=== PATIENT | female | born 1930 | race Caucasian/White ===

== ENCOUNTER 2017-03-20 11:33 | Emergency (ER) | payer MEDICARE ==
--- NOTE | 2017-03-20 13:19 | RAD ---
THORACIC SPINE THREE VIEW: HISTORY: Injury. Back pain after a fall. COMPARISON: None. FINDINGS: There is mild mid thoracic likely chronic height loss, at T7, T8, and T9. No acute fracture is appre ciated. No listhesis. IMPRESSION: Chronic changes. No acute fracture is appreciated. POS: OFF
--- NOTE | 2017-03-20 13:20 | RAD ---
PA CHEST WITH 3 VIEWS LEFT SIDE RIBS: Date: 03/20/17 HISTORY: Back pain post fall. Injury. COMPARISON: Chest x-ray on 05/21/13. FINDINGS: Cardiac silhouette and pulmonary vasculature are within normal limits. There are scattered increased interstitial densities within the lungs bilaterally, greater at the left lung base, which were also p resent on the prior study and may be related to chronic interstitial fibrotic lung changes. Cardiac s ilhouette and pulmonary vasculature are within normal limits for vascular calcification seen in the t horacic aorta. There is no pneumothorax or pleural effusion identified. No left-sided rib fracture is identified. There is osteopenia. Vascular calcifications are seen in the thoracic aorta. IMPRESSION: 1. Scattered mild interstitial densities in the lungs bilaterally, much greater at the lateral left lung base, and also present on the prior exam. Findings may be related to chronic interstitial fibrot ic lung changes and/or areas of scarring. 2. No left-sided rib fracture is visualized. 3. Prominence of the right paramediastinal soft tissues at the medial aspect right lung apex. Star islas, this is a stable finding dating back to 2009 and may be related to vascular structures. POS: [facility]
--- NOTE | 2017-03-20 13:30 | CT ---
CT OF THE BRAIN WITHOUT CONTRAST: Date: 03/20/17 COMPARISON: None. HISTORY: Back pain after accidental fall 2 days ago. TECHNIQUE: Multiple contiguous axial images were obtained in a CT of the brain without contrast. FINDINGS: There are a few scattered hypodensities in the subcortical and periventricular white matter, likely s econdary to small vessel ischemic disease. No large confluent infarction is seen. There is no evidenc e of hydrocephalus, intracranial hemorrhage, or extra-axial fluid collection. The calvarium and overlying soft tissues are unremarkable. Fluid is seen in the right mastoid air mark ls. IMPRESSION: No evidence of acute intracranial abnormality. POS: [facility]
== END 2017-03-20 13:58 | disposition home or self-care (01) ==
LOC: ERS 11:33
DX: S20.212A Contusion of left front wall of thorax, initial encounter (principal); S00.31XA Abrasion of nose, initial encounter; I25.10 Atherosclerotic heart disease of native coronary artery without angina pectoris; E11.9 Type 2 diabetes mellitus without complications; I10 Essential (primary) hypertension; F41.9 Anxiety disorder, unspecified; F32.9 Major depressive disorder, single episode, unspecified; W19.XXXA Unspecified fall, initial encounter
CPT/HCPCS: 70450; 72072

== ENCOUNTER 2017-03-22 10:30 | Inpatient (IN) | payer MEDICARE ==
[2017-03-22 11:44] LABS: #Eosinphils 0.1 thou/uL (0.0-0.7); #Monocytes 1.8 thou/uL (0.11-0.59); #Neutrophils 16.7 thou/uL (1.40-6.50); %Basophils 0.1 % (0.0-1.0); %Eosinophils 0.3 % (0.0-10.0); %Lymphocytes 5.2 % (21.0-51.0); %Monocytes 9.1 % (0.0-10.0); %Neutrophils 85.3 % (42.0-75.0); Hemoglobin 14.7 g/dL (12.0-16.0); Mean Corpuscular HGB CONC 31.5 g/dL (32.0-36.0); Mean Corpuscular Hemoglobin 29.6 pg (27.0-31.0); Mean Corpuscular Volume 93.9 fl (81.0-99.0); Mean Platelet Volume 7.6 fL (7.4-10.4); Platelet Count 227 thou/uL (130-400); Red Blood Cell (RBC) Count 4.96 mill/uL (4.20-5.40); White Blood Cell (WBC) Count 19.5 thou/uL (4.8-10.8)
[2017-03-22 11:50] LABS: ALT (SGPT) 10 U/L (8-55); AST (SGOT) 10 U/L (5-34); Albumin 3.6 g/dL (3.4-4.8); Alkaline Phosphatase 93 U/L (40-150); Anion Gap 20 mmol/L (10-20); BUN (Urea Nitrogen) 23 mg/dL (9.8-20.1); Bilirubin, Total 0.8 mg/dL (0.2-1.2); CK (CPK) 23 U/L (29-168); Calc. Creatinine Clearance 0 mL/min (70-130); Calcium 10.6 mg/dL (7.8-10.44); Carbon Dioxide 23 mmol/L (23-31); Chloride 97 mmol/L (98-107); Estimated GFR-MDRD 46; Globulin 4.7 g/dL (2.4-3.5); Glucose 383 mg/dL (83-110); Potassium 4.8 mmol/L (3.5-5.1); Protein, Total 8.3 g/dL (6.0-8.3); Sodium 135 mmol/L (136-145)
[2017-03-22 11:54] LABS: CKMB 1.5 ng/mL (0-6.6); Troponin I 0.031 ng/mL (< 0.028)
--- NOTE | 2017-03-22 12:08 | RAD ---
SINGLE VIEW OF THE CHEST: COMPARISON: 04/23/13 and 03/20/17. HISTORY: Fall on . The patient had a 2nd fall on Thursday causing her to hit her hit her back. Chest p ain and contusions. FINDINGS: A single view of the chest shows a normal-size cardiomediastinal silhouette with atherosclerotic calc ifications in the aorta. Increased interstitial lung markings are present. There may be a small rig ht pleural effusion. No pneumothorax is seen. There is no evidence of consolidation or mass. IMPRESSION: Possible small right pleural effusion. POS: [facility]
[2017-03-22 12:43] LABS: Magnesium 1.9 mg/dL (1.6-2.6)
[2017-03-22] MEDS ORDERED: Insulin Regular 300 UNITS/3 ML VIAL ONE (12:55)
[2017-03-22 14:53] LABS: Troponin I 0.031 ng/mL (< 0.028)
[2017-03-22 15:01] LABS: Bilirubin Small (Negative); Blood, Urine Negative (Negative); Clarity CLEAR (Clear); Glucose, Urine (Dipstick) >=1000 mg/dL (Negative); Leukocyte Negative (Negative); Nitrite Negative (Negative); Protein, Urine (Dipstick) 30 mg/dL (Neg-Trace); Specific Gravity, Urine 1.038 (1.002-1.036); pH, Urine 5.5 (5.0-9.0)
[2017-03-22 15:03] LABS: Bacteria/HPF 1+ HPF (None Seen); Hyaline Casts/LPF 0-3 HYALINE CAST LPF (0-3 Hyaline); RBC/HPF 0-3 HPF (0-3); Squamous Epithelial 0-3 HPF (0-3)
[2017-03-22] MEDS ORDERED: Lorazepam 2 MG/ML VIAL ONE ×2 (15:24→17:34)
[2017-03-22] MEDS ORDERED: Milk Of Magnesia 30 ML UDCUP PO PRN (16:03)
[2017-03-22] MEDS ORDERED: Nitroglycerin 0.4 MG TAB (25 Tab Bottle) SL PRN (16:03)
[2017-03-22] MEDS ORDERED: Acetaminophen 325 MG TAB PO PRN (16:03)
[2017-03-22] MEDS ORDERED: Mag-Al 1200 mg/1200 mg/30 ML UDCUP PO PRN (16:03)
[2017-03-22] MEDS ORDERED: Bisacodyl 5 MG TAB PO PRN (16:03)
[2017-03-22] MEDS ORDERED: diphenhydrAMINE 25 MG CAP PO PRN (16:03)
--- NOTE | 2017-03-22 17:01 | HP ---
DATE OF ADMISSION: 03/22/2017 PRIMARY CARE PHYSICIAN: Nathanael Simpson M.D. REASON FOR ADMISSION: Altered mental status, pneumonia, and dehydration. HISTORY OF PRESENT ILLNESS: Ms. Raquel Wright is an 86-year-old female with past medical history of hy pertension, hyperlipidemia, diabetes mellitus type 2 and coronary artery disease who presents to the emergency room complaining of mild shortness of breath as well as altered mental status that began ap proximately 2 days ago and has persisted. According to the family members who are at bedside, the cassie camargo was evaluated in the emergency room after having a fall. At that time, x-rays of the ribs reve aled no left-sided rib fractures. A CT scan at that time revealed evidence of acute intracranial abn ormality. She was then sent home with, according to the family, tramadol and Tylenol 3. She has taken 2 doses of the tramadol and according to the family member, she has not responded well. She began having sharon lucinations and altered mental status. There are no headaches or fevers reported. No cough or sick contacts and reported no chest pain. She returned back to the emergency room complaining of altered mental status. Initial evaluation here including chest x-ray revealed a small right pleural effusion with a white blood cell count of 19,000. She clinically appears to be dehydrated. The family state s that she has not had adequate oral intake with either solids or liquids. She is now being admitted to the telemetry floor for further evaluation. Currently, she is resting comfortably; however at ti mes she has begun agitated. PAST MEDICAL HISTORY: 1. Hypertension. 2. Hyperlipidemia. 3. Diabetes mellitus type 2. 4. Coronary artery disease. PAST SURGICAL HISTORY: 1. Appendectomy. 2. Cholecystectomy. 3. Hysterectomy as well as multiple exploratory laparotomies. CODE STATUS: She is FULL CODE. SOCIAL HISTORY: The patient denies any alcohol, tobacco or drug use. MEDICATIONS: 1. Janumet 1 tab p.o. daily. 2. Sertraline 25 mg p.o. at bedtime. 3. Pravastatin 80 mg p.o. daily. 4. Lisinopril 2.5 mg a day. 5. Carvedilol 12.5 mg p.o. b.i.d. 6. Aspirin 81 mg a day. 7. Protonix 40 mg daily. 8. Tramadol p.r.n. ALLERGIES: CODEINE, AZITHROMYCIN and SULFA. FAMILY HISTORY: Reviewed and noncontributory. REVIEW OF SYSTEMS: Much is obtained from the family members; however, from the patient himself is un able to obtain secondary to altered mental status. PHYSICAL EXAMINATION: CONSTITUTIONAL/VITAL SIGNS: Most recent blood pressure is 137/80, pulse is 98, respirations are 18, O2 saturation 92% on room air, temperature is 98.0. GENERAL: She is in no acute distress, nontoxic appearing. EYES: Show pupils are round and reactive to light and accommodation. No pale conjunctivae. ENT/MOUTH: Dry oral mucosa. No oral lesions. RESPIRATORY: Equal chest wall expansion. Does have decreased breath sounds on the right hemithorax with some mild rhonchi. No accessory muscle use. CARDIOVASCULAR: S1, S2 present. No murmurs, gallops or rubs. GASTROINTESTINAL: Soft, nontender, nondistended. Bowel sounds are present in all 4 quadrants. MUSCULOSKELETAL: Good range of motion in all 4 extremities. No clubbing, no cyanosis. LYMPHATIC: No swollen painful cervical or axillary nodes. NEUROLOGIC: No ptosis, no facial sensation or jaw protrusion. No muscle weakness noted. No focal d eficits. PSYCHIATRIC: She is awake and alert, however, unable to assess orientation secondary to her mentatio n. SKIN: Poor skin turgor. LABORATORY AND X-RAY FINDINGS: Taken in emergency room and reviewed by me showed WBC of 19.5, hemogl obin 14.7, hematocrit 46.6, platelet count 227,000. Chemistry shows sodium of 135, potassium 4.8, ch loride 97, carbon dioxide 23, anion gap 20, BUN 23, creatinine 1.12, calcium is 10.6, phosphorus 2.0, magnesium 1.9. CK is 23, troponin 0.031 and second 0.031 and lipase is 5. TSH 1.0586. Urine shows glucosuria. Tox screen shows beta hydroxybutyrate 0.75. Chest x-ray done in the emergency room and reviewed by me reveals small right pleural effusion. Ther e is no pneumothorax. EKG done in the emergency room reviewed by me shows normal sinus rhythm, no acute ST segment abnormal ities. ASSESSMENT AND PLAN: Mrs. Raquel Wright is an 86-year-old female with past medical history of hyperten sangita, hyperlipidemia, and diabetes mellitus type 2 who presents to the emergency room complaining of altered mental status. 1. Altered mental status. At this time, the patient will be admitted to telemetry floor. Her alter ed mental status is most likely a combination of her dehydration, coupled with her underlying infecti ous process. We will check a repeat CT scan of the brain to ensure no acute cerebrovascular accident . We will start patient on Levaquin therapy as well as IV hydration. We will try to minimize any se dating or antipsychotic agents. 2. Elevated troponins, most likely secondary to demand ischemia. We will check an echocardiogram an d treated medically at this time. Further treatment would be dependent on echocardiogram results. 3. Hypercalcemia secondary to dehydration. We will start IV fluids and monitor. 4. Hypophosphatemia. We will replete. 5. Resume selected home medications. 6. P.r.n. order set. 7. Deep venous thrombosis prophylaxis. 8. Cardiac diet. 9. FULL CODE. 10. I have explained all this to the patient at bedside as well as the family members at bedside. Maxi hatch are agreeable to the plan of treatment. All questions have been answered. The patient's further hospital course will be dictated by her clinical course while here.
--- NOTE | 2017-03-22 17:05 | CT ---
CT HEAD WITHOUT CONTRAST: Technique: Multiple axial tomograms were obtained through the head without IV enhancement. History: Altered mental status. FINDINGS: Mild cortical atrophy. No evidence of focal hemorrhage. No infarct or mass. There is opacification of the right mastoid air cells. Mucosal edema is seen in the right sphenoid air cell. IMPRESSION: 1. No acute intracranial abnormality identified. 2. Mucosal edema in the right mastoid and right sphenoid air cells. POS: [facility]
[2017-03-22 18:42] LABS: Troponin I 0.033 ng/mL (< 0.028)
[2017-03-22] MEDS: Carvedilol 25 MG TAB PO SCH (20:16)
[2017-03-22] MEDS: Pravastatin Sodium 40 MG TAB PO SCH (20:16)
[2017-03-22] MEDS: Sodium Chloride 0.9% 1,000 ML IV SCH (20:17)
[2017-03-23] MEDS: Sodium Chloride 0.9% 1,000 ML IV SCH ×2 (05:34→12:34)
[2017-03-23 05:40] LABS: Anion Gap 16 mmol/L (10-20); BUN (Urea Nitrogen) 16 mg/dL (9.8-20.1); Calc. Creatinine Clearance 50 mL/min (70-130); Carbon Dioxide 18 mmol/L (23-31); Chloride 104 mmol/L (98-107); Estimated GFR-MDRD 73; Glucose 212 mg/dL (83-110); Potassium 3.9 mmol/L (3.5-5.1); Sodium 134 mmol/L (136-145)
[2017-03-23 06:13] LABS: Band 15 % (5-11); Hemoglobin 11.6 g/dL (12.0-16.0); Lymphocytes 6 % (21-51); MDiff Complete? YES; Mean Corpuscular HGB CONC 33.4 g/dL (32.0-36.0); Mean Corpuscular Hemoglobin 31.2 pg (27.0-31.0); Mean Corpuscular Volume 93.6 fl (81.0-99.0); Mean Platelet Volume 7.3 fL (7.4-10.4); Monocytes 7 % (0-10); Neutrophil 72 % (42-75); Platelet Count 251 thou/uL (130-400); RBC Distribution Width 11.8 % (11.5-14.5); Red Blood Cell (RBC) Count 3.71 mill/uL (4.20-5.40); White Blood Cell (WBC) Count 18.9 thou/uL (4.8-10.8)
[2017-03-23] MEDS ORDERED: Dextrose 5% in Water 1,000 ML IV PRN (07:00)
[2017-03-23] MEDS ORDERED: Dextrose 50% Abboject 50 ML SYRINGE SLOW IVP PRN (07:00)
[2017-03-23] MEDS ORDERED: HumaLOG 300 UNITS/3 ML VIAL SC PRN (07:00)
[2017-03-23] MEDS ORDERED: Artificial Tears 18 DROP/0.9 ML EA EYE PRN (07:01)
[2017-03-23] MEDS ORDERED: Diabetic Tussin 200 MG/10 ML UDCUP PO PRN (07:01)
[2017-03-23] MEDS ORDERED: Loratadine 10 MG TAB PO PRN (07:01)
[2017-03-23] MEDS ORDERED: Sodium Chloride 0.65% Nasal 44 ML BOT EA NARE PRN (07:01)
[2017-03-23] MEDS ORDERED: Ondansetron ODT 4 MG TAB PO PRN (07:01)
[2017-03-23] MEDS ORDERED: Eucerin (Mineral Oil/Petrolatum,White) 30 gm Jar TOP PRN (07:01)
[2017-03-23] MEDS ORDERED: Benzonatate 100 MG CAP PO PRN (07:01)
[2017-03-23] MEDS ORDERED: Chloraseptic Spray 180 ml Bottle PO PRN (07:01)
[2017-03-23] MEDS ORDERED: Zolpidem Tartrate 5 MG TAB PO PRN (07:01)
[2017-03-23] MEDS: Alogliptin 25 MG TAB PO SCH (08:34)
[2017-03-23] MEDS: Carvedilol 25 MG TAB PO SCH ×2 (08:34→21:07)
[2017-03-23] MEDS: Escitalopram Oxalate 10 mg Tablet PO SCH (08:35)
[2017-03-23] MEDS: Lisinopril 2.5 MG TAB PO SCH (08:35)
[2017-03-23] MEDS: metFORMIN 500 MG TAB PO SCH (08:35)
[2017-03-23] MEDS ORDERED: Famotidine 20 MG TAB PO SCH (09:00)
[2017-03-23] MEDS ORDERED: Non-Formulary Item 1 EACH (Sitagliptin Phos/Metformin Hcl [Janumet] 1 TABLET) PO SCH (09:00)
[2017-03-23] MEDS ORDERED: Aspirin 81 mg Enteric Coated Tablet PO SCH (09:00)
--- NOTE | 2017-03-23 12:07 | PDOC.PN ---
- Subjective Encounter Start Date: 03/23/17 Encounter Start Time: 07:50 -: old records requested/rev pt is still confused, weak, she is NPO, bedside - Objective Resuscitation Status: Resuscitation Status FULL:Full Resuscitation MAR Reviewed: Yes Vital Signs & Weight: Vital Signs (12 hours) Temp Pulse Resp BP Pulse Ox 03/23/17 10:50 98.6 F 73 21 H 178/72 H 100 03/23/17 08:35 80 03/23/17 08:30 99.1 F 80 16 175/74 H 97 03/23/17 03:12 98.8 F 80 20 149/67 H 97 Weight Admit Weight 127 lb 11.2 oz Weight 127 lb 11.2 oz I&O: 03/22/17 03/23/17 03/24/17 06:59 06:59 06:59 Intake Total 1350 Balance 1350 Result Diagrams: 03/23/17 04:27 03/23/17 04:27 Additional Labs: Accuchecks 03/23/17 03/22/17 06:39 20:40 POC Glucose 188 H 121 H Radiology Reviewed by me: Yes EKG Reviewed by me: Yes (nsr) Phys Exam - Physical Examination Constitutional: NAD HEENT: PERRLA, moist MMs, sclera anicteric Neck: no JVD, supple Respiratory: no wheezing, no rales, no rhonchi Cardiovascular: RRR, no significant murmur, no rub Gastrointestinal: soft, non-tender, no distention, positive bowel sounds Musculoskeletal: no edema, pulses present Neurological: moves all 4 limbs Lymphatic: no nodes Psychiatric: normal affect Skin: no rash, normal turgor Dx/Plan (1) Acute kidney injury Code(s): N17.9 - ACUTE KIDNEY FAILURE, UNSPECIFIED Status: Acute (2) Altered mental status Code(s): R41.82 - ALTERED MENTAL STATUS, UNSPECIFIED Status: Acute (3) Dehydration Code(s): E86.0 - DEHYDRATION Status: Acute (4) Elevated troponin Code(s): R74.8 - ABNORMAL LEVELS OF OTHER SERUM ENZYMES Status: Acute (5) Hypophosphatemia Code(s): E83.39 - OTHER DISORDERS OF PHOSPHORUS METABOLISM Status: Acute (6) Anxiety and depression Code(s): F41.8 - OTHER SPECIFIED ANXIETY DISORDERS Status: Chronic (7) Diabetes type 2, controlled Code(s): E11.9 - TYPE 2 DIABETES MELLITUS WITHOUT COMPLICATIONS Status: Chronic (8) Dyslipidemia Code(s): E78.5 - HYPERLIPIDEMIA, UNSPECIFIED Status: Chronic (9) Pneumonia Code(s): J18.9 - PNEUMONIA, UNSPECIFIED ORGANISM Status: Suspected - Plan cont current plan of care, plan discussed w/ family, continue antibiotics, PT/OT * continue IVF * continue levaquin . * Echo pending * medication reviewed as below * symptomatic treatment * discussed with * selected home meds * follow culture * check c-diff * check viral panel Review of Systems - Review of Systems Other: not reliable due to her cognitive status - Medications/Allergies Allergies/Adverse Reactions: Allergies Allergy/AdvReac Type Severity Reaction Status Date / Time azithromycin Allergy Verified 03/22/17 22:09 codeine Allergy Verified 03/22/17 22:09 Sulfa (Sulfonamide Allergy Verified 03/22/17 22:09 Antibiotics) tramadol Allergy Verified 03/22/17 22:09 Medications: Current Medications Acetaminophen (Tylenol) 650 mg PO Q4H PRN PRN Reason: Headache/Fever or Mild Pain Al Hydroxide/Mg Hydroxide (Maalox) 30 ml PO Q6H PRN PRN Reason: Heartburn or Indigestion Alogliptin Benzoate (Alogliptin) 12.5 mg PO DAILY [facility] Last Admin: 03/23/17 08:34 Dose: 12.5 mg Amitriptyline HCl (Elavil) 25 mg PO HS [facility] Artificial Tears (Tears Naturale) 0 drop EA EYE PRN PRN PRN Reason: Dry Eyes Aspirin (Aspirin Chewable) 81 mg PO DAILY [facility] Last Admin: 03/23/17 08:35 Dose: 81 mg Benzonatate (Tessalon) 100 mg PO Q4H PRN PRN Reason: Cough Bisacodyl (Dulcolax) 10 mg PO DAILYPRN PRN PRN Reason: Constipation Carvedilol (Coreg) 12.5 mg PO BID [facility] Last Admin: 03/23/17 08:34 Dose: 12.5 mg Dextrose/Water (Dextrose 50%) 25 gm SLOW IVP PRN PRN PRN Reason: Hypoglycemia Diphenhydramine HCl (Benadryl) 25 mg PO Q4H PRN PRN Reason: Itching Escitalopram Oxalate (Lexapro) 10 mg PO DAILY [facility] Last Admin: 03/23/17 08:35 Dose: 10 mg Famotidine (Pepcid) 20 mg PO BID [facility] Last Admin: 03/23/17 08:35 Dose: 20 mg Glucagon (Glucagon) 1 mg IM PRN PRN PRN Reason: Hypoglycemia Guaifenesin (Robitussin Sf) 200 mg PO Q4H PRN PRN Reason: Cough Hydralazine HCl (Apresoline) 10 mg SLOW IVP Q4H PRN PRN Reason: Systolic BP > 180 Levofloxacin 750 mg/ Device 150 mls @ 100 mls/hr IVPB 1300 EHSAN Sodium Chloride (Normal Saline 0.9%) 1,000 mls @ 100 mls/hr IV .Q10H [facility] Last Admin: 03/23/17 05:34 Dose: 1,000 mls Dextrose/Water (D5w) 1,000 mls @ 0 mls/hr IV .Q0M PRN; As Directed PRN Reason: Hypoglycemia Insulin Human Lispro (Humalog) 0 units SC .MODERATE SLIDING SC PRN PRN Reason: Moderate Correctional Scale Insulin Human Lispro (Humalog) 0 units SC .BEDTIME SLIDING SC PRN PRN Reason: Bedtime Correctional Scale Lisinopril (Zestril) 2.5 mg PO DAILY [facility] Last Admin: 03/23/17 08:35 Dose: 2.5 mg Loratadine (Claritin) 10 mg PO DAILYPRN PRN PRN Reason: Sinus Symptoms Magnesium Hydroxide (Milk Of Magnesium) 30 ml PO DAILYPRN PRN PRN Reason: Constipation Metformin HCl (Glucophage) 500 mg PO QAM [facility] Last Admin: 03/23/17 08:35 Dose: 500 mg Mineral Oil/White Petrolatum (Eucerin Cream) 0 gm TOP BIDPRN PRN PRN Reason: Dry Skin Nitroglycerin (Nitrostat) 0.4 mg SL Q5MIN PRN PRN Reason: Chest Pain Ondansetron HCl (Zofran) 4 mg IVP Q6H PRN PRN Reason: Nausea/Vomiting Ondansetron HCl (Zofran Odt) 4 mg PO Q6H PRN PRN Reason: Nausea/Vomiting Phenol (Chloraseptic [place] 180 Ml Bot) 0 ml PO PRN PRN PRN Reason: Sore Throat Pravastatin Sodium (Pravachol) 80 mg PO HS [facility] Last Admin: 03/22/17 20:16 Dose: 80 mg Sertraline HCl (Zoloft) 25 mg PO [facility] Last Admin: 03/22/17 20:17 Dose: 25 mg Sodium Chloride ([place] Nasal [place] 0.65%) 0 ml EA NARE QIDPRN PRN PRN Reason: Nasal Congestion Zolpidem Tartrate (Ambien) 5 mg PO HSPRN PRN PRN Reason: Insomnia
[2017-03-23] MEDS ORDERED: Bisacodyl 10 MG SUPP PR PRN (12:28)
[2017-03-23] MEDS ORDERED: Labetalol HCl 100 MG/20 ML VIAL SLOW IVP PRN (12:28)
[2017-03-23] MEDS ORDERED: Acetaminophen 650 MG Suppository PR PRN (12:28)
[2017-03-23] MEDS ORDERED: Fleet Enema 133 ML BOT PR PRN (12:28)
[2017-03-23] MEDS: Dextrose 5 %-0.45 % NaCl 1,000 ML IV SCH ×2 (13:42→21:14)
--- NOTE | 2017-03-23 13:52 | PQF ---
LIZBETH ANGULO SALIM NOORJIBHAI MD [id number] [id number] CLINICAL DOCUMENTATION IMPROVEMENT CLARIFICATION FORM: ICD-10 Updated PLEASE DO AN ADDENDUM TO THE PROGRESS NOTE WITH ANY DOCUMENTATION UPDATES OR ADDITIONS AND CARRY THROUGH TO DC SUMMARY. THANK YOU. DATE: 03-23-17 ATTN: DR. ARELLANO Please exercise your independent, professional judgment in responding to the clarification form. Clinical indicators are provided on the bottom of this form for your review Please check appropriate box(s): [x ] Encephalopathy: Type: [ x ] Acute [ ] Subacute [ ] Chronic Etiology: [ ] Metabolic [ ] Hypoxic [ ] Septic [ x ] Unspecified [ ] in the setting of underlying dementia [ ] Other (please specify) [ ] Transient Alteration of Awareness [ ] Other diagnosis [ ] Unable to determine For continuity of documentation, please document condition throughout progress notes and discharge summary. Thank You. CLINICAL INDICATORS - SIGNS / SYMPTOMS / LABS H&P: AMS - MOST LIKELY A COMBINATION OF DEHYDRATION, COUPLED W/ HER UNDERLYING INFECTIOUS PROCESS 03-23 PN : STILL CONFUSED/ WEAK ER: PULSE 93 - 100 RESP 16 - 03-22 TEMP 99.5 / PULSE 104 / RESP 03-22 WBC 19.5 03-22 CXR: POSSIBLE SMALL RIGHT PLEURAL EFFUSION RISK FACTORS ER: PNA H&P: PNA / DEHYDRATION / DEMAND ISCHEMIA 03-23 PN : SUSPECTED PNA / GLORIA / AMS / DEHYDRATION TREATMENTS: H&P: MINIMIZE SEDATING OR ANTIPSYCHOTIC AGENTS CT TO INSURE NO ACUTE CVA - NEGATIVE CPOE: 03-22 BLOOD CULTURES URINE CULTURE MAR: LEVAQUIN 03-22 / 03-23 IVF THANK YOU, VIOLET (This form is maintained as a part of the permanent medical record) 2014 [employer]. All Rights Reserved Violet Guevara RN, BS [email or web address]
[2017-03-23] MEDS: Pravastatin Sodium 40 MG TAB PO SCH (21:07)
[2017-03-23] MEDS: Amitriptyline HCl 25 MG TAB PO SCH (21:07)
[2017-03-24 05:28] LABS: ALT (SGPT) 10 U/L (8-55); AST (SGOT) 19 U/L (5-34); Albumin 2.8 g/dL (3.4-4.8); Alkaline Phosphatase 81 U/L (40-150); Anion Gap 14 mmol/L (10-20); BUN (Urea Nitrogen) 11 mg/dL (9.8-20.1); Bilirubin, Total 0.8 mg/dL (0.2-1.2); Calc. Creatinine Clearance 54 mL/min (70-130); Calcium 8.4 mg/dL (7.8-10.44); Carbon Dioxide 19 mmol/L (23-31); Chloride 100 mmol/L (98-107); Estimated GFR-MDRD 78; Globulin 3.4 g/dL (2.4-3.5); Glucose 226 mg/dL (83-110); Potassium 3.3 mmol/L (3.5-5.1); Protein, Total 6.2 g/dL (6.0-8.3); Sodium 130 mmol/L (136-145)
[2017-03-24 05:33] LABS: Band 14 % (5-11); Eosinophils 1 % (0-10); Hemoglobin 11.7 g/dL (12.0-16.0); Lymphocytes 1 % (21-51); MDiff Complete? YES; Mean Corpuscular HGB CONC 32.2 g/dL (32.0-36.0); Mean Corpuscular Hemoglobin 29.8 pg (27.0-31.0); Mean Corpuscular Volume 92.5 fl (81.0-99.0); Mean Platelet Volume 7.4 fL (7.4-10.4); Monocytes 7 % (0-10); Neutrophil 77 % (42-75); Platelet Count 265 thou/uL (130-400); RBC Distribution Width 11.6 % (11.5-14.5); Red Blood Cell (RBC) Count 3.94 mill/uL (4.20-5.40); White Blood Cell (WBC) Count 19.9 thou/uL (4.8-10.8)
[2017-03-24] MEDS: Dextrose 5 %-0.45 % NaCl 1,000 ML IV SCH ×3 (08:42→21:08)
[2017-03-24] MEDS: Alogliptin 25 MG TAB PO SCH (08:45)
[2017-03-24] MEDS: Carvedilol 25 MG TAB PO SCH ×2 (08:45→21:07)
[2017-03-24] MEDS: Pantoprazole 40 MG VIAL IVP SCH (08:46)
[2017-03-24] MEDS: Escitalopram Oxalate 10 mg Tablet PO SCH (08:46)
[2017-03-24] MEDS: Lisinopril 2.5 MG TAB PO SCH (08:46)
[2017-03-24] MEDS: metFORMIN 500 MG TAB PO SCH (08:46)
--- NOTE | 2017-03-24 11:35 | PDOC.PN ---
- Subjective Encounter Start Date: 03/24/17 Encounter Start Time: 11:30 Subjective: f/u for AMS and suspected UTI with Enterococcus on Levaquin. Still -: lethargic and confused per family. - Objective Resuscitation Status: Resuscitation Status FULL:Full Resuscitation MAR Reviewed: Yes Vital Signs & Weight: Vital Signs (12 hours) Temp Pulse Resp BP BP Pulse Ox 03/24/17 08:40 97.1 F L 75 24 H 175/75 H 97 03/24/17 04:00 98.2 F 77 20 163/67 H 100 Weight Admit Weight 127 lb 11.2 oz Weight 127 lb 11.2 oz I&O: 03/23/17 03/24/17 03/25/17 06:59 06:59 06:59 Intake Total 1350 3521 Balance 1350 3521 Result Diagrams: 03/24/17 04:14 03/24/17 04:14 Additional Labs: Accuchecks 03/24/17 03/23/17 03/23/17 06:35 20:23 16:30 POC Glucose 213 H 155 H 185 H 03/23/17 11:33 POC Glucose 220 H Microbiology 03/23/17 14:00 Nasopharyngeal swab Respiratory Panel (PCR) - Final 03/23/17 12:00 Stool C. difficile GDH Antigen & Toxins - Final 03/22/17 14:40 Urine Straight Catheter Urine Culture - Preliminary Enterococcus species 03/22/17 13:03 Venous blood - Right Hand Blood Culture - Preliminary Specimen has been received and culture in progress. No Growth to date. 03/22/17 13:03 Venous blood - Right Hand Blood Culture - Preliminary Specimen has been received and culture in progress. No Growth to date. Laboratory Tests 03/22/17 03/22/17 03/23/17 11:17 11:25 04:27 WBC 19.5 H Neutrophils % 85.3 H Neutrophils % (Manual) Band Neuts % (Manual) Sodium 135 L 134 L Potassium 4.8 3.9 03/23/17 03/24/17 04:27 04:14 WBC 18.9 H Neutrophils % Neutrophils % (Manual) 72 77 H Band Neuts % (Manual) 15 H 14 H Sodium Potassium Radiology Reviewed by me: Yes (2D Echo - EF 60%, mild TR/AR) EKG Reviewed by me: Yes (Tele - SR ) Phys Exam - Physical Examination answers questions briefly, opens eyes and tracks to name/voice white plaques on tongue HEENT: PERRLA Neck: no JVD, supple Respiratory: no wheezing, clear to auscultation bilateral Cardiovascular: RRR Gastrointestinal: soft, non-tender, no distention, positive bowel sounds Musculoskeletal: no edema, pulses present Neurological: normal sensation, moves all 4 limbs A x O x 1 Skin: normal turgor, cap refill <2 seconds Dx/Plan (1) Encephalopathy acute Code(s): G93.40 - ENCEPHALOPATHY, UNSPECIFIED Status: Acute Comment: Suspect due #2, continue tx as outlined in #2, supportive mgmt (2) UTI (urinary tract infection) due to Enterococcus Code(s): N39.0 - URINARY TRACT INFECTION, SITE NOT SPECIFIED; B95.2 - ENTEROCOCCUS THE CAUSE OF DISEASES CLASSIFIED ELSEWHERE Status: Acute Comment: continue Levaquin and add Zosyn 3.375gm IV q6h until final Ucx sensitivities available (3) Dehydration Code(s): E86.0 - DEHYDRATION Status: Acute Comment: Resolved (4) Elevated troponin Code(s): R74.8 - ABNORMAL LEVELS OF OTHER SERUM ENZYMES Status: Acute (5) Diabetes type 2, controlled Code(s): E11.9 - TYPE 2 DIABETES MELLITUS WITHOUT COMPLICATIONS Status: Chronic (6) Neutrophilic leukocytosis Code(s): D72.9 - DISORDER OF WHITE BLOOD CELLS, UNSPECIFIED Status: Acute (7) Oral thrush Code(s): B37.0 - CANDIDAL STOMATITIS Status: Acute Comment: Nystatin SSW QID prn - Plan plan discussed w/ family, continue antibiotics, out of bed/ambulate, DVT proph w /SCDs Stable currently -: Add Zosyn 3.375gm IV q6h -: Await final Ucx sensitivities -: Continue IVF's, increase 125ml/h -: Start Nystatin SSW QID prn * AM lab: BMP, CBC
[2017-03-24] MEDS: Piperacillin/Tazobactam 3.375 GM in Sodium Chloride 0.9% 100 ML IVPB SCH ×2 (13:02→17:59)
[2017-03-24] MEDS: Nystatin 500,000 UNITS/5 ML UDCUP SSW SCH ×3 (13:02→21:07)
[2017-03-24] MEDS: Acetaminophen 325 MG TAB PO PRN (17:59)
[2017-03-24] MEDS: Pravastatin Sodium 40 MG TAB PO SCH (21:07)
[2017-03-24] MEDS: Amitriptyline HCl 25 MG TAB PO SCH (21:07)
[2017-03-25] MEDS: Piperacillin/Tazobactam 3.375 GM in Sodium Chloride 0.9% 100 ML IVPB SCH ×5 (00:06→23:06)
[2017-03-25 05:31] LABS: Anion Gap 8 mmol/L (10-20); BUN (Urea Nitrogen) 8 mg/dL (9.8-20.1); Calc. Creatinine Clearance 53 mL/min (70-130); Calcium 8.1 mg/dL (7.8-10.44); Carbon Dioxide 25 mmol/L (23-31); Chloride 99 mmol/L (98-107); Estimated GFR-MDRD 77; Glucose 294 mg/dL (83-110); Potassium 3.1 mmol/L (3.5-5.1); Sodium 129 mmol/L (136-145)
[2017-03-25] MEDS: Dextrose 5 %-0.45 % NaCl 1,000 ML IV SCH ×4 (06:27→23:06)
[2017-03-25 06:30] LABS: Band 14 % (5-11); Eosinophils 3 % (0-10); Hemoglobin 11.1 g/dL (12.0-16.0); Lymphocytes 7 % (21-51); MDiff Complete? YES; Mean Corpuscular HGB CONC 32.4 g/dL (32.0-36.0); Mean Corpuscular Hemoglobin 29.7 pg (27.0-31.0); Mean Corpuscular Volume 91.7 fl (81.0-99.0); Mean Platelet Volume 6.9 fL (7.4-10.4); Monocytes 4 % (0-10); Neutrophil 72 % (42-75); Platelet Count 296 thou/uL (130-400); RBC Distribution Width 11.6 % (11.5-14.5); Red Blood Cell (RBC) Count 3.74 mill/uL (4.20-5.40); White Blood Cell (WBC) Count 14.6 thou/uL (4.8-10.8)
[2017-03-25] MEDS: Alogliptin 25 MG TAB PO SCH (09:21)
[2017-03-25] MEDS: Lisinopril 2.5 MG TAB PO SCH (09:21)
[2017-03-25] MEDS: Pantoprazole 40 MG VIAL IVP SCH (09:22)
[2017-03-25] MEDS: Nystatin 500,000 UNITS/5 ML UDCUP SSW SCH ×4 (09:22→22:54)
[2017-03-25] MEDS: Escitalopram Oxalate 10 mg Tablet PO SCH (09:22)
[2017-03-25] MEDS: Carvedilol 25 MG TAB PO SCH ×2 (09:22→22:54)
[2017-03-25] MEDS: metFORMIN 500 MG TAB PO SCH (09:22)
--- NOTE | 2017-03-25 13:04 | PDOC.PN ---
- Subjective Encounter Start Date: 03/25/17 Encounter Start Time: 13:00 Subjective: f/u for AMS due to UTI with enterococcus spp. Currently on Zosyn and mental -: status improving. Appetite lagging but no emesis. Voiding appropriately but -: requires 1-2 person assist. - Objective Resuscitation Status: Resuscitation Status FULL:Full Resuscitation MAR Reviewed: Yes Vital Signs & Weight: Vital Signs (12 hours) Temp Pulse Resp BP Pulse Ox 03/25/17 09:15 98.7 F 69 18 166/82 H 95 03/25/17 04:00 97.1 F L 75 20 164/69 H 93 L Weight Admit Weight 127 lb 11.2 oz Weight 131 lb 11.2 oz I&O: 03/24/17 03/25/17 03/26/17 06:59 06:59 06:59 Intake Total 3521 1682 1635 Balance 3521 1682 1635 Result Diagrams: 03/25/17 04:42 03/25/17 04:42 Additional Labs: Accuchecks 03/25/17 03/25/17 03/24/17 11:48 05:55 20:45 POC Glucose 277 H 292 H 248 H 03/24/17 16:17 POC Glucose 234 H Microbiology 03/23/17 14:00 Nasopharyngeal swab Respiratory Panel (PCR) - Final 03/23/17 12:00 Stool C. difficile GDH Antigen & Toxins - Final 03/22/17 14:40 Urine Straight Catheter Urine Culture - Final Enterococcus species 03/22/17 14:40 Urine Straight Catheter Urine Culture - Preliminary Enterococcus species 03/22/17 13:03 Venous blood - Right Hand Blood Culture - Preliminary Specimen has been received and culture in progress. No Growth to date. 03/22/17 13:03 Venous blood - Right Hand Blood Culture - Preliminary Specimen has been received and culture in progress. No Growth to date. Laboratory Tests 03/22/17 03/22/17 03/23/17 11:17 11:25 04:27 WBC 19.5 H Neutrophils % 85.3 H Neutrophils % (Manual) Band Neuts % (Manual) Sodium 135 L 134 L Potassium 4.8 3.9 03/23/17 03/24/17 03/24/17 04:27 04:14 04:14 WBC 18.9 H Neutrophils % Neutrophils % (Manual) 72 77 H Band Neuts % (Manual) 15 H 14 H Sodium 130 L Potassium 3.3 L EKG Reviewed by me: Yes (Tele -SR in 60's) Phys Exam - Physical Examination Constitutional: NAD alert,smiling, responsive HEENT: PERRLA, oral pharynx no lesions Neck: no nodes, no JVD, supple Respiratory: no wheezing, clear to auscultation bilateral Cardiovascular: RRR Gastrointestinal: soft, non-tender, no distention, positive bowel sounds Musculoskeletal: no edema, pulses present Neurological: normal sensation, moves all 4 limbs A x O x 2 Skin: normal turgor, cap refill <2 seconds Dx/Plan (1) Encephalopathy acute Code(s): G93.40 - ENCEPHALOPATHY, UNSPECIFIED Status: Acute Comment: Suspect due #2, continue tx as outlined in #2, supportive mgmt, slow improvement (2) UTI (urinary tract infection) due to Enterococcus Code(s): N39.0 - URINARY TRACT INFECTION, SITE NOT SPECIFIED; B95.2 - ENTEROCOCCUS THE CAUSE OF DISEASES CLASSIFIED ELSEWHERE Status: Acute Comment: continue Levaquin and add Zosyn 3.375gm IV q6h until final Ucx sensitivities available, continue double-coverage another 24h then de-escalate therapy to single agent (3) Dehydration Code(s): E86.0 - DEHYDRATION Status: Acute Comment: Resolved, decrease IVF 75ml/h (4) Elevated troponin Code(s): R74.8 - ABNORMAL LEVELS OF OTHER SERUM ENZYMES Status: Acute Comment: Demand ischemia (5) Diabetes type 2, controlled Code(s): E11.9 - TYPE 2 DIABETES MELLITUS WITHOUT COMPLICATIONS Status: Chronic (6) Neutrophilic leukocytosis Code(s): D72.9 - DISORDER OF WHITE BLOOD CELLS, UNSPECIFIED Status: Acute Comment: Improved, continue current tx, CBC in am (7) Oral thrush Code(s): B37.0 - CANDIDAL STOMATITIS Status: Acute Comment: Nystatin SSW QID prn - Plan plan discussed w/ family, continue antibiotics, PT/OT, hospice social worker, speech therapy Stable overall -: Continue Zosyn and Levaquin another 24h then de-escalate -: Continue Nystatin SSW -: Add KCL 40meq BID -: AM lab: BMP, CBC * Add Glucerna BID
[2017-03-25] MEDS ORDERED: Potassium Chloride 20 MEQ TAB PO SCH ×2 (13:15→14:00)
[2017-03-25] MEDS: Potassium Chloride 20 MEQ TAB PO SCH (17:52)
[2017-03-25] MEDS: Amitriptyline HCl 25 MG TAB PO SCH (22:54)
[2017-03-25] MEDS: Pravastatin Sodium 40 MG TAB PO SCH (22:54)
[2017-03-26] MEDS: diphenhydrAMINE 50 MG/ML VIAL IVP PRN (02:08)
[2017-03-26 05:32] LABS: Anion Gap 10 mmol/L (10-20); BUN (Urea Nitrogen) 7 mg/dL (9.8-20.1); Calc. Creatinine Clearance 49 mL/min (70-130); Calcium 8.5 mg/dL (7.8-10.44); Carbon Dioxide 24 mmol/L (23-31); Chloride 105 mmol/L (98-107); Estimated GFR-MDRD 67; Glucose 209 mg/dL (83-110); Sodium 135 mmol/L (136-145)
[2017-03-26 05:40] LABS: Band 3 % (5-11); Eosinophils 2 % (0-10); Hemoglobin 11.1 g/dL (12.0-16.0); Lymphocytes 18 % (21-51); MDiff Complete? YES; Mean Corpuscular HGB CONC 33.4 g/dL (32.0-36.0); Mean Corpuscular Hemoglobin 30.8 pg (27.0-31.0); Mean Corpuscular Volume 92.2 fl (81.0-99.0); Mean Platelet Volume 6.5 fL (7.4-10.4); Monocytes 5 % (0-10); Neutrophil 70 % (42-75); PLT Morphology Comment Appears Adequate; Platelet Count 331 thou/uL (130-400); RBC Distribution Width 11.8 % (11.5-14.5); RBC Morphology Normal; Reactive Lymphocytes 2 % (0-10); White Blood Cell (WBC) Count 13.6 thou/uL (4.8-10.8)
[2017-03-26] MEDS: Piperacillin/Tazobactam 3.375 GM in Sodium Chloride 0.9% 100 ML IVPB SCH ×3 (06:01→17:28)
[2017-03-26] MEDS: Pantoprazole 40 MG VIAL IVP SCH (11:16)
[2017-03-26] MEDS: Alogliptin 25 MG TAB PO SCH (11:17)
[2017-03-26] MEDS: Lisinopril 2.5 MG TAB PO SCH (11:17)
[2017-03-26] MEDS: Nystatin 500,000 UNITS/5 ML UDCUP SSW SCH ×4 (11:17→21:42)
[2017-03-26] MEDS: Potassium Chloride 20 MEQ TAB PO SCH ×2 (11:22→17:29)
[2017-03-26] MEDS: Carvedilol 25 MG TAB PO SCH ×2 (11:22→21:41)
[2017-03-26] MEDS: Escitalopram Oxalate 10 mg Tablet PO SCH (11:23)
[2017-03-26] MEDS: metFORMIN 500 MG TAB PO SCH (11:23)
--- NOTE | 2017-03-26 12:46 | PDOC.PN ---
- Subjective Encounter Start Date: 03/26/17 Encounter Start Time: 12:35 Subjective: f/u for encephalopathy due to UTI with Enterococcus. Receiving -: Levaquin and Zosyn but confusion still present. Feels weak. - Objective Resuscitation Status: Resuscitation Status FULL:Full Resuscitation MAR Reviewed: Yes Vital Signs & Weight: Vital Signs (12 hours) Temp Pulse Resp BP BP Pulse Ox 03/26/17 11:17 68 182/72 H 03/26/17 08:00 98.0 F 68 18 182/72 H 93 L 03/26/17 04:00 98.4 F 68 18 136/84 98 Weight Admit Weight 127 lb 11.2 oz Weight 132 lb 4.8 oz I&O: 03/25/17 03/26/17 03/27/17 06:59 06:59 06:59 Intake Total 1682 1635 Balance 1682 1635 Result Diagrams: 03/26/17 04:49 03/26/17 04:49 Additional Labs: Accuchecks 03/26/17 03/26/17 03/25/17 11:18 05:31 20:31 POC Glucose 210 H 230 H 159 H 03/25/17 17:09 POC Glucose 145 H EKG Reviewed by me: Yes (Tele - SR in 70's) Phys Exam - Physical Examination Constitutional: NAD alert, responds to questions HEENT: PERRLA, oral pharynx no lesions Neck: no JVD, supple Respiratory: no wheezing, clear to auscultation bilateral Cardiovascular: RRR Gastrointestinal: soft, non-tender, no distention, positive bowel sounds Musculoskeletal: no edema, pulses present Neurological: normal sensation, moves all 4 limbs A x O x 1 Skin: normal turgor, cap refill <2 seconds Dx/Plan (1) Encephalopathy acute Code(s): G93.40 - ENCEPHALOPATHY, UNSPECIFIED Status: Acute Comment: Suspect due #2, continue tx as outlined in #2, supportive mgmt, slow clinical progress (2) UTI (urinary tract infection) due to Enterococcus Code(s): N39.0 - URINARY TRACT INFECTION, SITE NOT SPECIFIED; B95.2 - ENTEROCOCCUS THE CAUSE OF DISEASES CLASSIFIED ELSEWHERE Status: Acute Comment: continue Levaquin and add Zosyn 3.375gm IV q6h until final Ucx sensitivities available, continue double-coverage another 24h then de-escalate therapy to single agent (3) Dehydration Code(s): E86.0 - DEHYDRATION Status: Acute Comment: Resolved, decrease IVF 75ml/h (4) Elevated troponin Code(s): R74.8 - ABNORMAL LEVELS OF OTHER SERUM ENZYMES Status: Acute Comment: Demand ischemia (5) Diabetes type 2, controlled Code(s): E11.9 - TYPE 2 DIABETES MELLITUS WITHOUT COMPLICATIONS Status: Chronic (6) Neutrophilic leukocytosis Code(s): D72.9 - DISORDER OF WHITE BLOOD CELLS, UNSPECIFIED Status: Acute Comment: Improved, continue current tx, CBC in am (7) Oral thrush Code(s): B37.0 - CANDIDAL STOMATITIS Status: Acute Comment: Nystatin SSW QID prn - Plan plan discussed w/ family, continue antibiotics, PT/OT, social scientist, out of bed/ambulate, DVT proph w/SCDs Continue supportive mgmt -: Continue Zosyn and Levaquin another 24h -: Continue IVF's until taking consistent po -: OOB/ambulate with PT -: CM for SNF/rehab options * AM lab: CBC * Transfer to medical floor
[2017-03-26] MEDS: Dextrose 5 %-0.45 % NaCl 1,000 ML IV SCH (17:28)
[2017-03-26] MEDS: Pravastatin Sodium 40 MG TAB PO SCH (21:41)
[2017-03-26] MEDS: Amitriptyline HCl 25 MG TAB PO SCH (21:42)
[2017-03-27] MEDS: Piperacillin/Tazobactam 3.375 GM in Sodium Chloride 0.9% 100 ML IVPB SCH ×3 (00:49→16:02)
[2017-03-27 05:20] LABS: Band 4 % (5-11); Eosinophils 7 % (0-10); Lymphocytes 14 % (21-51); MDiff Complete? YES; Mean Corpuscular HGB CONC 33.3 g/dL (32.0-36.0); Mean Corpuscular Hemoglobin 30.7 pg (27.0-31.0); Mean Corpuscular Volume 92.2 fl (81.0-99.0); Mean Platelet Volume 6.3 fL (7.4-10.4); Metamyelocyte 1 % (0-0); Monocytes 6 % (0-10); Neutrophil 68 % (42-75); PLT Morphology Comment Appears Adequate; Platelet Count 377 thou/uL (130-400); RBC Distribution Width 11.9 % (11.5-14.5); Red Blood Cell (RBC) Count 3.91 mill/uL (4.20-5.40); White Blood Cell (WBC) Count 13.7 thou/uL (4.8-10.8)
[2017-03-27] MEDS: Dextrose 5 %-0.45 % NaCl 1,000 ML IV SCH ×2 (06:29→17:52)
[2017-03-27] MEDS: Potassium Chloride 20 MEQ TAB PO SCH ×2 (08:35→17:50)
[2017-03-27] MEDS: Carvedilol 25 MG TAB PO SCH ×2 (08:36→20:58)
[2017-03-27] MEDS: Alogliptin 25 MG TAB PO SCH (08:36)
[2017-03-27] MEDS: Escitalopram Oxalate 10 mg Tablet PO SCH (08:36)
[2017-03-27] MEDS: Lisinopril 2.5 MG TAB PO SCH (08:36)
[2017-03-27] MEDS: Nystatin 500,000 UNITS/5 ML UDCUP SSW SCH ×4 (08:37→20:59)
[2017-03-27] MEDS: metFORMIN 500 MG TAB PO SCH (08:37)
[2017-03-27] MEDS: Pantoprazole 40 MG VIAL IVP SCH (08:37)
[2017-03-27] MEDS: HumaLOG 300 UNITS/3 ML VIAL SC PRN (13:20)
[2017-03-27] MEDS ORDERED: Piperacillin/Tazobactam 3.375 GM in Sodium Chloride 0.9% 100 ML IVPB SCH (16:00)
--- NOTE | 2017-03-27 16:52 | PDOC.PN ---
- Subjective Encounter Start Date: 03/27/17 Encounter Start Time: 16:45 Subjective: f/u for acute encephalopathy likely due to UTI with Entercoccus. -: Remains confused and anxious/tearful per nursing. - Objective Resuscitation Status: Resuscitation Status FULL:Full Resuscitation MAR Reviewed: Yes Vital Signs & Weight: Vital Signs (12 hours) Temp Pulse Resp BP Pulse Ox 03/27/17 12:00 98.3 F 115 H 156/66 H 03/27/17 10:20 98.3 F 115 H 18 90 L 03/27/17 10:15 98.2 F 99 20 137/66 90 L 03/27/17 08:35 97.8 F 73 18 93 L 03/27/17 08:33 97.8 F 73 18 178/84 H 94 L Weight Admit Weight 127 lb 11.2 oz Weight 127 lb I&O: 03/26/17 03/27/17 03/28/17 06:59 06:59 06:59 Intake Total 1635 1333 Output Total 1 Balance 1635 1332 Result Diagrams: 03/27/17 04:45 03/26/17 04:49 Additional Labs: Accuchecks 03/27/17 03/27/17 03/26/17 11:48 06:35 19:55 POC Glucose 193 H 207 H 156 H 03/26/17 17:23 POC Glucose 166 H Phys Exam - Physical Examination Constitutional: NAD alert, responds to questions HEENT: PERRLA, oral pharynx no lesions Neck: no JVD, supple Respiratory: no wheezing, clear to auscultation bilateral Cardiovascular: RRR Gastrointestinal: soft, non-tender, no distention, positive bowel sounds Musculoskeletal: no edema, pulses present Neurological: normal sensation, moves all 4 limbs A x O x 1 Skin: normal turgor, cap refill <2 seconds Dx/Plan (1) Encephalopathy acute Code(s): G93.40 - ENCEPHALOPATHY, UNSPECIFIED Status: Acute Comment: Suspect due #2, continue tx as outlined in #2, supportive mgmt, slow clinical progress (2) UTI (urinary tract infection) due to Enterococcus Code(s): N39.0 - URINARY TRACT INFECTION, SITE NOT SPECIFIED; B95.2 - ENTEROCOCCUS THE CAUSE OF DISEASES CLASSIFIED ELSEWHERE Status: Acute Comment: continue Levaquin and d/c Zosyn (3) Dehydration Code(s): E86.0 - DEHYDRATION Status: Acute Comment: Resolved, decrease IVF 75ml/h (4) Elevated troponin Code(s): R74.8 - ABNORMAL LEVELS OF OTHER SERUM ENZYMES Status: Acute Comment: Demand ischemia (5) Diabetes type 2, controlled Code(s): E11.9 - TYPE 2 DIABETES MELLITUS WITHOUT COMPLICATIONS Status: Chronic (6) Neutrophilic leukocytosis Code(s): D72.9 - DISORDER OF WHITE BLOOD CELLS, UNSPECIFIED Status: Acute Comment: Improved, continue current tx, CBC in am (7) Oral thrush Code(s): B37.0 - CANDIDAL STOMATITIS Status: Acute Comment: Nystatin SSW QID prn - Plan continue antibiotics, PT/OT, home health care social worker, out of bed/ambulate, DVT proph w/ SCDs Continue supportive mgmt -: D/C Zosyn -: Change Levaquin 750mg po daily -: PT for ambulation -: CM for SNF options * AM lab: CBC
[2017-03-27] MEDS: Amitriptyline HCl 25 MG TAB PO SCH (20:57)
[2017-03-27] MEDS: Pravastatin Sodium 40 MG TAB PO SCH (21:00)
[2017-03-28] MEDS: hydrALAZINE 20 MG/ML VIAL SLOW IVP PRN ×2 (03:43→07:18)
[2017-03-28 05:40] LABS: Band 8 % (5-11); Eosinophils 1 % (0-10); Hemoglobin 12.1 g/dL (12.0-16.0); Lymphocytes 10 % (21-51); MDiff Complete? YES; Mean Corpuscular HGB CONC 33.5 g/dL (32.0-36.0); Mean Corpuscular Hemoglobin 30.7 pg (27.0-31.0); Mean Corpuscular Volume 91.7 fl (81.0-99.0); Mean Platelet Volume 6.4 fL (7.4-10.4); Monocytes 6 % (0-10); Neutrophil 75 % (42-75); PLT Morphology Comment Appears Adequate; Platelet Count 354 thou/uL (130-400); RBC Distribution Width 11.9 % (11.5-14.5); RBC Morphology Normal; Red Blood Cell (RBC) Count 3.94 mill/uL (4.20-5.40); White Blood Cell (WBC) Count 14.4 thou/uL (4.8-10.8)
[2017-03-28] MEDS: HumaLOG 300 UNITS/3 ML VIAL SC PRN (07:20)
[2017-03-28] MEDS: Dextrose 5 %-0.45 % NaCl 1,000 ML IV SCH ×2 (07:20→07:22)
[2017-03-28] MEDS: Lisinopril 2.5 MG TAB PO SCH (08:22)
[2017-03-28] MEDS: Alogliptin 25 MG TAB PO SCH (08:22)
[2017-03-28] MEDS: metFORMIN 500 MG TAB PO SCH ×2 (08:23→17:51)
[2017-03-28] MEDS: Nystatin 500,000 UNITS/5 ML UDCUP SSW SCH ×4 (08:23→20:11)
[2017-03-28] MEDS: Carvedilol 25 MG TAB PO SCH ×2 (08:24→20:14)
[2017-03-28] MEDS: Potassium Chloride 20 MEQ TAB PO SCH (08:24)
[2017-03-28] MEDS: Escitalopram Oxalate 10 mg Tablet PO SCH (08:25)
--- NOTE | 2017-03-28 15:30 | PDOC.PN ---
- Subjective Encounter Start Date: 03/28/17 Encounter Start Time: 15:25 Subjective: f/u for AMS and UTI with enterococcus. Still confused but answered a few -: questions correctly per family report. Poor po intake per family. - Objective Resuscitation Status: Resuscitation Status FULL:Full Resuscitation MAR Reviewed: Yes Vital Signs & Weight: Vital Signs (12 hours) Temp Pulse Resp BP BP BP Pulse Ox 03/28/17 12:00 98.5 F 70 18 153/71 H 95 03/28/17 08:22 79 151/63 H 03/28/17 08:00 99.1 F 79 16 97 03/28/17 07:18 74 187/71 H 03/28/17 07:00 99.1 F 74 16 187/71 H 97 03/28/17 04:00 98.5 F 102 H 18 187/87 H 188/73 H 97 03/28/17 03:43 78 192/84 H 03/28/17 03:30 78 192/84 H Weight Admit Weight 127 lb 11.2 oz Weight 134 lb 6.4 oz I&O: 03/27/17 03/28/17 03/29/17 06:59 06:59 06:59 Intake Total 1333 2400 Output Total 1 Balance 1332 2400 Result Diagrams: 03/28/17 03:43 03/26/17 04:49 Additional Labs: Accuchecks 03/28/17 03/28/17 03/27/17 11:42 05:00 18:54 POC Glucose 199 H 197 H 127 H 03/27/17 17:23 POC Glucose 120 H Phys Exam - Physical Examination Constitutional: NAD sleepy HEENT: PERRLA, oral pharynx no lesions Neck: no JVD, supple Respiratory: no wheezing, clear to auscultation bilateral Cardiovascular: RRR Gastrointestinal: soft, non-tender, no distention, positive bowel sounds Musculoskeletal: no edema, pulses present Neurological: normal sensation, moves all 4 limbs A x O x 2 Skin: normal turgor, cap refill <2 seconds Dx/Plan (1) Encephalopathy acute Code(s): G93.40 - ENCEPHALOPATHY, UNSPECIFIED Status: Acute Comment: Suspect due #2, continue tx as outlined in #2, supportive mgmt, slow clinical progress (2) UTI (urinary tract infection) due to Enterococcus Code(s): N39.0 - URINARY TRACT INFECTION, SITE NOT SPECIFIED; B95.2 - ENTEROCOCCUS THE CAUSE OF DISEASES CLASSIFIED ELSEWHERE Status: Acute Comment: continue Levaquin and d/c Zosyn (3) Dehydration Code(s): E86.0 - DEHYDRATION Status: Acute Comment: Resolved, saline lock IVF (4) Elevated troponin Code(s): R74.8 - ABNORMAL LEVELS OF OTHER SERUM ENZYMES Status: Acute Comment: Demand ischemia (5) Diabetes type 2, controlled Code(s): E11.9 - TYPE 2 DIABETES MELLITUS WITHOUT COMPLICATIONS Status: Chronic (6) Neutrophilic leukocytosis Code(s): D72.9 - DISORDER OF WHITE BLOOD CELLS, UNSPECIFIED Status: Acute Comment: Improved, continue current tx, CBC in am (7) Oral thrush Code(s): B37.0 - CANDIDAL STOMATITIS Status: Acute Comment: Nystatin SSW QID prn - Plan plan discussed w/ family, continue antibiotics, PT/OT, social studies teacher, out of bed/ambulate, DVT proph w/SCDs Stable overall -: Continue supportive mgmt -: Saline lock IVF's -: OOB/ambulate with PT -: Restart Metformin 500mg BID * D/C KCL * Trial TF with Glucerna 1.2 at 10ml/h, Dietitian consult * AM lab: BMP, CBC * CM for SNF options
--- NOTE | 2017-03-28 17:13 | RAD ---
ONE VIEW CHEST: 03/28/17 HISTORY: Dobhoff feeding tube placement. COMPARISON: None. FINDINGS: The majority of the chest is excluded from this exam. This study is essentially a one view abdomen. One view abdomen demonstrates a Dobhoff feeding tube in the distal esophagus. Repositioning and advan cement is recommended. Nonspecific bowel gas pattern. No evidence of distention or dilatation. No pne umoperitoneum on the supine projection. IMPRESSION: Dobhoff feeding tube in the distal esophagus. Repositioning and advancement is recommended. POS: ADRY
--- NOTE | 2017-03-28 18:41 | EKG ---
Test Reason : Blood Pressure : / mmHG Vent. Rate : 095 BPM Atrial Rate : 095 BPM P-R Int : 150 ms QRS Dur : 080 ms QT Int : 344 ms P-R-T Axes : 057 036 038 degrees QTc Int : 432 ms Normal sinus rhythm Normal ECG Confirmed by ARELIS DAS MD ([id number]), editor news RAFY SAHA ([id number]) on 03/28/2017 6:40:31 PM Referred By: Confirmed By:ARELIS DAS MD
[2017-03-28] MEDS: Ondansetron HCl/PF 4 MG/2 ML Vial IVP PRN (19:37)
[2017-03-28] MEDS: Pravastatin Sodium 40 MG TAB PO SCH (20:13)
[2017-03-28] MEDS: Amitriptyline HCl 25 MG TAB PO SCH (20:15)
[2017-03-29 04:26] LABS: Band 9 % (5-11); Lymphocytes 9 % (21-51); MDiff Complete? YES; Mean Corpuscular HGB CONC 34.3 g/dL (32.0-36.0); Mean Corpuscular Hemoglobin 31.6 pg (27.0-31.0); Mean Corpuscular Volume 92.2 fl (81.0-99.0); Metamyelocyte 3 % (0-0); Monocytes 1 % (0-10); Neutrophil 78 % (42-75); PLT Morphology Comment Appears Adequate; Platelet Count 353 thou/uL (130-400); RBC Distribution Width 12.1 % (11.5-14.5); Red Blood Cell (RBC) Count 3.78 mill/uL (4.20-5.40); White Blood Cell (WBC) Count 16.8 thou/uL (4.8-10.8)
[2017-03-29 04:31] LABS: ALT (SGPT) 10 U/L (8-55); AST (SGOT) 18 U/L (5-34); Albumin 2.7 g/dL (3.4-4.8); Alkaline Phosphatase 57 U/L (40-150); Anion Gap 11 mmol/L (10-20); BUN (Urea Nitrogen) 7 mg/dL (9.8-20.1); Bilirubin, Total 0.5 mg/dL (0.2-1.2); Calc. Creatinine Clearance 52 mL/min (70-130); Calcium 8.4 mg/dL (7.8-10.44); Carbon Dioxide 24 mmol/L (23-31); Chloride 97 mmol/L (98-107); Estimated GFR-MDRD 71; Globulin 3.3 g/dL (2.4-3.5); Glucose 168 mg/dL (83-110); Magnesium 1.3 mg/dL (1.6-2.6); Phosphorus 3.6 mg/dL (2.3-4.7); Potassium 4.4 mmol/L (3.5-5.1); Sodium 128 mmol/L (136-145)
[2017-03-29] MEDS: Carvedilol 25 MG TAB PO SCH ×2 (09:43→20:49)
[2017-03-29] MEDS: Alogliptin 25 MG TAB PO SCH (09:44)
[2017-03-29] MEDS: Lisinopril 2.5 MG TAB PO SCH (09:45)
[2017-03-29] MEDS: Nystatin 500,000 UNITS/5 ML UDCUP SSW SCH ×4 (09:46→20:49)
[2017-03-29] MEDS: Escitalopram Oxalate 10 mg Tablet PO SCH (09:46)
[2017-03-29] MEDS: metFORMIN 500 MG TAB PO SCH ×2 (09:46→18:24)
--- NOTE | 2017-03-29 12:34 | PDOC.PN ---
- Subjective Encounter Start Date: 03/29/17 Encounter Start Time: 12:25 Subjective: f/u for AMS, UTI and poor po intake. Dobhoff placed 03/28 and pt pulled -: it out overnight. Ate breakfast this am without difficulty. More awake -: per daughter. - Objective Resuscitation Status: Resuscitation Status FULL:Full Resuscitation MAR Reviewed: Yes Vital Signs & Weight: Vital Signs (12 hours) Temp Pulse Resp BP BP Pulse Ox 03/29/17 11:44 64 16 121/54 L 03/29/17 09:45 72 159/70 H 03/29/17 08:00 98.6 F 72 16 94 L 03/29/17 07:14 98.6 F 72 16 159/70 H 94 L 03/29/17 04:39 97.9 F 64 18 162/73 H 95 Weight Admit Weight 127 lb 11.2 oz Weight 134 lb 6.4 oz I&O: 03/28/17 03/29/17 03/30/17 06:59 06:59 06:59 Intake Total 2400 1030 Balance 2400 1030 Result Diagrams: 03/29/17 03:54 03/29/17 03:54 Additional Labs: Accuchecks 03/29/17 03/29/17 03/28/17 11:40 04:44 20:30 POC Glucose 107 147 H 139 H 03/28/17 16:36 POC Glucose 157 H Phys Exam - Physical Examination Constitutional: NAD alert, smiles, responds to questions HEENT: PERRLA, oral pharynx no lesions Neck: no JVD, supple Respiratory: no wheezing, clear to auscultation bilateral Cardiovascular: RRR Gastrointestinal: soft, non-tender, no distention, positive bowel sounds Musculoskeletal: no edema, pulses present Neurological: normal sensation, moves all 4 limbs A x O x 2 Skin: normal turgor, cap refill <2 seconds Dx/Plan (1) Encephalopathy acute Code(s): G93.40 - ENCEPHALOPATHY, UNSPECIFIED Status: Acute Comment: Suspect due #2, continue tx as outlined in #2, supportive mgmt, slow clinical progress (2) UTI (urinary tract infection) due to Enterococcus Code(s): N39.0 - URINARY TRACT INFECTION, SITE NOT SPECIFIED; B95.2 - ENTEROCOCCUS THE CAUSE OF DISEASES CLASSIFIED ELSEWHERE Status: Acute Comment: continue Levaquin and d/c Zosyn (3) Dehydration Code(s): E86.0 - DEHYDRATION Status: Acute Comment: Resolved, saline lock IVF (4) Elevated troponin Code(s): R74.8 - ABNORMAL LEVELS OF OTHER SERUM ENZYMES Status: Acute Comment: Demand ischemia (5) Diabetes type 2, controlled Code(s): E11.9 - TYPE 2 DIABETES MELLITUS WITHOUT COMPLICATIONS Status: Chronic Comment: ISS, Metformin 500mg BID (6) Neutrophilic leukocytosis Code(s): D72.9 - DISORDER OF WHITE BLOOD CELLS, UNSPECIFIED Status: Acute Comment: Improved, continue current tx, CBC in am (7) Oral thrush Code(s): B37.0 - CANDIDAL STOMATITIS Status: Acute Comment: Nystatin SSW QID prn - Plan plan discussed w/ family, continue antibiotics, PT/OT, social research assistant, out of bed/ambulate, DVT proph w/SCDs Stable overall -: Continue Levaquin 750mg daily -: OOB/ambulate with PT -: Resume ADA diet -: Hold Dobhoff FT * SNF options * AM lab: CBC
[2017-03-29] MEDS: Amitriptyline HCl 25 MG TAB PO SCH (20:49)
[2017-03-29] MEDS: Pravastatin Sodium 40 MG TAB PO SCH (20:49)
[2017-03-30 05:53] LABS: Band 12 % (5-11); Eosinophils 1 % (0-10); Hemoglobin 11.5 g/dL (12.0-16.0); Lymphocytes 11 % (21-51); MDiff Complete? YES; Mean Corpuscular HGB CONC 33.6 g/dL (32.0-36.0); Mean Corpuscular Hemoglobin 30.7 pg (27.0-31.0); Mean Corpuscular Volume 91.4 fl (81.0-99.0); Mean Platelet Volume 6.2 fL (7.4-10.4); Metamyelocyte 1 % (0-0); Monocytes 4 % (0-10); Neutrophil 71 % (42-75); PLT Morphology Comment Appears Adequate; Platelet Count 352 thou/uL (130-400); RBC Distribution Width 11.9 % (11.5-14.5); Red Blood Cell (RBC) Count 3.76 mill/uL (4.20-5.40)
[2017-03-30] MEDS: Alogliptin 25 MG TAB PO SCH (07:36)
[2017-03-30] MEDS: Escitalopram Oxalate 10 mg Tablet PO SCH (07:36)
[2017-03-30] MEDS: Lisinopril 2.5 MG TAB PO SCH (07:36)
[2017-03-30] MEDS: Carvedilol 25 MG TAB PO SCH ×2 (07:37→20:40)
[2017-03-30] MEDS: metFORMIN 500 MG TAB PO SCH ×2 (07:37→16:39)
[2017-03-30] MEDS: Nystatin 500,000 UNITS/5 ML UDCUP SSW SCH ×4 (07:37→20:41)
[2017-03-30 09:02] VITALS: BMI 23.8
[2017-03-30] MEDS: Ondansetron HCl/PF 4 MG/2 ML Vial IVP PRN (11:05)
[2017-03-30] MEDS: Pravastatin Sodium 40 MG TAB PO SCH (20:40)
[2017-03-30] MEDS: Amitriptyline HCl 25 MG TAB PO SCH (20:40)
--- NOTE | 2017-03-30 22:15 | PDOC.PN ---
- Subjective Encounter Start Date: 03/30/17 Encounter Start Time: 20:35 Subjective: f/u for AMS with UTI and enterococcus. Overall mentally improved with -: some residual confusion. Appetite improved. Mobility still limited. - Objective Resuscitation Status: Resuscitation Status FULL:Full Resuscitation MAR Reviewed: Yes Vital Signs & Weight: Vital Signs (12 hours) Temp Pulse Resp BP Pulse Ox 03/30/17 20:00 98.3 F 69 16 138/66 92 L 03/30/17 15:54 97.6 F 74 16 133/63 93 L 03/30/17 10:54 98.6 F 71 16 178/75 H 91 L Weight Admit Weight 127 lb 11.2 oz Weight 134 lb 6.4 oz I&O: 03/29/17 03/30/17 03/31/17 06:59 06:59 06:59 Intake Total 1030 540 720 Balance 1030 540 720 Result Diagrams: 03/30/17 04:12 03/29/17 03:54 Additional Labs: Accuchecks 03/30/17 03/30/17 03/30/17 19:41 15:45 10:39 POC Glucose 100 109 105 03/30/17 05:05 POC Glucose 137 H Microbiology 03/23/17 14:00 Nasopharyngeal swab Respiratory Panel (PCR) - Final 03/23/17 12:00 Stool C. difficile GDH Antigen & Toxins - Final 03/22/17 14:40 Urine Straight Catheter Urine Culture - Final Enterococcus species 03/22/17 14:40 Urine Straight Catheter Urine Culture - Preliminary Enterococcus species 03/22/17 13:03 Venous blood - Right Hand Blood Culture - Preliminary Specimen has been received and culture in progress. No Growth to date. 03/22/17 13:03 Venous blood - Right Hand Blood Culture - Preliminary Specimen has been received and culture in progress. No Growth to date. Laboratory Tests 03/22/17 03/22/17 03/23/17 11:17 11:25 04:27 WBC 19.5 H Neutrophils % 85.3 H Neutrophils % (Manual) Band Neuts % (Manual) Sodium 135 L 134 L Potassium 4.8 3.9 03/23/17 03/24/17 03/24/17 04:27 04:14 04:14 WBC 18.9 H Neutrophils % Neutrophils % (Manual) 72 77 H Band Neuts % (Manual) 15 H 14 H Sodium 130 L Potassium 3.3 L 03/29/17 03/30/17 03:54 04:12 WBC 16.8 H Neutrophils % Neutrophils % (Manual) 78 H 71 Band Neuts % (Manual) Sodium Potassium Phys Exam - Physical Examination Constitutional: NAD alert, responds to questions HEENT: PERRLA, sclera anicteric Neck: no JVD, supple Respiratory: no wheezing, clear to auscultation bilateral Cardiovascular: RRR Gastrointestinal: soft, non-tender, no distention, positive bowel sounds Musculoskeletal: no edema, pulses present Neurological: normal sensation, moves all 4 limbs A x O x 2 Skin: normal turgor, cap refill <2 seconds Dx/Plan (1) Encephalopathy acute Code(s): G93.40 - ENCEPHALOPATHY, UNSPECIFIED Status: Acute Comment: Suspect due #2, continue tx as outlined in #2, supportive mgmt, slow clinical progress but overall improved (2) UTI (urinary tract infection) due to Enterococcus Code(s): N39.0 - URINARY TRACT INFECTION, SITE NOT SPECIFIED; B95.2 - ENTEROCOCCUS THE CAUSE OF DISEASES CLASSIFIED ELSEWHERE Status: Acute Comment: continue Levaquin 750mg po daily (3) Dehydration Code(s): E86.0 - DEHYDRATION Status: Acute Comment: Resolved, saline lock IVF (4) Elevated troponin Code(s): R74.8 - ABNORMAL LEVELS OF OTHER SERUM ENZYMES Status: Acute Comment: Demand ischemia (5) Diabetes type 2, controlled Code(s): E11.9 - TYPE 2 DIABETES MELLITUS WITHOUT COMPLICATIONS Status: Chronic Comment: ISS, Metformin 500mg BID (6) Neutrophilic leukocytosis Code(s): D72.9 - DISORDER OF WHITE BLOOD CELLS, UNSPECIFIED Status: Acute Comment: Improved, continue current tx, CBC in am (7) Oral thrush Code(s): B37.0 - CANDIDAL STOMATITIS Status: Acute Comment: Nystatin SSW QID prn - Plan plan discussed w/ family, continue antibiotics, PT/OT, social director, out of bed/ambulate, DVT proph w/SCDs stable overall -: Slow clinical progress and mental status lagging -: Needs max assist with mobility -: CM for SNF options -: Likely d/c Levaquin in 24h * .
[2017-03-31] MEDS: Acetaminophen 325 MG TAB PO PRN (00:01)
[2017-03-31] MEDS: Alogliptin 25 MG TAB PO SCH (09:30)
[2017-03-31] MEDS: Lisinopril 2.5 MG TAB PO SCH (09:31)
[2017-03-31] MEDS: metFORMIN 500 MG TAB PO SCH ×2 (09:31→16:45)
[2017-03-31] MEDS: Carvedilol 25 MG TAB PO SCH ×2 (09:32→20:48)
[2017-03-31] MEDS: Escitalopram Oxalate 10 mg Tablet PO SCH (09:32)
[2017-03-31] MEDS: Nystatin 500,000 UNITS/5 ML UDCUP SSW SCH ×4 (09:33→20:49)
[2017-03-31 11:34] LABS: #Basophils 0.1 thou/uL (0.0-0.2); #Eosinphils 0.1 thou/uL (0.0-0.7); #Lymphocytes 1.4 thou/uL (1.20-3.40); #Monocytes 1.1 thou/uL (0.11-0.59); #Neutrophils 8.8 thou/uL (1.40-6.50); %Basophils 0.4 % (0.0-1.0); %Eosinophils 1.3 % (0.0-10.0); %Monocytes 9.6 % (0.0-10.0); %Neutrophils 76.8 % (42.0-75.0); Hemoglobin 12.6 g/dL (12.0-16.0); Mean Corpuscular HGB CONC 32.3 g/dL (32.0-36.0); Mean Corpuscular Hemoglobin 29.5 pg (27.0-31.0); Mean Corpuscular Volume 91.6 fl (81.0-99.0); Mean Platelet Volume 5.9 fL (7.4-10.4); Platelet Count 406 thou/uL (130-400); RBC Distribution Width 12.1 % (11.5-14.5); Red Blood Cell (RBC) Count 4.25 mill/uL (4.20-5.40); White Blood Cell (WBC) Count 11.4 thou/uL (4.8-10.8)
--- NOTE | 2017-03-31 11:42 | PDOC.PN ---
- Subjective Encounter Start Date: 03/31/17 Encounter Start Time: 10:30 Patient seen and examined. Confused. No focal deficits. No overnight events - Objective Resuscitation Status: Resuscitation Status FULL:Full Resuscitation MAR Reviewed: Yes Vital Signs & Weight: Vital Signs (12 hours) Temp Pulse Resp BP Pulse Ox 03/31/17 08:00 98.3 F 70 16 154/63 H 94 L Weight Admit Weight 127 lb 11.2 oz Weight 134 lb 6.4 oz I&O: 03/30/17 03/31/17 04/01/17 06:59 06:59 06:59 Intake Total 540 840 Balance 540 840 Result Diagrams: 03/31/17 11:18 03/31/17 11:18 Additional Labs: Accuchecks 03/31/17 03/30/17 03/30/17 06:17 19:41 15:45 POC Glucose 114 H 100 109 Phys Exam - Physical Examination Constitutional: NAD (Confused) Respiratory: no wheezing, no rhonchi Cardiovascular: RRR, no rub Gastrointestinal: soft, non-tender, positive bowel sounds Musculoskeletal: no edema Neurological: moves all 4 limbs Dx/Plan - Plan DVT proph w/SCDs IMPRESSION: 1. Toxic Metabolic Encephalopathy - multifactorial - persistent 2. Enterococcus UTI 3. DM2 - on sliding scale 4. Dehydration 5. Elevated troponins due to demand ischemia/HTN/HLD/CAD/CKD 2/Hypophosphatemia/ Hyponatremia PLAN: * Change Levaquin to 500 mg daily * Check labs including Vit B12 and Cortisol today * Add Lovenox for DVT prophylaxis * Cont current meds as below * SNF eval * LP by radiology * Consult ID Review of Systems - Review of Systems Respiratory: negative: Cough, Dry, Shortness of Breath, Hemoptysis, SOB with Excertion, Pleuritic Pain, Sputum, Wheezing Cardiovascular: negative: chest pain, palpitations, orthopnea, paroxysmal nocturnal dyspnea, edema, light headedness - Medications/Allergies Allergies/Adverse Reactions: Allergies Allergy/AdvReac Type Severity Reaction Status Date / Time azithromycin Allergy Verified 03/22/17 22:09 codeine Allergy Verified 03/22/17 22:09 Sulfa (Sulfonamide Allergy Verified 03/22/17 22:09 Antibiotics) tramadol Allergy Verified 03/22/17 22:09 Medications: Current Medications Acetaminophen (Tylenol) 650 mg PO Q4H PRN PRN Reason: Headache/Fever or Mild Pain Last Admin: 03/31/17 00:01 Dose: 650 mg Acetaminophen (Tylenol) 650 mg IN Q4H PRN PRN Reason: Headache/Fever or Mild Pain Al Hydroxide/Mg Hydroxide (Maalox) 30 ml PO Q6H PRN PRN Reason: Heartburn or Indigestion Alogliptin Benzoate (Alogliptin) 12.5 mg PO DAILY [facility] Last Admin: 03/31/17 09:30 Dose: 12.5 mg Amitriptyline HCl (Elavil) 25 mg PO HS [facility] Last Admin: 03/30/17 20:40 Dose: 25 mg Artificial Tears (Tears Naturale) 0 drop EA EYE PRN PRN PRN Reason: Dry Eyes Aspirin (Aspirin Chewable) 81 mg PO DAILY [facility] Last Admin: 03/31/17 09:31 Dose: 81 mg Benzonatate (Tessalon) 100 mg PO Q4H PRN PRN Reason: Cough Bisacodyl (Dulcolax) 10 mg PO DAILYPRN PRN PRN Reason: Constipation Bisacodyl (Dulcolax) 10 mg IN DAILYPRN PRN PRN Reason: Constipation Carvedilol (Coreg) 12.5 mg PO BID [facility] Last Admin: 03/31/17 09:32 Dose: 12.5 mg Dextrose/Water (Dextrose 50%) 25 gm SLOW IVP PRN PRN PRN Reason: Hypoglycemia Diphenhydramine HCl (Benadryl) 25 mg PO Q4H PRN PRN Reason: Itching Diphenhydramine HCl (Benadryl) 25 mg IVP Q4H PRN PRN Reason: Itching Last Admin: 03/26/17 02:08 Dose: 25 mg Escitalopram Oxalate (Lexapro) 10 mg PO DAILY [facility] Last Admin: 03/31/17 09:32 Dose: 10 mg Glucagon (Glucagon) 1 mg IM PRN PRN PRN Reason: Hypoglycemia Guaifenesin (Robitussin Sf) 200 mg PO Q4H PRN PRN Reason: Cough Hydralazine HCl (Apresoline) 10 mg SLOW IVP Q4H PRN PRN Reason: Systolic BP > 180 Last Admin: 03/28/17 07:18 Dose: 10 mg Dextrose/Water (D5w) 1,000 mls @ 0 mls/hr IV .Q0M PRN; As Directed PRN Reason: Hypoglycemia Insulin Human Lispro (Humalog) 0 units SC .MODERATE SLIDING SC PRN PRN Reason: Moderate Correctional Scale Last Admin: 03/28/17 07:20 Dose: 2 unit Insulin Human Lispro (Humalog) 0 units SC .BEDTIME SLIDING SC PRN PRN Reason: Bedtime Correctional Scale Levofloxacin (Levaquin) 500 mg PO 0600 [facility] Lisinopril (Zestril) 2.5 mg PO DAILY [facility] Last Admin: 03/31/17 09:31 Dose: 2.5 mg Loratadine (Claritin) 10 mg PO DAILYPRN PRN PRN Reason: Sinus Symptoms Magnesium Hydroxide (Milk Of Magnesium) 30 ml PO DAILYPRN PRN PRN Reason: Constipation Metformin HCl (Glucophage) 500 mg PO BID-[facility] Last Admin: 03/31/17 09:31 Dose: 500 mg Mineral Oil/White Petrolatum (Eucerin Cream) 0 gm TOP BIDPRN PRN PRN Reason: Dry Skin Nitroglycerin (Nitrostat) 0.4 mg SL Q5MIN PRN PRN Reason: Chest Pain Nystatin (Mycostatin) 500,000 units SSW QID [facility] Last Admin: 03/31/17 09:33 Dose: 500,000 units Ondansetron HCl (Zofran) 4 mg IVP Q6H PRN PRN Reason: Nausea/Vomiting Last Admin: 03/30/17 11:05 Dose: 4 mg Ondansetron HCl (Zofran Odt) 4 mg PO Q6H PRN PRN Reason: Nausea/Vomiting Pantoprazole Sodium (Protonix) 40 mg PO DAILY [facility] Last Admin: 03/31/17 09:33 Dose: Not Given Phenol (Chloraseptic [place] 180 Ml Bot) 0 ml PO PRN PRN PRN Reason: Sore Throat Pravastatin Sodium (Pravachol) [address] [facility] Last Admin: 03/30/17 20:40 Dose: 80 mg Sertraline HCl (Zoloft) [address] [facility] Last Admin: 03/30/17 20:40 Dose: 25 mg Sodium Chloride ([place] Nasal [place] 0.65%) 0 ml EA NARE QIDPRN PRN PRN Reason: Nasal Congestion
[2017-03-31 11:54] LABS: ALT (SGPT) 13 U/L (8-55); AST (SGOT) 20 U/L (5-34); Alkaline Phosphatase 59 U/L (40-150); Anion Gap 11 mmol/L (10-20); BUN (Urea Nitrogen) 12 mg/dL (9.8-20.1); Bilirubin, Total 0.6 mg/dL (0.2-1.2); Calc. Creatinine Clearance 50 mL/min (70-130); Calcium 8.6 mg/dL (7.8-10.44); Carbon Dioxide 26 mmol/L (23-31); Chloride 95 mmol/L (98-107); Estimated GFR-MDRD 68; Globulin 3.5 g/dL (2.4-3.5); Glucose 101 mg/dL (83-110); Magnesium 1.5 mg/dL (1.6-2.6); Phosphorus 2.9 mg/dL (2.3-4.7); Potassium 4.1 mmol/L (3.5-5.1); Protein, Total 6.5 g/dL (6.0-8.3); Sodium 128 mmol/L (136-145)
[2017-03-31 12:26] LABS: Folate (Folic Acid) 12.2 ng/mL (7.0-31.4)
[2017-03-31] MEDS ORDERED: Magnesium 2 GM/NS 0.9% 100 ML 2 GM in Premix Bag 1 BAG IVPB SCH (12:30)
[2017-03-31] MEDS ORDERED: Magnesium 2 GM/NS 0.9% 100 ML 2 GM in Sodium Chloride 0.9% 100 ML IVPB SCH (12:45)
[2017-03-31 15:20] LABS: Color Of CSF Supernatant COLORLESS (Colorless); Tube # 1; Unspun CSF Color COLORLESS (Colorless)
[2017-03-31 15:23] LABS: CSF Source CSF; Clarity Clear (Clear); RBC Count - Manual 15 /cumm (None Seen); Tube # 4; WBC/NonHematics Count - Manual 1 /cumm (0-5)
[2017-03-31 15:55] LABS: CSF, Glucose 56 mg/dl (40-70); CSF, Protein 39 mg/dL (15-40)
--- NOTE | 2017-03-31 16:51 | RAD ---
FLUOROSCOPIC LUMBAR PUNCTURE: 03/31/17 CLINICAL HISTORY: 86-year-old female with altered mental status. RADIATION EXPOSURE DATA: 0.3 minutes intermittent fluoroscopy. 20 uGy*m2. PROCEDURE: Informed consent was obtained from the patient's daughter. Patient was escorted to the procedural leonardo te and placed in a supine position for vendor analyst imaging. Patient was then turned prone and the low back was prepped and draped in the standard sterile fashion. Topical anesthesia was achieved with buffere d 1% lidocaine. The patient's thecal sac was uneventfully accessed via a right interlaminar approach at the L4-5 level. Clear colored CSF was present at the needle hub and subsequently 9 mL of CSF was a cquired into four separate sealed sterile containers and sent to the laboratory for further analysis. Needle was removed. Patient tolerated the procedure well without evidence of complication. Images we re stored for documentation. Patient was transferred back to the hospital floor in stable condition. IMPRESSION: Technically successful fluoroscopic guided lumbar puncture yielding clear colored CSF as above. Labor atory results are pending. POS: [facility]
--- NOTE | 2017-03-31 20:25 | CON ---
DATE OF CONSULTATION: 03/31/2017 REASON FOR CONSULTATION: Altered mental status. HISTORY OF PRESENT ILLNESS: An 86-year-old with history of hypertension, type 2 diabetes and coronary artery disease who according to the daughter, has bilateral 1 week history of some cognitive dysfunction, mostly memory lapses, but otherwise fairly independent, still driving and doing things on her own and able to do all the activities of daily living independently up until 1-2 days before admission when she developed fairly rapid onset of confusional state. This persisted and then she fell and was brought to the emergency room. She was seen there and x-rays were taken. No fractures were identified. CT of head showed no intracranial abnormality. The patient was discharged on tramadol and Tylenol #3. She started having hallucinations and was brought back and this time admitted. Initial findings, chest x-ray with a small right- sided pleural effusion. White cell count was elevated at 19,000 with a left shift. She appeared volume depleted. PERTINENT FINDINGS ON PHYSICAL EXAMINATION: VITAL SIGNS: Initial vital signs, blood pressure 137/80, pulse 98, respirations 18, O2 sat 92% room air, temperature 98. SKIN: She does not appear in distress. LUNGS: With decreased breath sounds on the right hemithorax, a few rhonchi. HEART: Normal. ABDOMEN: Normal. NEUROLOGIC: She did not appear to have any focal deficits in the neuro examination. LABORATORY DATA: Sodium 135, potassium 4.8, carbon dioxide 23, creatinine 1.12 , calcium 10.6, phosphorus 2.0. Troponin 0.031. TSH 1.05. Initial impression was a change in mental status with elevated troponins, hypercalcemia. Thus far, the blood cultures have been negative. One urine sample submitted showed Enterococcus species greater than 100,000 CFUs per mL, respiratory virus panel, PCR with no pathogens detected. She had a Clostridium difficile antigen and toxin done next day, which was negative. She was given levofloxacin and there has been some decrease in white cell count down to 11.4. Currently, Ms. Wright is awake. She is confused. She did not know where she was, could not recognize her daughter and did not remember her name either, did not know the date, was able to follow some commands. She denies any headaches, no back pain, no cough, no respiratory symptoms. Otherwise no chest pain, no abdominal pain. She has normal voiding activity. No diarrhea. Patient received [place] feedings for a while, but that has been discontinued now. According to the daughter after feedings were started via [place], she improved the next day. PAST MEDICAL HISTORY: Type 2 diabetes, hypertension, coronary artery disease, hyperlipidemia. PAST SURGICAL HISTORY: Appendectomy, cholecystectomy, hysterectomy. SOCIAL HISTORY: Never a smoker. No alcoholic beverage use. MEDICATIONS AT HOME: Janumet, Zoloft, pravastatin, lisinopril, Coreg, aspirin, Protonix, tramadol, and in the hospital now she is receiving Tylenol, Maalox, alogliptin, Elavil, aspirin, Tessalon, Dulcolax, Coreg, Lexapro, Levaquin, Zestril, Claritin, Glucophage, Protonix. PHYSICAL EXAMINATION: VITAL SIGNS: Temperature max 99.1, currently 98.2, blood pressure 140/67, pulse is 74, respirations 16-20, O2 sat is up to 94%. SKIN: With no skin lesions. She has a peripheral IV access, but no Costello catheter. The patient has no lymphadenopathy. HEENT: Ocular movements are conjugate. Oral cavity moist, quite a few teeth in place with some gum disease. NECK: Supple, no jugular venous distention or carotid bruits. LUNGS: With symmetric air entry, no crackles or wheezing. HEART: S1, S2, regular rate. No S3, S4. ABDOMEN: Soft, distended. No ascites. No bladder distention, no tenderness. EXTREMITIES: No joint inflammatory activity. Pulses are 1+ in dorsalis pedis. Plantar responses were flexor. No clonus. She seems to be able to move all extremities equally. NEUROLOGIC: She is awake and oriented times self only, could not recognize her daughter, did not remember daughter's name, did not know where she was. LABORATORY DATA: White cell count down to 11.4, hemoglobin 12.6, MCV normal, platelets 406,000, 76% neutrophils. Sodium 128, creatinine 0.8. Vitamin B12 of 496. Folate 12.2. TSH was 1.05. Cortisol 16. Urinalysis with 4-6 WBCs. Patient had a CSF evaluation done, the CSF WBC count 1, glucose 56 and total protein 39. ASSESSMENT AND PLAN: 1. Type 2 diabetes. 2. Hypertension. 3. Coronary artery disease. 4. Fairly acute onset of deterioration in mental status with confusional state and inability to recognize family members, which persisted to this date. The cerebrospinal fluid appears to be fairly unremarkable. DISCUSSION: Differential diagnosis includes acute cerebrovascular accident versus toxic metabolic encephalopathy versus exacerbation of underlying dementia versus micronutrient deficiency for example, thiamine deficiency. [employer] inflammatory process appears to be less likely, particularly acute or chronic meningitis. Again, inflammatory process and [employer] appears to be much less likely including the possibility of chronic or acute meningitis. I do not believe that the urinary tract findings have any relationship to the patient's change in mental status. MTDD
[2017-03-31] MEDS: Pravastatin Sodium 40 MG TAB PO SCH (20:48)
[2017-03-31] MEDS: Amitriptyline HCl 25 MG TAB PO SCH (20:49)
[2017-03-31] MEDS ORDERED: Enoxaparin Sodium 30 MG/0.3 ML SYRINGE SC SCH (21:00)
[2017-04-01] MEDS: diphenhydrAMINE 50 MG/ML VIAL IVP PRN (01:56)
[2017-04-01 05:03] LABS: #Eosinphils 0.3 thou/uL (0.0-0.7); #Lymphocytes 1.7 thou/uL (1.20-3.40); #Monocytes 1.3 thou/uL (0.11-0.59); #Neutrophils 10.1 thou/uL (1.40-6.50); %Basophils 0.1 % (0.0-1.0); %Eosinophils 2.3 % (0.0-10.0); %Lymphocytes 12.6 % (21.0-51.0); %Monocytes 9.5 % (0.0-10.0); %Neutrophils 75.5 % (42.0-75.0); Hemoglobin 12.3 g/dL (12.0-16.0); Mean Corpuscular HGB CONC 33.5 g/dL (32.0-36.0); Mean Corpuscular Hemoglobin 30.8 pg (27.0-31.0); Mean Corpuscular Volume 91.8 fl (81.0-99.0); Mean Platelet Volume 6.9 fL (7.4-10.4); Platelet Count 344 thou/uL (130-400); Red Blood Cell (RBC) Count 4.01 mill/uL (4.20-5.40); White Blood Cell (WBC) Count 13.4 thou/uL (4.8-10.8)
[2017-04-01 05:17] LABS: Anion Gap 11 mmol/L (10-20); BUN (Urea Nitrogen) 15 mg/dL (9.8-20.1); Calc. Creatinine Clearance 54 mL/min (70-130); Calcium 8.3 mg/dL (7.8-10.44); Carbon Dioxide 25 mmol/L (23-31); Chloride 96 mmol/L (98-107); Estimated GFR-MDRD 74; Glucose 93 mg/dL (83-110); Magnesium 2.1 mg/dL (1.6-2.6); Sodium 128 mmol/L (136-145)
--- NOTE | 2017-04-01 11:45 | MRI ---
BRAIN MRI WITH AND WITHOUT CONTRAST: DATE: 04/01/17. HISTORY: Altered mental status, elevated whit blood cell count, assess for infection. TECHNIQUE: Multiplanar, multisequence MR imaging of the brain is provided with and without contrast. FINDINGS: The diffusion weighted imaging demonstrates no evidence for acute infarction. Axial gradient echo imaging demonstrates no evidence for intracranial hemorrhage. There is mild mucosal thickening involving the ethmoid air cells bilaterally. There is a mastoid eff usion on the right. There are a few opacified mastoid air cells on the left as well. Arterial flow voids at axial level of skull base appear grossly unremarkable on the T2 weighted imagi ng. Contrast imaging demonstrates no abnormal enhancement within the brain parenchyma. There is scattered increased T2 and FLAIR signal within the periventricular, deep, and subcortical wh ite matter, as well as within the belly of the sandra, evidence of small-vessel disease. Regional bone marrow signal intensity appears within normal limits. IMPRESSION: 1. No evidence for intracranial hemorrhage or acute infarction. 2. Nonspecific opacification of mastoid air cells on the right. Nidus in the proper clinical settin g cannot be excluded. 3. Small-vessel disease. POS: [facility]
[2017-04-01] MEDS: Carvedilol 25 MG TAB PO SCH ×2 (11:54→22:32)
[2017-04-01] MEDS: Lisinopril 2.5 MG TAB PO SCH (11:54)
[2017-04-01] MEDS ORDERED: ISOVUE-370 76%-LOCM 1 ML ONE (12:47)
[2017-04-01] MEDS: metFORMIN 500 MG TAB PO SCH ×2 (14:29→19:19)
[2017-04-01] MEDS: Alogliptin 25 MG TAB PO SCH (14:29)
[2017-04-01] MEDS: Nystatin 500,000 UNITS/5 ML UDCUP SSW SCH ×4 (14:30→22:37)
[2017-04-01] MEDS: Escitalopram Oxalate 10 mg Tablet PO SCH (14:41)
--- NOTE | 2017-04-01 15:57 | PDOC.PN ---
- Subjective Encounter Start Date: 04/01/17 Encounter Start Time: 15:30 Patient seen and examined. Mentation improving. No overnight events - Objective Resuscitation Status: Resuscitation Status FULL:Full Resuscitation MAR Reviewed: Yes Vital Signs & Weight: Vital Signs (12 hours) Temp Pulse Pulse Resp BP BP BP 04/01/17 13:16 04/01/17 11:54 73 168/67 H 04/01/17 08:57 93 158/87 H 04/01/17 08:00 97.8 F 65 16 04/01/17 07:08 97.8 F 65 16 146/90 H Pulse Ox Pulse Ox Pulse Ox 04/01/17 13:16 94 L 97 04/01/17 11:54 04/01/17 08:57 04/01/17 08:00 95 04/01/17 07:08 95 Weight Admit Weight 127 lb 11.2 oz Weight 134 lb 6.4 oz I&O: 03/31/17 04/01/17 04/02/17 06:59 06:59 06:59 Intake Total 840 900 100 Balance 840 900 100 Result Diagrams: 04/01/17 03:50 04/01/17 03:50 Additional Labs: Accuchecks 04/01/17 04/01/17 03/31/17 11:50 04:19 20:28 POC Glucose 96 93 101 03/31/17 16:31 POC Glucose 81 Radiology Reviewed by me: No (MRI - No CVA) Phys Exam - Physical Examination Constitutional: NAD (Somnolent - Arousable) Respiratory: no wheezing, no rhonchi Cardiovascular: RRR, no rub Gastrointestinal: soft, non-tender, positive bowel sounds Musculoskeletal: no edema Neurological: moves all 4 limbs Dx/Plan - Plan DVT proph w/SCDs IMPRESSION: 1. Toxic Metabolic Encephalopathy - multifactorial - improving 2. Enterococcus UTI - on Levaquin 3. DM2 - on sliding scale 4. Dehydration 5. Elevated troponins due to demand ischemia/HTN/HLD/CAD/CKD 2/Hypophosphatemia/ Hyponatremia PLAN: * Cont Levaquin 500 mg daily * Start Lovenox for DVT prophylaxis in AM * Await Neuro input * MRI reviewed * CSF neg * Vit B12, folic acid, TSH and Cortisol normal * Cont current meds as below * SNF eval * ID input appreciated * Cont to monitor Review of Systems - Review of Systems Respiratory: negative: Cough, Dry, Shortness of Breath, Hemoptysis, SOB with Excertion, Pleuritic Pain, Sputum, Wheezing Cardiovascular: negative: chest pain, palpitations, orthopnea, paroxysmal nocturnal dyspnea, edema, light headedness Gastrointestinal: Diarrhea. negative: Nausea, Vomiting, Abdominal Pain, Constipation, Melena, Hematochezia, Other - Medications/Allergies Allergies/Adverse Reactions: Allergies Allergy/AdvReac Type Severity Reaction Status Date / Time azithromycin Allergy Verified 03/22/17 22:09 codeine Allergy Verified 03/22/17 22:09 Sulfa (Sulfonamide Allergy Verified 03/22/17 22:09 Antibiotics) tramadol Allergy Verified 03/22/17 22:09 Medications: Current Medications Acetaminophen (Tylenol) 650 mg PO Q4H PRN PRN Reason: Headache/Fever or Mild Pain Last Admin: 03/31/17 00:01 Dose: 650 mg Acetaminophen (Tylenol) 650 mg ME Q4H PRN PRN Reason: Headache/Fever or Mild Pain Al Hydroxide/Mg Hydroxide (Maalox) 30 ml PO Q6H PRN PRN Reason: Heartburn or Indigestion Alogliptin Benzoate (Alogliptin) 12.5 mg PO DAILY [facility] Last Admin: 04/01/17 14:29 Dose: Not Given Amitriptyline HCl (Elavil) 25 mg PO HS [facility] Last Admin: 03/31/17 20:49 Dose: 25 mg Artificial Tears (Tears Naturale) 0 drop EA EYE PRN PRN PRN Reason: Dry Eyes Aspirin (Aspirin Chewable) 81 mg PO DAILY [facility] Last Admin: 04/01/17 14:41 Dose: 81 mg Benzonatate (Tessalon) 100 mg PO Q4H PRN PRN Reason: Cough Bisacodyl (Dulcolax) 10 mg PO DAILYPRN PRN PRN Reason: Constipation Bisacodyl (Dulcolax) 10 mg ME DAILYPRN PRN PRN Reason: Constipation Carvedilol (Coreg) 12.5 mg PO BID [facility] Last Admin: 04/01/17 11:54 Dose: 12.5 mg Dextrose/Water (Dextrose 50%) 25 gm SLOW IVP PRN PRN PRN Reason: Hypoglycemia Diphenhydramine HCl (Benadryl) 25 mg PO Q4H PRN PRN Reason: Itching Diphenhydramine HCl (Benadryl) 25 mg IVP Q4H PRN PRN Reason: Itching Last Admin: 04/01/17 01:56 Dose: 25 mg Escitalopram Oxalate (Lexapro) 10 mg PO DAILY [facility] Last Admin: 04/01/17 14:41 Dose: 10 mg Glucagon (Glucagon) 1 mg IM PRN PRN PRN Reason: Hypoglycemia Guaifenesin (Robitussin Sf) 200 mg PO Q4H PRN PRN Reason: Cough Hydralazine HCl (Apresoline) 10 mg SLOW IVP Q4H PRN PRN Reason: Systolic BP > 180 Last Admin: 03/28/17 07:18 Dose: 10 mg Dextrose/Water (D5w) 1,000 mls @ 0 mls/hr IV .Q0M PRN; As Directed PRN Reason: Hypoglycemia Insulin Human Lispro (Humalog) 0 units SC .MODERATE SLIDING SC PRN PRN Reason: Moderate Correctional Scale Last Admin: 03/28/17 07:20 Dose: 2 unit Insulin Human Lispro (Humalog) 0 units SC .BEDTIME SLIDING SC PRN PRN Reason: Bedtime Correctional Scale Levofloxacin (Levaquin) 500 mg PO 0600 [facility] Last Admin: 04/01/17 06:03 Dose: 500 mg Lisinopril (Zestril) 2.5 mg PO DAILY [facility] Last Admin: 04/01/17 11:54 Dose: 2.5 mg Loratadine (Claritin) 10 mg PO DAILYPRN PRN PRN Reason: Sinus Symptoms Magnesium Hydroxide (Milk Of Magnesium) 30 ml PO DAILYPRN PRN PRN Reason: Constipation Metformin HCl (Glucophage) 500 mg PO BID-[facility] Last Admin: 04/01/17 14:29 Dose: Not Given Mineral Oil/White Petrolatum (Eucerin Cream) 0 gm TOP BIDPRN PRN PRN Reason: Dry Skin Nitroglycerin (Nitrostat) 0.4 mg SL Q5MIN PRN PRN Reason: Chest Pain Nystatin (Mycostatin) 500,000 units SSW QID [facility] Last Admin: 04/01/17 14:41 Dose: 500,000 units Ondansetron HCl (Zofran) 4 mg IVP Q6H PRN PRN Reason: Nausea/Vomiting Last Admin: 03/30/17 11:05 Dose: 4 mg Ondansetron HCl (Zofran Odt) 4 mg PO Q6H PRN PRN Reason: Nausea/Vomiting Pantoprazole Sodium (Protonix) 40 mg PO DAILY [facility] Last Admin: 04/01/17 14:40 Dose: 40 mg Phenol (Chloraseptic [place] 180 Ml Bot) 0 ml PO PRN PRN PRN Reason: Sore Throat Pravastatin Sodium (Pravachol) 80 mg PO HS [facility] Last Admin: 03/31/17 20:48 Dose: 80 mg Saccharomyces Boulardii (Florastor) 250 mg PO HS [facility] Sertraline HCl (Zoloft) 25 mg PO HS [facility] Last Admin: 03/31/17 20:48 Dose: 25 mg Sodium Chloride ([place] Nasal [place] 0.65%) 0 ml EA NARE QIDPRN PRN PRN Reason: Nasal Congestion Sodium Chloride (Flush - Normal Saline) 10 ml IVF Q12HR [facility] Sodium Chloride (Flush - Normal Saline) 10 ml IVF PRN PRN PRN Reason: Saline Flush
--- NOTE | 2017-04-01 18:43 | PRG ---
DATE OF SERVICE: 04/01/2017 SUBJECTIVE: Awake, but apparently had been sleeping on and off through the afternoon, not eating muc h and tells me that she does not have an appetite that she does not eat much usually. Denies headach es, no respiratory symptoms, no abdominal pain, no diarrhea. OBJECTIVE: VITAL SIGNS: Temperature max 98.3-98.6, blood pressure 140/90, pulse 73, O2 sats 94% on 2 liters. GENERAL: Does not appear in distress, establishes eye contact. HEENT: Oral cavity moist, ocular movements are conjugate. LUNGS: With symmetric air entry. S1, S2, regular rate. ABDOMEN: Soft and not distended or tender. LABORATORY DATA: The latest white cell count 13.4, hemoglobin 12, platelets 344, 75% neutrophils. C hemistry was not remarkable except for sodium 128. Last liver profile was not remarkable. Albumin 3 .0 recently. The CSF was normal and MRI showed microvascular disease, otherwise normal. Microbiolog y is not remarkable except for urine culture with Enterococcus species. Urinalysis had only 4-6 wbc' s. She had an abdomen and pelvis CT from 04/2013 with a high grade distal small-bowel obstruction, p ossibly secondary to adhesions. ASSESSMENT AND DISCUSSION: Type 2 diabetes, hypertension, coronary artery disease and confusional st ate neutrophilia. The CSF and MRI did not reveal any significant abnormalities. Cofactor tests are pending, but we will check her abdomen and pelvis CT again to follow up at 2013 study. She continues to not eat and wonders if she has something not yet identified in the abdominal area of an inflammat ory nature.
[2017-04-01] MEDS: Amitriptyline HCl 25 MG TAB PO SCH (22:32)
--- NOTE | 2017-04-01 22:32 | CT ---
CT OF ABDOMEN AND PELVIS PERFORMED WITH CONTRAST ENHANCEMENT: 04/01/17 HISTORY: Abdominal pain, leukocytosis, history of small bowel obstruction. COMPARISON: A 04/23/13 examination. Small bilateral pleural effusions, left larger than right are noted. Atelectatic changes of the right base and atelectasis or infiltrate within the left base. There is emphysematous type lung changes wi th honeycombing. A large hiatal is noted. The liver, spleen and pancreas regions appear unremarkable. The gallbladder has seen removed. Right and left adrenal and right and left kidneys are normal in size. There is no significant periaor tic or mesenteric adenopathy. The appendix is normal in size and more retrocecal in location. CT OF PELVIS PERFORMED WITH CONTRAST ENHANCEMENT: A moderate amount of stool is seen in the rectosigmoid region. Sigmoid diverticulosis is present. No inflammatory process, adenopathy or mass. Arthritic changes of the spine and hips are present. IMPRESSION: 1. Bilateral pleural effusions, left larger than right with bibasilar lung changes most likely a telectasis, although slightly more confluent in the left base. 2. Large hiatal hernia. 3. No acute abnormalities of the abdomen or pelvis. 4. Sigmoid diverticulosis. POS: [facility]
[2017-04-01] MEDS: Pravastatin Sodium 40 MG TAB PO SCH (22:33)
[2017-04-01] MEDS: Saccharomyces boulardii 250 MG CAP PO SCH (22:34)
--- NOTE | 2017-04-02 01:02 | CON ---
DATE OF CONSULTATION: 04/01/2017 REFERRING PHYSICIAN: Dr. Paco Fuentes. REASON FOR CONSULTATION: Altered mental status. HISTORY OF PRESENT ILLNESS: Ms. Wright is a pleasant 86-year-old female who has been consult ed for evaluation of altered mental status. History is obtained from who was present at [facility]. Her son reports that 2 days prior to being admitted to the hospital, she had fell and hurt her left side of her back. She had presented to the emergency room at that time. CT scan of the head wa s done, which showed no acute intracranial abnormality. She was discharged home on tramadol and Tyle nol. He reports that after she started taking tramadol, she became very confused and disoriented. S he was having difficulty with recognizing family members. She was becoming very agitated and confuse d, which prompted them to bring her to the [facility]. She was admitted for further t reatment as she was found to have a urinary tract infection and pneumonia. He reports that she does have history of memory difficulty over the past one year that has slowly gotten worse. He notes that at times, she is having difficulty with recognizing family members' name. She is also having diffic ulty with remembering conversations appointment dates and times. She also tends to misplace things. She tends to go to the kitchen and cannot remember what she went to get for. She has difficulty wit h following conversations; however, this change that brought her into the hospital was very acute and worse than what she had in the past, which prompted them to bring her to the [facility]. Since being admitted to the hospital, he feels that her mentation is slowly improving. She is s till pretty lethargic and tired and sleeps throughout the day; however, she is able to recognize fami ly members and able to converse at times. PAST MEDICAL HISTORY: Significant for hypertension, hyperlipidemia, type 2 diabetes and coronary art nataly disease. PAST SURGICAL HISTORY: Appendectomy, cholecystectomy, hysterectomy, and multiple exploratory laparot omies. SOCIAL HISTORY: She does not smoke cigarettes or drink alcohol or use illicit drugs. She is and lives with her . FAMILY HISTORY: Noncontributory. CURRENT MEDICATIONS: Please review MAR. ALLERGIES: CODEINE, AZITHROMYCIN, and SULFA DRUGS. REVIEW OF SYSTEMS: As mentioned in the HPI, otherwise negative. PHYSICAL EXAMINATION: VITAL SIGNS: Blood pressure of 146/90, pulse of 65, temperature of 97.8, respirations of 16, O2 sats of 95% on room air. GENERAL: Well-developed, well-nourished female in no apparent distress. RESPIRATORY: Clear to auscultation bilaterally. CARDIOVASCULAR: Regular rate and rhythm. NEUROLOGIC: Mental status: Patient is lethargic appearing. She is able to open her eyes and able t o answer questions as well as follow simple commands. She is able to state her first in last name. She is able to state current year; however, for months, she stated it was June. She is able to state her 's name. She is able to follow some simple commands. Speech and language: Fluent speech . Cranial nerves: Pupils are 3 mm and reactive. Visual lentz are intact. External muscles are in tact. No nystagmus is noted. Face is symmetric. Tongue and uvula are midline. Motor exam showed n ormal tone and bulk with 5/5 strength in both upper and lower extremities. Sensory: Sensation is in tact and symmetric. Deep tendon reflexes 2+ reflexes in both upper and lower extremities. Babinski plantar response is flexion bilaterally. Coordination intact to vupsve-bhev-vwlgsl and finger tappin g bilaterally. LABORATORY DATA: Reviewed, which included CBC, BMP, magnesium and CSF studies which is significant f or WBC of 13.4, sodium 128, otherwise unremarkable. IMAGING STUDIES: MRI brain without contrast was reviewed, which showed no acute intracranial abnorma lity. IMPRESSION: 1. Altered mental status, likely toxic metabolic encephalopathy. 2. Urinary tract infection. 3. Hyponatremia. Ms. Wright is a pleasant 86-year-old female who presented with changes in mentation over the past few days after having a recent fall. She is found to have urinary tract infection as well as pn eumonia. She is also noted to have hyponatremia. I have reviewed her MRI brain, which showed no acu te intracranial abnormality. Her confusion is likely toxic metabolic encephalopathy. She may also h ave underlying dementia. did mention that her memory has been getting worse over the past 1 year. At this time, I would recommend continuing current medical management. No further neurologica l workup needed from my standpoint. Thank you for consultation.
[2017-04-02 04:31] LABS: #Eosinphils 0.2 thou/uL (0.0-0.7); #Lymphocytes 1.9 thou/uL (1.20-3.40); #Monocytes 1.3 thou/uL (0.11-0.59); #Neutrophils 11.9 thou/uL (1.40-6.50); %Eosinophils 1.1 % (0.0-10.0); %Lymphocytes 12.3 % (21.0-51.0); %Monocytes 8.7 % (0.0-10.0); %Neutrophils 77.7 % (42.0-75.0); Hemoglobin 12.4 g/dL (12.0-16.0); Mean Corpuscular HGB CONC 33.9 g/dL (32.0-36.0); Mean Corpuscular Hemoglobin 31.2 pg (27.0-31.0); Mean Corpuscular Volume 92.2 fl (81.0-99.0); Mean Platelet Volume 6.3 fL (7.4-10.4); Platelet Count 405 thou/uL (130-400); RBC Distribution Width 12.1 % (11.5-14.5); Red Blood Cell (RBC) Count 3.98 mill/uL (4.20-5.40); White Blood Cell (WBC) Count 15.3 thou/uL (4.8-10.8)
[2017-04-02 04:38] LABS: Albumin 3.1 g/dL (3.4-4.8); Anion Gap 12 mmol/L (10-20); BUN (Urea Nitrogen) 13 mg/dL (9.8-20.1); BUN/Creatinine Ratio 17.33; Calc. Creatinine Clearance 54 mL/min (70-130); Calcium 8.8 mg/dL (7.8-10.44); Carbon Dioxide 27 mmol/L (23-31); Chloride 93 mmol/L (98-107); Estimated GFR-MDRD 74; Glucose 107 mg/dL (83-110); Phosphorus 3.1 mg/dL (2.3-4.7); Potassium 4.2 mmol/L (3.5-5.1); Sodium 128 mmol/L (136-145)
[2017-04-02] MEDS: metFORMIN 500 MG TAB PO SCH ×2 (08:17→17:51)
[2017-04-02] MEDS: Alogliptin 25 MG TAB PO SCH (08:19)
[2017-04-02] MEDS: Lisinopril 2.5 MG TAB PO SCH (08:34)
[2017-04-02] MEDS: Carvedilol 25 MG TAB PO SCH ×2 (08:35→21:01)
[2017-04-02] MEDS: Escitalopram Oxalate 10 mg Tablet PO SCH (08:36)
[2017-04-02] MEDS: Enoxaparin Sodium 30 MG/0.3 ML SYRINGE SC SCH (08:36)
[2017-04-02] MEDS: Nystatin 500,000 UNITS/5 ML UDCUP SSW SCH ×4 (08:37→21:04)
[2017-04-02] MEDS ORDERED: diphenhydrAMINE 12.5 MG/5 ML UDCUP PO PRN (13:45)
[2017-04-02] MEDS: Pravastatin Sodium 40 MG TAB PO SCH (21:01)
[2017-04-02] MEDS: Amitriptyline HCl 25 MG TAB PO SCH (21:02)
[2017-04-02] MEDS: Saccharomyces boulardii 250 MG CAP PO SCH (21:03)
--- NOTE | 2017-04-02 22:04 | PDOC.PN ---
- Subjective Encounter Start Date: 04/02/17 Encounter Start Time: 12:30 Patient seen and examined. Somnolent. No overnight events - Objective Resuscitation Status: Resuscitation Status FULL:Full Resuscitation MAR Reviewed: Yes Vital Signs & Weight: Vital Signs (12 hours) Temp Pulse Resp BP BP Pulse Ox Pulse Ox 04/02/17 20:00 98.3 F 68 16 123/66 93 L 04/02/17 19:59 98.3 F 68 18 93 L 04/02/17 13:05 97.8 F 69 16 138/70 95 04/02/17 10:44 125/66 96 Pulse Ox 04/02/17 20:00 04/02/17 19:59 04/02/17 13:05 04/02/17 10:44 95 Weight Admit Weight 127 lb 11.2 oz Weight 134 lb 6.4 oz I&O: 04/01/17 04/02/17 04/03/17 06:59 06:59 06:59 Intake Total 900 460 300 Balance 900 460 300 Result Diagrams: 04/03/17 03:36 04/03/17 03:36 Additional Labs: Accuchecks 04/02/17 04/02/17 04/02/17 21:00 17:06 11:52 POC Glucose 95 97 99 04/02/17 04:09 POC Glucose 109 Radiology Reviewed by me: Yes (CT abd - negative) Phys Exam - Physical Examination Constitutional: NAD Respiratory: no wheezing, no rhonchi Cardiovascular: RRR, no rub Gastrointestinal: soft, non-tender, positive bowel sounds Musculoskeletal: no edema Dx/Plan - Plan plan discussed w/ family, continue antibiotics, PT/OT, DVT proph w/lovenox, DVT proph w/SCDs IMPRESSION: 1. Toxic Metabolic Encephalopathy - multifactorial - improving 2. Enterococcus UTI - on Levaquin 3. DM2 - on sliding scale 4. Dehydration 5. Elevated troponins due to demand ischemia/HTN/HLD/CAD/CKD 2/Hypophosphatemia/ Hyponatremia PLAN: * MRI brain negative/ CT abd negative/CSF - negative * NEuro/ID input appreciated * Mentation slowly improving * DC in AM to Rehab vs SNF if stable * Hold Metformin due to IV contrast * Cont current meds as below * Cont to monitor Review of Systems - Review of Systems Respiratory: negative: Cough, Dry, Shortness of Breath, Hemoptysis, SOB with Excertion, Pleuritic Pain, Sputum, Wheezing Cardiovascular: negative: chest pain, palpitations, orthopnea, paroxysmal nocturnal dyspnea, edema, light headedness - Medications/Allergies Allergies/Adverse Reactions: Allergies Allergy/AdvReac Type Severity Reaction Status Date / Time azithromycin Allergy Verified 03/22/17 22:09 codeine Allergy Verified 03/22/17 22:09 Sulfa (Sulfonamide Allergy Verified 03/22/17 22:09 Antibiotics) tramadol Allergy Verified 03/22/17 22:09 Medications: Current Medications Acetaminophen (Tylenol) 650 mg PO Q4H PRN PRN Reason: Headache/Fever or Mild Pain Last Admin: 03/31/17 00:01 Dose: 650 mg Acetaminophen (Tylenol) 650 mg CA Q4H PRN PRN Reason: Headache/Fever or Mild Pain Al Hydroxide/Mg Hydroxide (Maalox) 30 ml PO Q6H PRN PRN Reason: Heartburn or Indigestion Alogliptin Benzoate (Alogliptin) 12.5 mg PO DAILY [facility] Last Admin: 04/02/17 08:19 Dose: Not Given Amitriptyline HCl (Elavil) 25 mg PO HS [facility] Last Admin: 04/02/17 21:02 Dose: 25 mg Artificial Tears (Tears Naturale) 0 drop EA EYE PRN PRN PRN Reason: Dry Eyes Aspirin (Aspirin Chewable) 81 mg PO DAILY [facility] Last Admin: 04/02/17 08:34 Dose: 81 mg Benzonatate (Tessalon) 100 mg PO Q4H PRN PRN Reason: Cough Bisacodyl (Dulcolax) 10 mg PO DAILYPRN PRN PRN Reason: Constipation Bisacodyl (Dulcolax) 10 mg CA DAILYPRN PRN PRN Reason: Constipation Carvedilol (Coreg) 12.5 mg PO BID [facility] Last Admin: 04/02/17 21:01 Dose: 12.5 mg Dextrose/Water (Dextrose 50%) 25 gm SLOW IVP PRN PRN PRN Reason: Hypoglycemia Diphenhydramine HCl (Benadryl) 12.5 mg PO HS PRN PRN Reason: Insomnia Enoxaparin Sodium (Lovenox) 30 mg SC 0900 [facility] Last Admin: 04/02/17 08:36 Dose: 30 mg Escitalopram Oxalate (Lexapro) 10 mg PO DAILY [facility] Last Admin: 04/02/17 08:36 Dose: 10 mg Glucagon (Glucagon) 1 mg IM PRN PRN PRN Reason: Hypoglycemia Guaifenesin (Robitussin Sf) 200 mg PO Q4H PRN PRN Reason: Cough Hydralazine HCl (Apresoline) 10 mg SLOW IVP Q4H PRN PRN Reason: Systolic BP > 180 Last Admin: 03/28/17 07:18 Dose: 10 mg Dextrose/Water (D5w) 1,000 mls @ 0 mls/hr IV .Q0M PRN; As Directed PRN Reason: Hypoglycemia Insulin Human Lispro (Humalog) 0 units SC .MODERATE SLIDING SC PRN PRN Reason: Moderate Correctional Scale Last Admin: 03/28/17 07:20 Dose: 2 unit Insulin Human Lispro (Humalog) 0 units SC .BEDTIME SLIDING SC PRN PRN Reason: Bedtime Correctional Scale Levofloxacin (Levaquin) 500 mg PO 0600 [facility] Last Admin: 04/02/17 06:15 Dose: 500 mg Lisinopril (Zestril) 2.5 mg PO DAILY [facility] Last Admin: 04/02/17 08:34 Dose: 2.5 mg Loratadine (Claritin) 10 mg PO DAILYPRN PRN PRN Reason: Sinus Symptoms Magnesium Hydroxide (Milk Of Magnesium) 30 ml PO DAILYPRN PRN PRN Reason: Constipation Mineral Oil/White Petrolatum (Eucerin Cream) 0 gm TOP BIDPRN PRN PRN Reason: Dry Skin Nitroglycerin (Nitrostat) 0.4 mg SL Q5MIN PRN PRN Reason: Chest Pain Nystatin (Mycostatin) 500,000 units SSW QID [facility] Last Admin: 04/02/17 21:04 Dose: 500,000 units Ondansetron HCl (Zofran) 4 mg IVP Q6H PRN PRN Reason: Nausea/Vomiting Last Admin: 03/30/17 11:05 Dose: 4 mg Ondansetron HCl (Zofran Odt) 4 mg PO Q6H PRN PRN Reason: Nausea/Vomiting Pantoprazole Sodium (Protonix) 40 mg PO DAILY [facility] Last Admin: 04/02/17 08:43 Dose: 40 mg Phenol (Chloraseptic [place] 180 Ml Bot) 0 ml PO PRN PRN PRN Reason: Sore Throat Pravastatin Sodium (Pravachol) 80 mg PO [facility] Last Admin: 04/02/17 21:01 Dose: 80 mg Saccharomyces Boulardii (Florastor) 250 mg PO [facility] Last Admin: 04/02/17 21:03 Dose: 250 mg Sertraline HCl (Zoloft) 25 mg PO [facility] Last Admin: 04/02/17 21:01 Dose: 25 mg Sodium Chloride ([place] Nasal [place] 0.65%) 0 ml EA NARE QIDPRN PRN PRN Reason: Nasal Congestion Sodium Chloride (Flush - Normal Saline) 10 ml IVF Q12HR [facility] Last Admin: 04/02/17 21:06 Dose: 10 ml Sodium Chloride (Flush - Normal Saline) 10 ml IVF PRN PRN PRN Reason: Saline Flush
[2017-04-03 04:18] LABS: #Eosinphils 0.2 thou/uL (0.0-0.7); #Lymphocytes 1.6 thou/uL (1.20-3.40); #Monocytes 1.2 thou/uL (0.11-0.59); #Neutrophils 10.3 thou/uL (1.40-6.50); %Basophils 0.2 % (0.0-1.0); %Eosinophils 1.8 % (0.0-10.0); %Monocytes 9.2 % (0.0-10.0); %Neutrophils 76.9 % (42.0-75.0); Hemoglobin 12.5 g/dL (12.0-16.0); Mean Corpuscular HGB CONC 32.6 g/dL (32.0-36.0); Mean Corpuscular Hemoglobin 30.2 pg (27.0-31.0); Mean Corpuscular Volume 92.9 fl (81.0-99.0); Mean Platelet Volume 6.2 fL (7.4-10.4); Platelet Count 404 thou/uL (130-400); RBC Distribution Width 12.1 % (11.5-14.5); Red Blood Cell (RBC) Count 4.15 mill/uL (4.20-5.40); White Blood Cell (WBC) Count 13.4 thou/uL (4.8-10.8)
[2017-04-03 04:37] LABS: Anion Gap 11 mmol/L (10-20); BUN (Urea Nitrogen) 14 mg/dL (9.8-20.1); Calc. Creatinine Clearance 54 mL/min (70-130); Calcium 8.5 mg/dL (7.8-10.44); Carbon Dioxide 28 mmol/L (23-31); Chloride 92 mmol/L (98-107); Estimated GFR-MDRD 75; Glucose 116 mg/dL (83-110); Potassium 4.2 mmol/L (3.5-5.1); Sodium 127 mmol/L (136-145)
[2017-04-03] MEDS: Alogliptin 25 MG TAB PO SCH (09:35)
[2017-04-03] MEDS: Lisinopril 2.5 MG TAB PO SCH (09:36)
[2017-04-03] MEDS: Enoxaparin Sodium 30 MG/0.3 ML SYRINGE SC SCH (09:36)
[2017-04-03] MEDS: Escitalopram Oxalate 10 mg Tablet PO SCH (09:37)
[2017-04-03] MEDS: Carvedilol 25 MG TAB PO SCH ×2 (09:37→19:48)
[2017-04-03] MEDS: Nystatin 500,000 UNITS/5 ML UDCUP SSW SCH ×4 (09:38→19:49)
--- NOTE | 2017-04-03 10:43 | PQF ---
LIZBETH ANGULO MALIK MD [id number] CLINICAL DOCUMENTATION IMPROVEMENT CLARIFICATION FORM: ICD-10 Updated PLEASE DO AN ADDENDUM TO THE PROGRESS NOTE WITH ANY DOCUMENTATION UPDATES OR ADDITIONS AND CARRY THROUGH TO DC SUMMARY. THANK YOU. DATE: 04-03-17 ATTN: DR. PEREIRA Please exercise your independent, professional judgment in responding to the clarification form. Clinical indicators are provided on the bottom of this form for your review Please check appropriate box(s) to clarify if the following diagnosis has been ruled in our ruled out: PNEUMONIA [ ] Ruled in diagnosis [ ] Continue to treat [ ] Resolved [ x ] Ruled out diagnosis [ ] Cannot rule out diagnosis [ ] Other diagnosis [ ] Unable to determine In addition, please specify: Present on Admission (POA): [ ] Yes [ ] No [ ] Unable to determine For continuity of documentation, please document condition throughout progress notes and discharge summary. Thank You. CLINICAL INDICATORS - SIGNS / SYMPTOMS / LABS ER DX: PNA ER: PULSE 93 - 100 RESP 03-22 TEMP 99.5 / PULSE 104 / RESP 03-22 WBC 19.5 03-22 CXR: POSSIBLE SMALL RIGHT PLEURAL EFFUSION H&P: AMS - MOST LIKELY A COMBINATION OF DEHYDRATION, COUPLED W/ HER UNDERLYING INFECTIOUS PROCESS 03-23 PN : SUSPECTED PNEUMONIA RISK FACTORS H&P: PREVIOUS ER VISIT S/P FALL W/ SOB AND AMS BACK TO ER W/ AMS TREATMENTS MAR - IVF 03-23 TO 03-27 LEVAQUIN IV 03-22 TO 03-27 ZOSYN IV 03-24 TO 03-27 LEVAQUIN PO 04-01 TO 2- THANK YOU, VIOLET (This form is maintained as a part of the permanent medical record) 2015 [employer]. All Rights Reserved Violet Guevara RN, BS [email or web address] [facility]
[2017-04-03] MEDS: Saccharomyces boulardii 250 MG CAP PO SCH (19:48)
[2017-04-03] MEDS: Pravastatin Sodium 40 MG TAB PO SCH (19:48)
[2017-04-03] MEDS: Amitriptyline HCl 25 MG TAB PO SCH (19:49)
[2017-04-03 20:40] VITALS: BP 124/65; TEMP 98.7
--- NOTE | 2017-04-04 11:05 | DIS ---
DATE OF DISCHARGE: 04/03/2017 DISCHARGE DISPOSITION: Inpatient rehab. The patient was seen and examined on the day of discharge. ALLERGIES: Patient is allergic to AZITHROMYCIN, CODEINE, SULFA, TRAMADOL. DISCHARGE MEDICATIONS: Tylenol as needed, aspirin 81 mg daily, carvedilol 12.5 mg b.i.d., escitalopr am 10 mg daily, Levaquin 500 mg daily to be discontinued after 3 days, lisinopril 2.5 mg daily, metfo rmin 500 mg b.i.d., Protonix 40 mg daily, pravastatin 40 mg at bedtime, Florastor 250 mg at bedtime. DIAGNOSTIC TESTS: Urine culture showed Enterococcus sensitive to Levaquin. Blood cultures negative. Respiratory viral panel negative. CSF cultures negative. INPATIENT CONSULTANTS: Infectious Disease, Dr. Parra. DIAGNOSTIC TESTS: Echocardiogram showed left ventricular ejection fraction 60%-65%. MRI of the brai n was negative for acute CVA. Vitamin B12, folic acid, cortisol, and TSH were normal. BRIEF HOSPITAL COURSE: Patient is an 86-year-old female with hypertension; hyperlipidemia; diabetes mellitus, type 2; coronary artery disease; who presented to the hospital with altered mentation. Ple ase refer to the history and physical dated 03/22/2017 for further details. The patient was admitted to the hospital with a diagnosis of toxic metabolic encephalopathy, probably secondary to urinary tract infection. She was found to have elevated troponins in the indeterminate range. An echocardiogram was done as discussed above. She was placed on IV fluids. Due to recurre nt encephalopathy, she required Dobbhoff tube feeding that was later discontinued. Her mentation has gradually improved. A lumbar puncture was also performed that was essentially negative. She was al so evaluated by Infectious Disease, Dr. Parra, as well as Neurology, Dr. Parry. No other etiology was found. Her cause for encephalopathy appears to be Enterococcus urinary tract infection. She will c ontinue Levaquin for another 3 days and then it will be discontinued. She will be discharged to [facility]. FINAL DIAGNOSES: 1. Toxic metabolic encephalopathy secondary to Enterococcus urinary tract infection. 2. Elevated troponins, probably secondary to demand ischemia. 3. Dehydration. 4. Hypophosphatemia, corrected. 5. Hypertension. 6. Diabetes mellitus, type 2. 7. Coronary artery disease. 8. Chronic kidney disease, stage 2. 9. Hyponatremia. 10. Physical deconditioning. 11. Mild protein-calorie malnutrition in the diagnosis. Total time coordinating the discharge of this patient was 37 minutes.
== END 2017-04-03 21:00 | DRG 689 ==
LOC: ERS 10:30 → ERHOLD 14:08 → 2NO 17:59 → T4-A 03-27 09:41
PROVIDERS: ADMIT Hospitalist; ATTEND Hospitalist
PROC: 009U3ZX Drainage of Spinal Canal, Percutaneous Approach, Diagnostic (ICD-10-PCS; principal; 2017-03-22)
DX: N39.0 Urinary tract infection, site not specified (principal); G92 Toxic encephalopathy; E11.22 Type 2 diabetes mellitus with diabetic chronic kidney disease; B37.0 Candidal stomatitis; E83.39 Other disorders of phosphorus metabolism; E44.1 Mild protein-calorie malnutrition; I24.8 Other forms of acute ischemic heart disease; E87.1 Hypo-osmolality and hyponatremia; E83.52 Hypercalcemia; E86.0 Dehydration; E78.5 Hyperlipidemia, unspecified; I25.10 Atherosclerotic heart disease of native coronary artery without angina pectoris; I12.9 Hypertensive chronic kidney disease with stage 1 through stage 4 chronic kidney disease, or unspecified chronic kidney disease; N18.2 Chronic kidney disease, stage 2 (mild); B95.2 Enterococcus as the cause of diseases classified elsewhere; Z88.1 Allergy status to other antibiotic agents; Z88.5 Allergy status to narcotic agent; Z88.2 Allergy status to sulfonamides; Z79.82 Long term (current) use of aspirin; Z79.84 Long term (current) use of oral hypoglycemic drugs; Z79.899 Other long term (current) drug therapy
CPT/HCPCS: 36415; 36416; 51701; 62270; 70450; 70553; 71045; 72072; 74177; 80048; 80053; 80069; 81003; 81015; 82010; 82533; 82550; 82553; 82607; 82746; 82945; 83690; 83735; 84100; 84157; 84425; 84443; 84484; 85007; 85025; 85027; 87040; 87070; 87077; 87086; 87186; 87205; 87324; 87449; 87633; 87798; 89051; 93005; 93306; 94760; 96361; 96365; 96375; 96376; A4216; A4353; C9113; G8978-GP-CM; G8979-GP-CJ; G8987-GO-CM; G8988-GO-CK; G8996-GN-CJ; G8996-GN-CM; G8997-GN-CI; G8997-GN-CJ; J0360; J1200; J1650; J1815; J1956; J2060; J2405; J2543; J3475; J7050

== ENCOUNTER → 2017-04-06 | Day surgery (SDC) | payer MEDICARE ==
[~2017-04-06] MED LIST: Heparin 1,000 UNITS/ML VIAL ONE
--- NOTE | 2017-04-06 17:28 | SPC ---
PICC PLACEMENT ULTRASOUND GUIDED VENOUS ACCESS: (Peripherally Inserted Central Catheter) HISTORY: 86-year-old female with urinary tract infection and possible septicemia, requiring long-term IV antib iotics. TECHNIQUE: Catheter caliber: 5 Sami Catheter trim length: 42 cm Catheter lumen number: Double Catheter tip location: Superior vena cava/right atrial junction Vein accessed: Left basilic Signed, informed consent was obtained. A tourniquet was applied at the proximal aspect of the arm. The arm was prepared and draped in the usual sterile fashion. A 25 gauge needle was used to apply bu ffered lidocaine superficially. The vein was punctured with a 21 gauge micropuncture needle under ul trasound guidance. A 0.018 inch guide wire was advanced through the micropuncture needle and into th e vein. Under fluoroscopic guidance, the guide wire was advanced to the right atrium. The PICC (per ipherally inserted central catheter) was flushed and trimmed to the appropriate length. The skin pun cture hole was widened with a blade. The micropuncture needle was exchanged over the guide wire for a 5 Sami peel-away dilator sheath. The dilator was exchanged over the guide wire for the PICC, whi ch was then further advanced under fluoroscopy. The sheath and guide wire were removed. The PICC wa s flushed again and secured in place at the arm. The patient tolerated the procedure well. There wa s no complication. IMPRESSION: Successful placement of PICC (peripherally inserted central catheter) isaiah POS: [facility]
== END ==
LOC: SPEC 14:02
PROVIDERS: ATTEND Family Medicine
PROC: 02HV33Z Insertion of Infusion Device into Superior Vena Cava, Percutaneous Approach (ICD-10-PCS; principal; 2017-04-06)
DX: N39.0 Urinary tract infection, site not specified (principal); I10 Essential (primary) hypertension; E78.5 Hyperlipidemia, unspecified; E11.9 Type 2 diabetes mellitus without complications; I25.10 Atherosclerotic heart disease of native coronary artery without angina pectoris; Z88.2 Allergy status to sulfonamides; Z88.1 Allergy status to other antibiotic agents; Z88.5 Allergy status to narcotic agent; Z88.8 Allergy status to other drugs, medicaments and biological substances; Z79.82 Long term (current) use of aspirin; Z79.899 Other long term (current) drug therapy; Z90.710 Acquired absence of both cervix and uterus; Z90.49 Acquired absence of other specified parts of digestive tract
CPT/HCPCS: 36569; C1751; J1644

== ENCOUNTER 2017-06-23 07:09 | Inpatient (IN) | payer MEDICARE ==
[2017-06-23] MEDS ORDERED: Ondansetron ODT 4 MG TAB ONE (07:23)
[2017-06-23 08:00] LABS: Bilirubin Negative (Negative); Blood, Urine Negative (Negative); Glucose, Urine (Dipstick) 100 mg/dL (Negative); Leukocyte Negative (Negative); Nitrite Negative (Negative); Protein, Urine (Dipstick) Negative (Neg-Trace); Specific Gravity, Urine 1.025 (1.005-1.030); Urobilinogen 0.2 mg/dL (0.2-1.0)
[2017-06-23 08:05] LABS: Clarity Clear (Clear)
[2017-06-23 08:10] LABS: ALT (SGPT) 9 U/L (8-55); AST (SGOT) 19 U/L (5-34); Albumin 3.9 g/dL (3.4-4.8); Alkaline Phosphatase 67 U/L (40-150); Anion Gap 15 mmol/L (10-20); BUN (Urea Nitrogen) 14 mg/dL (9.8-20.1); Bilirubin, Total 0.7 mg/dL (0.2-1.2); CK (CPK) 29 U/L (29-168); Calc. Creatinine Clearance 0 mL/min (70-130); Carbon Dioxide 19 mmol/L (23-31); Chloride 106 mmol/L (98-107); Estimated GFR-MDRD 57; Globulin 4.2 g/dL (2.4-3.5); Glucose 272 mg/dL (83-110); Lipase 60 U/L (8-78); Potassium 4.6 mmol/L (3.5-5.1); Protein, Total 8.1 g/dL (6.0-8.3); Sodium 135 mmol/L (136-145)
[2017-06-23 08:13] LABS: CKMB 1.2 ng/mL (0-6.6)
[2017-06-23 08:25] LABS: Troponin I Less than 0.010 ng/mL (< 0.028)
[2017-06-23] MEDS ORDERED: metroNIDAZOLE 500 MG/100 ML BAG ONE (09:53)
[2017-06-23 10:19] LABS: Hemoglobin 14.6 g/dL (12.0-16.0); Mean Corpuscular HGB CONC 31.8 g/dL (32.0-36.0); Mean Corpuscular Hemoglobin 30.4 pg (27.0-31.0); Mean Corpuscular Volume 95.4 fl (81.0-99.0); Mean Platelet Volume 9.7 fL (7.4-10.4); RBC Distribution Width 12.8 % (11.5-14.5); Red Blood Cell (RBC) Count 4.82 mill/uL (4.20-5.40); White Blood Cell (WBC) Count 18.7 thou/uL (4.8-10.8)
--- NOTE | 2017-06-23 10:22 | RAD ---
CHEST ONE VIEW: History: 87-year-old female with abdominal pain, nausea, unable to walk. Persistent patchy bilateral lower lob e parenchymal changes are noted. Atherosclerosis of the aorta. No significant cardiomegaly. IMPRESSION: Stable to slightly improving right basilar parenchymal changes when compared to prior exam. Continued short term follow up. Probable small hiatal hernia. Continued short term follow up suggested. POS: [facility]
[2017-06-23 10:41] LABS: Band 25 % (5-11); Eosinophils 1 % (0-10); Lymphocytes 8 % (21-51); MDiff Complete? YES; Monocytes 1 % (0-10); Neutrophil 65 % (42-75); PLT Morphology Comment Appears Decreased; RBC Morphology Normal
[2017-06-23 10:50] LABS: Troponin I 0.203 ng/mL (< 0.028)
[2017-06-23] MEDS ORDERED: Ondansetron PF 4 MG/2 ML Vial IVP PRN ×2 (11:08→12:24)
[2017-06-23] MEDS ORDERED: Ondansetron ODT 4 MG TAB PO PRN ×2 (11:08→12:24)
[2017-06-23] MEDS ORDERED: Acetaminophen 325 MG TAB PO PRN (11:09)
--- NOTE | 2017-06-23 11:18 | HP ---
PRIMARY CARE PHYSICIAN: Dr. Nathanael Simpson. REASON FOR ADMISSION: Hypertensive urgency, lactic acidosis and gastroenteritis. HISTORY OF PRESENT ILLNESS: An 87-year-old female who has history of hypertension, diabetes type 2 w ho lives at home. She was brought to emergency room by paramedics. Patient was having nausea, vomit ing, diarrhea since last night. The patient was also having diffuse, crampy abdominal pain. The pat ient was very weak. She went to bathroom and she was not able to get out by herself and she was very weak. Her was also not able to help her out and that is why they called paramedics. Parame dics noted her having nausea, vomiting, and diarrhea, and she was hypertensive with blood pressure 22 0/90. She was experiencing generalized weakness. She did not have any chest pain, palpitation. She denies any shortness of breath, orthopnea, PND or leg swelling. She denies any hematochezia, melena , hematemesis. She denies any fever or chills. She denies any urinary tract infection symptoms. Th e patient is a poor historian, but her is present who provided some history. The patient nor oksana ambulates with a walker. She denies any headaches. She denies any focal motor or sensory symp toms. She denies any chest pain, palpitation. She denies any flu-like illness. REVIEW OF SYSTEMS: The following complete review of systems was negative, unless otherwise mentioned in the HPI or below: Constitutional: Weight loss or gain, ability to conduct usual activities. Sk in: Rash, itching. Eyes: Double vision, pain. ENT/Mouth: Nose bleeding, neck stiffness, pain, te nderness. Cardiovascular: Palpitations, dyspnea on exertion, orthopnea. Respiratory: Shortness of breath, wheezing, cough, hemoptysis, fever, or night sweats. Gastrointestinal: Poor appetite, abdo sandra pain, heartburn, nausea, vomiting, constipation, or diarrhea. Genitourinary: Urgency, frequen cy, dysuria, nocturia. Musculoskeletal: Pain, swelling. Neurologic/Psychiatric: Anxiety, depressi on. Allergy/Immunologic: Skin rash, bleeding tendency. Please see my HPI for pertinent positives a nd negatives. All other review of systems reviewed and negative except as mentioned in the HPI. Ple ase see my HPI for pertinent positive and negative. All other review of systems reviewed and negativ e except as mentioned in the HPI. ALLERGIES: The patient is allergic to AZITHROMYCIN, CODEINE, TRAMADOL, and SULFA DRUGS. CURRENT HOME MEDICATIONS: Coreg 6.25 mg p.o. daily, pravastatin 40 mg p.o. daily, metformin 500 mg p .o. daily, amitriptyline 50 mg p.o. daily, Celexa 10 mg p.o. daily. PAST MEDICAL HISTORY: Coronary artery disease, diabetes type 2, hypertension, dyslipidemia. PAST SURGICAL HISTORY: Appendicectomy, cholecystectomy, hysterectomy, multiple laparotomy, lumbar pu ncture. PAST PSYCHIATRIC HISTORY: Anxiety and depression. SOCIAL HISTORY: Patient lives at home with her . No history of tobacco, alcohol or illicit d rug abuse. FAMILY HISTORY: No strong family history of premature coronary artery disease, stroke or cancer. EMERGENCY ROOM COURSE: The patient has received IV fluid and Zofran. PHYSICAL EXAMINATION: VITAL SIGNS: On arrival, blood pressure 184/85, pulse 65, respiratory rate 20, temperature 97.6, sat uration 95% on room air, weight 54.4 kilograms. GENERAL: The patient is currently weak, elderly female, hypertensive. HEENT: Head is normocephalic, atraumatic. Eyes: Pupils round, reactive to light. Extraocular musc les are intact. Somewhat dry appearing mucous membrane, no oral lesion, no pharyngeal erythema, no e xudate. NECK: Supple, no JVD, no thyromegaly, no carotid bruit, no jugular venous distention. LUNGS: Clear to auscultation without any rhonchi or rales. CARDIAC: S1, S2 regular. No significant murmur, no gallop, no rub. ABDOMEN: Soft. Patient does not have any peritoneal sign, no guarding, no rigidity, no rebound, no organomegaly, no mass, no suprapubic tenderness. BACK: Unremarkable, no CVA tenderness. EXTREMITIES: Upper extremity, passive movement of all joints is normal. Lower extremity, no edema. Good peripheral pulsation. SKIN: No skin rash. HEMATOLOGICAL: No lymphadenopathy. PSYCHIATRIC: Normal affect. NEUROLOGIC: The patient is alert, oriented x3. Cranial nerves II-XII intact. Motor 5/5 in all set of 4 limbs. Sensation intact. Reflexes symmetrical. No cerebellar sign. Plantar bilateral flexor. SIGNIFICANT LABS: Chest x-ray based on my review, no acute cardiopulmonary process. CBC ordered and pending. Lactic acid 4.1. CK 29, CK-MB 1.2, troponin I less than 0.010. BMP: Sodium 135, potassi um 4.26, chloride 106, carbon dioxide 19, anion gap 15, BUN 14, creatinine 0.93, glucose 272, calcium 10.0. LFT: AST 19, ALT 9, alkaline phosphatase 67, albumin 3.9, lipase 60. Urinalysis normal. Ke tones positive. ASSESSMENT AND PLAN: 1. Nausea, vomiting, diarrhea, likely gastroenteritis, presumed infection. We will send stool for i nfection workup and rule out infectious etiology. Empirically, we will start Levaquin and Flagyl. W e will also check stool for C. diff. We will also prescribe probiotic, Florastor 250 mg p.o. daily a nd we will treat her symptomatically with Zofran and Pepcid. 2. Lactic acidosis likely related with mild dehydration/metformin-induced lactic acidosis. We will repeat lactic acid tomorrow. The patient will be given gentle IV fluid. We will also check serum ke tones. 3. Hypertensive urgency, likely related with her acute stress response from abdominal pain. We will monitor patient's blood pressure while in hospital, we will continue her home medication including C oreg 12.5 mg p.o. twice daily, lisinopril 2.5 mg p.o. daily and we will also use hydralazine and labe talol p.r.n. basis. 4. Diabetes type 2. We will continue metformin 500 mg p.o. b.i.d., insulin as per sliding scale per protocol. Diabetic diet will be given. 5. Dyslipidemia. We will continue pravastatin 40 mg p.o. at bedtime. 6. Anxiety and depression. We will continue Lexapro 10 mg p.o. daily. 7. Deep venous thrombosis prophylaxis. Sequential compression device boots. 8. Gastrointestinal prophylaxis, Protonix 40 mg p.o. daily. CODE STATUS: The patient is FULL CODE. Patient's is surrogate decision maker. Disposition plan based on clinical course. We are expecting patient's stay in hospital [address] an of care discussed with the patient and patient's at bedside.
[2017-06-23 11:49] LABS: Lactic Acid 2.5 mmol/L (0.5-2.2)
[2017-06-23] MEDS ORDERED: Dextrose 5% in Water 1,000 ML IV PRN (12:24)
[2017-06-23] MEDS ORDERED: Eucerin (Mineral Oil/Petrolatum,White) 30 gm Jar TOP PRN (12:24)
[2017-06-23] MEDS ORDERED: Milk Of Magnesia 30 ML UDCUP PO PRN (12:24)
[2017-06-23] MEDS ORDERED: Sodium Chloride 0.65% Nasal 44 ML BOT EA NARE PRN (12:24)
[2017-06-23] MEDS ORDERED: hydrALAZINE 20 MG/ML VIAL SLOW IVP PRN (12:24)
[2017-06-23] MEDS ORDERED: Loratadine 10 MG TAB PO PRN (12:24)
[2017-06-23] MEDS ORDERED: HumaLOG 300 UNITS/3 ML VIAL SC PRN ×2 (12:24)
[2017-06-23] MEDS ORDERED: Diabetic Tussin 200 MG/10 ML UDCUP PO PRN (12:24)
[2017-06-23] MEDS ORDERED: Chloraseptic Spray 180 ml Bottle PO PRN (12:24)
[2017-06-23] MEDS ORDERED: Mag-Al 1200 mg/1200 mg/30 ML UDCUP PO PRN (12:24)
[2017-06-23] MEDS ORDERED: Loperamide HCl 2 MG CAP PO PRN (12:24)
[2017-06-23] MEDS ORDERED: Zolpidem Tartrate 5 MG TAB PO PRN (12:24)
[2017-06-23] MEDS ORDERED: Labetalol HCl 100 MG/20 ML VIAL SLOW IVP PRN (12:24)
[2017-06-23] MEDS ORDERED: Artificial Tears 18 DROP/0.9 ML EA EYE PRN (12:24)
[2017-06-23] MEDS ORDERED: Senokot 8.6 MG TAB PO PRN (12:24)
[2017-06-23] MEDS ORDERED: Dextrose 50% Abboject 50 ML SYRINGE SLOW IVP PRN (12:24)
[2017-06-23] MEDS: Sodium Chloride 0.9% 1,000 ML IV SCH (13:52)
[2017-06-23] MEDS: metroNIDAZOLE 500 MG in Premix Bag 1 BAG IVPB SCH ×2 (14:02→21:16)
[2017-06-23] MEDS: metFORMIN 500 MG TAB PO SCH (16:00)
[2017-06-23] MEDS: Carvedilol 6.25 MG TAB PO SCH (16:00)
[2017-06-23 17:37] LABS: Troponin I 0.708 ng/mL (< 0.028)
[2017-06-23 17:57] LABS: Fibrinogen 301 mg/dL (253-463); INR-International Normal Ratio 1.3; Prothrombin Time 15.9 SEC (12.0-14.7)
[2017-06-23 17:58] LABS: D-Dimer Test 2.75 *mcg/mL (0.27-0.43); PTT 34.5 SEC (22.9-36.1)
[2017-06-23 18:19] LABS: FSP-Qualitative ABNORMAL (Normal); FSP-Semiquantitative >=5 & <20 mcg/mL (Less than 5)
[2017-06-23 18:42] LABS: Platelet Count 281 thou/uL (130-400)
[2017-06-23 18:46] LABS: Platelet Count 199 thou/uL (130-400)
[2017-06-23] MEDS: Atorvastatin Calcium 10 MG TAB PO SCH (20:04)
[2017-06-23] MEDS: diphenhydrAMINE 25 MG CAP PO PRN (20:04)
[2017-06-23] MEDS: Famotidine 40 MG/4 ML VIAL SLOW IVP SCH (20:29)
--- NOTE | 2017-06-23 20:59 | CON ---
DATE OF CONSULT: HISTORY OF PRESENT ILLNESS: This patient is a pleasant 87-year-old woman who presents for evaluation of dyspnea and weakness. The patient has a previous history of coronary artery disease. In 2009, she underwent a cardiac catheterization and found to have a mild decreased left ventricular function with an ejection fraction 40-45%. The LAD had a 20% stenosis. The first diagonal branch had a 70% stenosis.The left circumflex artery and right coronary artery free of significant disease. The patient has been on medical therapy. She has been doing well until she presented with no diarrhea, weakness, and was admitted for further evaluation. The patient denied having any chest discomfort. She denies having any PND or dyspnea. PAST MEDICAL HISTORY: 1. Coronary artery disease. 2. Diabetes mellitus. 3. Hypertension. PAST SURGICAL HISTORY: Appendectomy, cholecystectomy, hysterectomy, laparotomy. MEDICATIONS ON ADMISSION: Coreg 6.25 b.i.d., metformin 500 daily, amitriptyline 50 daily, Celexa 10 daily , pravastatin 20 daily. ALLERGIES: AZITHROMYCIN, CODEINE, TRAMADOL, SULFA DRUGS. SOCIAL HISTORY: She is a nonsmoker. She lives with her and a disabled grandchild. FAMILY HISTORY: There is a positive family history of coronary artery disease. REVIEW OF SYSTEMS: Ten point system noticeable for weakness. The patient denies being nauseated. PHYSICAL EXAMINATION: GENERAL: This is an elderly woman in no acute distress. VITAL SIGNS: Blood pressure 121/52. NECK: No jugular venous distention. LUNGS: Clear to auscultation. HEART: Regular rate and rhythm, normal S1, S2 with a II/ systolic murmur. ABDOMEN: Nondistended. EXTREMITIES: No edema. SKIN: Warm and dry. NEUROLOGIC: Nonfocal. VASCULAR: Radial pulses 2+. LABORATORY DATA: Sodium 135, potassium 4.6, chloride 106, bicarbonate 19, BUN 14, creatinine 0.93 , glucose 272. Troponin 0.68. White blood cell count 18.7, hemoglobin 14.6, hematocrit 45.9, platelets were 38. Her EKG revealed normal sinus rhythm, normal ECG. IMPRESSION: 1. Sepsis/gastroenteritis. 2. Elevated troponin level. 3. History of coronary artery disease. 4. Hypertension. 5. Diabetes. 6. Depression. 7. Thrombocytopenia. This patient presents with sepsis and gastroenteritis. The patient's troponin level is mildly elevated, probably from demand ischemia. The patient has marked thrombocytopenia. We will discontinue her anti-platelet medication. This does not appear to be an coronary syndrome since the patient is asymptomatic with no EKG changes. We will follow this patient with you through her hospitalization. TORO
[2017-06-23] MEDS ORDERED: Famotidine/PF 20 mg/2ml Vial SLOW IVP SCH (21:00)
[2017-06-23] MEDS ORDERED: Famotidine 40 MG/4 ML VIAL SLOW IVP SCH (21:00)
[2017-06-23] MEDS ORDERED: Pravastatin Sodium 40 MG TAB PO SCH (21:00)
[2017-06-24] MEDS: Acetaminophen 325 MG TAB PO PRN ×4 (01:33→21:43)
[2017-06-24] MEDS: diphenhydrAMINE 25 MG CAP PO PRN ×2 (01:57→21:42)
[2017-06-24] MEDS: Sodium Chloride 0.9% 1,000 ML IV SCH ×2 (04:04→05:31)
[2017-06-24] MEDS: metroNIDAZOLE 500 MG in Premix Bag 1 BAG IVPB SCH ×3 (05:29→21:06)
[2017-06-24 06:09] LABS: Lactic Acid 0.8 mmol/L (0.5-2.2)
[2017-06-24 06:12] LABS: Anion Gap 11 mmol/L (10-20); BUN (Urea Nitrogen) 11 mg/dL (9.8-20.1); Calc. Creatinine Clearance 49 mL/min (70-130); Calcium 8.9 mg/dL (7.8-10.44); Carbon Dioxide 22 mmol/L (23-31); Chloride 110 mmol/L (98-107); Estimated GFR-MDRD 75; Glucose 98 mg/dL (83-110); Potassium 3.6 mmol/L (3.5-5.1); Sodium 139 mmol/L (136-145)
[2017-06-24 06:19] LABS: #Eosinphils 0.1 thou/uL (0.0-0.7); #Lymphocytes 2.6 thou/uL (1.20-3.40); %Basophils 0.1 % (0.0-1.0); %Eosinophils 0.7 % (0.0-10.0); %Lymphocytes 22.2 % (21.0-51.0); %Monocytes 8.6 % (0.0-10.0); %Neutrophils 68.5 % (42.0-75.0); Hemoglobin 10.9 g/dL (12.0-16.0); Mean Corpuscular Hemoglobin 30.9 pg (27.0-31.0); Mean Corpuscular Volume 93.6 fl (81.0-99.0); Mean Platelet Volume 8.1 fL (7.4-10.4); Platelet Count 138 thou/uL (130-400); RBC Distribution Width 12.6 % (11.5-14.5); Red Blood Cell (RBC) Count 3.53 mill/uL (4.20-5.40); White Blood Cell (WBC) Count 11.6 thou/uL (4.8-10.8)
[2017-06-24] MEDS: metFORMIN 500 MG TAB PO SCH ×2 (08:51→17:30)
[2017-06-24] MEDS: Lisinopril 2.5 MG TAB PO SCH ×2 (08:52→08:55)
[2017-06-24] MEDS: Carvedilol 6.25 MG TAB PO SCH ×2 (08:52→17:30)
[2017-06-24] MEDS: Escitalopram Oxalate 10 mg Tablet PO SCH (08:52)
[2017-06-24] MEDS: Saccharomyces boulardii 250 MG CAP PO SCH (08:52)
[2017-06-24 09:31] VITALS: BMI 21.6
--- NOTE | 2017-06-24 10:24 | PDOC.PN ---
- Subjective Encounter Start Date: 06/24/17 Encounter Start Time: 07:50 -: old records requested/rev pt has no diarrhoea, no abdominal pain, no fever, feels better bedside - Objective Resuscitation Status: Resuscitation Status FULL:Full Resuscitation MAR Reviewed: Yes Vital Signs & Weight: Vital Signs (12 hours) Temp Pulse Resp BP Pulse Ox 06/24/17 07:40 97.7 F 70 17 145/61 H 95 06/24/17 05:42 96 06/24/17 04:00 98.6 F 71 18 143/63 H 96 Weight Admit Weight 122 lb 6 oz Weight 122 lb I&O: 06/23/17 06/24/17 06/25/17 06:59 06:59 06:59 Intake Total 1437 Balance 1437 Result Diagrams: 06/24/17 05:08 06/24/17 05:08 Additional Labs: Accuchecks 06/24/17 06/23/17 05:59 20:39 POC Glucose 94 122 H EKG Reviewed by me: Yes Phys Exam - Physical Examination Constitutional: NAD HEENT: PERRLA, moist MMs, sclera anicteric Neck: no JVD, supple Respiratory: no wheezing, no rales, no rhonchi Cardiovascular: RRR, no significant murmur, no rub Gastrointestinal: soft, non-tender, no distention, positive bowel sounds Musculoskeletal: no edema, pulses present Neurological: non-focal, normal sensation Psychiatric: normal affect, A&O x 3 Skin: no rash, normal turgor Dx/Plan (1) Demand ischemia Code(s): I24.8 - OTHER FORMS OF ACUTE ISCHEMIC HEART DISEASE Status: Acute (2) Gastroenteritis Code(s): K52.9 - NONINFECTIVE GASTROENTERITIS AND COLITIS, UNSPECIFIED Status : Acute (3) Hypertensive urgency Code(s): I16.0 - HYPERTENSIVE URGENCY Status: Acute Comment: controlled (4) Lactic acidosis Code(s): E87.2 - ACIDOSIS Status: Resolved (5) Leucocytosis Code(s): D72.829 - ELEVATED WHITE BLOOD CELL COUNT, UNSPECIFIED Status: Acute (6) Anemia, normocytic normochromic Code(s): D64.9 - ANEMIA, UNSPECIFIED Status: Chronic (7) Anxiety and depression Code(s): F41.8 - OTHER SPECIFIED ANXIETY DISORDERS Status: Chronic (8) Diabetes type 2, controlled Code(s): E11.9 - TYPE 2 DIABETES MELLITUS WITHOUT COMPLICATIONS Status: Chronic Comment: ISS, Metformin 500mg BID (9) Dyslipidemia Code(s): E78.5 - HYPERLIPIDEMIA, UNSPECIFIED Status: Chronic (10) Thrombocytopenia Code(s): D69.6 - THROMBOCYTOPENIA, UNSPECIFIED Status: Ruled-out - Plan cont current plan of care, plan discussed w/ family, continue antibiotics, PT/OT * as per cardiology demand ischemia * pt is improving clinically * continue levaquin and flagyl * discussed with * start PT * expecting discharge tomorrow * medication reviewed as below * symptomatic treatment. * DC IVF * echo today * stool work up pending Review of Systems - Review of Systems Constitutional: weakness. negative: fever, chills, sweats, malaise, other Eyes: negative: Pain, Vision Change, Conjunctivae Inflammation, Eyelid Inflammation, Redness, Other ENT: negative: Ear Pain, Ear Discharge, Nose Pain, Nose Discharge, Nose Congestion, Mouth Pain, Mouth Swelling, Throat Pain, Throat Swelling, Other Respiratory: negative: Cough, Dry, Shortness of Breath, Hemoptysis, SOB with Excertion, Pleuritic Pain, Sputum, Wheezing Cardiovascular: negative: chest pain, palpitations, orthopnea, paroxysmal nocturnal dyspnea, edema, light headedness, other Gastrointestinal: negative: Nausea, Vomiting, Abdominal Pain, Diarrhea, Constipation, Melena, Hematochezia, Other Genitourinary: negative: Dysuria, Frequency, Incontinence, Hematuria, Retention , Other Musculoskeletal: negative: Neck Pain, Shoulder Pain, Arm Pain, Back Pain, Hand Pain, Leg Pain, Foot Pain, Other Skin: negative: Rash, Lesions, Jacob, Bruising, Other - Medications/Allergies Allergies/Adverse Reactions: Allergies Allergy/AdvReac Type Severity Reaction Status Date / Time azithromycin Allergy Verified 03/22/17 22:09 codeine Allergy Verified 03/22/17 22:09 Sulfa (Sulfonamide Allergy Verified 03/22/17 22:09 Antibiotics) tramadol Allergy Verified 03/22/17 22:09 Medications: Current Medications Acetaminophen (Tylenol) 650 mg PO Q4H PRN PRN Reason: Headache/Fever or Pain Last Admin: 06/24/17 10:00 Dose: 650 mg Al Hydroxide/Mg Hydroxide (Maalox) 30 ml PO Q6H PRN PRN Reason: Heartburn or Indigestion Artificial Tears (Tears Naturale) 0 drop EA EYE PRN PRN PRN Reason: Dry Eyes Atorvastatin Calcium (Lipitor) 10 mg PO HS [facility] Last Admin: 06/23/17 20:04 Dose: 10 mg Carvedilol (Coreg) 12.5 mg PO BID-[facility] Last Admin: 06/24/17 08:52 Dose: 12.5 mg Dextrose/Water (Dextrose 50%) 25 gm SLOW IVP PRN PRN PRN Reason: Hypoglycemia Diphenhydramine HCl (Benadryl) 25 mg PO Q6H PRN PRN Reason: Itching & Insomnia Last Admin: 06/24/17 01:57 Dose: 25 mg Escitalopram Oxalate (Lexapro) 10 mg PO DAILY [facility] Last Admin: 06/24/17 08:52 Dose: 10 mg Famotidine (Pepcid) 20 mg SLOW IVP 2100 [facility] Last Admin: 06/23/17 20:29 Dose: 20 mg Glucagon (Glucagon) 1 mg IM PRN PRN PRN Reason: Hypoglycemia Guaifenesin (Robitussin Sf) 200 mg PO Q4H PRN PRN Reason: Cough Hydralazine HCl (Apresoline) 10 mg SLOW IVP Q4H PRN PRN Reason: Systolic BP > 180 Dextrose/Water (D5w) 1,000 mls @ 0 mls/hr IV .Q0M PRN; As Directed PRN Reason: Hypoglycemia Levofloxacin 500 mg/ Device 100 mls @ 100 mls/hr IVPB Q24HR [facility] Last Admin: 06/23/17 14:02 Dose: 100 mls Metronidazole 500 mg/ Device 100 mls @ 100 mls/hr IVPB Q8HR [facility] Last Admin: 06/24/17 05:29 Dose: 100 mls Sodium Chloride (Normal Saline 0.9%) 1,000 mls @ 70 mls/hr IV .[id number] [facility] Last Admin: 06/24/17 05:31 Dose: 1,000 mls Insulin Human Lispro (Humalog) 0 units SC .MODERATE SLIDING SC PRN PRN Reason: Moderate Correctional Scale Insulin Human Lispro (Humalog) 0 units SC .BEDTIME SLIDING SC PRN PRN Reason: Bedtime Correctional Scale Labetalol HCl (Normodyne) 20 mg SLOW IVP Q4H PRN PRN Reason: Systolic BP > 180 Lisinopril (Zestril) 2.5 mg PO DAILY [facility] Last Admin: 06/24/17 08:55 Dose: Not Given Loperamide HCl (Imodium) 2 mg PO PRN PRN PRN Reason: Diarrhea/Loose Stools Loratadine (Claritin) 10 mg PO DAILYPRN PRN PRN Reason: Sinus Symptoms Magnesium Hydroxide (Milk Of Magnesium) 30 ml PO DAILYPRN PRN PRN Reason: Constipation Metformin HCl (Glucophage) 500 mg PO BID-[facility] Last Admin: 06/24/17 08:51 Dose: 500 mg Mineral Oil/White Petrolatum (Eucerin Cream) 0 gm TOP BIDPRN PRN PRN Reason: Dry Skin Ondansetron HCl (Zofran Odt) 4 mg PO Q6H PRN PRN Reason: Nausea/Vomiting Ondansetron HCl (Zofran) 4 mg IVP Q6H PRN PRN Reason: Nausea/Vomiting Phenol (Chloraseptic [place] 180 Ml Bot) 0 ml PO PRN PRN PRN Reason: Sore Throat Saccharomyces Boulardii (Florastor) 250 mg PO DAILY [facility] Last Admin: 06/24/17 08:52 Dose: 250 mg Senna (Senokot) 2 tab PO HSPRN PRN PRN Reason: Constipation Sodium Chloride (Flush - Normal Saline) 10 ml IVF Q12HR [facility] Last Admin: 06/24/17 08:53 Dose: Not Given Sodium Chloride (Flush - Normal Saline) 10 ml IVF PRN PRN PRN Reason: Saline Flush Sodium Chloride ([place] Nasal [place] 0.65%) 0 ml EA NARE QIDPRN PRN PRN Reason: Nasal Congestion Zolpidem Tartrate (Ambien) 5 mg PO HSPRN PRN PRN Reason: Insomnia
[2017-06-24] MEDS: Atorvastatin Calcium 10 MG TAB PO SCH (21:06)
[2017-06-24] MEDS: Famotidine 40 MG/4 ML VIAL SLOW IVP SCH (21:06)
[2017-06-25] MEDS: metroNIDAZOLE 500 MG in Premix Bag 1 BAG IVPB SCH ×3 (05:45→21:15)
[2017-06-25] MEDS: Acetaminophen 325 MG TAB PO PRN ×2 (05:52→21:25)
[2017-06-25] MEDS: metFORMIN 500 MG TAB PO SCH (08:20)
[2017-06-25] MEDS: Carvedilol 6.25 MG TAB PO SCH ×2 (08:20→17:19)
[2017-06-25] MEDS: Saccharomyces boulardii 250 MG CAP PO SCH (08:29)
[2017-06-25] MEDS: Escitalopram Oxalate 10 mg Tablet PO SCH (08:29)
[2017-06-25] MEDS: Lisinopril 2.5 MG TAB PO SCH (08:30)
[2017-06-25] MEDS: glipiZIDE 5 MG TAB PO SCH ×2 (09:42→21:15)
[2017-06-25] MEDS: Amlodipine 5 MG TAB PO SCH (09:44)
--- NOTE | 2017-06-25 11:49 | PQF ---
CLINICAL DOCUMENTATION IMPROVEMENT CLARIFICATION FORM: ICD-10 Updated PLEASE DO AN ADDENDUM TO THE PROGRESS NOTE WITH ANY DOCUMENTATION UPDATES OR ADDITIONS AND CARRY THROUGH TO DC SUMMARY. THANK YOU. DATE: 06/25/17 ATTN: Dr. Capone Please exercise your independent, professional judgment in responding to the clarification form. Clinical indicators are provided on the bottom of this form for your review Please check appropriate box(s): Conflicting documentation was noted in the Medical Record, please clarify if patient is being treated/monitored for: [ ] Noninfective gastroenteritis and colitis, unspecified. (PN 06/24) [ X] Pt presents with sepsis and gastroenteritis. (Cardiology Consult 06/23) [ ] Other diagnosis [ ] Unable to determine In addition, please specify: Present on Admission (POA): [ x ] Yes [ ] No [ ] Unable to determine For continuity of documentation, please document condition throughout progress notes and discharge summary. Thank You. CLINICAL INDICATORS - SIGNS / SYMPTOMS/ LABS H&P: LACTIC ACID 4.1 NAUSEA, VOMITING , DIARRHEA LIKELY GASTROENTERITIS, PRESUMED INFECTION. LACTIC ACIDOSIS LIKELY R/T MILD DEHYDRATION/ METFORMIN-INDUCED LACTIC ACIDOSIS CARDIOLOGY CONSULT: WHITE BLOOD CELL COUNT 18.7 PT PRESENTS WITH SEPSIS & GASTROENTERITIS. PN 06/24: NONINFECTIVE GASTROENTERITIS AND COLITIS, UNSPECIFIED. LACTIC ACIDOSIS. RESOLVED LEUCOCYTOSIS. ACUTE RISKS: H&P: CAD, DM 2, HTN ASSESSMENT: NAUSEA, VOMITING, DIARRHEA, LIKELY GASTROENTERITIS, PRESUMED INFECTION. TREATMENT: PN 06/24: CONTINUE LEVAQUIN & FLAGYL STOOL WORK UP PENDING. Thank you, Charline (This form is maintained as a part of the permanent medical record) 2014 [employer] All Rights Reserved Charline Santos RN, BSN [email or web address] Office: [phone] [facility]
--- NOTE | 2017-06-25 13:39 | PDOC.PN ---
- Subjective Encounter Start Date: 06/25/17 Encounter Start Time: 13:37 Subjective: still feels very weak and tired. -: no BM since admission.poor appetite - Objective Resuscitation Status: Resuscitation Status FULL:Full Resuscitation MAR Reviewed: Yes Vital Signs & Weight: Vital Signs (12 hours) Temp Pulse Pulse Pulse Resp BP BP 06/25/17 11:34 97.7 F 67 17 06/25/17 09:48 60 65 187/79 H 152/69 H 06/25/17 08:30 70 06/25/17 08:14 97.7 F 70 17 06/25/17 04:00 98.4 F 70 20 BP BP Pulse Ox Pulse Ox Pulse Ox 06/25/17 11:34 152/69 H 92 L 06/25/17 09:48 93 L 90 L 06/25/17 08:30 06/25/17 08:14 167/77 H 92 L 06/25/17 04:00 162/74 H 93 L Weight Admit Weight 122 lb 6 oz Weight 119 lb 11.2 oz I&O: 06/24/17 06/25/17 06/26/17 06:59 06:59 06:59 Intake Total 1437 790 Output Total 550 Balance 1437 240 Result Diagrams: 06/24/17 05:08 06/24/17 05:08 Additional Labs: Accuchecks 06/25/17 06/25/17 06/24/17 11:18 06:05 20:48 POC Glucose 154 H 114 H 114 H 06/24/17 06/24/17 16:09 11:20 POC Glucose 113 H 111 H Microbiology 06/23/17 09:50 Venous blood - Left Hand Blood Culture - Preliminary Specimen has been received and culture in progress. No Growth to date. 06/23/17 09:50 Venous blood - Left Hand Blood Culture - Preliminary NO GROWTH AT 48 HOURS 06/23/17 09:47 Venous blood - Right Arm Blood Culture - Preliminary Specimen has been received and culture in progress. No Growth to date. 06/23/17 09:47 Venous blood - Right Arm Blood Culture - Preliminary NO GROWTH AT 48 HOURS Phys Exam - Physical Examination Constitutional: NAD HEENT: PERRLA, moist MMs, sclera anicteric, oral pharynx no lesions Neck: no JVD Respiratory: no wheezing, no rales, no rhonchi, clear to auscultation bilateral Cardiovascular: RRR, no significant murmur Gastrointestinal: soft, non-tender, no distention, positive bowel sounds Musculoskeletal: no edema, pulses present Neurological: non-focal, normal sensation, moves all 4 limbs Psychiatric: normal affect, A&O x 3 Skin: no rash Dx/Plan (1) Gastroenteritis Code(s): K52.9 - NONINFECTIVE GASTROENTERITIS AND COLITIS, UNSPECIFIED Status : Acute Comment: likley infectious (2) Demand ischemia Code(s): I24.8 - OTHER FORMS OF ACUTE ISCHEMIC HEART DISEASE Status: Acute (3) Hypertensive urgency Code(s): I16.0 - HYPERTENSIVE URGENCY Status: Resolved Comment: controlled (4) Anemia, normocytic normochromic Code(s): D64.9 - ANEMIA, UNSPECIFIED Status: Chronic (5) Anxiety and depression Code(s): F41.8 - OTHER SPECIFIED ANXIETY DISORDERS Status: Chronic (6) Diabetes type 2, controlled Code(s): E11.9 - TYPE 2 DIABETES MELLITUS WITHOUT COMPLICATIONS Status: Chronic Comment: ISS, Metformin 500mg BID (7) Dyslipidemia Code(s): E78.5 - HYPERLIPIDEMIA, UNSPECIFIED Status: Chronic - Plan continue antibiotics, PT/OT, respiratory therapy, incentive spirometry, out of bed/ambulate, DVT proph w/SCDs cont empiric ABx. add laxatives to prevent ileus.stool studies pending -: encourage PO intake . -: not ready for DC today though Hemodynamically stable -: Ok to transfer to [facility] plans for DC tomorrow. -: am labs.home meds as below * .stop lisinopril as pt takes amlodipine at home ,which will be restarted. * Dc metformin and restart Glipizide per home dose * all Cx negative. * leucocytosis improved.monitor Review of Systems - Review of Systems Constitutional: weakness, malaise. negative: fever, chills, sweats, other Eyes: negative: Pain, Vision Change, Conjunctivae Inflammation, Eyelid Inflammation, Redness, Other ENT: negative: Ear Pain, Ear Discharge, Nose Pain, Nose Discharge, Nose Congestion, Mouth Pain, Mouth Swelling, Throat Pain, Throat Swelling, Other Respiratory: negative: Cough, Dry, Shortness of Breath, Hemoptysis, SOB with Excertion, Pleuritic Pain, Sputum, Wheezing Cardiovascular: negative: chest pain, palpitations, orthopnea, paroxysmal nocturnal dyspnea, edema, light headedness, other Gastrointestinal: Nausea Genitourinary: negative: Dysuria, Frequency, Incontinence, Hematuria, Retention , Other Musculoskeletal: negative: Neck Pain, Shoulder Pain, Arm Pain, Back Pain, Hand Pain, Leg Pain, Foot Pain, Other Skin: negative: Rash, Lesions, Jacob, Bruising, Other Neurological: negative: Weakness, Numbness, Incoordination, Change in Speech, Confusion, Seizures, Other - Medications/Allergies Allergies/Adverse Reactions: Allergies Allergy/AdvReac Type Severity Reaction Status Date / Time azithromycin Allergy Verified 03/22/17 22:09 codeine Allergy Verified 03/22/17 22:09 Sulfa (Sulfonamide Allergy Verified 03/22/17 22:09 Antibiotics) tramadol Allergy Verified 03/22/17 22:09 Medications: Current Medications Acetaminophen (Tylenol) 650 mg PO Q4H PRN PRN Reason: Headache/Fever or Pain Last Admin: 06/25/17 05:52 Dose: 650 mg Al Hydroxide/Mg Hydroxide (Maalox) 30 ml PO Q6H PRN PRN Reason: Heartburn or Indigestion Amlodipine Besylate (Norvasc) 5 mg PO DAILY [facility] Last Admin: 06/25/17 09:44 Dose: 5 mg Artificial Tears (Tears Naturale) 0 drop EA EYE PRN PRN PRN Reason: Dry Eyes Atorvastatin Calcium (Lipitor) 10 mg PO [facility] Last Admin: 06/24/17 21:06 Dose: 10 mg Carvedilol (Coreg) 12.5 mg PO BID-[facility] Last Admin: 06/25/17 08:20 Dose: 12.5 mg Dextrose/Water (Dextrose 50%) 25 gm SLOW IVP PRN PRN PRN Reason: Hypoglycemia Diphenhydramine HCl (Benadryl) 25 mg PO Q6H PRN PRN Reason: Itching & Insomnia Last Admin: 06/24/17 21:42 Dose: 25 mg Escitalopram Oxalate (Lexapro) 10 mg PO DAILY [facility] Last Admin: 06/25/17 08:29 Dose: 10 mg Famotidine (Pepcid) 20 mg SLOW IVP 2100 [facility] Last Admin: 06/24/17 21:06 Dose: 20 mg Glipizide (Glucotrol) 5 mg PO BID [facility] Last Admin: 06/25/17 09:42 Dose: Not Given Glucagon (Glucagon) 1 mg IM PRN PRN PRN Reason: Hypoglycemia Guaifenesin (Robitussin Sf) 200 mg PO Q4H PRN PRN Reason: Cough Hydralazine HCl (Apresoline) 10 mg SLOW IVP Q4H PRN PRN Reason: Systolic BP > 180 Dextrose/Water (D5w) 1,000 mls @ 0 mls/hr IV .Q0M PRN; As Directed PRN Reason: Hypoglycemia Levofloxacin 500 mg/ Device 100 mls @ 100 mls/hr IVPB Q24HR [facility] Last Admin: 06/25/17 12:00 Dose: 100 mls Metronidazole 500 mg/ Device 100 mls @ 100 mls/hr IVPB Q8HR [facility] Last Admin: 06/25/17 05:45 Dose: 100 mls Insulin Human Lispro (Humalog) 0 units SC .MODERATE SLIDING SC PRN PRN Reason: Moderate Correctional Scale Insulin Human Lispro (Humalog) 0 units SC .BEDTIME SLIDING SC PRN PRN Reason: Bedtime Correctional Scale Labetalol HCl (Normodyne) 20 mg SLOW IVP Q4H PRN PRN Reason: Systolic BP > 180 Loperamide HCl (Imodium) 2 mg PO PRN PRN PRN Reason: Diarrhea/Loose Stools Loratadine (Claritin) 10 mg PO DAILYPRN PRN PRN Reason: Sinus Symptoms Magnesium Hydroxide (Milk Of Magnesium) 30 ml PO DAILYPRN PRN PRN Reason: Constipation Mineral Oil/White Petrolatum (Eucerin Cream) 0 gm TOP BIDPRN PRN PRN Reason: Dry Skin Ondansetron HCl (Zofran Odt) 4 mg PO Q6H PRN PRN Reason: Nausea/Vomiting Last Admin: 06/24/17 11:26 Dose: 4 mg Ondansetron HCl (Zofran) 4 mg IVP Q6H PRN PRN Reason: Nausea/Vomiting Phenol (Chloraseptic [place] 180 Ml Bot) 0 ml PO PRN PRN PRN Reason: Sore Throat Saccharomyces Boulardii (Florastor) 250 mg PO DAILY [facility] Last Admin: 06/25/17 08:29 Dose: 250 mg Senna (Senokot) 2 tab PO HSPRN PRN PRN Reason: Constipation Sodium Chloride (Flush - Normal Saline) 10 ml IVF Q12HR [facility] Last Admin: 06/25/17 08:29 Dose: 10 ml Sodium Chloride (Flush - Normal Saline) 10 ml IVF PRN PRN PRN Reason: Saline Flush Sodium Chloride ([place] Nasal [place] 0.65%) 0 ml EA NARE QIDPRN PRN PRN Reason: Nasal Congestion Zolpidem Tartrate (Ambien) 5 mg PO HSPRN PRN PRN Reason: Insomnia
[2017-06-25] MEDS: Atorvastatin Calcium 10 MG TAB PO SCH (21:15)
[2017-06-25] MEDS: Famotidine 40 MG/4 ML VIAL SLOW IVP SCH (21:16)
[2017-06-26 05:10] LABS: #Eosinphils 0.1 thou/uL (0.0-0.7); #Lymphocytes 1.7 thou/uL (1.20-3.40); #Neutrophils 8.5 thou/uL (1.40-6.50); %Basophils 0.1 % (0.0-1.0); %Monocytes 8.8 % (0.0-10.0); %Neutrophils 75.1 % (42.0-75.0); Hemoglobin 12.1 g/dL (12.0-16.0); Mean Corpuscular HGB CONC 33.6 g/dL (32.0-36.0); Mean Corpuscular Hemoglobin 31.2 pg (27.0-31.0); Mean Corpuscular Volume 92.8 fl (81.0-99.0); Mean Platelet Volume 7.1 fL (7.4-10.4); Platelet Count 204 thou/uL (130-400); RBC Distribution Width 12.5 % (11.5-14.5); Red Blood Cell (RBC) Count 3.89 mill/uL (4.20-5.40); White Blood Cell (WBC) Count 11.4 thou/uL (4.8-10.8)
[2017-06-26 05:36] LABS: Anion Gap 13 mmol/L (10-20); BUN (Urea Nitrogen) 9 mg/dL (9.8-20.1); Calc. Creatinine Clearance 54 mL/min (70-130); Carbon Dioxide 22 mmol/L (23-31); Chloride 105 mmol/L (98-107); Estimated GFR-MDRD 87; Potassium 3.5 mmol/L (3.5-5.1); Sodium 136 mmol/L (136-145)
[2017-06-26 05:37] LABS: Glucose 50 mg/dL (83-110)
[2017-06-26] MEDS: metroNIDAZOLE 500 MG in Premix Bag 1 BAG IVPB SCH (06:04)
[2017-06-26] MEDS: Carvedilol 6.25 MG TAB PO SCH (08:13)
[2017-06-26] MEDS: Amlodipine 5 MG TAB PO SCH (08:14)
[2017-06-26] MEDS: Escitalopram Oxalate 10 mg Tablet PO SCH (08:14)
[2017-06-26] MEDS: Saccharomyces boulardii 250 MG CAP PO SCH (08:14)
[2017-06-26] MEDS: glipiZIDE 5 MG TAB PO SCH (11:30)
--- NOTE | 2017-06-26 14:02 | DIS ---
DATE OF ADMISSION: 06/23/2017 DATE OF DISCHARGE: 06/25/2017 PRIMARY CARE PHYSICIAN: Dr. Nathanael Simpson. DISCHARGE DISPOSITION: Home with [facility]. DISCHARGE DIAGNOSES: 1. Gastroenteritis, bacterial versus viral, cannot be confirmed. 2. Dehydration secondary to #1. 3. Demand ischemia secondary to #2. 4. Hypertensive urgency, controlled and resolved. 5. Normocytic normochromic anemia. 6. History of anxiety and depression. 7. Diabetes mellitus type 2. 8. Dyslipidemia. DISCHARGE MEDICATIONS: New medications, metronidazole 500 mg p.o. q.8 hours for 5 days, levofloxacin 500 mg p.o. daily for 5 days, Florastor 250 mg daily for 14 days. Resume home medications as follow s, amlodipine 5 mg daily, carvedilol 12.5 mg p.o. b.i.d. and glipizide 5 mg p.o. b.i.d. CONSULTATIONS: Cardiology, Dr. Thrasher in the hospital. PROCEDURES IN THE HOSPITAL: Include transthoracic echocardiogram, which shows mild diastolic dysfunc tion with EF of 50% to 55%. HISTORY OF PRESENT ILLNESS: Ms. Wright is a pleasant 87-year-old female with past medical history of d iabetes, hypertension, coronary artery disease, and dyslipidemia who presented to the emergency room with complaints of nausea, vomiting, diarrhea, crampy abdominal pain and generalized weakness. Upon presentation, she was hypertensive with a blood pressure of 220/90. In the emergency room, she under went general evaluation showing lactic acidosis at 4.1 and troponin less than 0.010, but she had evid ence of acidosis as well on the serum chemistries with bicarbonate of 19. Her urinalysis showed keto jam, otherwise unremarkable. She was admitted with a presumptive diagnosis of dehydration from gastr oenteritis. She was started on empiric antibiotics and stool studies were ordered. Please see admis sangita history and physical for further details. HOSPITAL COURSE: The patient had slow improvement in her symptoms with IV fluids and IV antibiotics. Unfortunately, she did not have any stools while in the hospital, so stool sample could not be obta ined. It was difficult to ascertain whether this was bacterial versus viral gastroenteritis. Marifer e of this reason, she will be discharged home on oral antibiotic. She was continued on IV fluids and her acidosis improved. She was found to have elevated cardiac enzymes, which trended upwards and went as high as 0.708. Car diology was consulted and an echo was done. Dr. Thrasher saw the patient and it was his opinion that this is most likely a demand ischemia from sepsis. She was not given any anticoagulation for this. She was briefly started on aspirin, but it was later discontinued at the time of discharge. It does not show that she takes aspirin at home. On the day of discharge, she is feeling very well. She has chosen a home health to go home, which june s been arranged for her. Discharge plan was discussed with the patient and her who verbalize d understanding. She is feeling very good and is in good spirits this morning and eager to go home. She was seen and examined prior to discharge. PHYSICAL EXAMINATION: VITAL SIGNS: Temperature 98.3, pulse of 64, respirations 16, saturating 94% on room air, blood press ure 148/73. GENERAL: No acute distress, awake, alert, oriented x3. CHEST: Clear to auscultation without any wheezing, rales or rhonchi. Rate and rhythm is regular wit hout any murmur, rubs or gallops. ABDOMEN: Soft, nontender, nondistended, positive bowel sounds. LABORATORY DATA: Blood culture remained negative x2 at 48 hours. Final results pending. At this time, she is discharged back under care of her primary care physician with the [facility]. Total time spent in the discharge 32 minutes.
[2017-06-26] MEDS: Acetaminophen 325 MG TAB PO PRN (14:31)
[2017-06-26 14:49] VITALS: BP 157/81; TEMP 98.4
== END 2017-06-26 14:46 | disposition home health service (06) | DRG 872 ==
LOC: ERS 07:09 → 2NO 09:35 → T4-B 06-25 13:23
PROVIDERS: ADMIT Internal Medicine; ATTEND Internal Medicine
DX: A41.9 Sepsis, unspecified organism (principal); E87.2 Acidosis; I24.8 Other forms of acute ischemic heart disease; D69.6 Thrombocytopenia, unspecified; E86.0 Dehydration; A04.9 Bacterial intestinal infection, unspecified; A08.4 Viral intestinal infection, unspecified; D64.9 Anemia, unspecified; E11.9 Type 2 diabetes mellitus without complications; I16.0 Hypertensive urgency; I25.10 Atherosclerotic heart disease of native coronary artery without angina pectoris; I10 Essential (primary) hypertension; E78.5 Hyperlipidemia, unspecified; F41.9 Anxiety disorder, unspecified; F32.9 Major depressive disorder, single episode, unspecified; Z88.1 Allergy status to other antibiotic agents; Z88.5 Allergy status to narcotic agent; Z88.2 Allergy status to sulfonamides; Z79.84 Long term (current) use of oral hypoglycemic drugs; Z79.899 Other long term (current) drug therapy
CPT/HCPCS: 36415; 36416; 51701; 71045; 80048; 80053; 81003; 82010; 82550; 82553; 83605; 83690; 84484; 85025; 85049; 85300; 85362; 85379; 85384; 85610; 85730; 87040; 93005; 93306; 94760; 96361; 96365; A4353; G8978-GP-CK; G8979-GP-CI; G8987-GO-CK; G8988-GO-CI; J1956; J2405; Q0162

== ENCOUNTER 2017-06-29 02:58 | Emergency (ER) | payer MEDICARE ==
[2017-06-29 04:00] LABS: #Eosinphils 0.2 thou/uL (0.0-0.7); #Lymphocytes 1.8 thou/uL (1.20-3.40); #Monocytes 1.3 thou/uL (0.11-0.59); #Neutrophils 9.6 thou/uL (1.40-6.50); %Basophils 0.1 % (0.0-1.0); %Eosinophils 1.3 % (0.0-10.0); %Lymphocytes 14.3 % (21.0-51.0); %Monocytes 10.1 % (0.0-10.0); %Neutrophils 74.2 % (42.0-75.0); Hemoglobin 13.5 g/dL (12.0-16.0); Mean Corpuscular HGB CONC 33.5 g/dL (32.0-36.0); Mean Corpuscular Volume 92.7 fl (81.0-99.0); Mean Platelet Volume 6.6 fL (7.4-10.4); Platelet Count 271 thou/uL (130-400); RBC Distribution Width 12.7 % (11.5-14.5); Red Blood Cell (RBC) Count 4.34 mill/uL (4.20-5.40); White Blood Cell (WBC) Count 12.9 thou/uL (4.8-10.8)
[2017-06-29 04:44] LABS: ALT (SGPT) 7 U/L (8-55); AST (SGOT) 13 U/L (5-34); Albumin 3.5 g/dL (3.4-4.8); Alkaline Phosphatase 50 U/L (40-150); Anion Gap 13 mmol/L (10-20); BUN (Urea Nitrogen) 20 mg/dL (9.8-20.1); Bilirubin, Total 0.5 mg/dL (0.2-1.2); Calc. Creatinine Clearance 0 mL/min (70-130); Calcium 9.4 mg/dL (7.8-10.44); Carbon Dioxide 27 mmol/L (23-31); Chloride 100 mmol/L (98-107); Estimated GFR-MDRD 67; Globulin 3.8 g/dL (2.4-3.5); Glucose 109 mg/dL (83-110); Potassium 3.2 mmol/L (3.5-5.1); Protein, Total 7.3 g/dL (6.0-8.3); Sodium 137 mmol/L (136-145)
[2017-06-29] MEDS ORDERED: hydrALAZINE 20 MG/ML VIAL ONE (04:48)
[2017-06-29 04:54] LABS: Bilirubin Negative (Negative); Blood, Urine Negative (Negative); Clarity CLEAR (Clear); Glucose, Urine (Dipstick) Negative (Negative); Leukocyte Small (Negative); Nitrite Positive (Negative); Protein, Urine (Dipstick) Negative (Neg-Trace); Specific Gravity, Urine 1.019 (1.002-1.036); Urobilinogen 0.2 mg/dL (0.2-1.0)
[2017-06-29 04:56] LABS: Bacteria/HPF 1+ HPF (None Seen); Hyaline Casts/LPF 0-3 HYALINE CAST LPF (0-3 Hyaline); Pathc Cast-AUWi Flag 0.58 (0-2.49); RBC/HPF 0-3 HPF (0-3); Squamous Epithelial 0-3 HPF (0-3); WBC/HPF 21-50 HPF (0-3)
[2017-06-29] MEDS ORDERED: Ondansetron ODT 4 MG TAB ONE (05:36)
[2017-06-29] MEDS ORDERED: cefTRIAXone\\ROCEPHIN 2 GM VIAL ONE (05:36)
[2017-06-29] MEDS ORDERED: Acetaminophen 325 MG TAB ONE (05:36)
--- NOTE | 2017-06-29 08:13 | RAD ---
CHEST 1 VIEW: Date: 06/29/17 COMPARISON: 06/23/17. HISTORY: Emergency exam. Low back pain. FINDINGS: There is atherosclerosis of the aorta. Normal cardiac silhouette. Pulmonary vessels are normal. There are increased interstitial opacities which have progressed when compared to the prior examination meraz ggesting worsening interstitial edema/infiltrate. Small bilateral effusions. No pneumothorax or osseo us abnormalities. IMPRESSION: Worsening interstitial edema/infiltrate. POS: OFF
--- NOTE | 2017-06-29 09:29 | CT ---
PRELIMINARY REPORT/[facility]/EMERGENTY AFTER-HOURS PROCEDURE CT Abdomen and Pelvis Without Intravenous Contrast EXAM DATE/TIME: Exam ordered 06/29/2017 5:29 AM CLINICAL HISTORY: 87 years old, female; Pain; Abdominal pain; Generalized; Patient HX: Additional history obtained from ems, 87f presents with lower back pain x 24 hours. Denies injury. Denies lifting/twisting/straining. Denies abdominal pain. Reports HX of frequent utis in the past. Reports pain is similar. Denies naus ea and vomiting. TECHNIQUE: Axial computed tomography images of the abdomen and pelvis without intravenous contrast. Coronal refo rmatted images were created and reviewed. COMPARISON: No relevant prior studies available. FINDINGS: Lung bases: There is interstitial thickening and cystic change at lung bases compatible with intersti tial lung disease/emphysema. Mediastinum: A moderate hiatal hernia is present. ABDOMEN: Liver: The liver is within normal limits for this noncontrast study. Gallbladder and bile ducts: The gallbladder is normal. There is no evidence of biliary ductal dilatio n. No calcified stones. Pancreas: The pancreas appears normal. No ductal dilation. Spleen: The spleen is normal. Adrenals: The adrenal glands are normal. Kidneys and ureters: The kidneys appear normal. There is a nonobstructing LEFT renal pelvic calculus. Stomach and bowel: The stomach is normal. The duodenum is unremarkable. The colon is normal. No obstruction. No mucosal thickening. PELVIS: Appendix: A normal appendix is identified. Bladder: The bladder is normal. The bladder is normal. No stones. Reproductive: The uterus is not visualized, and may be atrophic or surgically absent. ABDOMEN and PELVIS: Intraperitoneal space: Normal. No free air. No significant fluid collection. Bones/joints: No acute fracture. No dislocation. Soft tissues: Normal. Vasculature: The vasculature demonstrates diffuse moderate atherosclerotic calcification. No abdominal aortic aneurysm. Lymph nodes: Normal. No enlarged lymph nodes. IMPRESSION: No acute abdominal pelvic pathology. Thank you for allowing us to participate in the care of your patient. Dictated and Authenticated by: Ildefonso Payton MD 06/29/2017 6:30 AM Central Time ([place] & [place]) FINAL REPORT PROCEDURE NONCONTRAST CT OF THE ABDOMEN AND PELVIS: INDICATION: An 87-year-old female with generalized abdominal pain and low back pain for 24 hours. COMPARISON: CT of the abdomen and pelvis from [facility] dated 04/01/17 and 04/23/13. FINDINGS: I disagree with the preliminary report provided. There has been interval development of a mild wedge compression fracture of T12. There has been some interval healing of rib fractures involving the right 12th, left 11th, left 10th, left 9th, and left 8th ribs. There is a tiny 1 mm nonobstructing calculus within the left mid kidney that is new from the prior ex am. No hydronephrosis is evident. There is stable moderate hiatal hernia. There are patchy interstitial and airspace opacities seen peripherally within both lungs which may re flect areas of subsegmental volume loss; however, bronchopneumonia cannot be excluded. There is para septal emphysema involving both lung bases that appear to be a similar extent from the prior exam. S mall bilateral pleural effusions have intervally cleared. A small amount of fatty infiltration near the gallbladder fossa appears similar to the most recent comparison. The extensive calcification involving the abdominopelvic vasculature is similar. There is scattered diverticula involving the colon without definite evidence of active diverticulitis. There is some fl uid density within the colon which can be seen with diarrheal states or mild colitis. No drainable f luid collection is evident. Visualized bladder, rectum, and perirectal soft tissues are unremarkable . IMPRESSION: 1. I disagree with the preliminary report provided. There is an acute-appearing T12 wedge compressi on fracture with approximately 30-40% loss of height. There is diffuse osteopenia. There has been i nterval development of healing rib fractures involving the right 12th and left 8th through 11th ribs. 2. A 1 mm nonobstructing left renal calculus. 3. Patchy peripheral interstitial and airspace opacities within both lungs may reflect subsegmental atelectasis; however, bronchopneumonia cannot be excluded. 4. Interval clearing of bilateral pleural effusions. 5. Stable moderate hiatal hernia. 6. Findings were called to Dr. Franz of the emergency room at 7:52 a.m. on 06/29/17. CODE CR POS: [facility]
--- NOTE | 2017-08-22 16:33 | EKG ---
Test Reason : FACILITATE DIAGNOSIS Blood Pressure : / mmHG Vent. Rate : 087 BPM Atrial Rate : 087 BPM P-R Int : 176 ms QRS Dur : 080 ms QT Int : 388 ms P-R-T Axes : 068 002 003 degrees QTc Int : 466 ms Normal sinus rhythm Possible Left atrial enlargement Borderline ECG Confirmed by NADIA Izquierdo, LILA ([id number]), sports editor RAFY SAHA ([id number]) on 08/22/2017 4:32:56 PM Referred By: Confirmed By:LILA ZUNIGA M.D.
== END 2017-06-29 07:04 | disposition home or self-care (01) ==
LOC: ERS 02:58
DX: N39.0 Urinary tract infection, site not specified (principal); E11.9 Type 2 diabetes mellitus without complications; F32.9 Major depressive disorder, single episode, unspecified; F41.9 Anxiety disorder, unspecified; I10 Essential (primary) hypertension; I25.10 Atherosclerotic heart disease of native coronary artery without angina pectoris; Z79.84 Long term (current) use of oral hypoglycemic drugs; Z79.899 Other long term (current) drug therapy
CPT/HCPCS: 36415; 71045; 74176; 80053; 81003; 81015; 83605; 85025; 87077; 87086; 87186; 93005; 96365; 96375; J0360; J0696; Q0162

== ENCOUNTER 2017-07-26 11:17 | Observation (INO) | payer MEDICARE ==
[2017-07-26 12:21] LABS: #Eosinphils 0.4 thou/uL (0.0-0.7); #Lymphocytes 2.5 thou/uL (1.20-3.40); #Monocytes 0.7 thou/uL (0.11-0.59); %Basophils 0.5 % (0.0-1.0); %Eosinophils 5.1 % (0.0-10.0); %Lymphocytes 28.9 % (21.0-51.0); %Monocytes 8.1 % (0.0-10.0); %Neutrophils 57.5 % (42.0-75.0); Hemoglobin 14.4 g/dL (12.0-16.0); Mean Corpuscular HGB CONC 32.8 g/dL (32.0-36.0); Mean Corpuscular Volume 94.5 fl (81.0-99.0); Mean Platelet Volume 9.1 fL (7.4-10.4); Platelet Count 169 thou/uL (130-400); RBC Distribution Width 12.6 % (11.5-14.5); Red Blood Cell (RBC) Count 4.62 mill/uL (4.20-5.40); White Blood Cell (WBC) Count 8.8 thou/uL (4.8-10.8)
[2017-07-26 12:42] LABS: CKMB 3.5 ng/mL (0-6.6); Troponin I 0.196 ng/mL (< 0.028)
[2017-07-26 12:44] LABS: ALT (SGPT) 12 U/L (8-55); AST (SGOT) 28 U/L (5-34); Albumin 3.1 g/dL (3.4-4.8); Alkaline Phosphatase 70 U/L (40-150); Anion Gap 15 mmol/L (10-20); BUN (Urea Nitrogen) 22 mg/dL (9.8-20.1); Bilirubin, Total 0.5 mg/dL (0.2-1.2); Calc. Creatinine Clearance 0 mL/min (70-130); Calcium 9.2 mg/dL (7.8-10.44); Carbon Dioxide 18 mmol/L (23-31); Chloride 107 mmol/L (98-107); Estimated GFR-MDRD 61; Globulin 4.2 g/dL (2.4-3.5); Glucose 116 mg/dL (83-110); Protein, Total 7.3 g/dL (6.0-8.3); Sodium 136 mmol/L (136-145)
--- NOTE | 2017-07-26 13:03 | RAD ---
PORTABLE UPRIGHT FRONTAL CHEST RADIOGRAPH: DATE: 07/26/17. COMPARISON: 06/29/17. HISTORY: Generalized weakness. FINDINGS: Increased linear interstitial density noted throughout both lungs with pulmonary hyperinflation, stab le. Stable atherosclerotic calcification of the aortic arch. No pneumothorax, pleural fluid, lobar consolidation, or alveolar edema. There is atherosclerotic calcification in the aortic arch. Osseou s structures are demineralized. IMPRESSION: No acute findings - stable appearance of the chest with multiple chronic findings as described above. POS: [facility]
--- NOTE | 2017-07-26 13:18 | CT ---
CT OF THE HEAD WITHOUT CONTRAST: DATE: 07/26/17. COMPARISON: None. HISTORY: Left-sided weakness of the hand. TECHNIQUE: Serial axial CT imaging is obtained at 5 mm intervals from vertex through the skull base without cont rast. FINDINGS: There is a subtle area of hypodensity involving the subcortical white matter in the posterior right f rontal lobe on image 21 which could represent age-indeterminate ischemia, possibly acute. There is n o intracranial hemorrhage, midline shift, or mass effect. The imaged paranasal sinuses/mastoid air cells demonstrate partial opacification of the right mastoid air cells. There is atherosclerotic calcification of the cavernous carotid arteries. There is no d isplaced calvarial fracture seen. IMPRESSION: 1. No intracranial hemorrhage. Subtle hypodensity in the right frontal region which could represent acute infarction in the proper clinical setting. Brain MRI advised as clinically warranted. 2. Partial opacification of right mastoid air cells. The case was discussed with Dr. Franco at approximately 12:45 p.m. 07/26/17. CODE CR POS: [facility]
[2017-07-26 13:56] LABS: Bilirubin Small (Negative); Blood, Urine Negative (Negative); Clarity CLEAR (Clear); Glucose, Urine (Dipstick) Negative (Negative); Leukocyte Negative (Negative); Nitrite Negative (Negative); Protein, Urine (Dipstick) Negative (Neg-Trace); Specific Gravity, Urine 1.028 (1.002-1.036); pH, Urine 5.5 (5.0-9.0)
[2017-07-26] MEDS ORDERED: Aspirin 325 MG TAB ONE (14:31)
--- NOTE | 2017-07-26 15:33 | HP ---
PRIMARY CARE PHYSICIAN: Dr. Nathanael Simpson. REASON FOR ADMISSION: Left upper extremity weakness. HISTORY OF PRESENT ILLNESS: An 87-year-old female who has history of hypertension, diabetes type 2, who was brought to Emergency Room by her . The patient was having left upper extremity weakne ss three days ago. Patient was not willing to come to the emergency room, but she was not able to ho ld her left upper extremity and she was not able to use left upper extremity, that is why her was concerned about and decided to bring her to the emergency room for evaluation. Currently, lucas nt does have nausea and reduced appetite. Patient did not have any fever or chills. She was feeling dizziness intermittently at home. She had couple of times fall without any significant injury at [facility]. She does not have any fever or chills. She denies any UTI symptoms. She denies any constipatio n, diarrhea, melena or hematochezia. At home, patient does not take aspirin on a regular basis becau se that makes stomach upset. Patient normally ambulates with a walker. She lives with her daughter. She denies any weakness in l eft lower extremity. She did not have any speech problem, diplopia or blurred vision. She did not h ave any difficulty swallowing. She did not have any chest pain, palpitation or shortness of breath. Today in the emergency room, patient had CT brain which showed subtle hypodensity in the right fronta l region which could represent acute infarction and that is why we are admitting this patient in hosp ital for stroke workup. Patient's and patient feels that her left upper extremity has improv ement since it started. REVIEW OF SYSTEMS: The following complete review of systems was negative, unless otherwise mentioned in the HPI or below: Constitutional: Weight loss or gain, ability to conduct usual activities. Skin: Rash, itching. Eyes: Double vision, pain. ENT/Mouth: Nose bleeding, neck stiffness, pain, tenderness. Cardiovascular: Palpitations, dyspnea on exertion, orthopnea. Respiratory: Shortness of breath, wheezing, cough, hemoptysis, fever or night sweats. Gastrointestinal: Poor appetite, abdominal pain, heartburn, nausea, vomiting, constipation, or diarr hea. Genitourinary: Urgency, frequency, dysuria, nocturia. Musculoskeletal: Pain, swelling. Neurologic/Psychiatric: Anxiety, depression. Allergy/Immunologic: Skin rash, bleeding tendency. Please see my HPI for pertinent positive and negative. All other review of systems reviewed and nega tive except as mentioned in the HPI. ALLERGIES: AZITHROMYCIN, CODEINE SULFATE, SULFA DRUGS, and TRAMADOL. CURRENT HOME MEDICATIONS: Coreg 6.25 mg daily, metformin 500 mg twice daily, Lexapro 10 mg daily, po tassium chloride 20 mEq p.o. daily, glipizide 5 mg p.o. b.i.d., pravastatin 40 mg p.o. daily. PAST MEDICAL HISTORY: Coronary artery disease, diabetes type 2, hypertension, dyslipidemia. PAST SURGICAL HISTORY: Appendicectomy, cholecystectomy, hysterectomy, multiple laparotomy, lumbar pu ncture. PAST PSYCHIATRIC HISTORY: Anxiety and depression. SOCIAL HISTORY: Patient is . Both and herself lives with her daughter. No history o f tobacco, alcohol or illicit drug abuse. She ambulates with walker. FAMILY HISTORY: No strong family history of premature coronary artery disease, stroke or cancer. EMERGENCY ROOM COURSE: Patient has received aspirin 325 mg and IV fluid. PHYSICAL EXAMINATION: VITAL SIGNS: On arrival, blood pressure 131/71, pulse 64, respiratory rate 18, temperature 97.9, sat uration 95% on room air, weight 50.8 kilograms. GENERAL: The patient is currently alert and oriented x3. HEAD: Normocephalic, atraumatic. EYES: Pupils round, reactive to light. Extraocular muscle intact. ENT: Oropharynx within normal limits. Moist mucous membranes. No oral lesion, no pharyngeal erythe ma, no exudate. NECK: Supple, no JVD, no thyromegaly, no carotid bruit. LUNGS: Clear to auscultation without any rhonchi or rales. CARDIAC: S1 and S2 appears regular. No murmur elicited, no gallop, no rub. ABDOMEN: Soft, bowel sounds present, nontender, nondistended. No organomegaly, no suprapubic tender ness. BACK: Examination unremarkable, no CVA tenderness. EXTREMITIES: Upper extremity passive movement of all joints are normal. Patient does have osteoarth ritic changes of both hands. The patient does have weakness on left upper extremity. Lower extremit y, no edema. Good peripheral pulsation. Passive movement of all joints are normal. NEUROLOGIC: The patient is alert and oriented x3. Cranial nerves II-XII intact. Motor: The patien t does have pronator drip on left upper extremity. Patient's right upper and lower extremity within normal limits. Left lower extremity within normal limits. Sensation bilaterally symmetrical. Refle xes bilaterally symmetrical. No cerebellar sign. Plantar bilateral flexor. SKIN: No skin rash. HEMATOLOGICAL SYSTEM: No lymphadenopathy. PSYCHIATRIC: Normal affect. IMAGING DATA AND SIGNIFICANT LABORATORY DATA: 1. EKG showing normal sinus rhythm, ST-T changes in inferior as well as anterior lateral leads. 2. CT brain showing subtle area of hypodensity in the right frontal lobe concerning for infarction. 3. CBC: WBC 8.8, hemoglobin 14.4, platelet 169. 4. BMP: Sodium 136, potassium 4.0, chloride 107, carbon dioxide 18, anion gap 15, BUN 22, creatinin e 0.88, glucose 116, calcium 9.2. 5. LFT: AST 28, ALT 12, alkaline phosphatase 70, albumin 3.1, CK-MB 3.5, troponin I 0.196. Urinaly sis unremarkable. ASSESSMENT AND PLAN/IMPRESSION: 1. Left upper extremity weakness. Patient does have subtle hypodensity in the right frontal lobe. 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 We will keep this patient in hospital for observation. T he patient is not a candidate for any kind of TPA intervention because symptoms started 3 days ago an d is improving. For stroke workup, we will obtain MRI brain. Patient already had recently echocardi ography about a month ago and that is why we will not perform repeatedly. Patient does have diastoli c dysfunction. On monitor, she is showing intermittent premature ventricular contractions. We will monitor on telemetry floor. We will also obtain carotid Doppler for further evaluation. Patient thao hart had lipid profile checked recently 6 months ago, but we will repeat lipid profile, homocysteine tomorrow. We will monitor neurologically. Patient will need physical therapy and occupational thera py. 2. Hypertension. We will continue patient's blood pressure medication Coreg 12.5 mg twice daily and amlodipine 5 mg p.o. daily. 3. Diabetes type 2. We will continue glipizide 5 mg p.o. b.i.d., insulin as per sliding scale rafa col. Diabetic diet will be given. 4. Dyslipidemia. We will start Lipitor 10 mg p.o. at bedtime. 5. Osteoarthritis. 6. Anxiety and depression. We will continue Lexapro 10 mg p.o. daily. 7. Deep venous thrombosis prophylaxis, Lovenox 30 mg subcutaneously daily. 8. Gastrointestinal prophylaxis, Pepcid 20 mg p.o. b.i.d. 9. Code status: The patient is FULL CODE. Patient's is surrogate decision maker. Disposition plan based on clinical course, likely within 24 hours. We will also give her enteric coa cholo aspirin because regular aspirin patient does not tolerate well with the stomach upset. Plan of c are discussed with the patient and her at bedside in the emergency room. CODE STATUS: The patient is FULL CODE. Patient's is surrogate decision maker.
[2017-07-26] MEDS ORDERED: Dextrose 5% in Water 1,000 ML IV PRN (17:43)
[2017-07-26] MEDS ORDERED: Nitroglycerin 0.4 MG TAB (25 Tab Bottle) SL PRN (17:43)
[2017-07-26] MEDS ORDERED: Loratadine 10 MG TAB PO PRN (17:43)
[2017-07-26] MEDS ORDERED: hydrALAZINE 20 MG/ML VIAL SLOW IVP PRN (17:43)
[2017-07-26] MEDS ORDERED: Ondansetron HCl/PF 4 MG/2 ML Vial IVP PRN (17:43)
[2017-07-26] MEDS ORDERED: Artificial Tear Sol 15 ML BOT EA EYE PRN (17:43)
[2017-07-26] MEDS ORDERED: Acetaminophen 325 MG TAB PO PRN (17:43)
[2017-07-26] MEDS ORDERED: Dextrose 50% Abboject 50 ML SYRINGE SLOW IVP PRN (17:43)
[2017-07-26] MEDS ORDERED: Zolpidem Tartrate 5 MG TAB PO PRN (17:43)
[2017-07-26] MEDS ORDERED: Milk Of Magnesia 30 ML UDCUP PO PRN (17:43)
[2017-07-26] MEDS ORDERED: Diabetic Tussin 200 MG/10 ML UDCUP PO PRN (17:43)
[2017-07-26] MEDS ORDERED: Eucerin (Mineral Oil/Petrolatum,White) 30 gm Jar TOP PRN (17:43)
[2017-07-26] MEDS ORDERED: Senokot 8.6 MG TAB PO PRN (17:43)
[2017-07-26] MEDS ORDERED: Ondansetron ODT 4 MG TAB PO PRN (17:43)
[2017-07-26] MEDS ORDERED: Mag-Al 1200 mg/1200 mg/30 ML UDCUP PO PRN (17:43)
[2017-07-26] MEDS ORDERED: Sodium Chloride 0.65% Nasal 44 ML BOT EA NARE PRN (17:43)
[2017-07-26] MEDS ORDERED: Chloraseptic Spray 180 ml Bottle PO PRN (17:43)
[2017-07-26] MEDS ORDERED: HumaLOG 300 UNITS/3 ML VIAL SC PRN ×2 (17:43)
[2017-07-26] MEDS ORDERED: Loperamide HCl 2 MG CAP PO PRN (17:43)
[2017-07-26 17:59] VITALS: BMI 20.3
[2017-07-26] MEDS ORDERED: Carvedilol 6.25 MG TAB PO SCH (18:00)
[2017-07-26] MEDS ORDERED: glipiZIDE 5 MG TAB PO SCH (18:00)
[2017-07-26] MEDS ORDERED: metFORMIN 500 MG TAB PO SCH (18:00)
--- NOTE | 2017-07-26 18:07 | CT ---
HEAD CT WITHOUT CONTRAST: History: Altered mental status, worsening. Comparison: 07-26-17 Technique: Noncontrast head CT is performed from skull base to skull vertex. FINDINGS: No interval parenchymal hemorrhage or extraaxial hematoma. Stable atrophy. Stable chronic small vesse l ischemic change in the white matter. Stable hypoattenuation involving the right frontal region. No midline shift. Basilar cisterns are patent. Stable calvarium. Stable opacification of the right mastoid air cells. IMPRESSION: No significant interval change. POS: [facility]
[2017-07-26 18:59] LABS: Troponin I 0.267 ng/mL (< 0.028)
[2017-07-26] MEDS ORDERED: Atorvastatin Calcium 20 MG TAB PO SCH (21:00)
[2017-07-27 06:03] LABS: Cardiac Risk 4.6 (Less than 4.5)
[2017-07-27] MEDS: glipiZIDE 5 MG TAB PO SCH ×2 (08:26→17:09)
[2017-07-27] MEDS: metFORMIN 500 MG TAB PO SCH ×2 (08:26→17:10)
[2017-07-27] MEDS: Carvedilol 6.25 MG TAB PO SCH ×2 (08:27→17:18)
[2017-07-27] MEDS ORDERED: Famotidine 20 MG TAB PO SCH (09:00)
[2017-07-27] MEDS ORDERED: Enoxaparin Sodium 30 MG/0.3 ML SYRINGE SC SCH (09:00)
[2017-07-27] MEDS ORDERED: Potassium Chloride 20 MEQ TAB PO SCH ×2 (09:00)
[2017-07-27] MEDS ORDERED: Escitalopram Oxalate 10 mg Tablet PO SCH (09:00)
[2017-07-27] MEDS ORDERED: Aspirin 325 mg Enteric Coated Tablet PO SCH (09:00)
--- NOTE | 2017-07-27 09:43 | PDOC.PN ---
- Subjective Encounter Start Date: 07/27/17 Encounter Start Time: 07:20 -: old records requested/rev Patient seen and examined for left arm weakness. No new complaints. No overnight events - Objective Resuscitation Status: Resuscitation Status FULL:Full Resuscitation MAR Reviewed: Yes Vital Signs & Weight: Vital Signs (12 hours) Temp Pulse Resp BP BP Pulse Ox 07/27/17 08:27 142/61 H 07/27/17 08:00 98.5 F 78 16 142/61 H 96 07/27/17 04:00 98.2 F 18 133/68 94 L 07/26/17 23:32 97.2 F L 72 16 112/67 96 Weight Weight 113 lb Result Diagrams: 07/26/17 12:13 07/26/17 12:13 Additional Labs: Accuchecks 07/27/17 07/26/17 05:26 21:16 POC Glucose 128 H 185 H EKG Reviewed by me: Yes (nsr) Phys Exam - Physical Examination Constitutional: NAD HEENT: PERRLA, moist MMs, sclera anicteric Neck: no JVD, supple Respiratory: no wheezing, no rales, no rhonchi Cardiovascular: RRR, no significant murmur, no rub Gastrointestinal: soft, non-tender, no distention, positive bowel sounds Musculoskeletal: no edema, pulses present Neurological: moves all 4 limbs mild pronator drip on left UE Lymphatic: no nodes Psychiatric: normal affect, A&O x 3 Skin: no rash, normal turgor Dx/Plan (1) Weakness of left upper extremity Code(s): R29.898 - OTH SYMPTOMS AND SIGNS INVOLVING THE MUSCULOSKELETAL SYSTEM Status: Acute (2) Anemia, normocytic normochromic Code(s): D64.9 - ANEMIA, UNSPECIFIED Status: Chronic (3) Anxiety and depression Code(s): F41.8 - OTHER SPECIFIED ANXIETY DISORDERS Status: Chronic (4) Diabetes type 2, controlled Code(s): E11.9 - TYPE 2 DIABETES MELLITUS WITHOUT COMPLICATIONS Status: Chronic Comment: ISS, Metformin 500mg BID (5) Dyslipidemia Code(s): E78.5 - HYPERLIPIDEMIA, UNSPECIFIED Status: Chronic (6) Elevated troponin Code(s): R74.8 - ABNORMAL LEVELS OF OTHER SERUM ENZYMES Status: Chronic (7) CAD (coronary artery disease) Code(s): I25.10 - ATHSCL HEART DISEASE OF [place] CORONARY ARTERY W/O ANG PCTRS Status: Chronic - Plan cont current plan of care, plan discussed w/ family, PT/OT * today MRI brain and carotid US * based on above result will decide about discharge * medication reviewed as below * symptomatic treatment * discussed with * pt is stable and oriented. * will need aspirin and lipitor on discharge Review of Systems - Review of Systems Eyes: negative: Pain, Vision Change, Conjunctivae Inflammation, Eyelid Inflammation, Redness, Other ENT: negative: Ear Pain, Ear Discharge, Nose Pain, Nose Discharge, Nose Congestion, Mouth Pain, Mouth Swelling, Throat Pain, Throat Swelling, Other Respiratory: negative: Cough, Dry, Shortness of Breath, Hemoptysis, SOB with Excertion, Pleuritic Pain, Sputum, Wheezing Cardiovascular: negative: chest pain, palpitations, orthopnea, paroxysmal nocturnal dyspnea, edema, light headedness, other Gastrointestinal: negative: Nausea, Vomiting, Abdominal Pain, Diarrhea, Constipation, Melena, Hematochezia, Other Genitourinary: negative: Dysuria, Frequency, Incontinence, Hematuria, Retention , Other Musculoskeletal: negative: Neck Pain, Shoulder Pain, Arm Pain, Back Pain, Hand Pain, Leg Pain, Foot Pain, Other Skin: negative: Rash, Lesions, Jacob, Bruising, Other Neurological: Weakness. negative: Numbness, Incoordination, Change in Speech, Confusion, Seizures, Other - Medications/Allergies Allergies/Adverse Reactions: Allergies Allergy/AdvReac Type Severity Reaction Status Date / Time azithromycin Allergy Verified 07/26/17 17:52 codeine Allergy Verified 07/26/17 17:52 Sulfa (Sulfonamide Allergy Verified 07/26/17 17:52 Antibiotics) tramadol Allergy Verified 07/26/17 17:52 Medications: Current Medications Acetaminophen (Tylenol) 650 mg PO Q4H PRN PRN Reason: Headache/Fever or Pain Al Hydroxide/Mg Hydroxide (Maalox) 30 ml PO Q6H PRN PRN Reason: Heartburn or Indigestion Artificial Tears (Tears Renewed 15ml Bottle) 0 drop EA EYE PRN PRN PRN Reason: Dry Eyes Aspirin (Ecotrin) 325 mg PO DAILY [facility] Last Admin: 07/27/17 08:26 Dose: 325 mg Atorvastatin Calcium (Lipitor) 20 mg PO HS [facility] Last Admin: 05/27/18 20:07 Dose: 20 mg Carvedilol (Coreg) 6.25 mg PO BID-[facility] Last Admin: 07/27/17 08:27 Dose: 6.25 mg Dextrose/Water (Dextrose 50%) 25 gm SLOW IVP PRN PRN PRN Reason: Hypoglycemia Enoxaparin Sodium (Lovenox) 30 mg SC 0900 [facility] Last Admin: 07/27/17 08:29 Dose: 30 mg Escitalopram Oxalate (Lexapro) 10 mg PO DAILY [facility] Last Admin: 07/27/17 08:26 Dose: 10 mg Famotidine (Pepcid) 20 mg PO DAILY [facility] Last Admin: 07/27/17 08:26 Dose: 20 mg Glipizide (Glucotrol) 5 mg PO BID-[facility] Last Admin: 07/27/17 08:26 Dose: 5 mg Glucagon (Glucagon) 1 mg IM PRN PRN PRN Reason: Hypoglycemia Guaifenesin (Robitussin Sf) 200 mg PO Q4H PRN PRN Reason: Cough Hydralazine HCl (Apresoline) 10 mg SLOW IVP Q4H PRN PRN Reason: Systolic BP > 180 Dextrose/Water (D5w) 1,000 mls @ 0 mls/hr IV .Q0M PRN; As Directed PRN Reason: Hypoglycemia Insulin Human Lispro (Humalog) 0 units SC .MODERATE SLIDING SC PRN PRN Reason: Moderate Correctional Scale Insulin Human Lispro (Humalog) 0 units SC .BEDTIME SLIDING SC PRN PRN Reason: Bedtime Correctional Scale Loperamide HCl (Imodium) 2 mg PO PRN PRN PRN Reason: Diarrhea/Loose Stools Loratadine (Claritin) 10 mg PO DAILYPRN PRN PRN Reason: Sinus Symptoms Magnesium Hydroxide (Milk Of Magnesium) 30 ml PO DAILYPRN PRN PRN Reason: Constipation Metformin HCl (Glucophage) 500 mg PO BID-[facility] Last Admin: 07/27/17 08:26 Dose: 500 mg Mineral Oil/White Petrolatum (Eucerin Cream) 0 gm TOP BIDPRN PRN PRN Reason: Dry Skin Nitroglycerin (Nitrostat) 0.4 mg SL Q5MIN PRN PRN Reason: Chest Pain Ondansetron HCl (Zofran Odt) 4 mg PO Q6H PRN PRN Reason: Nausea/Vomiting Ondansetron HCl (Zofran) 4 mg IVP Q6H PRN PRN Reason: Nausea/Vomiting Phenol (Chloraseptic Vale 180 Ml Bot) 0 ml PO PRN PRN PRN Reason: Sore Throat Potassium Chloride (K-Dur) 20 meq PO DAILY [facility] Last Admin: 07/27/17 08:27 Dose: 20 meq Senna (Senokot) 2 tab PO HSPRN PRN PRN Reason: Constipation Sodium Chloride (Henriette Nasal Vale 0.65%) 0 ml EA NARE QIDPRN PRN PRN Reason: Nasal Congestion Sodium Chloride (Flush - Normal Saline) 10 ml IVF Q12HR [facility] Last Admin: 07/27/17 08:29 Dose: Not Given Sodium Chloride (Flush - Normal Saline) 10 ml IVF PRN PRN PRN Reason: Saline Flush Zolpidem Tartrate (Ambien) 5 mg PO HSPRN PRN PRN Reason: Insomnia
[2017-07-27] MEDS ORDERED: ISOVUE-370 76%-LOCM 1 ML ONE (10:40)
--- NOTE | 2017-07-27 10:59 | DIS ---
PRIMARY CARE PHYSICIAN: Dr. Nathanael Simpson DATE OF ADMISSION: 07/26/2017 DATE OF DISCHARGE: 07/27/2017 DISCHARGE DISPOSITION: Home. PRIMARY DISCHARGE DIAGNOSIS: Left upper extremity weakness. (ACUTE right frontal cortex infarct) SECONDARY DISCHARGE DIAGNOSES: Elevated troponin, chronic, diabetes type 2, dyslipidemia, coronary artery disease, anxiety and depression, normocytic normochromic anemia, osteoarthritis. PRIMARY PROCEDURE/OPERATION: None. RADIOLOGICAL INVESTIGATION: CT brain in the emergency room showed a hypodensity in the right frontal lobe. Chest x-ray normal. CT brain repeat one unchanged from previous. Carotid Doppler result is pending. MRI result is pending. SIGNIFICANT LABORATORY DATA: WBC 8.8, hemoglobin 14.4, platelet 169. Sodium 136, creatinine 0.88. Troponin 0.267, albumin 3.1, LDL 81. Urinalysis normal. DISCHARGE MEDICATIONS: Ecotrin 325 mg p.o. daily, Lipitor 20 mg p.o. at bedtime , Coreg 6.25 mg p.o. b.i.d., Lexapro 10 mg p.o. daily, glipizide 5 mg p.o. b.i.d., metformin 500 mg p.o. b.i.d., potassium chloride 20 mEq p.o. daily. CONTRAINDICATIONS: None. CODE STATUS: FULL CODE. INPATIENT CONSULTANTS: None. ALLERGIES: AZITHROMYCIN, CODEINE, SULFA, TRAMADOL. DISCHARGE PLAN: Post hospital, the patient will follow up with primary care physician in 1 week. HOSPITAL COURSE: An 87-year-old female with the above-mentioned medical problem who was having weakness on the left upper extremity for the last 3 days , but patient was refusing to come to the hospital. Finally the patient's convinced her to come to emergency room, she was having mild pronator drift on the left upper extremity. Her routine blood test was unremarkable, but she had elevated troponin. It was noted that patient has high troponin during her previous admission and her troponin is mostly chronically elevated. She did not have any chest pain while in hospital. Her monitor and echocardiogram was unremarkable. The patient had a CT brain in the emergency room which showed some hypodensity in the right frontal lobe and that is why we admitted this patient in the hospital for observation. While in the emergency room, she appeared to be confused and that is why they did a repeat CT brain which was unchanged. After admission, we monitored her on telemetry floor which remained unremarkable. When I saw this patient in the morning, the patient was completely oriented well. She was having slight pronator drift on the left side, but she was able to ambulate. We did a carotid Doppler and MRI today, official report is pending by the time of dictation. If carotid Doppler and MRI is unremarkable, then we will consider discharging her home. She will continue all her previous medication. We are adding Ecotrin and Lipitor on her regimen. The patient is seen and examined at bedside today. Please see my progress note from today. Plan of care discussed with the patient's . MRI showed acute infarct in right frontal cortex, CT angio neck ordered to rule out carotid stenosis. patient and daughter wanted to go home later today if possible they do not want to go to rehab she already has home health as per daughter MTDD
--- NOTE | 2017-07-27 12:23 | ULT ---
CAROTID ULTRASOUND: HISTORY: Left arm weakness. Possible stroke. COMPARISON: 09/06/14. TECHNIQUE: Pyle scale, color flow, Doppler imaging with spectral waveform analysis is performed in the carotid v ertebral arteries. FINDINGS: RIGHT CAROTID: Atherosclerosis involving the common carotid artery, carotid bifurcation, and proximal internal carot id artery. Peak systolic velocity of the common carotid artery is 71.9 cm/s. Peak systolic velocity of the internal carotid artery is 62.7 cm/s. Systolic ICA to CCA ratio is 0.9. LEFT CAROTID: Atherosclerosis of the common carotid artery. There is significant calcified and noncalcified plaque in the left carotid bifurcation. Peak systolic velocity of the common carotid artery is 75.0 cm/s. Peak systolic velocity of the internal carotid artery is 67.9 cm/s. Systolic ICA to CCA ratio is 0. 91. Antegrade flow in both vertebral arteries. IMPRESSION: No sonographic evidence of hemodynamically significant stenosis. There is significant calcified plaq ue with shadowing in the left carotid bifurcation/proximal internal carotid artery. Nonemergent CT a ngiogram of the neck can be performed, if there is evidence of ischemia/infarction on brain MRI that is scheduled for later today. POS: [facility]
--- NOTE | 2017-07-27 12:36 | MRI ---
BRAIN MRI WITHOUT CONTRAST: HISTORY: Dizziness. Altered mental status. Transient ischemic attack. COMPARISON: None. FINDINGS: No hemorrhage on the axial gradient echo sequence. No parenchymal mass, mass effect, or midline shift. Age-appropriate atrophy. Cortical chau-white ma tter differentiation is preserved. The ventricles and sulci are patent and symmetric. T2 and FLAIR white matter hyperintensities due to chronic small-vessel ischemic changes are noted. T here is restricted diffusion involving the right frontal cortex and right centrum semiovale. Calvarium has a normal T1 marrow signal intensity. Midline brain parenchymal structures are unremark able. 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 POS: [facility]
--- NOTE | 2017-07-27 14:45 | ADD-HP ---
ADDENDUM: 1. Coronary artery disease. The patient does not have any chest pain. She has an indeterminate tro ponin, but her cardiogram is unremarkable. We will do serial cardiac enzymes x3. We will continue t he aspirin 325 mg p.o. daily along with statin therapy and Coreg 12.5 mg twice daily. Patient alnagi y had recently non-STEMI. At that time, Cardiology was evaluated during that admission. 2. Elevated troponin. We will see 3 sets of cardiac enzymes to see the trend of troponin, but the p atient will be on medical therapy.
--- NOTE | 2017-07-27 15:04 | CT ---
CT ANGIOGRAM OF THE NECK: HISTORY: Right frontal lobe infarct. COMPARISON: None. TECHNIQUE: CT angiogram of the neck is performed in the axial plane. Three-dimensional reformatted images are s ubmitted for interpretation. FINDINGS: Visualized brain parenchyma is unremarkable. Bilateral orbits are unremarkable. Adequate aeration of the paranasal sinuses and left mastoid air cells. Partial opacification of the right mastoid air cells. Symmetric attenuation of sternocleidomastoid muscles. Symmetric atrophy of the parotid gland. Subma ndibular glands are also diminutive. Thyroid gland is unremarkable. No evidence of lymphadenopathy by size criteria in the neck. There are varying degrees of central canal stenosis and foraminal narrowing on the basis of degenerat natalie change. Cervical spine vertebral body height is maintained. There is no fracture. No preverteb ral soft tissue swelling. The aerodigestive tract is patent. No obvious mucosal abnormality. CT ANGIOGRAM: The aortic arch has an overall appropriate enhancement and luminal diameter. There is a common origin of the innominate and left carotid artery. RIGHT CAROTID: The right common carotid artery, carotid bifurcation, and internal carotid artery have overall approp riate enhancement and luminal diameter. There is atherosclerotic disease with mild stenosis of the r ight carotid bifurcation and proximal right internal carotid artery. No significant stenosis based u chuck NASCET criteria. There is tortuosity of the distal right cervicovertebral artery. LEFT CAROTID: The left common carotid artery has appropriate enhancement and luminal diameter. There is calcified plaque in the distal left common carotid artery, carotid bifurcation, and proximal internal carotid a rtery. No evidence of significant stenosis based upon NASCET criteria. There is tortuosity of the d istal internal carotid artery. Both cervicovertebral arteries are patent throughout their course in the neck. The left vertebral ar liat originates from the aorta directly. Both subclavian arteries are patent. There is increased so ft tissue density in the mediastinum suggesting paratracheal, prevascular, right hilar, and subcarina l lymphadenopathy. Evaluation is incomplete. Presumed chronic changes in the lung parenchyma. IMPRESSION: 1. Atherosclerosis involving both carotid arteries. No evidence of significant stenosis based upon NASCET criteria. 2. Mediastinal lymphadenopathy, incomplete evaluation. CODE T POS: [facility]
[2017-07-27 15:34] VITALS: TEMP 98.7
[2017-07-27 17:35] VITALS: BP 142/80
== END 2017-07-27 17:28 | disposition home or self-care (01) ==
LOC: ERS 11:17 → 2SE 14:30
PROVIDERS: ADMIT Internal Medicine; ATTEND Internal Medicine
DX: R29.898 Other symptoms and signs involving the musculoskeletal system (principal); R79.89 Other specified abnormal findings of blood chemistry; E11.9 Type 2 diabetes mellitus without complications; E78.5 Hyperlipidemia, unspecified; F41.8 Other specified anxiety disorders; D64.9 Anemia, unspecified; I25.10 Atherosclerotic heart disease of native coronary artery without angina pectoris; M19.90 Unspecified osteoarthritis, unspecified site; Z88.5 Allergy status to narcotic agent; Z88.2 Allergy status to sulfonamides; Z88.1 Allergy status to other antibiotic agents; Z79.899 Other long term (current) drug therapy
CPT/HCPCS: 70450 ×2; 70498; 70551; 71045; 80053; 80061; 81003; 82553; 82962 ×2; 84484 ×2; 85025; 93005; 93880; 96360; 96372; 97116; 97139; 99291; G0378; G8978; G8979; 36415; 36416; A4216; G8996-GN-CI; G8997-GN-CI; J1650

== ENCOUNTER 2017-07-28 13:24 | Outpatient (CLI) | payer MEDICARE ==
--- NOTE | 2017-07-28 15:30 | RAD ---
TWO VIEWS LUMBAR SPINE: Date: 07-28-17 Comparison: None. Correlation made to CT abdomen and pelvis, 06-29-17. History: Back pain. Re-evaluation T12 compression fracture. FINDINGS: There is an anterior wedge compression fracture involving the T12 vertebral body with severe loss of vertebral body height anteriorly, estimated at approximately 80-85%. The degree of anterior vertebral body height loss has progressed significantly when compared to CT of abdomen and pelvis dated 8. There is extensive atherosclerotic calcification of the abdominal aorta. There is retrolisthesis a t L2-3 measuring in the 4 mm range. There is multilevel lower lumbar spine facet hypertrophy. IMPRESSION: 1. T12 anterior wedge compression fracture with severe loss of vertebral body height anteriorly, prog ressed significantly when compared to the 06-29-17 examination. POS: [facility]
--- NOTE | 2017-07-28 15:34 | RAD ---
THORACIC SPINE RADIOGRAPH 3 VIEW SERIES: Date: 07/28/17 CLINICAL HISTORY: Fracture, follow-up. FINDINGS: There is an anterior wedge compression fracture of T12 with severe height loss. Adjacent disc space h yperdensity at the T11-12 level is present. There is mild superior end plate height loss of T9, gross ly stable to prior radiograph of 03/20/17. There is prominent kyphosis centered at the T12 compressio n site. Osseous demineralization is present. IMPRESSION: 1. Severe anterior wedge compression fracture of T12. 2. Stable mild superior end plate height loss of T9. POS: [facility]
== END 2017-07-28 13:25 | disposition home or self-care (01) ==
LOC: TBSIIMAG 13:24
PROVIDERS: ATTEND Neurological Surgery
DX: S22.080A Wedge compression fracture of T11-T12 vertebra, initial encounter for closed fracture (principal)
CPT/HCPCS: 72072; 72100

== ENCOUNTER 2017-09-21 11:39 | Outpatient (CLI) | payer MEDICARE ==
--- NOTE | 2017-09-21 15:39 | MRI ---
MRI OF THE THORACIC SPINE WITHOUT CONTRAST: INDICATION: History of chronic back pain after a fall; history of T12 fracture. COMPARISON: Radiographs of the lumbar and thoracic spine dated 07/28/17. FINDINGS: There is a subacute severe wedge compression abnormality of T12 without appreciable retropulsion of b one fragments. Mild superior endplate compression abnormality of T9 is stable and chronic. No definite cord signal abnormality is grossly evident. No additional acute fracture is evident. There is mild right neural foraminal narrowing at T1-T2 due to facet hypertrophy. There is mild righ t neural foraminal narrowing at T2-3 due to facet hypertrophy. There is a small right paracentral pr otrusion at T12-L1 without appreciable central canal or neural foraminal narrowing. IMPRESSION: 1. Subacute severe wedge compression abnormality of T12 without retropulsion of bone fragments. 2. Chronic superior end plate compression abnormality of T9. 3. Multilevel spondylosis of the thoracic spine. POS: [facility]
--- NOTE | 2017-09-21 15:52 | MRI ---
MRI LUMBAR SPINE WITHOUT CONTRAST: HISTORY: Back pain. COMPARISON: Lumbar spine radiograph 07/28/17. FINDINGS: Please see the thoracic spine MRI report for findings of the thoracic spine. There is mild straightening of the lumbar spine with lack of normal lumbar lordosis. No marrow infil trative process. The aortic contour is nonaneurysmal. No hydronephrosis. Mild prominence of the common bile duct. This appears to measure up to 8 mm, although within normal limits for a patient of this age. The conus medullaris terminates near the inferior end plate of L1. Levels are as follows: L1-2: Large anterior bridging osteophyte. There is circumferential disk bulge. Mild ligamentum fla vum hypertrophy. The spinal canal still measures over a centimeter. No significant neural foraminal narrowing. L2-3: Large anterior disk-osteophyte complex circumferential disk bulge. Mild facet arthropathy. T here is moderate right and mild left side neural foraminal narrowing. The spinal canal measures appr oximately 9 mm. L3-4: Circumferential disk bulge. Moderate facet arthrosis. There is moderate left and moderate to severe right-side neural foraminal narrowing with abutment of the exiting and traversing right side nerve roots. The spinal canal is not significantly narrowed. L4-5: Circumferential disk bulge. Posterior disk-osteophyte complex and facet arthrosis cause moder ate to severe left-sided and moderate right-sided neural foraminal narrowing. Moderate ligamentum fl avum hypertrophy. The spinal canal measures approximately 7 mm. L5-S1: Mild degenerative disk space height loss. There is a left paracentral posterior disk-osteoph yte complex that extends to the subforaminal space causing moderate narrowing of the neural foramina. There is also moderate narrowing of the right neural foramina due to a small disk-osteophyte comple x as well as facet arthropathy. IMPRESSION: Advanced spondylosis as described above. Multilevel neural foraminal narrowing. POS: [facility]
== END 2017-09-21 11:40 | disposition home or self-care (01) ==
LOC: SCSMRI 11:39
PROVIDERS: ATTEND Nurse Practitioner Family
DX: S22.009A Unspecified fracture of unspecified thoracic vertebra, initial encounter for closed fracture (principal); M43.16 Spondylolisthesis, lumbar region; M47.896 Other spondylosis, lumbar region; M47.897 Other spondylosis, lumbosacral region; M99.83 Other biomechanical lesions of lumbar region; M47.894 Other spondylosis, thoracic region
CPT/HCPCS: 72146; 72148

== ENCOUNTER 2017-09-29 14:17 | Outpatient (CLI) | payer MEDICARE ==
--- NOTE | 2017-09-29 16:30 | RAD ---
FRONTAL AND LATERAL IMAGING OF THE THORACIC SPINE 09/29/17 COMPARISON: 07/28/17 HISTORY: Re-evaluate compression fracture. FINDINGS: Severe anterior wedge compression fracture again noted at the thoracolumbar junction, likely the T12 vertebral body. There is evidence of interval kyphoplasty of T12. Old anterior wedging of the T11 trinity tebral body with approximately 20% loss of vertebral body height anteriorly which may signify mild in terval anterior wedging. There is a mild superior end plate fracture involving T9, stable. No signifi cant anterolisthesis of retrolisthesis noted. There is multilevel facet hypertrophy within the cervic al spine. There is atherosclerotic calcifications of the abdominal aorta. IMPRESSION: Severe anterior wedge compression fracture at T12 status post kyphoplasty. Degree of anterior wedging is stable when compared to prior imaging. There is mild anterior wedging of T12 vertebral bodies whi ch suggests mild interval anterior wedge compression fracture. Acuity could be best assessed via MRI if clinically warranted. POS: [facility]
--- NOTE | 2017-09-29 16:34 | RAD ---
LUMBAR SPINE FIVE VIEWS: 09/29/17 HISTORY: Lumbar spondylosis. FINDINGS: Severe anterior wedge compression fracture noted at T12 status post kyphoplasty. No lumbar spine frac ture is apparent. The bones are diffusely demineralized. There is atherosclerotic calcification of th e abdominal aorta. Neutral, flexion, and extension lateral imaging demonstrates no significant anterolisthesis or retrol isthesis. At L1-2, there is disc space narrowing and anterior osteophyte formation with anterior subchondral sc lerotic change. At L2-3, there is prominent disc space narrowing and anterior osteophyte formation. There is prominen t lower lumbar spine facet hypertrophy, most severe at L5-S1. IMPRESSION: Multilevel degenerative change within the lumbar spine with no acute fracture or dislocation seen. POS: [facility]
== END 2017-09-29 14:18 | disposition home or self-care (01) ==
LOC: RAD 14:17
PROVIDERS: ATTEND Nurse Practitioner Family
DX: S22.009A Unspecified fracture of unspecified thoracic vertebra, initial encounter for closed fracture (principal); M47.896 Other spondylosis, lumbar region
CPT/HCPCS: 72072; 72110

== ENCOUNTER 2018-03-02 01:46 | Observation (INO) | payer MEDICARE ==
[2018-03-02 02:48] LABS: #Eosinphils 0.2 thou/uL (0.0-0.7); #Lymphocytes 2.6 thou/uL (1.20-3.40); #Neutrophils 6.4 thou/uL (1.40-6.50); %Basophils 0.4 % (0.0-1.0); %Lymphocytes 25.3 % (21.0-51.0); %Monocytes 9.7 % (0.0-10.0); %Neutrophils 62.5 % (42.0-75.0); Hemoglobin 12.7 g/dL (12.0-16.0); Mean Corpuscular HGB CONC 33.7 g/dL (32.0-36.0); Mean Corpuscular Hemoglobin 30.9 pg (27.0-31.0); Mean Corpuscular Volume 91.9 fL (78.0-98.0); Mean Platelet Volume 8.2 fL (7.4-10.4); Platelet Count 143 thou/uL (130-400); RBC Distribution Width 12.2 % (11.5-14.5); Red Blood Cell (RBC) Count 4.09 mill/uL (4.20-5.40); White Blood Cell (WBC) Count 10.2 thou/uL (4.8-10.8)
[2018-03-02 02:56] LABS: Bilirubin Negative (Negative); Blood, Urine Negative (Negative); Clarity CLEAR (Clear); Glucose, Urine (Dipstick) Negative (Negative); Leukocyte Trace (Negative); Nitrite Negative (Negative); Protein, Urine (Dipstick) Negative (Neg-Trace); Specific Gravity, Urine 1.023 (1.002-1.036)
[2018-03-02 02:59] LABS: Bacteria/HPF None Seen HPF (None Seen); Hyaline Casts/LPF 7-10 HYALINE CAST LPF (0-3 Hyaline); Pathc Cast-AUWi Flag 0.43 (0-2.49); RBC/HPF 0-3 HPF (0-3); Squamous Epithelial 0-3 HPF (0-3)
[2018-03-02 03:07] LABS: Renal Epithelial None Seen HPF (0-3); Transitional Epithelial NONE SEEN HPF (0-3)
[2018-03-02 03:10] LABS: ALT (SGPT) Less than 7 U/L (8-55); AST (SGOT) 20 U/L (5-34); Albumin 3.6 g/dL (3.4-4.8); Alkaline Phosphatase 61 U/L (40-150); Anion Gap 16 mmol/L (10-20); BUN (Urea Nitrogen) 16 mg/dL (9.8-20.1); Bilirubin, Total 0.6 mg/dL (0.2-1.2); CK (CPK) 48 U/L (29-168); Calc. Creatinine Clearance 0 mL/min (70-130); Calcium 9.7 mg/dL (7.8-10.44); Carbon Dioxide 22 mmol/L (23-31); Chloride 106 mmol/L (98-107); Estimated GFR-MDRD 66; Globulin 4.3 g/dL (2.4-3.5); Glucose 119 mg/dL (83-110); Potassium 4.6 mmol/L (3.5-5.1); Protein, Total 7.9 g/dL (6.0-8.3); Sodium 139 mmol/L (136-145)
[2018-03-02] MEDS ORDERED: Ondansetron PF 4 MG/2 ML Vial IVP PRN (05:09)
[2018-03-02] MEDS ORDERED: Acetaminophen 325 MG TAB PO PRN (05:09)
[2018-03-02] MEDS ORDERED: Ondansetron ODT 4 MG TAB SL PRN (05:09)
[2018-03-02] MEDS: Sodium Chloride 0.9% 1,000 ML IV SCH ×2 (05:20→11:46)
[2018-03-02 05:50] VITALS: BMI 19.6
--- NOTE | 2018-03-02 08:08 | RAD ---
PORTABLE AP CHEST XRAY: DATE: 03/02/2018. HISTORY: Altered mental status. COMPARISON: 07/26/2017. FINDINGS: Cardiac silhouette and pulmonary vasculature are within normal limits. There are bibasilar linear de nsities seen which may be related to chronic lung changes which are overall similar to the prior stud y. No new area of consolidation or pleural fluid is seen. Cardiac silhouette and pulmonary vasculat ure are within normal limits. Remote left-sided rib fracture is present. There is osteopenia. Vasc ular calcifications are seen in the thoracic aorta. IMPRESSION: 1. Stable chronic lung changes without evidence of an acute cardiopulmonary process. 2. Osteopenia. 3. Remote left-sided rib fracture. POS: [facility]
--- NOTE | 2018-03-02 08:15 | RAD ---
THREE VIEWS LEFT HAND: DATE: 03/02/2018. HISTORY: Left hand injury. FINDINGS: There is diffuse osteopenia with scattered osteoarthritis greatest involving the interphalangeal join ts. There does appear to be mild subluxation seen at the proximal interphalangeal joint of the left index finger. There is a fracture seen at the base of the middle phalanx of what is thought to be th e small finger only seen on the lateral view. No additional fracture or dislocation is seen. Promin ent osteoarthritis is seen involving the 1st carpometacarpal joint and greater multangular joint. IMPRESSION: 1. Fracture involving the base of the middle phalanx left small finger. There is associated soft ti ssue swelling. 2. Diffuse osteopenia and osteoarthritis. 3. Mild subluxation at the proximal interphalangeal joint of the left index finger which may be attr ibutable to the osteoarthritis. 4. Diffuse osteopenia. POS: [facility]
--- NOTE | 2018-03-02 09:45 | CT ---
PRELIMINARY REPORT/[facility]/EMERGENTY AFTER-HOURS PROCEDURE CT Head Without Contrast EXAM DATE/TIME: 03/02/2018 2:19 AM CLINICAL HISTORY: 87 years old, female; Signs and symptoms; Altered mental status/memory loss; Confusion or disorientat ion; Patient HX: Ams/confusion; Patient reports she is here because she is nervous. Altered all day TECHNIQUE: Axial computed tomography images of the head/brain without contrast. COMPARISON: No relevant prior studies available. FINDINGS: Brain: Volume loss and chronic small vessel ischemic change. Old lacunar infarction(s). No brain floyd a. No intracranial hemorrhage. Cerebellar atrophy. Ventricles: Normal. No ventriculomegaly. Bones/joints: See Mastoid Air Cells Finding. Sinuses: Normal as visualized. No acute sinusitis. Mastoid air cells: Opacification of the right mastoid air cells. No perceptible mastoid fracture. No osseous erosion, overlying inflammation, or subperiosteal abscess to indicate mastoiditis. Soft tissues: Normal. IMPRESSION: No acute brain findings. Thank you for allowing us to participate in the care of your patient. Dictated and Authenticated by: Sam Ayers MD 03/02/2018 2:52 AM Central Time ([place] & [place]) FINAL REPORT EMERGENT AFTER HOURS NONCONTRAST CT HEAD: DATE: 03/02/2018. History Altered mental status and confusion. COMPARISON: 07/26/2017. IMPRESSION: 1. No acute intracranial abnormality is demonstrated. 2. Chronic small-vessel ischemic changes and cerebral volume loss. Focal low-density area within t he right periventricular white matter which is an interval change from the prior study but likely att ributable to remote white matter infarction. 3. Stable opacification of right mastoid air cells. This was also noted on an MRI of the brain on . 4. Findings are in agreement with the preliminary report by [facility]. POS: [facility]
--- NOTE | 2018-03-02 10:58 | PDOC.EVN ---
Event Note - Event Note Event Note: H&P dictated #[id number]
--- NOTE | 2018-03-02 11:37 | HP ---
CHIEF COMPLAINT: Frequent falls and altered mental status. HISTORY OF PRESENT ILLNESS: This is an 87-year-old female, who was not able to provide much of her history, is very disoriented and confused, history obtained from her daughter, Ms. Haynes via phone at [phone]. Per daughter, the patient has been having progressive decline in mental function and confusion as well as depression. The patient apparently had an episode of confusion that was significantly worse than her baseline and so she brought the patient into the hospital. The patient's daughter states that her recently in September and since then the patient has been steadily declining in mental function and severely depressed. The patient knew her for 83 years since the age of 4 and him and even while discussing her condition, she kept bringing him up that he . The patient's daughter states that the patient has been on two antidepressants for a year and has had no improvement in clinical condition and the patient remains significantly depressed throughout the time period and in September onwards, she has just had an even more rapid decline and depression. REVIEW OF SYSTEMS: All systems reviewed. Pertinent positives in HPI, otherwise negative. PAST MEDICAL HISTORY: Positive for depression, diabetes mellitus, hypertension, and hyperlipidemia. ALLERGIES: TO AZITHROMYCIN, CODEINE, SULFA, AND TRAMADOL, UNCLEAR WHAT HAPPENS WHEN SHE TAKES THIS. PAST SURGICAL HISTORY: None. HOME MEDICATIONS: The patient takes; 1. Aspirin 325 daily. 2. Atorvastatin 20 mg daily. 3. Carvedilol 12.5 mg twice a day. 4. Lexapro 10 mg daily. 5. Glipizide 5 mg twice a day. 6. Metformin 500 mg twice a day. 7. Potassium tablet 20 mEq daily. FAMILY HISTORY: Unremarkable. SOCIAL HISTORY: No drinking or smoking. PHYSICAL EXAMINATION: VITAL SIGNS: Blood pressure 143/90, pulse rate of 87, respiratory rate of 18, temperature of 97.9. GENERAL: The patient appears in no acute distress, pleasant individual, confused. HEENT: Pupils equal, round, reactive to light and accommodation. Extraocular muscles intact. Oral cavity moist and pink. Mobile, nontender thyroid. NECK: Supple. RESPIRATORY: Clear to auscultation bilaterally. No respiratory distress noted. CARDIOVASCULAR: Regular rate and rhythm. S1 and S2. No murmurs, rubs, or gallops appreciated. ABDOMEN: Positive bowel sounds. Soft and nontender. EXTREMITIES: 2+ peripheral pulses. No edema noted. NEUROLOGIC: Cranial nerves 2 through 12 intact. Alert and oriented to person only. Answers some questions appropriately; however, very disoriented, follows commands. LABORATORY DATA: CBC normal. Basic metabolic panel normal. Urinalysis; trace leukocyte esterase, 49 white blood cells, however, no other abnormalities noted. Brain CT scan shows no acute intracranial findings. Chest x-ray, no abnormalities. Hand x-ray shows a fracture involving base of the middle phalanx, small little finger, diffuse osteopenia, osteoarthritis. ASSESSMENT AND PLAN: 1. Altered mental status. 2. Hypertension. 3. Diabetes. 4. Fracture of finger. 5. Depression. PLAN: At this point in time, we will keep the patient in inpatient. We will attempt to find an organic source for altered mental status. UA negative, we will check blood cultures, TSH as well as lab work in the next 24-hours. Case discussed with daughter at length. She understands that this might be a chronic decline for the patient. Wishes the patient to be a DNR and understands that her depression about may have no reversal given that her connection with her was for 83 years. At this point in time, if we were unable to find any organic source for her problems and this was all purely emotional secondary to depression, we will consult hospice care, which was ordered and okay with, otherwise we will continue to search for cause for her altered mental status. Case and plan discussed with her daughter at length, Ivy via phone at [phone]. She understands and agrees with this plan. Job ID: [id number]
[2018-03-02] MEDS: Lorazepam 2 MG/ML VIAL SLOW IVP PRN ×2 (13:20→19:46)
[2018-03-02] MEDS: Heparin 5,000 UNITS/ML VIAL SC SCH (19:44)
[2018-03-03 07:30] LABS: Anion Gap 12 mmol/L (10-20); BUN (Urea Nitrogen) 8 mg/dL (9.8-20.1); Calc. Creatinine Clearance 45 mL/min (70-130); Calcium 9.2 mg/dL (7.8-10.44); Carbon Dioxide 25 mmol/L (23-31); Chloride 102 mmol/L (98-107); Estimated GFR-MDRD 78; Glucose 120 mg/dL (83-110); Potassium 3.6 mmol/L (3.5-5.1); Sodium 135 mmol/L (136-145)
[2018-03-03] MEDS: Heparin 5,000 UNITS/ML VIAL SC SCH ×2 (08:30→20:47)
[2018-03-03 08:58] LABS: Hemoglobin 12.4 g/dL (12.0-16.0); Mean Corpuscular HGB CONC 33.9 g/dL (32.0-36.0); Mean Corpuscular Hemoglobin 30.7 pg (27.0-31.0); Mean Corpuscular Volume 90.8 fL (78.0-98.0); Red Blood Cell (RBC) Count 4.03 mill/uL (4.20-5.40); White Blood Cell (WBC) Count 9.2 thou/uL (4.8-10.8)
[2018-03-03 08:59] LABS: #Eosinphils 0.2 thou/uL (0.0-0.7); #Lymphocytes 1.8 thou/uL (1.20-3.40); #Monocytes 0.9 thou/uL (0.11-0.59); #Neutrophils 6.3 thou/uL (1.40-6.50); %Basophils 0.4 % (0.0-1.0); %Eosinophils 2.2 % (0.0-10.0); %Lymphocytes 19.2 % (21.0-51.0); %Monocytes 10.2 % (0.0-10.0)
[2018-03-03 09:19] LABS: Platelet Count 169 thou/uL (130-400)
--- NOTE | 2018-03-03 13:35 | PDOC.PN ---
- Subjective Encounter Start Date: 03/03/18 Encounter Start Time: 13:32 - Objective Resuscitation Status - Order Detail: 03/02/18 10:49 Resuscitation Status Routine Resuscitation Status: DNAR: NO Resuscitation Discussed with: Yanci Haynes Additional comments: [phone] Vital Signs & Weight: Vital Signs (12 hours) Temp Pulse Resp BP Pulse Ox 03/03/18 12:56 97.8 F 85 16 151/78 H 93 L 03/03/18 08:07 97.4 F L 91 20 153/73 H 92 L 03/03/18 04:00 98.1 F 85 16 158/89 H 92 L Weight Weight 109 lb 3.2 oz Result Diagrams: 03/03/18 06:04 03/03/18 06:04 Phys Exam - Physical Examination Constitutional: NAD HEENT: PERRLA, moist MMs, sclera anicteric Neck: no nodes, no JVD, supple Respiratory: no wheezing, no rales, no rhonchi Cardiovascular: RRR, no significant murmur, no rub Gastrointestinal: soft, non-tender, no distention, positive bowel sounds Musculoskeletal: no edema, pulses present Dx/Plan (1) Altered mental status Code(s): R41.82 - ALTERED MENTAL STATUS, UNSPECIFIED Status: Acute (2) Anxiety and depression Code(s): F41.8 - OTHER SPECIFIED ANXIETY DISORDERS Status: Chronic (3) CAD (coronary artery disease) Code(s): I25.10 - ATHSCL HEART DISEASE OF [place] CORONARY ARTERY W/O ANG PCTRS Status: Chronic (4) Diabetes type 2, controlled Code(s): E11.9 - TYPE 2 DIABETES MELLITUS WITHOUT COMPLICATIONS Status: Chronic Comment: ISS, Metformin 500mg BID (5) Dyslipidemia Code(s): E78.5 - HYPERLIPIDEMIA, UNSPECIFIED Status: Chronic - Plan * continue current plan of care * less anxious, however, remains disoriented with changes in mental status * if patient has no improvement over the next 24hours then will call daughter in AM and consider palliation options as patient does not have any organic causes for her condition, will await cultures for 24 hours more so as to have more certainty * no other changes in plan of care for now * keep in obs, as no criteria for in patient, will likely DC in AM to home or hospice depending on what daughter would like to do, she works nights and I was not able to see the patient early enough so did not call and updated kj, however, will see patient first thing in AM and call daughter to discuss technician terminal and repeater goals/plan of care.
[2018-03-04] MEDS: Heparin 5,000 UNITS/ML VIAL SC SCH ×2 (08:46→19:39)
--- NOTE | 2018-03-04 14:19 | PDOC.PN ---
- Subjective Encounter Start Date: 03/04/18 Encounter Start Time: 14:16 Patient seen and examined, no new issues or complaints, daughter and granddaughter at bedside, all questions answered. - Objective Resuscitation Status - Order Detail: 03/02/18 10:49 Resuscitation Status Routine Resuscitation Status: DNAR: NO Resuscitation Discussed with: Yanci Haynes Additional comments: [phone] Vital Signs & Weight: Vital Signs (12 hours) Temp Pulse Resp BP Pulse Ox 03/04/18 10:49 97.6 F 78 18 120/69 95 03/04/18 07:21 97.7 F 87 16 130/82 96 03/04/18 04:00 97.3 F L 88 16 116/66 95 Weight Weight 109 lb 3.2 oz I&O: 03/03/18 03/04/18 03/05/18 06:59 06:59 06:59 Intake Total 150 Balance 150 Result Diagrams: 03/03/18 06:04 03/03/18 06:04 Phys Exam - Physical Examination Constitutional: NAD HEENT: PERRLA, moist MMs, sclera anicteric Neck: no nodes, no JVD, supple Respiratory: no wheezing, no rales, no rhonchi Cardiovascular: RRR, no significant murmur Gastrointestinal: soft, non-tender, no distention Musculoskeletal: pulses present, edema present (trace) Dx/Plan (1) Altered mental status Code(s): R41.82 - ALTERED MENTAL STATUS, UNSPECIFIED Status: Acute (2) Anxiety and depression Code(s): F41.8 - OTHER SPECIFIED ANXIETY DISORDERS Status: Chronic (3) CAD (coronary artery disease) Code(s): I25.10 - ATHSCL HEART DISEASE OF [place] CORONARY ARTERY W/O ANG PCTRS Status: Chronic (4) Diabetes type 2, controlled Code(s): E11.9 - TYPE 2 DIABETES MELLITUS WITHOUT COMPLICATIONS Status: Chronic Comment: ISS, Metformin 500mg BID (5) Dyslipidemia Code(s): E78.5 - HYPERLIPIDEMIA, UNSPECIFIED Status: Chronic (6) end stage cerebrovascular disease Status: Acute - Plan * case d/w daughter and granddaughter at [facility], for now will continue current plan of care * hospice consultation to be placed for end stage cerebrovascular disease, hx of dementia worsening over 1 year and no improvement at all, steady decline worse in the past 3-4 months * labs stable for now * DC plans to home with home hospice or facility hospice if approval obtained * case and plan d/w patient's daughter and granddaughter at length, they understood and agreed with this plan.
[2018-03-05] MEDS: Heparin 5,000 UNITS/ML VIAL SC SCH (08:42)
--- NOTE | 2018-03-05 12:12 | PDOC.PN ---
- Subjective Encounter Start Date: 03/05/18 Encounter Start Time: 12:12 Patient seen and examined, no new issues or complaints, all questions answered. - Objective Resuscitation Status - Order Detail: 03/02/18 10:49 Resuscitation Status Routine Resuscitation Status: DNAR: NO Resuscitation Discussed with: Yanci Haynes Additional comments: [phone] Vital Signs & Weight: Vital Signs (12 hours) Temp Pulse Resp BP Pulse Ox 03/05/18 10:32 94 L 03/05/18 07:17 97.2 F L 73 18 111/64 94 L Weight Weight 109 lb 3.2 oz I&O: 03/04/18 03/05/18 03/06/18 06:59 06:59 06:59 Intake Total 150 Balance 150 Result Diagrams: 03/03/18 06:04 03/03/18 06:04 Phys Exam - Physical Examination Constitutional: NAD HEENT: PERRLA, moist MMs, sclera anicteric Neck: no nodes, no JVD, supple Respiratory: no wheezing, no rales, no rhonchi Cardiovascular: RRR, no significant murmur, no rub Gastrointestinal: soft, non-tender, no distention Musculoskeletal: no edema, pulses present Dx/Plan (1) Altered mental status Code(s): R41.82 - ALTERED MENTAL STATUS, UNSPECIFIED Status: Acute (2) Anxiety and depression Code(s): F41.8 - OTHER SPECIFIED ANXIETY DISORDERS Status: Chronic (3) CAD (coronary artery disease) Code(s): I25.10 - ATHSCL HEART DISEASE OF [place] CORONARY ARTERY W/O ANG PCTRS Status: Chronic (4) Diabetes type 2, controlled Code(s): E11.9 - TYPE 2 DIABETES MELLITUS WITHOUT COMPLICATIONS Status: Chronic Comment: ISS, Metformin 500mg BID (5) Dyslipidemia Code(s): E78.5 - HYPERLIPIDEMIA, UNSPECIFIED Status: Chronic (6) end stage cerebrovascular disease Status: Acute - Plan * DC to facility today if she's accepted as [facility] pending otherwise DC home * no changes in her plan of care otherwise * case and plan d/w patient's daughter at length via phone, she understood and agrees with this plan
[2018-03-05 15:17] VITALS: BP 130/76; TEMP 98.3
--- NOTE | 2018-03-06 05:16 | DIS ---
DATE OF ADMISSION: 03/02/2018 DATE OF DISCHARGE: 03/05/2018 ADMITTING DIAGNOSES: 1. Altered mental status. 2. Depression. 3. Diabetes. 4. Hyperlipidemia. DISCHARGE DIAGNOSES: 1. Altered mental status, resolved. 2. Depression, stable. 3. Hypertension and diabetes, stable. HOSPITAL COURSE: This is an 87-year-old female who was admitted to the hospital with altered mental status and severe changes in mental status. The patient was observed for 3 days. All organic causes rule out, did not have any complaints at a point in time of discharge. Urinalysis negative. Lab work normal. CT head normal. TSH normal. Case and plan discussed with the patient's daughter at length, the patient apparently has had a steady decline over the last year. The patient recently lost her 3 months ago and has been having a steady decline in mental function since then, it is more severely than her already baseline decline. The patient apparently had known for 83 years since the age of 4. The patient otherwise was doing well at point in time of discharge. The patient did not qualify for hospice, did not qualify for any facility either. The patient wants to be discharged home and to follow up with her PCP for evaluation for possible Alzheimer's. Case and plan discussed with the patient's daughter at length. DISPOSITION: Home. FOLLOWUP: Follow up with PCP in 1 week. DISCHARGE MEDICATIONS: Resume home medications. ACTIVITY: As tolerated with assistance as needed. CONDITION: Stable. PROGNOSIS: Guarded to poor. DIET: Low-fat, low-calorie, high-fiber diet. Case and plan discussed with the patient's daughter at length, she understood and agreed with this plan. Job ID: [id number]
--- NOTE | 2018-03-12 14:05 | EKG ---
Test Reason : FALL Blood Pressure : / mmHG Vent. Rate : 075 BPM Atrial Rate : 075 BPM P-R Int : 150 ms QRS Dur : 080 ms QT Int : 382 ms P-R-T Axes : 017 003 041 degrees QTc Int : 426 ms Normal sinus rhythm ST abnormality, possible digitalis effect Abnormal ECG Confirmed by ARELIS DAS MD ([id number]), online content editor RAFY SAHA ([id number]) on 03/12/2018 2:04:33 PM Referred By: Confirmed By:ARELIS DAS MD
== END 2018-03-05 14:28 | disposition home or self-care (01) ==
LOC: ERS 01:46 → T4-B 03:18
PROVIDERS: ADMIT Internal Medicine; ATTEND Internal Medicine
DX: R41.82 Altered mental status, unspecified (principal); F32.9 Major depressive disorder, single episode, unspecified; E11.9 Type 2 diabetes mellitus without complications; E78.5 Hyperlipidemia, unspecified; I10 Essential (primary) hypertension; I25.10 Atherosclerotic heart disease of native coronary artery without angina pectoris; F41.9 Anxiety disorder, unspecified; Z88.1 Allergy status to other antibiotic agents; Z88.5 Allergy status to narcotic agent; Z88.2 Allergy status to sulfonamides; Z79.82 Long term (current) use of aspirin; Z79.84 Long term (current) use of oral hypoglycemic drugs
CPT/HCPCS: 51701; 70450; 71045; 73130; 80048; 82550; 82962; 85025; 87040; 87086; 93005; 94760; 96365; 96375; 96376; 99285; G0378 ×3; 36415; 36416; 80053; 81003; 81015; 84443; A4353; B4087; J1644; J1956; J2060

== ENCOUNTER 2018-04-16 00:11 | Inpatient (IN) | payer MEDICARE ==
[2018-04-16 00:43] LABS: #Eosinphils 0.3 thou/uL (0.0-0.7); #Lymphocytes 1.8 thou/uL (1.20-3.40); #Monocytes 1.1 thou/uL (0.11-0.59); #Neutrophils 6.8 thou/uL (1.40-6.50); %Basophils 0.5 % (0.0-1.0); %Lymphocytes 18.2 % (21.0-51.0); %Monocytes 10.9 % (0.0-10.0); %Neutrophils 67.5 % (42.0-75.0); Mean Corpuscular Hemoglobin 29.9 pg (27.0-31.0); Mean Corpuscular Volume 93.3 fL (78.0-98.0); Mean Platelet Volume 7.3 fL (7.4-10.4); Platelet Count 202 thou/uL (130-400); RBC Distribution Width 12.2 % (11.5-14.5); Red Blood Cell (RBC) Count 4.01 mill/uL (4.20-5.40)
[2018-04-16 01:05] LABS: ALT (SGPT) 7 U/L (8-55); AST (SGOT) 20 U/L (5-34); Albumin 3.4 g/dL (3.4-4.8); Alkaline Phosphatase 59 U/L (40-150); Anion Gap 15 mmol/L (10-20); BUN (Urea Nitrogen) 16 mg/dL (9.8-20.1); Bilirubin, Total 0.5 mg/dL (0.2-1.2); Calc. Creatinine Clearance 0 mL/min (70-130); Calcium 9.7 mg/dL (7.8-10.44); Carbon Dioxide 27 mmol/L (23-31); Chloride 105 mmol/L (98-107); Estimated GFR-MDRD 65; Glucose 143 mg/dL (83-110); Potassium 3.8 mmol/L (3.5-5.1); Protein, Total 7.4 g/dL (6.0-8.3); Sodium 143 mmol/L (136-145)
[2018-04-16 01:34] LABS: Bilirubin Small (Negative); Blood, Urine Negative (Negative); Clarity CLEAR (Clear); Glucose, Urine (Dipstick) Negative (Negative); Leukocyte Negative (Negative); Nitrite Negative (Negative); Protein, Urine (Dipstick) Negative (Neg-Trace); Specific Gravity, Urine 1.026 (1.002-1.036)
--- NOTE | 2018-04-16 08:01 | CT ---
PRELIMINARY REPORT/[facility]/EMERGENTY AFTER-HOURS PROCEDURE CT Head Without Contrast EXAM DATE/TIME: 04/16/2018 1:03 AM CLINICAL HISTORY: 87 years old, female; Signs and symptoms; Altered mental status/memory loss; Confusion or disorientat ion; Patient HX: F87 w pmh of dementia presents to the ed for evaluation of chest pain x3 days. Famil y reports increased hallucinations x8 days. Family reports that PT. Has HX of uti's. Family denies PT. Having any fever or other associated symptoms. Family reports that PT. Has had increasingl y more falls, denies PT. Hitting head. Reported that 1 year ago, PT. Had serious uti with associated hallucinations. Family reports that PT. Is dnr TECHNIQUE: Axial computed tomography images of the head/brain without contrast. COMPARISON: CT Brain WO Con 03/02/2018 2:19 AM FINDINGS: Brain: Scattered areas of hypoattenuation, likely chronic small vessel ischemic change, demyelination , or gliosis. Old lacunar infarction within the right centrum semiovale. No mass, hemorrhage, or acut e infarction. Ventricles: Normal. Bones/joints: Normal. Sinuses: Minimal ethmoid and right sphenoid sinus disease. Mastoid air cells: Fluid within the right mastoid air cells. Soft tissues: Unremarkable. Vasculature: Atherosclerotic vascular calcifications. IMPRESSION: No acute intracranial abnormality. Thank you for allowing us to participate in the care of your patient. Dictated and Authenticated by: Anthony Cherry MD 04/16/2018 2:17 AM Central Time ([place] & [place]) FINAL REPORT EMERGENT AFTER HOURS NONCONTRAST CT HEAD: DATE: 04/16/2018. HISTORY: Altered mental status. COMPARISON: 03/02/2018. IMPRESSION: 1. No acute intracranial abnormality is demonstrated. 2. Chronic small-vessel ischemic changes and cerebral volume loss similar to the prior exam. Focal area of encephalomalacia likely related to remote infarction in the right frontal centrum semiovale. 3. Mild sinus disease involving the right sphenoid sinus. 4. Stable opacification of the right mastoid air cells. 5. Findings are in agreement with the preliminary report by [facility]. POS: [facility]
--- NOTE | 2018-04-16 08:05 | RAD ---
CHEST 1 VIEW: HISTORY: Chest pain. Followup. COMPARISON: 03/02/2018. FINDINGS: Cardiac silhouette is magnified by projection. Widespread reticular interstitial thickening is more apparent on the current study, likely related to technique. No lobar consolidation. Mediastinum is midline with aortic calcification. No evidence of pneumothorax. IMPRESSION: 1. Atherosclerosis. 2. Stable radiographic appearance of the chest. POS: [facility]
[2018-04-16] MEDS ORDERED: Famotidine 20 MG TAB ONE (10:32)
[2018-04-16] MEDS ORDERED: hydrALAZINE 20 MG/ML VIAL SLOW IVP PRN (13:16)
[2018-04-16] MEDS ORDERED: cloNIDine 0.1 MG TAB PO PRN (13:16)
[2018-04-16] MEDS ORDERED: Dextrose 5% in Water 1,000 ML IV PRN (13:16)
[2018-04-16] MEDS ORDERED: Ondansetron PF 4 MG/2 ML Vial IVP PRN (13:16)
[2018-04-16] MEDS ORDERED: HumaLOG 300 UNITS/3 ML VIAL SC PRN ×2 (13:16)
[2018-04-16] MEDS ORDERED: Dextrose 50% Abboject 50 ML SYRINGE SLOW IVP PRN (13:16)
[2018-04-16] MEDS ORDERED: Ondansetron ODT 4 MG TAB PO PRN (13:16)
--- NOTE | 2018-04-16 13:48 | HP ---
PRIMARY CARE PROVIDER: Nathanael Simpson MD. CHIEF COMPLAINT: Altered mental status. HISTORY OF PRESENT ILLNESS: This is an 87-year-old female, who presented to [facility] in conjunction with family members after the patient was noted with increasing delirium, confusion, and altered mental status over the last 8 days. 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 Daughter reports the patient with increasing confusion and multiple falls in the last 24 hours. The daughter reports increasing difficulty and inability to care for her mother due to worsening memory issues as well as needing 24 hours supervision. The daughter reports she had previously been caring for mother, but due to work constraints and worsening memory, has been unable to adequately care for mother. The patient apparently again complaining of chest pain to the daughter, described as sharp and stabbing and worse with deep inspiration. No specific recorded fevers. The patient was recently admitted and evaluated extensively at [facility] on 03/02/2018 through 03/05/2018 for altered mentation. The patient had extensive evaluation during this workup, which was essentially unremarkable. The daughter reports the patient has recently placed on Wellbutrin in addition to the Lexapro over the last week. The patient does not take any anxiolytic as this seems to exacerbate her symptoms and memory issues. No specific history of wandering out of the home or becoming lost. However, the patient has attempted this in the past. Due to increasing weakness and falls, the patient mainly sits in a chair or ambulate short distance with a rolling walker. In the emergency room, the patient underwent evaluation including CT imaging of the brain showing no acute process. Portable chest x-ray imaging was also negative. Metabolic screening was essentially unrevealing and the patient was referred to the hospital Service for evaluation. PAST MEDICAL HISTORY: 1. Dementia, progressive with recent Lewy body detection by MRI imaging. 2. History of falls. 3. Delirium. 4. Diabetes mellitus type 2, on oral hypoglycemics. 5. Depression. 6. Hypertension. 7. Hyperlipidemia. PAST SURGICAL HISTORY: 1. Status post appendectomy. 2. Status post cholecystectomy. 3. Status post hysterectomy. CURRENT MEDICATIONS: 1. Enteric-coated aspirin 325 mg p.o. daily. 2. Lipitor 20 mg p.o. daily. 3. Cranberry extract 450 mg p.o. daily. 4. Lexapro 20 mg p.o. daily. 5. Glipizide 2.5 mg p.o. b.i.d.. 6. Lipitor 20 mg p.o. at bedtime. ALLERGIES: TO AZITHROMYCIN, CODEINE, SULFA, AND TRAMADOL. FAMILY HISTORY: Positive for hypertension. SOCIAL HISTORY: The patient resides with her daughter in the [facility]. No current alcohol, tobacco, or illicit drug use. Multiple falls reported by family members. Rolling walker with ambulation short distances. REVIEW OF SYSTEMS: Unobtainable as the patient has severe dementia and confusion. PHYSICAL EXAMINATION: VITAL SIGNS: On admission, blood pressure 159/90, pulse 78, respiratory rate 18, temperature 97.6 degrees Fahrenheit, O2 saturation 98% on room air. GENERAL APPEARANCE: This is an 87-year-old female, alert, responsive, oriented to person, in no acute distress. HEENT: Pupils are equal, round, reactive to light and accommodation. Extraocular muscles are intact. No scleral icterus. No conjunctival injection. Nares patent. OP is clear. NECK: Supple. No cervical adenopathy. No thyromegaly. No carotid bruits. No JVD appreciated. Cervical spine with full active and passive range of motion. No meningeal signs noted. CHEST: Lungs are clear to auscultation bilaterally. CARDIOVASCULAR: S1 and S2 without noted murmur, rub, or gallop. Mild tenderness to palpation in the anterior chest wall along the sternal border and clavicle region. No deformity noted. ABDOMEN: Rounded, soft, nontender, and nondistended. Bowel sounds are positive in all 4 quadrants. There is no hepatosplenomegaly. No abdominal bruits. No rebound or guarding appreciated. EXTREMITIES: Warm and dry with fair turgor. No clubbing, cyanosis, or asymmetric edema appreciated. Pulses palpable distally at the dorsalis pedis, posterior tibial, and popliteal arteries bilaterally. Capillary refill less than 2 seconds. NEUROLOGIC: Alert and oriented to person only, pleasant and conversant. Cranial nerves 2 through 12 are grossly intact. No other focal or lateralizing signs appreciated. The patient not observed ambulatory during this exam. PERTINENT LABORATORY AND X-RAY FINDINGS: Basic metabolic profile within normal limits. Calcium 9.7. LFTs within normal limits. Troponin I negative x1. CBC within normal limits. Urinalysis negative. CT of the brain without contrast dated 04/16/2018 showed no acute intracranial process. Chronic ischemic white matter changes noted, similar to previous exam. Portable chest x-ray dated 04/16/2018 showed no acute cardiopulmonary process. EKG dated 04/16/2018 by my interpretation shows sinus mechanism with heart rates in the 70s. Normal R-wave progression noted in the precordial leads. Normal axis. No acute ST-T wave changes appreciated. Baseline artifact noted. ASSESSMENT AND PLAN: 1. Acute encephalopathy. Suspect multifactorial including metabolic component in conjunction with baseline dementia. We will continue general supportive management. Observe on the medical floor. 2. Delirium. Suspect component of delirium given the patient's clinical exam and history. Continue to monitor mental status. Initial metabolic workup unrevealing. 3. Dementia. Advanced. We will continue supportive management as outlined previously. The patient will benefit from ongoing supervised 24-hour care. 4. Diabetes mellitus type 2. Start insulin sliding scale for reflexive coverage. Resume glipizide 2.5 mg b.i.d. Accu-Cheks a.c. and at bedtime. 5. Chest pain, musculoskeletal in origin. Supportive management. 6. Prophylaxis. SCDs while in bed. Pepcid 20 mg p.o. b.i.d. Physical Therapy evaluation for functional assessment. Case management consult for disposition planning. 7. Code status is full. Surrogate medical decision maker is the patient's daughter, Ivy Vargas. Job ID: [id number]
[2018-04-16 14:28] VITALS: BMI 18.6
[2018-04-16] MEDS: glipiZIDE 5 MG TAB PO SCH (16:41)
[2018-04-16] MEDS: Atorvastatin Calcium 20 MG TAB PO SCH (20:20)
[2018-04-16] MEDS: Famotidine 20 MG TAB PO SCH (20:20)
[2018-04-17] MEDS: Temazepam 15 MG CAP PO PRN (00:05)
[2018-04-17 05:01] LABS: Band 2 % (5-11); Eosinophils 1 % (0-10); Hemoglobin 12.3 g/dL (12.0-16.0); Lymphocytes 21 % (21-51); MDiff Complete? YES; Mean Corpuscular HGB CONC 32.4 g/dL (32.0-36.0); Mean Corpuscular Volume 92.7 fL (78.0-98.0); Mean Platelet Volume 7.2 fL (7.4-10.4); Monocytes 11 % (0-10); Neutrophil 64 % (42-75); Platelet Count 253 thou/uL (130-400); Platelet Morphology Comment Appears Adequate; RBC Distribution Width 12.2 % (11.5-14.5); Reactive Lymphocytes 1 % (0-10); Red Blood Cell (RBC) Count 4.09 mill/uL (4.20-5.40); White Blood Cell (WBC) Count 11.5 thou/uL (4.8-10.8)
[2018-04-17 05:09] LABS: Anion Gap 12 mmol/L (10-20); BUN (Urea Nitrogen) 7 mg/dL (9.8-20.1); Calc. Creatinine Clearance 42 mL/min (70-130); Calcium 9.5 mg/dL (7.8-10.44); Carbon Dioxide 27 mmol/L (23-31); Chloride 102 mmol/L (98-107); Estimated GFR-MDRD 75; Glucose 85 mg/dL (83-110); Potassium 3.2 mmol/L (3.5-5.1); Sodium 138 mmol/L (136-145)
[2018-04-17] MEDS: glipiZIDE 5 MG TAB PO SCH ×2 (06:38→17:48)
[2018-04-17] MEDS ORDERED: CRANBERRY FRUIT 450 MG PO SCH (09:00)
[2018-04-17] MEDS: Aspirin Chewable 81 MG TAB PO SCH (10:59)
[2018-04-17] MEDS: Famotidine 20 MG TAB PO SCH ×2 (10:59→21:24)
[2018-04-17] MEDS: Escitalopram Oxalate 20 mg Tablet PO SCH (10:59)
[2018-04-17] MEDS: Atorvastatin Calcium 20 MG TAB PO SCH (21:24)
--- NOTE | 2018-04-17 23:14 | PDOC.PN ---
- Subjective Encounter Start Date: 04/17/18 Encounter Start Time: 12:05 Subjective: f/u for AMS, delirium, dementia and ?UTI with strep spp. -: States doing ok overall. Feels weak and slept majority of day. - Objective Resuscitation Status - Order Detail: 04/16/18 12:08 Resuscitation Status Routine Resuscitation Status: FULL: Full Resuscitation MAR Reviewed: Yes Vital Signs & Weight: Vital Signs (12 hours) Temp Pulse Resp BP Pulse Ox 04/17/18 20:00 98.1 F 81 20 155/70 H 93 L 04/17/18 15:40 98.5 F 77 18 116/65 92 L 04/17/18 11:33 97.4 F L 78 18 150/73 H 96 Weight Admit Weight 105 lb Weight 105 lb I&O: 04/16/18 04/17/18 04/18/18 06:59 06:59 06:59 Intake Total 100 Balance 100 Result Diagrams: 04/17/18 04:28 04/17/18 04:28 Additional Labs: Accuchecks 04/17/18 04/17/18 04/17/18 20:50 15:54 11:42 POC Glucose 121 H 104 75 04/17/18 06:39 POC Glucose 91 Microbiology 04/16/18 01:14 Urine Straight Catheter Urine Culture - Final Alpha-Hemolytic Streptococcus Laboratory Tests 04/16/18 04/16/18 00:25 00:28 WBC 10.0 Potassium 3.8 Radiology Reviewed by me: Yes (CT brain - negative for acute process) Phys Exam - Physical Examination Constitutional: NAD HEENT: PERRLA, sclera anicteric, oral pharynx no lesions Neck: no nodes, no JVD, supple, full ROM Respiratory: no wheezing, no rales, no rhonchi, clear to auscultation bilateral S1, S2 Cardiovascular: RRR, no significant murmur, no rub, gallop Gastrointestinal: soft, non-tender, no distention, positive bowel sounds Musculoskeletal: no edema, pulses present Neurological: normal sensation, moves all 4 limbs Skin: normal turgor, cap refill <2 seconds Dx/Plan (1) Acute encephalopathy Code(s): G93.40 - ENCEPHALOPATHY, UNSPECIFIED Status: Acute Comment: Multifactorial including suspected UTI, see below for mgmt (2) Delirium Code(s): R41.0 - DISORIENTATION, UNSPECIFIED Status: Acute Comment: Likely multifactorial including UTI, sleep deprivation (3) Dementia Code(s): F03.90 - UNSPECIFIED DEMENTIA WITHOUT BEHAVIORAL DISTURBANCE Status: Chronic Qualifiers: Dementia type: Lewy body dementia Comment: Supportive mgmt (4) Diabetes type 2, controlled Code(s): E11.9 - TYPE 2 DIABETES MELLITUS WITHOUT COMPLICATIONS Status: Chronic Comment: ISS, Glipizide 2.5mg BID - Plan PT/OT, high school social studies teacher, out of bed/ambulate, DVT proph w/SCDs Stable currently -: Start Rocephin 2gm IV daily -: PT for mobilization and functional assessment -: Restoril 15mg HS for insomnia -: AM lab: BMP, CBC * SNF options
[2018-04-18] MEDS: cefTRIAXone\\ROCEPHIN 2 GM in Sodium Chloride 0.9% 100 ML IVPB SCH (00:51)
[2018-04-18 04:53] LABS: Anion Gap 13 mmol/L (10-20); BUN (Urea Nitrogen) 14 mg/dL (9.8-20.1); Band 2 % (5-11); Calc. Creatinine Clearance 40 mL/min (70-130); Calcium 9.2 mg/dL (7.8-10.44); Carbon Dioxide 27 mmol/L (23-31); Chloride 102 mmol/L (98-107); Eosinophils 5 % (0-10); Estimated GFR-MDRD 70; Glucose 77 mg/dL (83-110); Hemoglobin 12.8 g/dL (12.0-16.0); Lymphocytes 19 % (21-51); MDiff Complete? YES; Mean Corpuscular HGB CONC 32.5 g/dL (32.0-36.0); Mean Corpuscular Hemoglobin 30.2 pg (27.0-31.0); Mean Corpuscular Volume 92.8 fL (78.0-98.0); Mean Platelet Volume 7.5 fL (7.4-10.4); Monocytes 12 % (0-10); Neutrophil 62 % (42-75); Platelet Count 187 thou/uL (130-400); Platelet Morphology Comment Appears Adequate; Potassium 3.6 mmol/L (3.5-5.1); RBC Distribution Width 12.2 % (11.5-14.5); Red Blood Cell (RBC) Count 4.25 mill/uL (4.20-5.40); Sodium 138 mmol/L (136-145); White Blood Cell (WBC) Count 10.5 thou/uL (4.8-10.8)
[2018-04-18] MEDS: glipiZIDE 5 MG TAB PO SCH ×2 (07:07→16:39)
[2018-04-18] MEDS: Aspirin Chewable 81 MG TAB PO SCH (07:59)
[2018-04-18] MEDS: Famotidine 20 MG TAB PO SCH ×2 (08:00→20:03)
[2018-04-18] MEDS: Escitalopram Oxalate 20 mg Tablet PO SCH (08:00)
--- NOTE | 2018-04-18 11:50 | PDOC.PN ---
- Subjective Encounter Start Date: 04/18/18 Encounter Start Time: 11:40 Subjective: f/u for UTI with strep spp and delirium, encephalopathy likely -: multifactorial. The sitter reports pt more clear this am. Eating ok. -: Sat up in bed with PT but no ambulation. - Objective Resuscitation Status - Order Detail: 04/16/18 12:08 Resuscitation Status Routine Resuscitation Status: FULL: Full Resuscitation MAR Reviewed: Yes Vital Signs & Weight: Vital Signs (12 hours) Temp Pulse Resp BP Pulse Ox 04/18/18 10:49 74 14 135/73 93 L 04/18/18 07:46 97.9 F 77 14 134/71 96 04/18/18 04:23 97.7 F 77 20 158/73 H 92 L 04/18/18 00:00 98.1 F 80 20 159/70 H 95 Weight Admit Weight 105 lb Weight 105 lb I&O: 04/17/18 04/18/18 04/19/18 06:59 06:59 06:59 Intake Total 100 320 Output Total 350 Balance 100 -30 Result Diagrams: 04/18/18 03:58 04/18/18 03:58 Additional Labs: Accuchecks 04/18/18 04/18/18 04/17/18 11:09 06:20 20:50 POC Glucose 111 H 96 121 H 04/17/18 04/17/18 15:54 11:42 POC Glucose 104 75 Microbiology 04/16/18 01:14 Urine Straight Catheter Urine Culture - Final Alpha-Hemolytic Streptococcus Laboratory Tests 04/16/18 04/16/18 04/17/18 00:25 00:28 04:28 WBC 10.0 11.5 H Potassium 3.8 Phys Exam - Physical Examination Constitutional: NAD HEENT: PERRLA, sclera anicteric, oral pharynx no lesions Neck: no nodes, no JVD, supple, full ROM Respiratory: no wheezing, no rales, no rhonchi, clear to auscultation bilateral S1, S2 Cardiovascular: RRR, no significant murmur, no rub, gallop Gastrointestinal: soft, non-tender, no distention, positive bowel sounds Musculoskeletal: no edema, pulses present Neurological: normal sensation, moves all 4 limbs A x O x 2 Skin: normal turgor, cap refill <2 seconds Dx/Plan (1) UTI (urinary tract infection) Status: Acute Comment: Streptococcus spp noted on cx, continue Rocephin pending final Ucx results, continue Cranberry extract (2) Acute encephalopathy Code(s): G93.40 - ENCEPHALOPATHY, UNSPECIFIED Status: Acute Comment: Multifactorial including suspected UTI, see below for mgmt, ? improvement, sitter 1:1 (3) Delirium Code(s): R41.0 - DISORIENTATION, UNSPECIFIED Status: Acute Comment: Likely multifactorial including UTI, sleep deprivation (4) Dementia Code(s): F03.90 - UNSPECIFIED DEMENTIA WITHOUT BEHAVIORAL DISTURBANCE Status: Chronic Qualifiers: Dementia type: Lewy body dementia Comment: Supportive mgmt (5) Diabetes type 2, controlled Code(s): E11.9 - TYPE 2 DIABETES MELLITUS WITHOUT COMPLICATIONS Status: Chronic Comment: ISS, Glipizide 2.5mg BID (6) Physical deconditioning Code(s): R53.81 - OTHER [place] Status: Chronic Comment: PT for mobilization and ambulation, fall risk mitigation, SNF options pending - Plan continue antibiotics, PT/OT, social media marketer, out of bed/ambulate, DVT proph w/ SCDs Stable currently -: Continue Rocephin 2gm IV daily -: Await final Ucx results -: OOB with PT -: SNF options pending * .
[2018-04-18] MEDS: Atorvastatin Calcium 20 MG TAB PO SCH (20:02)
[2018-04-19] MEDS: cefTRIAXone\\ROCEPHIN 2 GM in Sodium Chloride 0.9% 100 ML IVPB SCH
[2018-04-19] MEDS: glipiZIDE 5 MG TAB PO SCH ×2 (08:11→17:40)
[2018-04-19] MEDS: Aspirin Chewable 81 MG TAB PO SCH (09:17)
[2018-04-19] MEDS: Famotidine 20 MG TAB PO SCH ×2 (09:17→20:26)
[2018-04-19] MEDS: Escitalopram Oxalate 20 mg Tablet PO SCH (09:17)
--- NOTE | 2018-04-19 19:18 | PDOC.PN ---
- Subjective Encounter Start Date: 04/19/18 Encounter Start Time: 12:45 Subjective: f/u for UTI with strep spp, delirium, dementia and falls. Sleeping -: mainly per daughter. - Objective Resuscitation Status - Order Detail: 04/16/18 12:08 Resuscitation Status Routine Resuscitation Status: FULL: Full Resuscitation MAR Reviewed: Yes Vital Signs & Weight: Vital Signs (12 hours) Temp Pulse Resp BP Pulse Ox 04/19/18 15:40 98.2 F 75 16 126/80 92 L 04/19/18 11:28 97.9 F 73 16 120/69 94 L 04/19/18 07:30 97.9 F 74 14 136/74 95 Weight Admit Weight 105 lb Weight 105 lb I&O: 04/18/18 04/19/18 04/20/18 06:59 06:59 06:59 Intake Total 320 220 Output Total 350 Balance -30 220 Result Diagrams: 04/18/18 03:58 04/18/18 03:58 Additional Labs: Accuchecks 04/19/18 04/19/18 04/19/18 16:21 10:36 06:01 POC Glucose 128 H 111 H 86 04/18/18 19:59 POC Glucose 96 Microbiology 04/16/18 01:14 Urine Straight Catheter Urine Culture - Final Alpha-Hemolytic Streptococcus Laboratory Tests 04/16/18 04/16/18 04/17/18 00:25 00:28 04:28 WBC 10.0 11.5 H Potassium 3.8 Phys Exam - Physical Examination lethargic, opens eyes to name HEENT: PERRLA, sclera anicteric, oral pharynx no lesions Neck: no nodes, no JVD, supple, full ROM Respiratory: no wheezing, no rales, no rhonchi, clear to auscultation bilateral S1, S2 Cardiovascular: RRR, no significant murmur, no rub, gallop Gastrointestinal: soft, non-tender, no distention, positive bowel sounds Musculoskeletal: no edema, pulses present Neurological: normal sensation, moves all 4 limbs A x O x 1 Skin: normal turgor, cap refill <2 seconds Dx/Plan (1) UTI (urinary tract infection) Status: Acute Comment: Streptococcus spp noted on cx, continue Rocephin pending final Ucx results, continue Cranberry extract (2) Acute encephalopathy Code(s): G93.40 - ENCEPHALOPATHY, UNSPECIFIED Status: Acute Comment: Multifactorial including suspected UTI, see below for mgmt, ? improvement, sitter 1:1 (3) Delirium Code(s): R41.0 - DISORIENTATION, UNSPECIFIED Status: Acute Comment: Likely multifactorial including UTI, sleep deprivation (4) Dementia Code(s): F03.90 - UNSPECIFIED DEMENTIA WITHOUT BEHAVIORAL DISTURBANCE Status: Chronic Qualifiers: Dementia type: Lewy body dementia Comment: Supportive mgmt (5) Diabetes type 2, controlled Code(s): E11.9 - TYPE 2 DIABETES MELLITUS WITHOUT COMPLICATIONS Status: Chronic Comment: ISS, Glipizide 2.5mg BID (6) Physical deconditioning Code(s): R53.81 - OTHER MALAISE Status: Chronic Comment: PT for mobilization and ambulation, fall risk mitigation, SNF options pending - Plan plan discussed w/ family, continue antibiotics, PT/OT, social work coordinator, out of bed/ambulate, DVT proph w/SCDs Stable currently -: Continue Rocephin IV -: OOB with PT -: Resume Coreg 6.25mg BID -: SNF options pending * .
[2018-04-19] MEDS: Atorvastatin Calcium 20 MG TAB PO SCH (20:26)
[2018-04-20] MEDS: cefTRIAXone\\ROCEPHIN 2 GM in Sodium Chloride 0.9% 100 ML IVPB SCH (00:02)
[2018-04-20] MEDS: Escitalopram Oxalate 20 mg Tablet PO SCH (08:15)
[2018-04-20] MEDS: Famotidine 20 MG TAB PO SCH ×2 (08:15→20:16)
[2018-04-20] MEDS: Aspirin Chewable 81 MG TAB PO SCH (08:15)
[2018-04-20] MEDS: Carvedilol 6.25 MG TAB PO SCH (08:15)
[2018-04-20] MEDS: glipiZIDE 5 MG TAB PO SCH ×2 (08:16→17:37)
[2018-04-20] MEDS: Bupropion 150 MG XL TAB PO SCH (09:26)
--- NOTE | 2018-04-20 15:00 | PDOC.PN ---
- Subjective Encounter Start Date: 04/20/18 Encounter Start Time: 10:10 Subjective: f/u for UTI with strep spp, deliurium and dementia. Still has confusion -: but sleeping better. - Objective Resuscitation Status - Order Detail: 04/16/18 12:08 Resuscitation Status Routine Resuscitation Status: DNAR: NO Resuscitation Discussed with: discussed with daughter ANGELIA Reviewed: Yes Vital Signs & Weight: Vital Signs (12 hours) Temp Pulse Resp BP BP Pulse Ox 04/20/18 08:15 152/74 H 04/20/18 07:40 98.4 F 68 16 154/74 H 96 04/20/18 04:00 97.9 F 71 16 138/69 94 L Weight Admit Weight 105 lb Weight 105 lb I&O: 04/19/18 04/20/18 04/21/18 06:59 06:59 06:59 Intake Total 220 200 Balance 220 200 Result Diagrams: 04/18/18 03:58 04/18/18 03:58 Additional Labs: Accuchecks 04/20/18 04/19/18 04/19/18 06:22 20:38 16:21 POC Glucose 96 109 128 H Phys Exam - Physical Examination Constitutional: NAD HEENT: PERRLA, sclera anicteric, oral pharynx no lesions Neck: no nodes, no JVD, supple, full ROM Respiratory: no wheezing, no rales, no rhonchi, clear to auscultation bilateral S1, S2 Cardiovascular: RRR, no significant murmur, no rub, gallop Gastrointestinal: soft, non-tender, no distention, positive bowel sounds Musculoskeletal: no edema, pulses present Neurological: normal sensation, moves all 4 limbs A x O x 1 Skin: normal turgor, cap refill <2 seconds Dx/Plan (1) UTI (urinary tract infection) Status: Acute Comment: Streptococcus spp noted on cx, d/c Rocephin, start Levaquin 500mg po daily, continue Cranberry extract (2) Acute encephalopathy Code(s): G93.40 - ENCEPHALOPATHY, UNSPECIFIED Status: Acute Comment: Multifactorial including suspected UTI, see below for mgmt, ? improvement, sitter 1:1 (3) Delirium Code(s): R41.0 - DISORIENTATION, UNSPECIFIED Status: Acute Comment: Likely multifactorial including UTI, sleep deprivation (4) Dementia Code(s): F03.90 - UNSPECIFIED DEMENTIA WITHOUT BEHAVIORAL DISTURBANCE Status: Chronic Qualifiers: Dementia type: Lewy body dementia Comment: Supportive mgmt (5) Diabetes type 2, controlled Code(s): E11.9 - TYPE 2 DIABETES MELLITUS WITHOUT COMPLICATIONS Status: Chronic Comment: ISS, Glipizide 2.5mg BID (6) Physical deconditioning Code(s): R53.81 - OTHER MALAISE Status: Chronic Comment: PT for mobilization and ambulation, fall risk mitigation, SNF options pending - Plan plan discussed w/ family, continue antibiotics, PT/OT, director of social media marketing, out of bed/ambulate, DVT proph w/SCDs Stable overall -: Start Levaquin 500mg po daily -: D/C Rocephin -: Likely will return home with daughter due to financial constraints -: OOB/PT * Likely home in 24h
[2018-04-20] MEDS ORDERED: ALPRAZolam 0.25 MG TAB PO SCH (16:15)
[2018-04-20] MEDS: Dextrose 5 % And 0.9 % NaCl 1,000 ML IV SCH (18:25)
[2018-04-20] MEDS: Atorvastatin Calcium 20 MG TAB PO SCH (20:17)
[2018-04-20] MEDS: Temazepam 15 MG CAP PO PRN (21:45)
[2018-04-20] MEDS: Acetaminophen 500 MG TAB PO PRN (21:45)
[2018-04-21] MEDS: Bupropion 150 MG XL TAB PO SCH (08:52)
[2018-04-21] MEDS: glipiZIDE 5 MG TAB PO SCH ×2 (08:52→17:43)
[2018-04-21] MEDS: Escitalopram Oxalate 20 mg Tablet PO SCH (08:52)
[2018-04-21] MEDS: Famotidine 20 MG TAB PO SCH ×2 (08:54→20:00)
[2018-04-21] MEDS: Aspirin Chewable 81 MG TAB PO SCH (08:54)
[2018-04-21] MEDS: Carvedilol 6.25 MG TAB PO SCH (08:54)
[2018-04-21] MEDS: Dextrose 5 % And 0.9 % NaCl 1,000 ML IV SCH (08:56)
--- NOTE | 2018-04-21 12:56 | PDOC.PN ---
- Subjective Encounter Start Date: 04/21/18 Encounter Start Time: 10:15 Subjective: awake, oriented well, feels good - Objective Resuscitation Status - Order Detail: 04/16/18 12:08 Resuscitation Status Routine Resuscitation Status: DNAR: NO Resuscitation Discussed with: discussed with daughter ANGELIA Reviewed: Yes Vital Signs & Weight: Vital Signs (12 hours) Temp Pulse Resp BP BP Pulse Ox 04/21/18 10:00 95 04/21/18 08:54 145/75 H 04/21/18 07:31 97.8 F 65 16 145/75 H 95 Weight Admit Weight 105 lb Weight 105 lb I&O: 04/20/18 04/21/18 04/22/18 06:59 06:59 06:59 Intake Total 200 1375 Balance 200 1375 Result Diagrams: 04/18/18 03:58 04/18/18 03:58 Additional Labs: Accuchecks 04/21/18 04/21/18 04/20/18 11:30 04:27 19:22 POC Glucose 94 137 H 153 H 04/20/18 04/20/18 16:02 11:25 POC Glucose 81 127 H Phys Exam - Physical Examination HEENT: PERRLA, moist MMs Neck: no nodes, no JVD Respiratory: no wheezing, no rales Cardiovascular: RRR, no significant murmur Gastrointestinal: soft, non-tender, positive bowel sounds Musculoskeletal: no edema, pulses present Neurological: non-focal, moves all 4 limbs Psychiatric: normal affect, A&O x 3 Dx/Plan (1) Delirium Code(s): R41.0 - DISORIENTATION, UNSPECIFIED Status: Acute Comment: Likely multifactorial including UTI (2) UTI (urinary tract infection) Status: Acute Qualifiers: Urinary tract infection type: acute cystitis Hematuria presence: without hematuria Qualified Code(s): N30.00 - Acute cystitis without hematuria (3) Dementia Code(s): F03.90 - UNSPECIFIED DEMENTIA WITHOUT BEHAVIORAL DISTURBANCE Status: Chronic Qualifiers: Dementia type: unspecified type Comment: Supportive mgmt (4) Physical deconditioning Code(s): R53.81 - OTHER MALAISE Status: Chronic Comment: PT for mobilization and ambulation, fall risk mitigation, SNF options pending (5) Anemia, normocytic normochromic Code(s): D64.9 - ANEMIA, UNSPECIFIED Status: Chronic (6) Anxiety and depression Code(s): F41.8 - OTHER SPECIFIED ANXIETY DISORDERS Status: Chronic (7) CAD (coronary artery disease) Code(s): I25.10 - ATHSCL HEART DISEASE OF [place] CORONARY ARTERY W/O ANG PCTRS Status: Chronic Qualifiers: Coronary Disease-Associated Artery/Lesion type: [place] artery [place] vs. transplanted heart: [place] heart Associated angina: without angina Qualified Code(s): I25.10 - Atherosclerotic heart disease of [place] coronary artery without angina pectoris (8) Diabetes type 2, controlled Code(s): E11.9 - TYPE 2 DIABETES MELLITUS WITHOUT COMPLICATIONS Status: Chronic Qualifiers: Diabetes mellitus keno terminal operator insulin use: without senior living use Diabetes mellitus complication status: with unspecified complications Qualified Code(s) : E11.8 - Type 2 diabetes mellitus with unspecified complications Comment: ISS, Glipizide 2.5mg BID (9) Dyslipidemia Code(s): E78.5 - HYPERLIPIDEMIA, UNSPECIFIED Status: Chronic - Plan is on levaquin -: continue asp, lipitor, bupropion, coreg, glipizide, lexapro -: may dc if placement is ready -: PT to mobilize as tolerated -: dc iv fluids * . Review of Systems - Medications/Allergies Allergies/Adverse Reactions: Allergies Allergy/AdvReac Type Severity Reaction Status Date / Time azithromycin Allergy Verified 03/03/18 07:42 codeine Allergy Verified 03/03/18 07:42 Sulfa (Sulfonamide Allergy Verified 03/03/18 07:42 Antibiotics) tramadol Allergy Verified 03/03/18 07:42 Medications: Current Medications Acetaminophen (Tylenol) 1,000 mg PO Q6H PRN PRN Reason: Mild Pain (1-3) Last Admin: 04/20/18 21:45 Dose: 1,000 mg Alprazolam (Xanax) 0.25 mg PO BIDPRN PRN PRN Reason: Anxiety Aspirin (Aspirin Chewable) 81 mg PO DAILY [facility] Last Admin: 04/21/18 08:54 Dose: 81 mg Atorvastatin Calcium (Lipitor) 20 mg PO HS [facility] Last Admin: 04/20/18 20:17 Dose: 20 mg Bupropion HCl (Wellbutrin Xl) 150 mg PO DAILY [facility] Last Admin: 04/21/18 08:52 Dose: 150 mg Carvedilol (Coreg) 6.25 mg PO DAILY [facility] Last Admin: 04/21/18 08:54 Dose: 6.25 mg Clonidine (Catapres) 0.1 mg PO Q4H PRN PRN Reason: SBP Greater Than 170 Dextrose/Water (Dextrose 50%) 25 gm SLOW IVP PRN PRN PRN Reason: Hypoglycemia Escitalopram Oxalate (Lexapro) 20 mg PO DAILY [facility] Last Admin: 04/21/18 08:52 Dose: 20 mg Famotidine (Pepcid) 20 mg PO BID [facility] Last Admin: 04/21/18 08:54 Dose: 20 mg Glipizide (Glucotrol) 2.5 mg PO BID-AC [facility] Last Admin: 04/21/18 08:52 Dose: 2.5 mg Glucagon (Glucagon) 1 mg IM PRN PRN PRN Reason: Hypoglycemia Hydralazine HCl (Apresoline) 10 mg SLOW IVP Q4H PRN PRN Reason: SBP > 180 and HR < 70 Dextrose/Water (D5w) 1,000 mls @ 0 mls/hr IV .Q0M PRN PRN Reason: Hypoglycemia Dextrose/Sodium Chloride (D5 0.9% Ns) 1,000 mls @ 75 mls/hr IV .[id number] [facility] Last Admin: 04/21/18 08:56 Dose: 1,000 mls Insulin Human Lispro (Humalog) 0 units SC .MILD SLIDING SCALE PRN PRN Reason: Mild Correctional Scale Insulin Human Lispro (Humalog) 0 units SC .BEDTIME SLIDING SC PRN PRN Reason: Bedtime Correctional Scale Levofloxacin (Levaquin) 500 mg PO 0600 [facility] Last Admin: 04/21/18 05:30 Dose: 500 mg Ondansetron HCl (Zofran Odt) 4 mg PO Q6H PRN PRN Reason: Nausea/Vomiting Ondansetron HCl (Zofran) 4 mg IVP Q6H PRN PRN Reason: Nausea/Vomiting Sodium Chloride (Flush - Normal Saline) 10 ml IVF Q12HR [facility] Last Admin: 04/21/18 08:54 Dose: Not Given Sodium Chloride (Flush - Normal Saline) 10 ml IVF PRN PRN PRN Reason: Saline Flush Temazepam (Restoril) 15 mg PO HSPRN PRN PRN Reason: Insomnia Last Admin: 04/20/18 21:45 Dose: 15 mg
[2018-04-21] MEDS: ALPRAZolam 0.25 MG TAB PO PRN (15:55)
[2018-04-21] MEDS: Temazepam 15 MG CAP PO PRN (20:00)
[2018-04-21] MEDS: Atorvastatin Calcium 20 MG TAB PO SCH (20:00)
[2018-04-21] MEDS: Acetaminophen 500 MG TAB PO PRN (20:00)
[2018-04-22] MEDS: glipiZIDE 5 MG TAB PO SCH ×2 (08:06→18:10)
[2018-04-22] MEDS: Aspirin Chewable 81 MG TAB PO SCH (08:06)
[2018-04-22] MEDS: Bupropion 150 MG XL TAB PO SCH (08:07)
[2018-04-22] MEDS: Carvedilol 6.25 MG TAB PO SCH (08:08)
[2018-04-22] MEDS: Famotidine 20 MG TAB PO SCH ×2 (08:08→20:38)
[2018-04-22] MEDS: Escitalopram Oxalate 20 mg Tablet PO SCH (08:08)
--- NOTE | 2018-04-22 10:09 | PDOC.PN ---
- Subjective Encounter Start Date: 04/22/18 Encounter Start Time: 08:15 Subjective: awake, slept well last night -: no sob, moves all extremities -: responds well to verbal questions - Objective Resuscitation Status - Order Detail: 04/16/18 12:08 Resuscitation Status Routine Resuscitation Status: DNAR: NO Resuscitation Discussed with: discussed with daughter ANGELIA Reviewed: Yes Vital Signs & Weight: Vital Signs (12 hours) Temp Pulse Resp BP BP Pulse Ox 04/22/18 08:08 145/67 H 04/22/18 08:00 97 04/22/18 07:39 98.4 F 64 16 145/67 H 96 Weight Admit Weight 105 lb Weight 105 lb I&O: 04/21/18 04/22/18 04/23/18 06:59 06:59 06:59 Intake Total 1375 200 Balance 1375 200 Result Diagrams: 04/18/18 03:58 04/18/18 03:58 Additional Labs: Accuchecks 04/22/18 04/21/18 04/21/18 04:17 19:16 16:28 POC Glucose 80 88 131 H 04/21/18 11:30 POC Glucose 94 Phys Exam - Physical Examination HEENT: PERRLA, moist MMs Neck: no JVD, supple Respiratory: no wheezing, no rales Cardiovascular: RRR, no significant murmur Gastrointestinal: soft, non-tender, positive bowel sounds Musculoskeletal: no edema, pulses present Neurological: non-focal, moves all 4 limbs Dx/Plan (1) Delirium Code(s): R41.0 - DISORIENTATION, UNSPECIFIED Status: Resolved Comment: Likely multifactorial including UTI (2) UTI (urinary tract infection) Status: Acute Qualifiers: Urinary tract infection type: acute cystitis Hematuria presence: without hematuria Qualified Code(s): N30.00 - Acute cystitis without hematuria (3) Dementia Code(s): F03.90 - UNSPECIFIED DEMENTIA WITHOUT BEHAVIORAL DISTURBANCE Status: Chronic Qualifiers: Dementia type: unspecified type Comment: Supportive mgmt (4) Physical deconditioning Code(s): R53.81 - OTHER MALAISE Status: Chronic Comment: PT for mobilization and ambulation, fall risk mitigation, SNF options pending (5) Anemia, normocytic normochromic Code(s): D64.9 - ANEMIA, UNSPECIFIED Status: Chronic (6) Anxiety and depression Code(s): F41.8 - OTHER SPECIFIED ANXIETY DISORDERS Status: Chronic (7) CAD (coronary artery disease) Code(s): I25.10 - ATHSCL HEART DISEASE OF [place] CORONARY ARTERY W/O ANG PCTRS Status: Chronic Qualifiers: Coronary Disease-Associated Artery/Lesion type: [place] artery [place] vs. transplanted heart: [place] heart Associated angina: without angina Qualified Code(s): I25.10 - Atherosclerotic heart disease of [place] coronary artery without angina pectoris (8) Diabetes type 2, controlled Code(s): E11.9 - TYPE 2 DIABETES MELLITUS WITHOUT COMPLICATIONS Status: Chronic Qualifiers: Diabetes mellitus intermediate insulin use: without termite treater helper use Diabetes mellitus complication status: with unspecified complications Qualified Code(s) : E11.8 - Type 2 diabetes mellitus with unspecified complications Comment: ISS, Glipizide 2.5mg BID (9) Dyslipidemia Code(s): E78.5 - HYPERLIPIDEMIA, UNSPECIFIED Status: Chronic - Plan hemostable -: is on levaquin oral for uti -: may dc to snf if accepted -: to work with PT and mobilize as tolerated -: continue asp, lipitor, bupropion, lexapro, glipizide and coreg * . Review of Systems - Medications/Allergies Allergies/Adverse Reactions: Allergies Allergy/AdvReac Type Severity Reaction Status Date / Time azithromycin Allergy Verified 03/03/18 07:42 codeine Allergy Verified 03/03/18 07:42 Sulfa (Sulfonamide Allergy Verified 03/03/18 07:42 Antibiotics) tramadol Allergy Verified 03/03/18 07:42 Medications: Current Medications Acetaminophen (Tylenol) 1,000 mg PO Q6H PRN PRN Reason: Mild Pain (1-3) Last Admin: 04/21/18 20:00 Dose: 1,000 mg Alprazolam (Xanax) 0.25 mg PO BIDPRN PRN PRN Reason: Anxiety Last Admin: 04/21/18 15:55 Dose: 0.25 mg Aspirin (Aspirin Chewable) 81 mg PO DAILY [facility] Last Admin: 04/22/18 08:06 Dose: 81 mg Atorvastatin Calcium (Lipitor) 20 mg PO HS [facility] Last Admin: 04/21/18 20:00 Dose: 20 mg Bupropion HCl (Wellbutrin Xl) 150 mg PO DAILY [facility] Last Admin: 04/22/18 08:07 Dose: 150 mg Carvedilol (Coreg) 6.25 mg PO DAILY [facility] Last Admin: 04/22/18 08:08 Dose: 6.25 mg Clonidine (Catapres) 0.1 mg PO Q4H PRN PRN Reason: SBP Greater Than 170 Dextrose/Water (Dextrose 50%) 25 gm SLOW IVP PRN PRN PRN Reason: Hypoglycemia Escitalopram Oxalate (Lexapro) 20 mg PO DAILY [facility] Last Admin: 04/22/18 08:08 Dose: 20 mg Famotidine (Pepcid) 20 mg PO BID [facility] Last Admin: 04/22/18 08:08 Dose: 20 mg Glipizide (Glucotrol) 2.5 mg PO BID-AC [facility] Last Admin: 04/22/18 08:06 Dose: 2.5 mg Glucagon (Glucagon) 1 mg IM PRN PRN PRN Reason: Hypoglycemia Hydralazine HCl (Apresoline) 10 mg SLOW IVP Q4H PRN PRN Reason: SBP > 180 and HR < 70 Dextrose/Water (D5w) 1,000 mls @ 0 mls/hr IV .Q0M PRN PRN Reason: Hypoglycemia Insulin Human Lispro (Humalog) 0 units SC .MILD SLIDING SCALE PRN PRN Reason: Mild Correctional Scale Insulin Human Lispro (Humalog) 0 units SC .BEDTIME SLIDING SC PRN PRN Reason: Bedtime Correctional Scale Levofloxacin (Levaquin) 500 mg PO 0600 [facility] Last Admin: 04/22/18 05:32 Dose: 500 mg Ondansetron HCl (Zofran Odt) 4 mg PO Q6H PRN PRN Reason: Nausea/Vomiting Ondansetron HCl (Zofran) 4 mg IVP Q6H PRN PRN Reason: Nausea/Vomiting Sodium Chloride (Flush - Normal Saline) 10 ml IVF Q12HR [facility] Last Admin: 04/22/18 08:08 Dose: 10 ml Sodium Chloride (Flush - Normal Saline) 10 ml IVF PRN PRN PRN Reason: Saline Flush Temazepam (Restoril) 15 mg PO HSPRN PRN PRN Reason: Insomnia Last Admin: 04/21/18 20:00 Dose: 15 mg
[2018-04-22] MEDS: ALPRAZolam 0.25 MG TAB PO PRN (18:13)
[2018-04-22] MEDS: Atorvastatin Calcium 20 MG TAB PO SCH (20:37)
[2018-04-23 07:43] VITALS: TEMP 98.2
[2018-04-23] MEDS: Bupropion 150 MG XL TAB PO SCH (08:20)
[2018-04-23] MEDS: Escitalopram Oxalate 20 mg Tablet PO SCH (08:20)
[2018-04-23] MEDS: glipiZIDE 5 MG TAB PO SCH (08:20)
[2018-04-23] MEDS: Famotidine 20 MG TAB PO SCH (08:20)
[2018-04-23] MEDS: Carvedilol 6.25 MG TAB PO SCH (08:20)
[2018-04-23] MEDS: Aspirin Chewable 81 MG TAB PO SCH (08:34)
[2018-04-23 12:04] VITALS: BP 119/68
[2018-04-23] MEDS: ALPRAZolam 0.25 MG TAB PO PRN (13:11)
--- NOTE | 2018-04-23 14:26 | PDOC.PN ---
- Subjective Encounter Start Date: 04/23/18 Encounter Start Time: 07:00 Subjective: awake, no sob, feels better - Objective Resuscitation Status - Order Detail: 04/16/18 12:08 Resuscitation Status Routine Resuscitation Status: DNAR: NO Resuscitation Discussed with: discussed with daughter ANGELIA Reviewed: Yes Vital Signs & Weight: Vital Signs (12 hours) Temp Pulse Resp BP BP Pulse Ox 04/23/18 12:00 98.2 F 60 18 119/68 96 04/23/18 08:23 96 04/23/18 08:20 131/63 04/23/18 07:42 98.2 F 65 18 131/63 96 Weight Admit Weight 105 lb Weight 105 lb I&O: 04/22/18 04/23/18 04/24/18 06:59 06:59 06:59 Intake Total 200 1370 Balance 200 1370 Result Diagrams: 04/18/18 03:58 04/18/18 03:58 Additional Labs: Accuchecks 04/23/18 04/23/18 04/22/18 11:14 04:56 19:17 POC Glucose 94 75 112 H 04/22/18 16:27 POC Glucose 86 Phys Exam - Physical Examination HEENT: PERRLA, moist MMs Neck: no JVD, supple Respiratory: no wheezing, no rales Cardiovascular: RRR, no significant murmur Gastrointestinal: soft, non-tender, positive bowel sounds Musculoskeletal: no edema, pulses present Neurological: non-focal, moves all 4 limbs Psychiatric: normal affect, A&O x 3 Dx/Plan (1) Delirium Code(s): R41.0 - DISORIENTATION, UNSPECIFIED Status: Resolved Comment: Likely multifactorial including UTI (2) UTI (urinary tract infection) Status: Acute Qualifiers: Urinary tract infection type: acute cystitis Hematuria presence: without hematuria Qualified Code(s): N30.00 - Acute cystitis without hematuria (3) Dementia Code(s): F03.90 - UNSPECIFIED DEMENTIA WITHOUT BEHAVIORAL DISTURBANCE Status: Chronic Qualifiers: Dementia type: unspecified type Comment: Supportive mgmt (4) Physical deconditioning Code(s): R53.81 - OTHER MALAISE Status: Chronic Comment: PT for mobilization and ambulation, fall risk mitigation, SNF options pending (5) Anemia, normocytic normochromic Code(s): D64.9 - ANEMIA, UNSPECIFIED Status: Chronic (6) Anxiety and depression Code(s): F41.8 - OTHER SPECIFIED ANXIETY DISORDERS Status: Chronic (7) CAD (coronary artery disease) Code(s): I25.10 - ATHSCL HEART DISEASE OF [place] CORONARY ARTERY W/O ANG PCTRS Status: Chronic Qualifiers: Coronary Disease-Associated Artery/Lesion type: [place] artery [place] vs. transplanted heart: [place] heart Associated angina: without angina Qualified Code(s): I25.10 - Atherosclerotic heart disease of [place] coronary artery without angina pectoris (8) Diabetes type 2, controlled Code(s): E11.9 - TYPE 2 DIABETES MELLITUS WITHOUT COMPLICATIONS Status: Chronic Qualifiers: Diabetes mellitus intermediate card tender insulin use: without intermediate card tender use Diabetes mellitus complication status: with unspecified complications Qualified Code(s) : E11.8 - Type 2 diabetes mellitus with unspecified complications Comment: ISS, Glipizide 2.5mg BID (9) Dyslipidemia Code(s): E78.5 - HYPERLIPIDEMIA, UNSPECIFIED Status: Chronic - Plan hemostable -: dc pt to [facility] snf * . Review of Systems - Medications/Allergies Allergies/Adverse Reactions: Allergies Allergy/AdvReac Type Severity Reaction Status Date / Time azithromycin Allergy Verified 03/03/18 07:42 codeine Allergy Verified 03/03/18 07:42 Sulfa (Sulfonamide Allergy Verified 03/03/18 07:42 Antibiotics) tramadol Allergy Verified 03/03/18 07:42
--- NOTE | 2018-04-24 20:31 | EKG ---
Test Reason : Blood Pressure : / mmHG Vent. Rate : 079 BPM Atrial Rate : 079 BPM P-R Int : 182 ms QRS Dur : 084 ms QT Int : 390 ms P-R-T Axes : 087 022 068 degrees QTc Int : 447 ms Normal sinus rhythm Normal ECG Confirmed by JOSEY ARAUJO ([id number]), multimedia editor RAFY SAHA ([id number]) on 04/24/2018 8:31:17 PM Referred By: Confirmed By:JOSEY ARAUJO
--- NOTE | 2018-04-25 11:17 | DIS ---
DATE OF ADMISSION: 04/16/2018 DATE OF DISCHARGE: 04/23/2018 DISCHARGE DISPOSITION: [facility]. PRIMARY DISCHARGE DIAGNOSES: Urinary tract infection, delirium of deconditioning, underlying dementia, chronic anemia, coronary artery disease, diabetes mellitus type 2, dyslipidemia, anxiety, and depression. PROCEDURES DONE DURING HOSPITALIZATION: Chest x-ray done showed no acute infiltrate. CT of the brain without contrast done showed no acute intracranial abnormality. Urine culture grew alpha-hemolytic strep, more than 100,000 colony-forming units. H and H 12 and 39, platelet count 187. Discharge BUN and creatinine 7 and 0.7. Albumin 3.4. DISCHARGE MEDICATIONS: 1. Aspirin 81 mg p.o. daily. 2. Bupropion extended release 150 mg p.o. daily. 3. Coreg 6.25 mg daily. 4. Lexapro 20 mg daily. 5. Glipizide 2.5 mg twice daily. 6. Lipitor 20 mg p.o. at bedtime. 7. Levaquin 500 mg p.o. daily for another 3 days. DISCHARGE PLAN: The patient to follow up with her primary care physician in 1 week. ALLERGIES: ZITHROMAX, CODEINE, SULFA, TRAMADOL. BRIEF COURSE DURING HOSPITALIZATION: The patient initially got admitted on the after she was brought to the emergency room for confusion and altered mental state. She has also had multiple falls at home. In view of this history and initial suspicion for UTI, the patient was admitted to medical floor. She was gently hydrated and placed on antibiotics after pancultures were obtained. Three days into hospitalization, the patient's delirium slowly resolved. She has had deconditioning. PT and OT evaluations were requested. The patient needed placement, and there was a delay in obtaining the same. This has been accomplished on the , and the patient is accepted to [facility]. Please see a [id number] documentation for the day of discharge on [facility] [facility] A total of 35 minutes was spent on discharge plan. Job ID: [id number]
== END 2018-04-23 13:27 | DRG 690 ==
LOC: ERS 00:11 → OBSVTOIN 03:44 → ERHOLD 03:44 → INTOOBSV 03:44 → SURG B 13:35 → T4-A 04-19 23:33
PROVIDERS: ADMIT Hospitalist; ATTEND Hospitalist
DX: N39.0 Urinary tract infection, site not specified (principal); G93.40 Encephalopathy, unspecified; F03.90 Unspecified dementia, unspecified severity, without behavioral disturbance, psychotic disturbance, mood disturbance, and anxiety; R29.6 Repeated falls; E11.9 Type 2 diabetes mellitus without complications; F32.9 Major depressive disorder, single episode, unspecified; I10 Essential (primary) hypertension; E78.5 Hyperlipidemia, unspecified; R41.0 Disorientation, unspecified; Z66 Do not resuscitate; B95.5 Unspecified streptococcus as the cause of diseases classified elsewhere; R53.81 Other malaise; D64.9 Anemia, unspecified; F41.9 Anxiety disorder, unspecified; Z79.82 Long term (current) use of aspirin; Z79.84 Long term (current) use of oral hypoglycemic drugs; Z88.6 Allergy status to analgesic agent; Z88.2 Allergy status to sulfonamides; Z88.8 Allergy status to other drugs, medicaments and biological substances; Z90.49 Acquired absence of other specified parts of digestive tract; Z82.49 Family history of ischemic heart disease and other diseases of the circulatory system
CPT/HCPCS: 36415; 36416; 51701; 70450; 71045; 80048; 80053; 81003; 84484; 85007; 85025; 85027; 87086; 93005; 96360; A4353; J0696; J7050

== ENCOUNTER 2018-05-07 14:08 | Emergency (ER) | payer MEDICARE ==
--- NOTE | 2018-05-07 15:06 | CT ---
NONCONTRAST CT HEAD: Date: 05/07/18 HISTORY: Trauma. Headache after mechanical fall. Patient hit back of head. COMPARISON: 04/16/18. FINDINGS: Areas of decreased attenuation in the periventricular white matter again seen, greater in the right c erebral hemisphere, which are nonspecific and likely reflective of chronic small vessel ischemic mack ges. There is no evidence of an acute cortical infarction, hemorrhage, mass effect, or midline shift. Mild cerebral volume loss is again present. The ventricular system is normal in size, shape, and pos ition. There is a small area of scalp soft tissue swelling seen within the right occipital region adjacent t o the midline. No underlying calvarial fracture is seen. There is mild mucosal thickening in the right maxillary antrum, also seen on prior exam. There is opa cification of right-sided mastoid air cells again present. Mild clearing of the area of opacification when compared to the prior exam. Left mastoid air cells remain clear. IMPRESSION: 1. No acute intracranial abnormality is demonstrated. 2. Stable chronic small vessel ischemic changes and cerebral volume loss. 3. Small occipital scalp hematoma. 4. Sinus disease. 5. Mastoid effusions on the right, also seen on prior exam. POS: [facility]
--- NOTE | 2018-05-07 15:07 | CT ---
CT CERVICAL SPINE NONCONTRAST: DATE: 05/07/18 HISTORY: 87-year-old female status post acute cervical trauma from fall. FINDINGS: There are no jumped or perched facets. There is no evidence of acute fracture. The vertebral body h eights are maintained. There is no prevertebral soft tissue swelling. There is asymmetrically severe right-sided facet DJD at all levels. IMPRESSION: 1. No evidence of acute fracture or acute traumatic subluxation. 2. Asymmetrically severe multilevel right facet osteoarthrosis. isaiah islas POS: ANTONETTE
== END 2018-05-07 15:45 ==
LOC: ERS 14:08
DX: S00.03XA Contusion of scalp, initial encounter (principal); I25.10 Atherosclerotic heart disease of native coronary artery without angina pectoris; E11.9 Type 2 diabetes mellitus without complications; I10 Essential (primary) hypertension; F41.9 Anxiety disorder, unspecified; F32.9 Major depressive disorder, single episode, unspecified; Z79.84 Long term (current) use of oral hypoglycemic drugs; Z79.899 Other long term (current) drug therapy; Z79.82 Long term (current) use of aspirin; W18.30XA Fall on same level, unspecified, initial encounter
CPT/HCPCS: 70450; 72125

== ENCOUNTER 2018-06-04 17:04 | Inpatient (IN) | payer MEDICARE ==
[2018-06-04] MEDS ORDERED: HYDROcodone/Acetaminophen 5/325 mg Tablet ONE (17:48)
[2018-06-04 17:58] LABS: #Basophils 0.1 thou/uL (0.0-0.2); #Eosinphils 0.2 thou/uL (0.0-0.7); #Lymphocytes 2.2 thou/uL (1.20-3.40); #Monocytes 0.9 thou/uL (0.11-0.59); #Neutrophils 6.4 thou/uL (1.40-6.50); %Basophils 0.5 % (0.0-1.0); %Eosinophils 1.8 % (0.0-10.0); %Lymphocytes 22.4 % (21.0-51.0); %Monocytes 8.9 % (0.0-10.0); %Neutrophils 66.4 % (42.0-75.0); Hemoglobin 12.5 g/dL (12.0-16.0); Mean Corpuscular HGB CONC 31.9 g/dL (32.0-36.0); Mean Corpuscular Hemoglobin 30.4 pg (27.0-31.0); Mean Corpuscular Volume 95.1 fL (78.0-98.0); Platelet Count 190 thou/uL (130-400); RBC Distribution Width 13.1 % (11.5-14.5); Red Blood Cell (RBC) Count 4.13 mill/uL (4.20-5.40); White Blood Cell (WBC) Count 9.7 thou/uL (4.8-10.8)
[2018-06-04 18:09] LABS: ALT (SGPT) 16 U/L (8-55); AST (SGOT) 16 U/L (5-34); Albumin 3.6 g/dL (3.4-4.8); Alkaline Phosphatase 70 U/L (40-150); Anion Gap 11 mmol/L (10-20); BUN (Urea Nitrogen) 20 mg/dL (9.8-20.1); Bilirubin, Total 0.4 mg/dL (0.2-1.2); Calc. Creatinine Clearance 0 mL/min (70-130); Calcium 9.7 mg/dL (7.8-10.44); Carbon Dioxide 29 mmol/L (23-31); Chloride 105 mmol/L (98-107); Estimated GFR-MDRD 69; Globulin 3.5 g/dL (2.4-3.5); Glucose 116 mg/dL (83-110); Protein, Total 7.1 g/dL (6.0-8.3); Sodium 141 mmol/L (136-145)
--- NOTE | 2018-06-04 18:20 | RAD ---
RADIOGRAPH RIGHT HIP 2 VIEWS: 06/04/18 at 5:54 p.m. HISTORY: 88-year-old female with traumatic right hip pain after fall. COMPARISON: CT abdomen and pelvis of 06/29/17. No dedicated right hip prior radiograph. FINDINGS: There is an intertrochanteric fracture of the proximal right femur, with varus angulation, some overl ap of fracture fragments and mild medial displacement of the distal fragment. Diffuse severe osteopen ia. Some portions of the fracture margins appear slightly corticated, but this is uncertain whether t his is an acute or chronic fracture. No evidence of callus. IMPRESSION: Traumatic, displaced intertrochanteric fracture of the right femur, which occurred sometime after the previous CT of abdomen and pelvis of 06/29/17. POS: ADRY
--- NOTE | 2018-06-04 18:24 | RAD ---
RADIOGRAPH CHEST 1 VIEW: Date: 06/04/18 Time: 5:55 p.m. HISTORY: 88-year-old female status post acute chest trauma from fall. COMPARISON: 04/16/18 FINDINGS: This is a supine image, which would be insensitive for pneumothorax defection. Chronic appearing mild to moderate interstitial densities diffusely bilaterally. Hyperinflation suggestive of at least mild COPD. No cardiomegaly. Faint questionable nodular density overlying the right upper lobe, not defini tely identified on prior. No other interval change. IMPRESSION: 1. Chronic pulmonary changes. 2. No definite acute process identified. 3. Questionable small right upper lobe pulmonary nodule. JN [] POS: ADRY
[2018-06-04 18:32] LABS: PTT 28.6 SEC (22.9-36.1); Prothrombin Time 13.7 SEC (12.0-14.7)
[2018-06-04] MEDS ORDERED: Morphine 2 MG/ML SYRINGE ONE (18:38)
[2018-06-04] MEDS ORDERED: Ondansetron PF 4 MG/2 ML Vial ONE (18:38)
[2018-06-04] MEDS ORDERED: Dextrose 50% Abboject 50 ML SYRINGE SLOW IVP PRN (20:08)
[2018-06-04] MEDS ORDERED: Ondansetron PF 4 MG/2 ML Vial IVP PRN (20:08)
[2018-06-04] MEDS ORDERED: Dextrose 5% in Water 1,000 ML IV PRN (20:08)
[2018-06-04] MEDS ORDERED: Ondansetron ODT 4 MG TAB PO PRN (20:08)
[2018-06-04] MEDS ORDERED: Morphine 4 MG/ML VIAL ONE (20:22)
[2018-06-04] MEDS ORDERED: Acetaminophen 500 MG TAB ONE (20:28)
[2018-06-04] MEDS ORDERED: Ketorolac Tromethamine 30 MG/ML VIAL ONE (20:28)
[2018-06-04] MEDS: Sodium Chloride 0.9% 1,000 ML IV SCH (22:59)
[2018-06-04] MEDS: Famotidine 20 MG TAB PO SCH (23:01)
[2018-06-04] MEDS: Senokot S 8.6-50 MG TAB PO SCH (23:01)
[2018-06-04 23:42] LABS: Bilirubin Negative (Negative); Blood, Urine Trace (Negative); Clarity CLOUDY (Clear); Glucose, Urine (Dipstick) Negative (Negative); Leukocyte Small (Negative); Nitrite Positive (Negative); Protein, Urine (Dipstick) Negative (Neg-Trace); Specific Gravity, Urine 1.024 (1.002-1.036)
[2018-06-04 23:44] LABS: Bacteria/HPF 4+ HPF (None Seen); Pathc Cast-AUWi Flag 2.04 (0-2.49); RBC/HPF 0-3 HPF (0-3); Squamous Epithelial 0-3 HPF (0-3)
[2018-06-04 23:57] LABS: Hyaline Casts/LPF 0-3 HYALINE CAST LPF (0-3 Hyaline); Urine Culture Reflex Yes Yes
[2018-06-05] MEDS: Ketorolac Tromethamine 30 MG/ML VIAL IVP SCH ×5 (00:17→23:19)
[2018-06-05] MEDS: Acetaminophen 1,000 MG in Premix Bag 1 BAG IVPB SCH ×5 (00:18→23:19)
--- NOTE | 2018-06-05 00:55 | HP ---
TRAUMA ACTIVATION: Not applicable. HISTORY OF PRESENT ILLNESS: This is an 88-year-old female who presented to [facility] Emergency Room status post witnessed fall at her long term. The patient is a resident of [facility]. She has a history of dementia and frequent falls. Family at bedside reports multiple falls over the past 4 to 6 months. They report the patient has been experiencing increasing weakness and worsening of her dementia. This has culminated in her being primarily wheelchair bound. The patient attempted to walk earlier today and fell. She was seen and evaluated in the emergency room and found to have a right hip fracture. Orthopedic Surgery was notified and Trauma Service was asked to admit. Upon my evaluation, the patient has a chief complaint of right hip pain. Pain is improved with pain medication and worsened with movement. History primarily obtained from records review and family at bedside. ALLERGIES: AZITHROMYCIN, CODEINE, TRAMADOL, AND SULFA. HOME MEDICATIONS: Include; 1. Glipizide 2.5 mg b.i.d. 2. Alprazolam 0.25 mg p.r.n. 3. Aspirin 81 mg. 4. BuSpar 5 mg. 5. Citalopram 20 mg. PAST MEDICAL HISTORY: Significant for coronary artery disease, dementia, hypertension, diabetes. PAST SURGICAL HISTORY: Hysterectomy, appendectomy, and cholecystectomy. SOCIAL HISTORY: The patient is a resident of [facility]. She is primarily wheelchair bound. The family denies alcohol, tobacco, or illicit drug use. FAMILY HISTORY: Noncontributory in this age patient. REVIEW OF SYSTEMS: Unobtainable, but family reports the patient has been in her normal state of health prior to her fall. PHYSICAL EXAMINATION: VITAL SIGNS: On evaluation, heart rate 71, blood pressure 154/73, O2 saturation 94% on room air. GENERAL: Elderly appearing female, in no acute distress, lying on her left side. HEENT: Head is normocephalic, atraumatic. Eyes, pupils are PERRL. Extraocular movements are intact. NECK: Supple. Trachea is midline. There is no midline tenderness to palpation. CHEST: Atraumatic. Nontender to palpation. Normal work of breathing. Symmetric rise. LUNGS: Clear to auscultation bilaterally. CARDIOVASCULAR: Regular rate and rhythm. No obvious murmurs, rubs, or gallops. GI: Abdomen is soft, nontender, nondistended. MUSCULOSKELETAL: Pulses are 2+ bilaterally. There is no lower extremity edema. The patient's range of motion of the right lower extremity is limited secondary to pain. BACK: Within normal limits. NEURO: The patient is oriented to self. There is no focal deficit noted. LABORATORY FINDINGS: WBC 9.7, hemoglobin 12.5, hematocrit 39.3, platelet count 190. INR is 1.0. Sodium 141, potassium 4.0, chloride 105, carbon dioxide 29, BUN 20 , creatinine 0.79, glucose 116, AST and ALT within normal limits. Troponin and UA ordered/pending RADIOGRAPHIC FINDINGS: Chest x-ray with hyperinflated lungs. Coarse interstitial markings and possible right upper lobe pulmonary nodule and hip x-ray with a right intertrochanteric hip fracture. ASSESSMENT: 1. Status post witnessed fall. 2. Right intertrochanteric hip fracture. 3. Acute traumatic pain. 4. History of dementia. 5. History of hypertension. 6. History of diabetes. 7. Questionable history of coronary artery disease, although family denies at this time. 8. Possible right pulmonary nodule. PLAN: Admit to Trauma Services. The patient has been seen and evaluated by Orthopedic Surgery, who hope for operative intervention in the morning. The patient has been discussed with Dr. Walsh, who wishes to have Hospital Medicine consult for medical clearance. Perioperative pain management with p.o. and IV analgesics. Postoperative PT and OT. DVT and gastritis prophylaxis as appropriate. Per discussion with patient's [id number] at bedside, the patient is a do not resuscitate. This will be annotated in her admission. Plan for admission was discussed with the family at bedside and all questions were answered prior to this dictation. The patient has been discussed with trauma attending. Job ID: [id number] [facility]
[2018-06-05 01:09] LABS: CKMB 2.5 ng/mL (0-6.6)
[2018-06-05 05:13] LABS: #Lymphocytes 2.1 thou/uL (1.20-3.40); #Monocytes 1.3 thou/uL (0.11-0.59); #Neutrophils 9.4 thou/uL (1.40-6.50); %Basophils 0.1 % (0.0-1.0); %Eosinophils 0.2 % (0.0-10.0); %Lymphocytes 16.2 % (21.0-51.0); %Monocytes 10.4 % (0.0-10.0); Hemoglobin 10.8 g/dL (12.0-16.0); Mean Corpuscular HGB CONC 32.4 g/dL (32.0-36.0); Mean Corpuscular Hemoglobin 30.3 pg (27.0-31.0); Mean Corpuscular Volume 93.5 fL (78.0-98.0); Mean Platelet Volume 7.8 fL (7.4-10.4); Platelet Count 181 thou/uL (130-400); Red Blood Cell (RBC) Count 3.57 mill/uL (4.20-5.40); White Blood Cell (WBC) Count 12.8 thou/uL (4.8-10.8)
[2018-06-05 05:32] LABS: Anion Gap 7 mmol/L (10-20); BUN (Urea Nitrogen) 21 mg/dL (9.8-20.1); Calc. Creatinine Clearance 40 mL/min (70-130); Calcium 8.9 mg/dL (7.8-10.44); Carbon Dioxide 29 mmol/L (23-31); Chloride 106 mmol/L (98-107); Estimated GFR-MDRD 74; Glucose 119 mg/dL (83-110); Magnesium 1.6 mg/dL (1.6-2.6); Sodium 138 mmol/L (136-145)
--- NOTE | 2018-06-05 07:12 | CON ---
DATE OF CONSULTATION: 06/04/2018 BRIEF HISTORY OF PRESENT ILLNESS: The patient is an 88-year-old lady who was examined in [place] [facility] with daughter at bedside. They report that earlier on the day she fell at her snf sustaining trauma to her right hip. The daughter reports that she has had increasing falls over the last 4 to 6 months. The patient also has a history of dementia and currently resides at the "[facility]." Over the last 4 months, the patient has been predominantly wheelchair bound due to these multiple falls. Once she presented to the emergency room, x-rays of the hip were obtained and these demonstrated a right intertrochanteric femur fracture and as such, Orthopedic consultation requested. PAST MEDICAL HISTORY: Remarkable for coronary artery disease, hypertension, dementia, and diabetes. PAST SURGICAL HISTORY: Includes cholecystectomy, appendectomy, hysterectomy, and tubal ligation. MEDICATIONS: 1. Alprazolam. 2. Glipizide. 3. Aspirin. 4. BuSpar. 5. Citalopram. ALLERGIES: TO CODEINE, TRAMADOL, SULFA, AND AZITHROMYCIN. SOCIAL HISTORY: She resides in the [facility]. She mobilizes with wheelchair primarily. Denies alcohol, cigarettes, or illicit drug use. FAMILY HISTORY: Noncontributory for this injury. REVIEW OF SYSTEMS: No recent fevers, chills, or sweats. No chest pain or shortness of breath. No numbness or tingling in the lower extremities. PHYSICAL EXAMINATION: VITAL SIGNS: She is found to have a temperature of 98.5, a heart rate of 68, respiratory rate of 16, and blood pressure 170/76 with O2 saturation room air of 96%. GENERAL: She is a pleasant 88-year-old lady, who is alert and oriented. She is lying in a left lateral decubitus position and reports a pain level currently of 2/10. HEENT: Atraumatic and normocephalic. HEART: Shows a regular rate and rhythm without murmur. LUNGS: Clear to auscultation bilaterally. CHEST: Atraumatic. She is nontender to palpation. She is very thin. ABDOMEN: Soft, nontender, and flat. PELVIS: Stable and nontender. EXTREMITIES: Remarkable for bilateral upper extremities that are atraumatic with no obvious pain at shoulder, elbow, wrist, or hand. She is wiggling her fingers normally and denies numbness. The left lower extremity is remarkable for an atraumatic hip, knee, ankle, and foot. She reports normal sensation distally. The right lower extremity is remarkable for groin pain with any type of movement of the right lower extremity. She feels pain in the groin and to some extent at the lateral aspect of the hip. The lower femur is atraumatic as is the knee, ankle, and foot. She is wiggling her toes. Thigh and lower leg compartments are soft. Sensation is subjectively intact. LABORATORY DATA: White count of 9.7, hematocrit of 39.3, and platelets 190,000. She has an INR 1.0. IMAGING DATA: X-rays: Two-view x-ray of right hip remarkable for an intertrochanteric femur fracture. ASSESSMENT: An 88-year-old lady status post ground level fall with recent history of multiple falls, now with right intertrochanteric femur fracture. PLAN: At this time, the patient is admitted to the Trauma Service. We will proceed with preoperative clearance as best possible. Given the nature of her injury, we will strive to get her in the operating room as soon as possible so as to allow her to begin mobilizing with an upright chest and hopefully minimize risks. The risks of both surgery and the fracture include, but are not limited to bleeding, infection, nerve injury, DVT, PE, bedsores, wound problems, malunion, nonunion, loss of limb or life. The patient and daughter appear to understand and do wish to proceed. Consent will be obtained prior to surgery. Job ID: [id number]
[2018-06-05 07:20] LABS: Troponin I 0.342 ng/mL (< 0.028)
[2018-06-05] MEDS: Sodium Chloride 0.9% 1,000 ML IV SCH ×2 (08:32→21:23)
[2018-06-05] MEDS: Carvedilol 6.25 MG TAB PO SCH (08:32)
[2018-06-05] MEDS: Senokot S 8.6-50 MG TAB PO SCH ×2 (08:40→22:39)
[2018-06-05] MEDS: Famotidine 20 MG TAB PO SCH ×2 (08:40→22:39)
[2018-06-05] MEDS: Polyethylene Glycol 3350 17 GM Packet PO SCH (08:40)
[2018-06-05] MEDS ORDERED: Carvedilol 6.25 MG TAB PO SCH (09:00)
[2018-06-05 11:44] LABS: Troponin I 0.264 ng/mL (< 0.028)
[2018-06-05 11:53] VITALS: BMI 18.2
--- NOTE | 2018-06-05 12:06 | CON ---
DATE OF CONSULTATION: 06/05/2018 REASON FOR CONSULTATION: Preop clearance and abnormal EKG. HISTORY OF PRESENT ILLNESS: Kyle is an unfortunate 88-year-old with previous history of advanced Lewy body dementia, who recently fell. She broke her hip. Prior to this episode, she has had significant confusion and altered mental status per family over the last 2 weeks. She has denied chest pain, pressure, or associated symptoms. She did undergo coronary angiography in 2009 and was found to have severe disease present in the ostial diagonal branch, otherwise had a [id number] coronary artery disease. PAST MEDICAL HISTORY: As above and diabetes mellitus, hypertension. HOME MEDICATIONS: Include; 1. Glipizide. 2. Alprazolam. 3. Aspirin. 4. BuSpar. 5. Citalopram. PAST SURGICAL HISTORY: 1. Hysterectomy. 2. Appendectomy. 3. Cholecystectomy. SOCIAL HISTORY: No current tobacco or alcohol use. REVIEW OF SYSTEMS: Unobtainable. PHYSICAL EXAMINATION: GENERAL: She does awake, but is not oriented to time, person, or place. VITAL SIGNS: Blood pressure 154/79, pulse 78, temperature afebrile. NEUROLOGIC: The patient is alert and oriented x3 with no focal neurologic deficits. HEENT: Sclerae without icterus. Mouth has moist mucous membranes with normal pallor. NECK: No JVD. Carotid upstroke brisk. No bruits bilaterally. LUNGS: Clear to auscultation with unlabored respirations. BACK: No scoliosis or kyphosis. CARDIAC: Regular rate and rhythm with normal S1 and S2. No S3 or S4 noted. No significant rubs, murmurs, thrills, or gallops noted throughout the precordium. PMI is not displaced. There is no parasternal heave. ABDOMEN: Soft, nontender, nondistended. No peritoneal signs present. No hepatosplenomegaly. No abnormal striae. EXTREMITIES: 2+ femoral and 2+ dorsalis pedis pulses. No cyanosis, clubbing, or edema. SKIN: No gross abnormalities. PERTINENT LABORATORY DATA: Hemoglobin 10.8. Creatinine 0.74. Peak troponin 0.3. EKG dated on 06/04/2018, normal sinus rhythm with nonspecific ST-T wave changes. EKG dated on 06/05/2018, sinus rhythm with ST-T wave changes suggesting ischemia with inverted T-waves noted in lead V2 through V5, which were felt to be new. IMPRESSION: 1. Preop clearance. 2. Elevated troponin, likely type-2 myocardial infarction. 3. Dementia. 4. Recent hip fracture. RECOMMENDATIONS: Certainly difficult situation, given new EKG findings. She may have had progression of her coronary artery disease from 2009. I discussed the case with Dr. Heidy Walsh. There is significant morbidity, mortality without repair of the hip. I had also discussed this with the family. They understand the increased risk and would like to proceed with the hip surgery. At this point, would delay for 3 days prior to any type of surgical intervention. We would recommend echo with Doppler to assess LVEF. We would also recommend beta-licha therapy to try and suppress her heart rate and improve her outcome. Otherwise from my standpoint, given EKG findings and troponin, is felt to be at increased risk for complications. Job ID: [id number]
--- NOTE | 2018-06-05 17:37 | PRG ---
DATE OF SERVICE: 06/05/2018 SUBJECTIVE: The patient is hospital day 2 status post ground level fall, in which she sustained the right hip fracture. The patient required medical clearance, was noted to have an indeterminate troponin upon admission. Repeat showed a positive troponin with some flipped T-waves in her V leads. Per discussion with Dr. Perez, it was felt that the patient would not be able to undergo her surgical procedure today and will most likely need a delay of 3 days and a repeat echo on Thursday before proceeding. This was discussed with the family, and Dr. Borden was notified. Otherwise, overnight, the patient had no issues, and it appears that her pain is controlled. OBJECTIVE: VITAL SIGNS: Temperature is 97.8, heart rate 78, blood pressure 154/79, respirations 12, oxygen saturation 93% on room air. GENERAL: The patient is resting comfortably in bed, and per her daughter at the bedside, the patient is at her baseline for her mentation. HEENT: Unremarkable. LUNGS: Clear to auscultation. HEART: Regular rate and rhythm. ABDOMEN: Soft, flat, and nontender with active bowel sounds. EXTREMITIES: Neurovascularly intact x4. LABORATORY FINDINGS: White blood cell count 12.8, hemoglobin 10.8, hematocrit 33.4, platelets 181. Sodium 138, potassium 4.0, chloride 106, CO2 of 29, BUN 21, creatinine 0.74, glucose 119. Magnesium 1.6. Phosphorus 4.0. Troponin 0.342, this is up from the original of 0.237. There are no radiographs to review this morning. ASSESSMENT: 1. Status post ground level fall. 2. Right intertrochanteric hip fracture. 3. Acute traumatic pain. 4. History of dementia. 5. History of hypertension. 6. History of diabetes. 7. T-wave changes and elevated troponin. PLAN: Plan will be to continue supportive care, medical management. Per Cardiology, we will allow her to have a diet today. Start her on p.o. pain medications. Repeat her labs in the morning and obtain her echo on Thursday. The patient also has a repeat troponin due. Should the patient maintain a positive troponin, we will move her to the telemetry floor, or if she starts having any symptoms such as chest pain or shortness of breath, we will move her to telemetry. At this time, it was felt best to keep her here on the surgical floor. Job ID: [id number]
[2018-06-05] MEDS: hydrALAZINE 20 MG/ML VIAL SLOW IVP PRN (21:24)
[2018-06-05] MEDS: Atorvastatin Calcium 20 MG TAB PO SCH (22:39)
[2018-06-05] MEDS ORDERED: hydrALAZINE 20 MG/ML VIAL SLOW IVP PRN (22:39)
[2018-06-05] MEDS ORDERED: Nitroglycerin 2% Ointment 1 INCH/1 GM Packet TOP SCH (22:45)
[2018-06-06] MEDS: Morphine 2 MG/ML SYRINGE SLOW IVP PRN (00:20)
[2018-06-06] MEDS: Ketorolac Tromethamine 30 MG/ML VIAL IVP SCH ×3 (06:06→17:37)
[2018-06-06] MEDS: HumaLOG 300 UNITS/3 ML VIAL SC PRN ×2 (06:45→12:42)
[2018-06-06] MEDS ORDERED: CRANBERRY FRUIT 450 MG PO SCH (09:00)
[2018-06-06] MEDS: Senokot S 8.6-50 MG TAB PO SCH ×2 (09:33→21:33)
[2018-06-06] MEDS: Polyethylene Glycol 3350 17 GM Packet PO SCH (09:33)
[2018-06-06] MEDS: Aspirin Chewable 81 MG TAB PO SCH (09:36)
[2018-06-06] MEDS: Escitalopram Oxalate 10 mg Tablet PO SCH (09:38)
[2018-06-06] MEDS: Carvedilol 6.25 MG TAB PO SCH (09:38)
[2018-06-06] MEDS: Bupropion 150 MG XL TAB PO SCH (09:39)
--- NOTE | 2018-06-06 10:36 | PDOC.CTH ---
Cardiology Progress Note - Subjective No changes overnight - Objective Vital Signs Temp Pulse Resp BP BP Pulse Ox 06/06/18 09:38 149/74 H 06/06/18 08:00 92 L 06/06/18 03:48 97.4 F L 75 22 H 131/68 93 L 06/06/18 00:37 167/70 H 06/06/18 00:28 98.1 F 69 24 H 182/70 H 96 Weight 103 lb 06/05/18 06/06/18 06/07/18 06:59 06:59 06:59 Intake Total 1240 2170 Output Total 450 1550 Balance 790 620 - Physical Examination General/Neuro: NAD Neck: no JVD present Lungs: CTA, unlabored respirations Heart: PMI normal, RRR Abdomen: NT/ND, soft Extremities: + femoral B - Labs Result Diagrams: 06/05/18 04:56 06/05/18 04:56 Troponin/CKMB CK-MB (CK-2) 2.5 ng/mL (0-6.6) 06/05/18 00:16 Troponin I 0.264 ng/mL (< 0.028) H 06/05/18 10:58 - Assessment/Plan Abnormal EKG Dementia Recent hip fracture HTN Difficult situation Pt not able to take PO given somnolence last pm. Pt given IV meds for control Added nitro paste as well Check echo Pt felt to be at increased risk of complications but the benefits outweigh the risks on proceed with surgery for her hip. Family understands Control BP with IV hydralazine and nitro paste for now
[2018-06-06] MEDS: Sodium Chloride 0.9% 1,000 ML IV SCH ×2 (11:27→13:55)
--- NOTE | 2018-06-06 14:38 | PRG ---
DATE OF SERVICE: 06/06/2018 SUBJECTIVE: The patient is hospital day 3 status post ground level fall when she sustained a right hip fracture. The patient had multiple comorbidities to include hypertension, and elevated troponin. After evaluation by Dr. Perez, it was felt that the patient required some medical optimization before her surgery. This morning, he was writing medications to treat her hypertension. We have also tried to work with her pain medicines also. The patient is also scheduled to undergo echocardiogram today. There were no reported issues overnight. OBJECTIVE: VITAL SIGNS: Temperature is 97.6, heart rate 92, blood pressure 141/74, respirations 16, oxygen saturation 92% on room air. GENERAL: The patient is resting comfortably in bed. She appears in no distress. She is sleepy at this time. The patient is being prepared for her echo at bedside. HEENT: Unchanged. LUNGS: Clear to auscultation without labored breathing. HEART: Regular rate and rhythm. ABDOMEN: Soft, flat, nontender with active bowel sounds. EXTREMITIES: Neurovascularly intact x4. LABORATORY DATA: There are no labs or radiographs reviewed this morning. ASSESSMENT: 1. Status post ground level fall. 2. Right intertrochanteric hip fracture. 3. Acute traumatic pain. 4. History of dementia, hypertension, diabetes. PLAN: Plan will be to continue pain management, maximize blood pressure control. Await the findings of her echo, but likely the patient will be able to undergo her surgical procedure tomorrow. We will make the patient n.p.o. after midnight. Job ID: [id number]
[2018-06-06] MEDS ORDERED: Nitrofurantoin Monohyd/M-Cryst 100 MG CAP PO SCH (16:00)
[2018-06-06] MEDS: Acetaminophen 500 MG TAB PO SCH (17:36)
[2018-06-06] MEDS ORDERED: Sodium Chloride 0.9% 250 ML IV SCH (18:15)
[2018-06-06] MEDS ORDERED: Sodium Chloride 0.9% 500 ML IV SCH (19:45)
[2018-06-06] MEDS: Atorvastatin Calcium 20 MG TAB PO SCH (21:17)
[2018-06-06] MEDS: Famotidine 20 MG TAB PO SCH (21:32)
[2018-06-06] MEDS: Nitrofurantoin Monohyd/M-Cryst 100 MG CAP PO SCH (21:32)
[2018-06-07] MEDS: Acetaminophen 500 MG TAB PO SCH ×4 (00:10→18:32)
[2018-06-07] MEDS: Sodium Chloride 0.9% 1,000 ML IV SCH ×2 (00:10→06:29)
[2018-06-07] MEDS: Ketorolac Tromethamine 30 MG/ML VIAL IVP SCH ×4 (00:11→18:30)
[2018-06-07] MEDS: Morphine 2 MG/ML SYRINGE SLOW IVP PRN (03:45)
[2018-06-07 06:12] LABS: Band 6 % (5-11); Hemoglobin 10.3 g/dL (12.0-16.0); Hypochromia SLIGHT = 6-15 cells (100X) (0-5/hpf); Lymphocytes 1 % (21-51); MDiff Complete? YES; Mean Corpuscular Hemoglobin 30.7 pg (27.0-31.0); Mean Corpuscular Volume 96.1 fL (78.0-98.0); Mean Platelet Volume 8.5 fL (7.4-10.4); Monocytes 4 % (0-10); Neutrophil 89 % (42-75); Platelet Count 157 thou/uL (130-400); Platelet Morphology Comment Appears Adequate; RBC Distribution Width 13.6 % (11.5-14.5); Red Blood Cell (RBC) Count 3.34 mill/uL (4.20-5.40); White Blood Cell (WBC) Count 22.9 thou/uL (4.8-10.8)
[2018-06-07 06:15] LABS: Anion Gap 11 mmol/L (10-20); BUN (Urea Nitrogen) 29 mg/dL (9.8-20.1); Calc. Creatinine Clearance 40 mL/min (70-130); Calcium 8.8 mg/dL (7.8-10.44); Carbon Dioxide 20 mmol/L (23-31); Chloride 107 mmol/L (98-107); Estimated GFR-MDRD 74; Glucose 143 mg/dL (83-110); Magnesium 1.6 mg/dL (1.6-2.6); Phosphorus 2.1 mg/dL (2.3-4.7); Potassium 3.7 mmol/L (3.5-5.1); Sodium 134 mmol/L (136-145)
--- NOTE | 2018-06-07 07:31 | HP ---
ADDENDUM: For full details, please see the H and P dictated by Shasha Morales Trauma LARS. The patient was seen on morning rounds with Brian Katz Trauma LARS. CHIEF COMPLAINT: Hip pain following a fall. HISTORY OF PRESENT ILLNESS: In short, Ms. Wright is an 88-year-old woman, who [facility] She has been falling fairly frequently over the past 4 to 6 months due to increasing weakness and worsening dementia. She primarily uses a wheelchair to get around, but attempted to walk prior to her admission and fell. She was admitted with a right hip fracture and plans were to take the patient to the operating room today, but her troponin was mildly elevated on admission and has risen since and she was noted to have some T-wave inversion in the lateral leads. She denies any chest pain or shortness of breath. She denies any dizziness, lightheaded or weakness following her fall. ALLERGIES: INCLUDE AZITHROMYCIN, CODEINE, TRAMADOL, AND SULFA. HOME MEDICATIONS: Include: 1. Glipizide. 2. Alprazolam. 3. Aspirin. 4. BuSpar. 5. Citalopram. PAST MEDICAL HISTORY: She has past medical history significant for coronary artery disease, dementia, hypertension, and diabetes. PAST SURGICAL HISTORY: Cholecystectomy, appendectomy, and hysterectomy. SOCIAL HISTORY: Negative for alcohol, tobacco, or drug use. FAMILY HISTORY: Noncontributory. REVIEW OF SYSTEMS: Negative except per HPI. The patient currently is not complaining of any pain in her right hip as long as she is still. She does have mild pain with changes in position. DIAGNOSTIC DATA: X-rays show a right intertrochanteric hip fracture and a possible right upper lobe pulmonary nodule. LABORATORY DATA: Unremarkable except for the rising troponins. PHYSICAL EXAMINATION: GENERAL: A complete physical examination was performed, revealing a frail elderly woman, who appears her stated age. HEENT: Unremarkable. She does not have any step-offs or tenderness. NECK: Supple without lymphadenopathy or thyroid nodules. HEART: Regular in its rate and rhythm. I do not appreciate any murmurs, rubs, or gallops. LUNGS: Clear to auscultation. ABDOMEN: Soft, nontender, and nondistended. EXTREMITIES: She has a pillow in place supporting her right leg and her extremities are warm and well perfused without significant edema. NEUROLOGIC: She is grossly intact, although with limited movement of her right lower extremity. She is able to follow commands and converse, but unable to give significant history. ASSESSMENT: Right intertrochanteric hip fracture with EKG changes and rising troponins. Dr. Perez of Cardiology has been consulted and recommends observation and echocardiogram. He does not feel that she should proceed to surgery at this time. This is a difficult situation due to significant morbidity and mortality associated with not repairing the hip. However, the patient is notably limited at baseline due to her recent history of falls. We will continue to watch her as an inpatient and appreciate Cardiology support. No cardiac intervention is planned at this time. Job ID: [id number]
[2018-06-07] MEDS: Carvedilol 6.25 MG TAB PO SCH (08:01)
[2018-06-07] MEDS: Polyethylene Glycol 3350 17 GM Packet PO SCH (08:14)
[2018-06-07] MEDS: Aspirin Chewable 81 MG TAB PO SCH (08:14)
[2018-06-07] MEDS: Senokot S 8.6-50 MG TAB PO SCH (08:14)
[2018-06-07 08:34] LABS: Hemoglobin 9.2 g/dL (12.0-16.0); Mean Corpuscular HGB CONC 30.5 g/dL (32.0-36.0); Mean Corpuscular Hemoglobin 29.3 pg (27.0-31.0); Mean Platelet Volume 8.4 fL (7.4-10.4); Platelet Count 142 thou/uL (130-400); RBC Distribution Width 13.5 % (11.5-14.5); Red Blood Cell (RBC) Count 3.15 mill/uL (4.20-5.40); White Blood Cell (WBC) Count 19.6 thou/uL (4.8-10.8)
[2018-06-07 09:03] LABS: Band 15 % (5-11); Hypochromia SLIGHT = 6-15 cells (100X) (0-5/hpf); Lymphocytes 8 % (21-51); MDiff Complete? YES; Monocytes 6 % (0-10); Neutrophil 71 % (42-75); Platelet Morphology Comment Appears Adequate; Polychromasia SLIGHT = 2-3 cells (100X) (0-2/hpf)
[2018-06-07] MEDS: MEROPENEM 1 GM/50 ML 1 GM in Premix Bag 1 BAG IVPB SCH ×2 (09:22→17:37)
[2018-06-07] MEDS: Escitalopram Oxalate 10 mg Tablet PO SCH (09:30)
[2018-06-07] MEDS: Bupropion 150 MG XL TAB PO SCH (09:30)
[2018-06-07] MEDS: Nitrofurantoin Monohyd/M-Cryst 100 MG CAP PO SCH (12:56)
[2018-06-07] MEDS ORDERED: Ketamine 50 MG/ML (10ML VIAL) ONE (13:26)
--- NOTE | 2018-06-07 13:36 | EKG ---
Test Reason : HIGH TROPIN Blood Pressure : / mmHG Vent. Rate : 063 BPM Atrial Rate : 063 BPM P-R Int : 196 ms QRS Dur : 072 ms QT Int : 414 ms P-R-T Axes : 064 032 079 degrees QTc Int : 423 ms Poor data quality, interpretation may be adversely affected Normal sinus rhythm Septal infarct , age undetermined T wave abnormality, consider anterior ischemia Abnormal ECG When compared with ECG of 16-APR-2018 00:20, Septal infarct is now Present T wave inversion now evident in Anterior leads Confirmed by ADAN RENO, DR. Tamez ([id number]) on 06/07/2018 1:36:02 PM Referred By: ROBBIE BLACK Confirmed By:DR. Dashawn ARELLANO MD
--- NOTE | 2018-06-07 13:41 | EKG ---
Test Reason : Blood Pressure : / mmHG Vent. Rate : 076 BPM Atrial Rate : 076 BPM P-R Int : 174 ms QRS Dur : 082 ms QT Int : 418 ms P-R-T Axes : 068 025 083 degrees QTc Int : 470 ms Normal sinus rhythm T wave abnormality, consider anterior ischemia Abnormal ECG When compared with ECG of 05-JUN-2018 10:06, (Unconfirmed) QT has lengthened Confirmed by ADAN RENO, SMandi ([id number]) on 06/07/2018 1:40:13 PM Referred By: MARTIN Confirmed By:DR. Dashawn ARELLANO MD
[2018-06-07] MEDS ORDERED: Promethazine HCl 25 MG/ML VIAL IM PRN (15:05)
[2018-06-07] MEDS ORDERED: Promethazine HCl 25 MG/ML VIAL SLOW IVP PRN (15:05)
[2018-06-07] MEDS ORDERED: Ondansetron HCl/PF 4 MG/2 ML Vial IVP PRN (15:05)
[2018-06-07] MEDS ORDERED: ePHEDrine 50 MG/ML VIAL ONE (15:08)
--- NOTE | 2018-06-07 15:39 | RAD ---
XR Hip Rt 2-3 View History: [ORIF right hip] Comparison: Hip radiographs June 04, 2018 Findings: 2 spot fluoroscopic images of the right hip demonstrate an intramedullary nail through a meraz btrochanteric fracture. Satisfactory alignment. Impression: Satisfactory postoperative alignment.
[2018-06-07] MEDS ORDERED: Magnesium Sulfate 3 GM in Sodium Chloride 0.9% 250 ML 250 ML IVPB SCH (17:30)
[2018-06-07] MEDS ORDERED: Potassium Phosphate 15 MMOL in Sodium Chloride 0.9% 250 ML 250 ML IVPB SCH (17:30)
--- NOTE | 2018-06-07 17:50 | PRG ---
DATE OF SERVICE: 06/07/2018 SUBJECTIVE: The patient remains on the surgical floor. She is hospital day 4, status post ground level fall. She had multiple comorbidities that required medical clearance. She has been medically cleared in light of her comorbidities and urinary tract infection with the elevated white count. It was discussed with the daughter extensively this morning the risks of continuing with surgery due to the possibility of a surgical implant becoming seeded/infected. The patient is on the appropriate antibiotics and the daughter was in agreement with proceeding with the surgical procedure. Primarily, it will be a palliative/pain control measure. The patient is likely to go to Palliative Care and/or hospice in the near future. The patient has been n.p.o. and will be able to proceed with her procedure today. PHYSICAL EXAMINATION: VITAL SIGNS: Temperature 97.2, heart rate 71, blood pressure 124/62, respirations 16, and oxygen saturation 92% on room air. GENERAL: The patient is currently sleeping, but she will open her eyes with gentle voice. LUNGS: Clear to auscultation bilaterally. HEART: Regular rate and rhythm. ABDOMEN: Soft, flat, nontender with hyperactive bowel sounds. EXTREMITIES: Neurovascularly intact x4. LABORATORY FINDINGS: White blood cell count 22.9, hemoglobin 10.3, hematocrit 32.1, platelets 157. Sodium 134, potassium 3.7, chloride 107, CO2 of 20, BUN 29, creatinine 0.74, glucose 143, magnesium 1.6, phosphorus 2.1. There are no radiographs reviewed this morning. ASSESSMENT AND PLAN: 1. Status post ground level fall. 2. Right intertrochanteric hip fracture. 3. Acute traumatic pain, controlled. 4. History of dementia, hypertension, diabetes. 5. Urinary tract infection, under treatment. PLAN: Plan will be to continue supportive care and await her surgical procedure today. Postoperatively, we will again try physical and occupational therapy, and per the daughter's request, we will do a Palliative Care consult today. The patient was seen this morning with Dr. Urena during rounds. Job ID: [id number] MTDD
--- NOTE | 2018-06-07 20:48 | OP ---
DATE OF PROCEDURE: 06/07/2018 OPERATION PERFORMED: Right femur intramedullary nail. PREOPERATIVE DIAGNOSIS: Right femur intertrochanteric fracture. POSTOPERATIVE DIAGNOSIS: Right femur intertrochanteric fracture. COMPLICATIONS: None. ESTIMATED BLOOD LOSS: 100 mL. ANESTHESIA: General. IMPLANT: Synthes short trochanteric nail, size 9 mm. INDICATIONS: Ms. Wright is an 88-year-old female who has fallen. She fractured her right intertrochanteric femur. She has been indicated for a femur intramedullary nail to restore anatomical alignment and promote healing and prevent complications of prolonged bedrest. She does have multiple medical problems and is at high risk for complication. She and her family want to proceed. DESCRIPTION OF PROCEDURE: Ms. Wright was identified in the preoperative holding area. Her correct extremity was marked. She was carried to the operating room. She was positioned supine. General anesthesia was induced. A multidisciplinary time-out was performed. The right lower extremity was prepped and draped in sterile fashion. At this point, we began the procedure with evaluation of the patient's right leg under intraoperative x-ray. We manipulated the fracture back into its anatomic position. At this point, we proceeded to make a small incision proximal on the greater trochanter. We dissected down and inserted a guidewire in the tip of the greater trochanter. This was extended into the bone distally. At this point, we over-reamed the guidewire. We then inserted a 9 mm trochanteric nail. We seated this appropriately. We placed the helical blade in the center position of the femoral head followed by distal Crosslock screw. This completed the fixation. We closed appropriately after final x-ray images were taken. The patient was taken to the recovery room in good condition without complication. Job ID: [id number]
[2018-06-08] MEDS: Senokot S 8.6-50 MG TAB PO SCH ×3 (00:03→21:35)
[2018-06-08] MEDS: Atorvastatin Calcium 20 MG TAB PO SCH ×2 (00:48→21:35)
[2018-06-08] MEDS: Famotidine 20 MG TAB PO SCH ×2 (00:48→21:35)
[2018-06-08] MEDS: Acetaminophen 500 MG TAB PO SCH ×4 (00:48→17:07)
[2018-06-08] MEDS: MEROPENEM 1 GM/50 ML 1 GM in Premix Bag 1 BAG IVPB SCH ×3 (01:55→17:05)
[2018-06-08 05:26] LABS: #Eosinphils 0.2 thou/uL (0.0-0.7); #Lymphocytes 1.7 thou/uL (1.20-3.40); #Neutrophils 9.9 thou/uL (1.40-6.50); %Basophils 0.1 % (0.0-1.0); %Eosinophils 1.5 % (0.0-10.0); %Monocytes 7.7 % (0.0-10.0); %Neutrophils 77.7 % (42.0-75.0); Hemoglobin 8.3 g/dL (12.0-16.0); Mean Corpuscular HGB CONC 32.4 g/dL (32.0-36.0); Mean Corpuscular Hemoglobin 31.2 pg (27.0-31.0); Mean Corpuscular Volume 96.4 fL (78.0-98.0); Mean Platelet Volume 7.8 fL (7.4-10.4); Platelet Count 165 thou/uL (130-400); RBC Distribution Width 13.5 % (11.5-14.5); Red Blood Cell (RBC) Count 2.67 mill/uL (4.20-5.40); White Blood Cell (WBC) Count 12.7 thou/uL (4.8-10.8)
[2018-06-08 05:38] LABS: Anion Gap 10 mmol/L (10-20); BUN (Urea Nitrogen) 22 mg/dL (9.8-20.1); Calc. Creatinine Clearance 51 mL/min (70-130); Calcium 7.9 mg/dL (7.8-10.44); Carbon Dioxide 21 mmol/L (23-31); Chloride 110 mmol/L (98-107); Estimated GFR-MDRD Greater than 90; Glucose 96 mg/dL (83-110); Magnesium 2.1 mg/dL (1.6-2.6); Phosphorus 2.4 mg/dL (2.3-4.7); Sodium 137 mmol/L (136-145)
[2018-06-08] MEDS: Sodium Chloride 0.9% 1,000 ML IV SCH (05:39)
[2018-06-08] MEDS: Ketorolac Tromethamine 30 MG/ML VIAL IVP SCH ×2 (05:40)
--- NOTE | 2018-06-08 08:58 | PRG ---
DATE OF SERVICE: 06/08/2018 SUBJECTIVE: Ms. Wright is comfortable this morning. No chest pain or pressure. No shortness of breath. OBJECTIVE: VITAL SIGNS: Her blood pressure is 160/60, pulse 80. LUNGS: Clear. CARDIAC: Normal S1, normal S2. ABDOMEN: Soft, nontender. EXTREMITIES: There is no edema. ASSESSMENT: 1. Postoperative status successful repair of hip fracture. 2. History of hypertension. 3. Increased troponin thought to be demand ischemia. PLAN: 1. Go ahead and Hep-Lock the IV at the present time. 2. She is on low-dose beta blockers. No other recommendations at this time, will be available if needed. Job ID: [id number]
[2018-06-08] MEDS: Bupropion 150 MG XL TAB PO SCH (09:20)
[2018-06-08] MEDS: Carvedilol 6.25 MG TAB PO SCH (09:21)
[2018-06-08] MEDS: Escitalopram Oxalate 10 mg Tablet PO SCH (09:21)
[2018-06-08] MEDS: Polyethylene Glycol 3350 17 GM Packet PO SCH (09:24)
[2018-06-08] MEDS: Ibuprofen 200 MG TAB PO SCH ×3 (09:26→21:35)
[2018-06-08] MEDS: Gabapentin 100 MG CAP PO SCH ×3 (09:26→21:35)
[2018-06-08] MEDS: Aspirin 81 mg Enteric Coated Tablet PO SCH ×2 (09:27→21:35)
[2018-06-08] MEDS: Ferrous Sulfate 325 MG TAB PO SCH (17:05)
--- NOTE | 2018-06-08 17:31 | PRG ---
CANCELLED DICTATION Job ID: [id number] MTDD
--- NOTE | 2018-06-08 20:22 | PRG ---
DATE OF SERVICE: 06/08/2018 SUBJECTIVE: This is an 88-year-old female, status post ground level fall, postop day #1 for repair of her right intertrochanteric hip fracture. The patient had no overnight events. The patient remains slightly confused, which is normal for her baseline. Pain seems to be well controlled at this time. OBJECTIVE: VITAL SIGNS: Temperature 98.4, pulse 81, respirations 14, SpO2 of 94% on room air, and blood pressure 157/58. GENERAL: The patient is sleeping, opens her eyes to voice. LUNGS: Clear to auscultation bilaterally. No respiratory distress. HEART: Regular rate and rhythm. ABDOMEN: Soft, flat, nontender, and nondistended. EXTREMITIES: Neurovascularly intact x4. Right hip dressing clean, dry, and intact. LABORATORY DATA: WBC 12.7, RBC 2.67, Hgb 8.3, Hct 25.7 Glucose 134. DIAGNOSTICS: There are no diagnostics to review. ASSESSMENT: 1. Status post ground level fall. 2. Right intertrochanteric hip fracture, postop day #1. 3. Acute traumatic pain, controlled. 4. History of dementia, hypertension, and diabetes. 5. Urinary tract infection. PLAN: We will continue supportive care. We will place a long term screen as the patient was previously nonambulatory. A hospice and palliative care consult have been placed also. We will continue the patient's antibiotics for UTI. We will place the patient on iron and vitamin C. We will place the patient on DVT prophylaxis with aspirin b.i.d. The patient was examined with Dr. Urena during morning rounds. Job ID: [id number] MTDD
[2018-06-09] MEDS: Acetaminophen 500 MG TAB PO SCH ×4 (00:03→17:25)
[2018-06-09] MEDS: MEROPENEM 1 GM/50 ML 1 GM in Premix Bag 1 BAG IVPB SCH ×3 (00:17→17:25)
[2018-06-09] MEDS: hydrALAZINE 20 MG/ML VIAL SLOW IVP PRN (03:41)
[2018-06-09] MEDS: Polyethylene Glycol 3350 17 GM Packet PO SCH (08:42)
[2018-06-09] MEDS: Escitalopram Oxalate 10 mg Tablet PO SCH (08:43)
[2018-06-09] MEDS: Bupropion 150 MG XL TAB PO SCH (08:43)
[2018-06-09] MEDS: Ibuprofen 200 MG TAB PO SCH ×4 (08:43→20:58)
[2018-06-09] MEDS: Senokot S 8.6-50 MG TAB PO SCH ×2 (08:43→21:49)
[2018-06-09] MEDS: Carvedilol 6.25 MG TAB PO SCH (08:43)
[2018-06-09] MEDS: Gabapentin 100 MG CAP PO SCH ×4 (08:44→20:58)
[2018-06-09] MEDS: Aspirin 81 mg Enteric Coated Tablet PO SCH ×2 (08:44→20:58)
[2018-06-09] MEDS: Ferrous Sulfate 325 MG TAB PO SCH ×2 (08:44→17:25)
[2018-06-09] MEDS: Ascorbic Acid 500 mg Chewable Tablet PO SCH (08:44)
--- NOTE | 2018-06-09 12:48 | PQF ---
LIZBETH ANGULO KIMIYE MD [id number] [facility] 3329 [id number] CLINICAL DOCUMENTATION IMPROVEMENT CLARIFICATION FORM: ICD-10 Updated PLEASE DO AN ADDENDUM TO THE PROGRESS NOTE WITH ANY DOCUMENTATION UPDATES OR ADDITIONS AND CARRY THROUGH TO DC SUMMARY. THANK YOU. Date: 06/09/18 ATTN: Yoly Leos APRN Please exercise your independent, professional judgment in responding to the clarification form. Clinical indicators are provided on the bottom of this form for your review Please check appropriate box(s): [ x ] Protein Calorie Malnutrition: [ x ] Mild related to dementia [ ] Other Malnutrition (please specify) __ [ ] Underweight without malnutrition related to dementia [ ] Cachexia [ ] Other diagnosis [ ] Unable to determine In addition, please specify: Present on Admission (POA): [x ] Yes [ ] No [ ] Unable to determine CLINICAL INDICATORS - SIGNS / SYMPTOMS / LABS 06/09 RD: Underweight, BMI 18.2 Two or More of the Following: Unintentional Insufficient Energy Intake--> 06/09 RD: 25% of last 4 meals RISK FACTORS Change in appetite / nausea / vomiting / diarrhea--> 06/09 RD: poor appetite Chronic illness dementia s/p fall with hip fracture and nailing H&P TREATMENT: Dietary consult 06/09 orders Nutritional supplements--> 06/09 Gluerna TID per orders Moderate Malnutrition (in acute illness) Energy Intake: <75% of estimated energy requirement for > 7 days Weight Loss: 1-2%/1 week; 5%/ 1 month; 7.5%/3 months Other: mild body fat loss; mild muscle mass loss; mild fluid accumulation; Severe Malnutrition (in acute illness) Energy Intake: < 50% of estimated energy requirement for > 5 days Weight Loss: >1-2%/1 week; >5%/1 month; >7.5%/3 months Other: moderate body fat loss; moderate muscle mass loss; moderate- severe fluid accumulation; measurably reduced bulldozer operator strength Moderate Malnutrition (in chronic illness) Energy Intake: <75% of estimated energy requirement for >1 month Weight Loss: 5%/1 month; 7.5%/3 months; 10%/6 months; 20%/1 year Other: mild body fat loss; mild muscle mass loss; mild fluid accumulation Severe Malnutrition (in chronic illness) Energy Intake: <75% of estimated energy requirement for >1 month Weight Loss: >5%/1 month; >7.5%/3 months; >10%/6 months; >20%/1 year Other: severe body fat loss; severe muscle mass loss; severe fluid accumulation ; measurably reduced bulldozer operator strength (This form is maintained as a part of the permanent medical record) 2014 [employer]. All Rights Reserved Yessi Moreno RN, BSN, CCDS [email or web address] MTDD
[2018-06-09] MEDS: HumaLOG 300 UNITS/3 ML VIAL SC PRN (18:30)
[2018-06-09] MEDS: Famotidine 20 MG TAB PO SCH (20:58)
[2018-06-09] MEDS: Cyclobenzaprine 10 MG TAB PO PRN (20:58)
[2018-06-09] MEDS: Atorvastatin Calcium 20 MG TAB PO SCH (20:58)
[2018-06-10] MEDS: Acetaminophen 500 MG TAB PO SCH ×4 (00:42→11:49)
[2018-06-10] MEDS: MEROPENEM 1 GM/50 ML 1 GM in Premix Bag 1 BAG IVPB SCH ×2 (01:00→08:06)
--- NOTE | 2018-06-10 01:11 | DIS ---
DATE OF ADMISSION: 06/04/2018 DATE OF DISCHARGE: 06/09/2018 This is Yoly Leos NP dictating a report for Mc Urena DO. ADMITTING PHYSICIAN: Dr. Walsh. PRIMARY CARE PHYSICIAN: Dr. Simpson. CONSULTS: Orthopedic surgery, Dr. Borden and Dr. Wiggins. Cardiology, Dr. Flores and Dr. Perez PROCEDURES: 1. On 06/04/2018, hip x-ray; impression, traumatic displaced intertrochanteric fracture of the right femur. 2. Chest x-ray on 06/04/2018, impression; chronic pulmonary changes and hyperinflated lungs, coarse interstitial markings and possible right upper lobe pulmonary nodule. 3. Echocardiogram on 06/06/2018, impression; ejection fraction is visually estimated at 50% to 55%, mild mitral regurgitation and mild tricuspid regurg. 4. On 06/07/2018, operative procedure, right femur intramedullary nail performed by Dr. Wiggins. PRIMARY DIAGNOSIS: Right intertrochanteric hip fracture status post intramedullary nail. SECONDARY DIAGNOSES: History of dementia, history of hypertension, history of diabetes, and possible right pulmonary nodule. MEDICATIONS: 1. Tylenol 1000 mg p.o. q.6 hours. 2. Vitamin C 500 mg p.o. daily. 3. Aspirin 81 mg p.o. twice a day for one month for DVT prophylaxis. 4. Flexeril 5 mg oral 3 times a day as needed. 5. Pepcid 20 mg daily at bedtime. 6. Ferrous sulfate 325 mg p.o. twice a day with meals. 7. Gabapentin 100 mg p.o. 3 times a day. 8. Ibuprofen 400 mg p.o. 3 times a day. 9. Meropenem 1 g IV for 3 days total including today dose 0100, 0900, and 1700. 10. Zofran ODT 4 mg q.6 hours as needed. 11. MiraLAX 17 g oral daily. 12. Senokot two tabs daily. 13. Glipizide 2.5 mg p.o. twice a day. 14. Lexapro 20 mg daily. 15. Lipitor 20 mg at bedtime. DISCONTINUED MEDICATIONS: The patient's daily 81 oral aspirin as the patient is getting 81 mg twice a day for DVT prophylaxis. HISTORY OF PRESENT ILLNESS AND HOSPITAL COURSE: This is an 88-year-old female, who presented to the emergency room status post witnessed fall at her skilled nursing. The patient is a resident of [facility]. The patient does have history of dementia and frequent falls. The patient was evaluated and found to have a right intertrochanteric hip fracture. There was delay in the patient's OR course due to medical clearance. Also, a delay due to elevated WBCs and UTI. Urine culture returned E coli, which was resistant to all oral medications. The patient continues her meropenem for 5 days total as that is the only medication that is not resistant. The patient continued to be slightly altered during her hospital course, which is baseline for the patient. The patient had minimal appetite during her hospital course. Meals were supplemented with Glucerna, which the patient tolerated very well. On the day of discharge, the patient was examined by Dr. Urena. The patient was deemed stable for discharge. The patient's exam was unremarkable including cardiopulmonary and GI exam. The patient was deemed stable for discharge to [facility]. DISPOSITION: Stable. DISCHARGE INSTRUCTIONS: 1. Location: [facility]. 2. Diet: Diabetic diet. 3. Activity: Orthopedic limitations, weightbearing as tolerated in all extremities, posterior hip precautions. 4. Follow up with primary care physician, Dr. Simpson as needed. 5. Follow up with Dr. Urena. Call for any questions. No followup necessary. 6. Follow up with Dr. Wiggins in 10 to 14 days as directed. Job ID: [id number]
[2018-06-10] MEDS: Cyclobenzaprine 10 MG TAB PO PRN (07:42)
[2018-06-10] MEDS: Ibuprofen 200 MG TAB PO SCH (08:13)
[2018-06-10] MEDS: Ferrous Sulfate 325 MG TAB PO SCH (08:13)
[2018-06-10] MEDS: Escitalopram Oxalate 10 mg Tablet PO SCH (08:13)
[2018-06-10] MEDS: Aspirin 81 mg Enteric Coated Tablet PO SCH (08:14)
[2018-06-10] MEDS: Bupropion 150 MG XL TAB PO SCH (08:14)
[2018-06-10] MEDS: Carvedilol 6.25 MG TAB PO SCH (08:14)
[2018-06-10] MEDS: Gabapentin 100 MG CAP PO SCH (08:14)
[2018-06-10] MEDS: Ascorbic Acid 500 mg Chewable Tablet PO SCH (08:14)
[2018-06-10] MEDS: Polyethylene Glycol 3350 17 GM Packet PO SCH (08:14)
[2018-06-10] MEDS: Senokot S 8.6-50 MG TAB PO SCH (08:14)
[2018-06-10] MEDS ORDERED: Carvedilol 6.25 MG TAB PO SCH (09:00)
[2018-06-10 11:32] VITALS: BP 129/62; TEMP 97.9
--- NOTE | 2018-06-12 13:52 | EKG ---
Test Reason : Blood Pressure : / mmHG Vent. Rate : 069 BPM Atrial Rate : 069 BPM P-R Int : 158 ms QRS Dur : 084 ms QT Int : 396 ms P-R-T Axes : 103 030 017 degrees QTc Int : 424 ms Normal sinus rhythm Nonspecific ST abnormality Abnormal ECG Confirmed by MARIAM PRASAD DO ([id number]), industrial editor CAROLYN ELDER ([id number]) on 06/12/2018 1:51:56 PM Referred By: Confirmed By:MARIAM PRASAD DO
== END 2018-06-10 13:43 | DRG 481 ==
LOC: ERS 17:04 → SURG A 21:52
PROVIDERS: ADMIT Surgery; ATTEND Surgery
PROC: 0QS636Z Reposition Right Upper Femur with Intramedullary Internal Fixation Device, Percutaneous Approach (ICD-10-PCS; principal; 2018-06-07)
DX: S72.141A Displaced intertrochanteric fracture of right femur, initial encounter for closed fracture (principal); N39.0 Urinary tract infection, site not specified; E44.0 Moderate protein-calorie malnutrition; Z68.1 Body mass index [BMI] 19.9 or less, adult; F03.90 Unspecified dementia, unspecified severity, without behavioral disturbance, psychotic disturbance, mood disturbance, and anxiety; Z66 Do not resuscitate; R29.6 Repeated falls; I10 Essential (primary) hypertension; E11.9 Type 2 diabetes mellitus without complications; W05.0XXA Fall from non-moving wheelchair, initial encounter; B96.20 Unspecified Escherichia coli [E. coli] as the cause of diseases classified elsewhere; R91.1 Solitary pulmonary nodule; Z79.82 Long term (current) use of aspirin; Z90.49 Acquired absence of other specified parts of digestive tract; Z79.84 Long term (current) use of oral hypoglycemic drugs; Z88.2 Allergy status to sulfonamides; Z88.1 Allergy status to other antibiotic agents; Z88.5 Allergy status to narcotic agent
CPT/HCPCS: 36415; 36416; 51702; 71045; 76000; 80048; 80053; 81001; 82553; 83735; 84100; 84484; 85025; 85610; 85730; 86850; 86900; 86901; 87040; 87077; 87086; 87186; 93005; 93010; 93306; 96374; 96375; C1713; G0390; J0131; J0360; J1885; J2185; J2270; J2405; J3475; J3490; J7050

== ENCOUNTER 2018-07-03 18:55 | Emergency (ER) | payer MEDICARE ==
[2018-07-03 20:16] LABS: #Eosinphils 0.4 thou/uL (0.0-0.7); #Lymphocytes 1.9 thou/uL (1.20-3.40); #Monocytes 0.9 thou/uL (0.11-0.59); %Basophils 0.2 % (0.0-1.0); %Eosinophils 4.8 % (0.0-10.0); %Lymphocytes 20.7 % (21.0-51.0); %Monocytes 9.8 % (0.0-10.0); %Neutrophils 64.5 % (42.0-75.0); Hemoglobin 10.9 g/dL (12.0-16.0); Mean Corpuscular HGB CONC 31.8 g/dL (32.0-36.0); Mean Corpuscular Hemoglobin 32.1 pg (27.0-31.0); Mean Platelet Volume 6.9 fL (7.4-10.4); Platelet Count 260 thou/uL (130-400); RBC Distribution Width 14.6 % (11.5-14.5); Red Blood Cell (RBC) Count 3.38 mill/uL (4.20-5.40); White Blood Cell (WBC) Count 9.3 thou/uL (4.8-10.8)
[2018-07-03] MEDS ORDERED: Labetalol HCl 100 MG/20 ML VIAL ONE (20:26)
[2018-07-03 20:31] LABS: ALT (SGPT) 9 U/L (8-55); AST (SGOT) 18 U/L (5-34); Albumin 3.1 g/dL (3.4-4.8); Alkaline Phosphatase 109 U/L (40-150); Anion Gap 11 mmol/L (10-20); BUN (Urea Nitrogen) 5 mg/dL (9.8-20.1); Bilirubin, Total 0.6 mg/dL (0.2-1.2); Calc. Creatinine Clearance 0 mL/min (70-130); Calcium 9.2 mg/dL (7.8-10.44); Carbon Dioxide 28 mmol/L (23-31); Chloride 105 mmol/L (98-107); Estimated GFR-MDRD Greater than 90; Globulin 3.4 g/dL (2.4-3.5); Potassium 3.9 mmol/L (3.5-5.1); Protein, Total 6.5 g/dL (6.0-8.3); Sodium 140 mmol/L (136-145)
[2018-07-03 20:35] LABS: Glucose 54 mg/dL (83-110)
[2018-07-03] MEDS ORDERED: Dextrose 50% Abboject 50 ML SYRINGE ONE (20:38)
== END 2018-07-03 21:50 | disposition home or self-care (01) ==
LOC: ERS 18:55
DX: E11.649 Type 2 diabetes mellitus with hypoglycemia without coma (principal); E46 Unspecified protein-calorie malnutrition; I10 Essential (primary) hypertension; F03.90 Unspecified dementia, unspecified severity, without behavioral disturbance, psychotic disturbance, mood disturbance, and anxiety; I25.10 Atherosclerotic heart disease of native coronary artery without angina pectoris; F41.9 Anxiety disorder, unspecified; F32.9 Major depressive disorder, single episode, unspecified; Z79.82 Long term (current) use of aspirin; Z79.899 Other long term (current) drug therapy
CPT/HCPCS: 36415; 36416; 80053; 85025; 96374; 96375

== ENCOUNTER 2019-07-12 19:53 | Inpatient (IN) | payer MEDICARE ==
[2019-07-12 20:23] LABS: #Eosinphils 0.2 thou/uL (0.0-0.7); #Lymphocytes 1.2 thou/uL (1.20-3.40); #Monocytes 0.8 thou/uL (0.11-0.59); #Neutrophils 8.8 thou/uL (1.40-6.50); %Basophils 0.3 % (0.0-1.0); %Eosinophils 1.7 % (0.0-10.0); %Lymphocytes 10.6 % (21.0-51.0); %Neutrophils 80.5 % (42.0-75.0); Hemoglobin 3.4 g/dL (12.0-16.0); Mean Corpuscular HGB CONC 28.3 g/dL (32.0-36.0); Mean Corpuscular Hemoglobin 19.5 pg (27.0-31.0); Mean Corpuscular Volume 68.8 fL (78.0-98.0); Mean Platelet Volume 10.7 fL (7.4-10.4); Platelet Count 190 thou/uL (130-400); RBC Distribution Width 16.1 % (11.5-14.5); Red Blood Cell (RBC) Count 1.77 mill/uL (4.20-5.40)
[2019-07-12 20:26] LABS: INR-International Normal Ratio 1.2; Prothrombin Time 14.9 sec (12.0-14.7)
[2019-07-12 20:38] LABS: ALT (SGPT) Less than 7 U/L (8-55); AST (SGOT) 9 U/L (5-34); Alkaline Phosphatase 56 U/L (40-110); Anion Gap 10 mmol/L (10-20); BUN (Urea Nitrogen) 23 mg/dL (9.8-20.1); Bilirubin, Total 0.2 mg/dL (0.2-1.2); Calc. Creatinine Clearance 0 mL/min (70-130); Calcium 8.5 mg/dL (7.8-10.44); Carbon Dioxide 25 mmol/L (23-31); Chloride 107 mmol/L (98-107); Estimated GFR-MDRD 72; Glucose 227 mg/dL (83-110); Iron 9 ug/dL (50-170); Iron Binding Capacity, Total 373 mcg/dL (265-497); Potassium 4.3 mmol/L (3.5-5.1); Sodium 138 mmol/L (136-145)
[2019-07-12 20:43] LABS: Hypochromia MODERATE=16-30 cells (100X) (0-5/hpf); MDiff Complete? YES; Microcytosis SLIGHT = 6-15 cells (100X) (0-5/hpf); Ovalocytes SLIGHT = 2-5 cells (100X) (0-1/hpf); Platelet Clumps SLIGHT; Platelet Morphology Comment Appears Adequate; Reflex for Review?? YES
[2019-07-12] MEDS ORDERED: Ondansetron ODT 4 MG TAB SL PRN (22:04)
[2019-07-12] MEDS ORDERED: Ondansetron PF 4 MG/2 ML Vial IVP PRN (22:04)
[2019-07-12] MEDS ORDERED: Acetaminophen 325 MG TAB PO PRN (22:04)
[2019-07-12 22:33] VITALS: BMI 17.1
[2019-07-12] MEDS ORDERED: Dextrose 5% in Water 1,000 ML IV PRN (23:21)
[2019-07-12] MEDS ORDERED: HumaLOG 300 UNITS/3 ML VIAL SC PRN ×2 (23:21)
[2019-07-12] MEDS ORDERED: Dextrose 50% Abboject 50 ML SYRINGE SLOW IVP PRN (23:21)
[2019-07-12 23:38] LABS: Reticulocyte Count 2.4 % (0.5-1.5)
--- NOTE | 2019-07-12 23:38 | PDOC.HHP ---
Hospitalist HPI - History of Present Illness General Weakness, pallor History of Present Illness: PCP: Josh Clement The HPI was taken from the patient and her daughter at bedside. The patient is an 89/F with PMH significant for PUD, CAD, DMII (controlled), HTN , and dementia that presents to the ER for the above complaint. The patient reports "feeling bad" over the past several days, reporting general weakness and fatigue, exacerbated by exertion, relieved by nothing. She is a resident at [facility] and her nurses noticed she was pale. Blood work was taken, showing Hgb on 3. She was sent to the ER for further evaluation. The patient and daughter reported that she has been on 2 baby ASA daily and ibuprofen, which was stopped this morning. They both deny any hematemesis, melena or hematochezia, denies abdominal pain, nausea and diarrhea. Denies chest pain, heart palpitations, SOB, fever and chills. The patient has no other complaints at this time. ED Course: VS 129/51, 81, 17, 99%RA, 98.5F EKG NSR [address] and T wave abnormalities Iron 9 TIBC 373 Ferritin 2.07 PT 14.9 INR 1.2 Hgb 3.9 Hct 12.2 Given: 1u PRBCs with another waiting to administer Allergies: Azithromycin, Sulfa, Codeine, tramadol Home Medications: 1. Coreg 3.125mg po BID 2. Famotidine 20mg po day 3. Lexapro 20mg po day 4. Sennakot 8.6mg po BID Hospitalist ROS - Review of Systems Constitutional: reports: weakness, malaise (fatigue). denies: fever, chills Eyes: denies: pain, vision change, conjunctivae inflammation, eyelid inflammation, redness, other ENT: denies: ear pain, ear discharge, nose pain, nose discharge, nose congestion , mouth pain, mouth swelling, throat pain, throat swelling, other Respiratory: denies: cough, dry, shortness of breath, hemoptysis, SOB with excertion, pleuritic pain, sputum, wheezing, other Cardiovascular: denies: chest pain, palpitations, orthopnea, paroxysmal noc. dyspnea, edema, light headedness, other Gastrointestinal: denies: nausea, vomiting, abdominal pain, diarrhea, constipation, melena, hematochezia, other Genitourinary: denies: dysuria, frequency, incontinence, hematuria, retention, other Skin: denies: rash, bruising Neurological: reports: weakness (generalized). 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 Gastrointestinal: reports: GERD Psych: reports: Anxiety, Depression Endocrine: reports: Diabetes (type II, controlled) - Past Surgical History Past Surgical History: reports: Appendectomy, Cholecystectomy, Hysterectomy, Total Hip Replacement (right) - Family History Family History: reports: no pertinent history Other Family History: non contributory to this case - Social History Smoking Status: Never smoker Alcohol: reports: None Drugs: reports: none Living Situation: Detention Occupation: Lives at [facility] Activity level: wheelchair bound - Exam General Appearance: NAD, awake alert Eye: anicteric sclera ENT: normocephalic atraumatic, dry oral mucosa ENT - other findings: pale mucosa Neck: supple, no JVD Heart: RRR, no gallops, no rubs, normal peripheral pulses, murmur present Respiratory: CTAB, no wheezes, no rales, no ronchi, no tachypnea Gastrointestinal: soft, non-tender, non-distended, normal bowel sounds, no guarding, no rigidity Extremities: no cyanosis, no edema Skin: no rashes Neurological: no focal deficits Psychiatric: normal affect Psychiatric - other findings: alert and oriented x 2, baseline per daughter, follows commands Hospitalist Results - Labs Result Diagrams: 07/12/19 20:04 07/12/19 20:04 Lab results: WBC 11.0 thou/uL (4.8-10.8) H 07/12/19 20:04 Hgb 3.4 g/dL (12.0-16.0) L* 07/12/19 20:04 Hct 12.2 % (36.0-47.0) L* 07/12/19 20:04 MCV 68.8 fL (78.0-98.0) L 07/12/19 20:04 Plt Count 190 thou/uL (130-400) 07/12/19 20:04 Neutrophils % 80.5 % (42.0-75.0) H 07/12/19 20:04 Sodium 138 mmol/L (136-145) 07/12/19 20:04 Potassium 4.3 mmol/L (3.5-5.1) 07/12/19 20:04 Chloride 107 mmol/L (98-107) 07/12/19 20:04 Carbon Dioxide 25 mmol/L (23-31) 07/12/19 20:04 BUN 23 mg/dL (9.8-20.1) H 07/12/19 20:04 Creatinine 0.76 mg/dL (0.6-1.1) 07/12/19 20:04 Glucose 227 mg/dL (83-110) H 07/12/19 20:04 Calcium 8.5 mg/dL (7.8-10.44) 07/12/19 20:04 Total Bilirubin 0.2 mg/dL (0.2-1.2) 07/12/19 20:04 AST 9 U/L (5-34) 07/12/19 20:04 ALT Less than 7 U/L (8-55) L 07/12/19 20:04 Alkaline Phosphatase 56 U/L (40-110) 07/12/19 20:04 Serum Total Protein 6.0 g/dL (6.0-8.3) 07/12/19 20:04 Albumin 3.0 g/dL (3.4-4.8) L 07/12/19 20:04 - EKG Interpretation EKG: NSR Hospitalist H&P A/P - Problem (1) Symptomatic anemia Code(s): D64.9 - ANEMIA, UNSPECIFIED Status: Acute Assessment and Plan: Admit to medical floor, inpatient status Expected length of stay at least 2 midnights Hgb 3.4, Hct 12.2, FOBT negative oral mucosa pallor, VS stable, patient takes coreg BID Currently 1 PRBC infusing, with 2nd bag ready to transfuse Will recheck CBC after infusion and trend H&H q 4 hours Will consult GI get orthostatics NPO (2) Iron deficiency anemia Code(s): D50.9 - IRON DEFICIENCY ANEMIA, UNSPECIFIED Status: Acute Assessment and Plan: Serum iron 9 and ferritin 2.07, TIBC 373 Will consult GI (3) HTN (hypertension) Code(s): I10 - ESSENTIAL (PRIMARY) HYPERTENSION Status: Chronic Assessment and Plan: Controlled and stable Will restart Coreg when home meds reconciled by nursing (4) DMII (diabetes mellitus, type 2) Status: Chronic Assessment and Plan: Well controlled per daughter, does not take any medications Will perform accucheck q 6 hours (5) Dementia Code(s): F03.90 - UNSPECIFIED DEMENTIA WITHOUT BEHAVIORAL DISTURBANCE Status: Chronic Assessment and Plan: Alert, follows commands Baseline per daughter (6) Anxiety and depression Code(s): F41.9 - ANXIETY DISORDER, UNSPECIFIED; F32.9 - MAJOR DEPRESSIVE DISORDER, SINGLE EPISODE, UNSPECIFIED Status: Chronic Assessment and Plan: Patient takes lexapro as home medication Will restart when medications reconciled by nursing. - Plan Plan: Consult PT Protonix IVP GI prophylaxis SCDs DVT prophylaxis DNAR Discussed with daughter at bedside and reviewed paperwork in chart QUIN is daughterIvy Discussed case with Dr. Schuster.
[2019-07-13] MEDS: Sodium Chloride 0.9% 1,000 ML IV SCH ×2 (01:14→02:45)
[2019-07-13 03:16] LABS: #Eosinphils 0.2 thou/uL (0.0-0.7); #Lymphocytes 1.9 thou/uL (1.20-3.40); #Neutrophils 6.7 thou/uL (1.40-6.50); %Basophils 0.1 % (0.0-1.0); %Eosinophils 2.2 % (0.0-10.0); %Monocytes 10.3 % (0.0-10.0); %Neutrophils 68.4 % (42.0-75.0); Hemoglobin 6.4 g/dL (12.0-16.0); Mean Corpuscular HGB CONC 31.5 g/dL (32.0-36.0); Mean Corpuscular Hemoglobin 24.6 pg (27.0-31.0); Mean Platelet Volume 9.8 fL (7.4-10.4); Platelet Count 167 thou/uL (130-400); RBC Distribution Width 19.6 % (11.5-14.5); Red Blood Cell (RBC) Count 2.61 mill/uL (4.20-5.40); White Blood Cell (WBC) Count 9.8 thou/uL (4.8-10.8)
[2019-07-13 03:36] LABS: Troponin I 0.023 ng/mL (< 0.028)
[2019-07-13 03:56] LABS: Anion Gap 10 mmol/L (10-20); BUN (Urea Nitrogen) 21 mg/dL (9.8-20.1); Calc. Creatinine Clearance 39 mL/min (70-130); Calcium 8.4 mg/dL (7.8-10.44); Carbon Dioxide 25 mmol/L (23-31); Chloride 109 mmol/L (98-107); Estimated GFR-MDRD 78; Glucose 188 mg/dL (83-110); Potassium 4.1 mmol/L (3.5-5.1); Sodium 140 mmol/L (136-145)
[2019-07-13 07:37] LABS: Hemoglobin 6.9 g/dL (12.0-16.0)
[2019-07-13] MEDS ORDERED: Pantoprazole 40 MG VIAL IVP SCH (09:00)
[2019-07-13 11:29] VITALS: BP 126/52; TEMP 98.8
[2019-07-13 13:46] LABS: Hemoglobin 7.1 g/dL (12.0-16.0)
[2019-07-13] MEDS ORDERED: Dextrose 5 % And 0.9 % NaCl 1,000 ML IV SCH (14:30)
--- NOTE | 2019-07-13 14:33 | PDOC.HOSPP ---
- Subjective Encounter Date: 07/13/19 Encounter Time: 09:30 Subjective: The patient is doing better. SHe states she looked pale and hemoglobin was 3 and was transferred here. She denies abdominal pain, nausea or vomiting. SHe has not seen blood in her stools. SHe says she thinks she had a colonscopy less than 10 years ago which was normal. Does not think she had an EGD Patient states she broke her hip a few years ago and may have taken NSAIDS for that but does not recall taking NSAIDS. She was taking aspirin for questionable heart attack in the past but it was stopped a few months ago - Objective Vital Signs & Weight: Vital Signs (12 hours) Temp Pulse Pulse Resp BP BP BP 07/13/19 11:23 98.8 F 70 16 126/52 L 07/13/19 08:00 07/13/19 07:49 98.6 F 73 18 126/50 L 07/13/19 03:42 98.6 F 77 18 133/56 L 130/59 L 07/13/19 02:45 98.6 F 74 18 141/69 H Pulse Ox 07/13/19 11:23 95 07/13/19 08:00 95 07/13/19 07:49 95 07/13/19 03:42 95 07/13/19 02:45 96 Weight Weight 96 lb 12.527 oz I&O: 07/12/19 07/13/19 07/14/19 06:59 06:59 06:59 Intake Total 700 Balance 700 Result Diagrams: 07/13/19 13:36 07/13/19 03:01 Additional Labs: Accuchecks 07/13/19 07/13/19 07/13/19 11:32 05:06 00:28 POC Glucose 106 149 H 250 H Hospitalist ROS - Review of Systems Constitutional: denies: fever, chills - Medication Medications: Active Medications Generic Name Dose Route Start Last Admin Trade Name Freq PRN Reason Stop Dose Admin Dextrose/Sodium Chloride 1,000 mls @ 75 mls/hr 07/13/19 14:30 07/13/19 14:28 D5 0.9% Ns IV 1,000 mls .[id number] EHSAN Administration Pantoprazole Sodium 40 mg 07/13/19 09:00 07/13/19 08:21 Protonix IVP 40 mg BID EHSAN Administration - Exam General Appearance: NAD, awake alert Eye: PERRL, anicteric sclera ENT: normocephalic atraumatic, no oropharyngeal lesions Neck: supple, no JVD Heart: RRR, no murmur, no gallops, no rubs Respiratory: CTAB, no wheezes, no rales, no ronchi Hosp A/P - Plan This is an 89 year old female who presented with a hemoglobin of 3, admitted for further workup Acute iron deficiency anemia - Hb 3 on admission. She is s/p 2 units PRBC with Hb improvement to 7 - ferritin level very low at 2. She will need iron supplementation but will hold off since there is plan for EGD and possible colonoscopy tomorrow - GI is consulted - occult blood was negative B12 deficiency - B12 levels normal. Continue B12 supplementation Hypertension - controlled - hold coreg for now
[2019-07-13 17:05] LABS: Hemoglobin 7.2 g/dL (12.0-16.0)
--- NOTE | 2019-07-14 01:48 | CON ---
DATE OF CONSULTATION: 07/13/2019 CONSULTING PROVIDER: Sam Rey NP REASON FOR CONSULTATION: Iron deficiency anemia. HISTORY OF PRESENT ILLNESS: The patient is an 89-year-old female with past medical history of peptic ulcer disease, coronary artery disease, diabetes, hypertension, and Lewy body dementia, who initially presented to the hospital with general malaise and general weakness. Currently, the patient is a resident at [facility] and over the course of her stay recently, the nurses had noticed that she had increasing skin pallor. This prompted the nursing staff to obtain a CBC, which showed a significantly decreased hemoglobin and hematocrit concerning for significant anemia and she was ultimately transferred to the [facility] ER for further evaluation. In talking with the patient and her daughter, the patient has been having progressive worsening anemia over the course of her stay at the group home stating that over the last 6 to 8 months, her hemoglobin and hematocrit has been steadily decreasing over that time. She has not had any observed hematemesis, melena, or hematochezia throughout this entire 6 to 8 months, which could be contributed to GI bleeding; however, the patient's daughter states that while in the group home, she has been taking two baby aspirin a day in addition to ibuprofen as needed as part of pain control and cardioprotective effects. She also does have a history of peptic ulcer disease, but it is unclear if this was established via radiograph or direct visualization with endoscopy. So far during this admission, the patient did have infusion of 2 units of PRBCs and after administration, she states that she is feeling much better. Currently, she denies any nausea, vomiting, fevers, chills, hematemesis, melena, hematochezia, abdominal pain, diarrhea, constipation, or weight loss. Of note, the patient may have had an EGD several years ago with ulcer seen during that procedure, but unclear etiology as to what was causing them. Her last colonoscopy was approximately 20 to 30 years ago. REVIEW OF SYSTEMS: A 10-category review of systems was obtained with all responses negative except for the pertinent positives as listed in HPI. PAST MEDICAL HISTORY: As per HPI. PAST SURGICAL HISTORY: Appendectomy, cholecystectomy, hysterectomy, and total right hip replacement. FAMILY HISTORY: Denies any GI malignancies. SOCIAL HISTORY: Denies any tobacco, alcohol, or illicit drug use. OUTPATIENT MEDICATIONS: Reviewed. ALLERGIES: AZITHROMYCIN, SULFA, CODEINE, AND TRAMADOL. PHYSICAL EXAMINATION: VITAL SIGNS: Temperature 98.8, pulse 70, blood pressure 126/52, respiratory rate 16, saturating 95% on room air. GENERAL: The patient was lying in bed, in no acute distress. Alert and oriented x3. HEENT: Normocephalic, atraumatic. NECK: Supple. No JVD or scleral icterus noted. CARDIOVASCULAR: Regular rate and rhythm with no discernible murmurs, gallops, or rubs. RESPIRATORY: Clear to auscultation bilaterally with no discernible wheezes or rales. ABDOMEN: Normoactive bowel sounds. Soft, nontender, and nondistended. EXTREMITIES: No cyanosis, clubbing, or edema. LABORATORY DATA: CBC with a white blood cell count of 9.8, hemoglobin 7, hematocrit 22, platelets 167. Initial presenting H and H were 3.4 and 12.2. INR 1.2. Chemistry with a sodium of 140, potassium 4.1, chloride 109, CO2 of 25, BUN 21, creatinine 0.71, glucose 188. AST 9, ALT 7, alkaline phosphatase 56, total bilirubin 0.2, iron 9, ferritin 2.07, TIBC 373. IMAGING DATA: No current GI imaging is available for review. ASSESSMENT AND PLAN: The patient is an 89-year-old female with past medical history of peptic ulcer disease, coronary artery disease, diabetes, hypertension, and Lewy body dementia, presenting with profound anemia with unclear etiology. Symptomatic anemia of unclear etiology. The patient is presenting with a significantly decreased hemoglobin and hematocrit with a hemoglobin of 3.4 on admission in addition to progressively worsening generalized weakness and skin pallor. However, per conferring with the patient's daughter, this anemia has been slowly worsening over the last 6 to 8 months with no observed evidence of bleeding, GI or otherwise. Her current labs are indicative of an iron deficiency anemia and given her history of peptic ulcer disease could be indicative of an upper GI bleed, but also given her last colonoscopy being many many years ago, would warrant a repeat colonoscopy as well. I discussed the risks and benefits of both the upper endoscopy and colonoscopy with the patient and her daughter and at this time given the patient's advanced age and medical comorbidities, they are reluctant to proceed with endoscopic evaluation at this time. RECOMMENDATIONS: 1. We would continue to trend her H and H and transfuse as necessary to maintain an H and H of 7/21. 2. Continue to monitor clinically for signs of active GI bleeding. 3. We would avoid any anticoagulation medications. 4. We would reconsider NSAID use in this particular patient given her anemia. 5. We will continue PPI 40 mg b.i.d. in light of possible GI bleeding source. 6. We would normally recommend both upper and lower endoscopy for further evaluation of this iron-deficiency anemia, but would hold on any procedures right now given the patient and family preference. We will sign off at this time. Please call with any questions. Job ID: [id number]
--- NOTE | 2019-07-14 08:46 | DIS ---
DATE OF ADMISSION: 07/12/2019 DATE OF DISCHARGE: 07/13/2019 DISCHARGE DIAGNOSES: 1. Acute iron deficiency anemia, requiring blood transfusion 2. Leukocytosis. CONSULTATIONS: Dr. Masood Mackenzie with GI. PROCEDURES: None. BRIEF HISTORY OF PRESENT ILLNESS: This is an 89-year-old female with a past medical history of dementia, CAD, and hypertension, who presented to the emergency room for generalized weakness and fatigue. Nurses noticed that she was pale, and she had blood work taken, which showed a hemoglobin of 3. The patient states that she recently stopped taking her aspirin for possible heart attack in the past, a few weeks ago. She does not recall taking any ibuprofen. When she was admitted to the emergency room, she was found to have a ferritin level of 2 and a hemoglobin of 3.4. She was admitted to the hospital for further workup. HOSPITAL COURSE: Acute iron deficiency anemia: The patient underwent 2 units of PRBCs. Her repeat hemoglobin came up to 7 on the day of discharge. She was seen by GI in consultation and refused EGD and colonoscopy. After speaking with the daughter, they preferred iron supplementation instead. She will be discharged with iron supplements and should have a repeat CBC in 4 weeks with her PCP. She should consider an EGD and colonoscopy if her anemia were to recur or if she has overt blood in her stools. The patient states she did have a colonoscopy less than 10 years ago, which was normal. She did meet inpatient criteria on admission, but improved faster than anticipated. Leukocytosis: The patient had a white count of 11.0 on the 12th, which improved to 9.8 on the day of discharge. She had no fevers. DISCHARGE PHYSICAL EXAMINATION: VITAL SIGNS: Temperature 98.8, heart rate 70, respiratory rate 16, O2 saturation 95% on room air, and blood pressure 126/52. GENERAL: The patient is alert, awake, and oriented x3. CVS: Regular rate and rhythm with no murmurs, rubs, or gallops. LUNGS: Clear to auscultation bilaterally. ABDOMEN: Positive bowel sounds, soft, nontender, nondistended. EXTREMITIES: No edema. PERTINENT LABORATORY DATA: CBC on 07/11: White count 11.0, hemoglobin 3.4, hematocrit 12.2, and platelet count 190. CBC on 07/12: White count 9.8, hemoglobin 7.1, hematocrit 22.4, and platelet count of 167. BMP on 07/12: Normal. Iron panel: Ferritin 2.0, iron of 9, TIBC 373. LFTs: Normal. Vitamin B12: 719. Folate: 15. DISCHARGE CONDITION: Stable. ACTIVITY: As tolerated. DIET: Regular diet. DISCHARGE MEDICATIONS: 1. Iron sulfate 325 mg p.o. b.i.d. All other home medications were resumed. The patient should not take her Coreg if her blood pressure drops less than 100. DISCHARGE INSTRUCTIONS: The patient should follow up with her PCP in 4 weeks to have a repeat CBC after starting iron supplementation. Job ID: [id number] [facility]
== END 2019-07-13 17:12 | DRG 812 ==
LOC: ERS 19:53 → T4-B 20:56
PROVIDERS: ADMIT Internal Medicine; ATTEND Internal Medicine
PROC: 30233N1 Transfusion of Nonautologous Red Blood Cells into Peripheral Vein, Percutaneous Approach (ICD-10-PCS; principal; 2019-07-12)
DX: D50.9 Iron deficiency anemia, unspecified (principal); Z66 Do not resuscitate; I25.10 Atherosclerotic heart disease of native coronary artery without angina pectoris; E11.9 Type 2 diabetes mellitus without complications; I10 Essential (primary) hypertension; K21.9 Gastro-esophageal reflux disease without esophagitis; G31.83 Neurocognitive disorder with Lewy bodies; F02.80 Dementia in other diseases classified elsewhere, unspecified severity, without behavioral disturbance, psychotic disturbance, mood disturbance, and anxiety; F41.9 Anxiety disorder, unspecified; F32.9 Major depressive disorder, single episode, unspecified; E53.8 Deficiency of other specified B group vitamins; Z90.49 Acquired absence of other specified parts of digestive tract; Z90.710 Acquired absence of both cervix and uterus; Z88.2 Allergy status to sulfonamides; Z88.5 Allergy status to narcotic agent; Z88.1 Allergy status to other antibiotic agents; Z79.899 Other long term (current) drug therapy; Z79.4 Long term (current) use of insulin
CPT/HCPCS: 36415; 36416; 36430; 80048; 80053; 82274; 82607; 82728; 82746; 83540; 83550; 84484; 85025; 85046; 85060; 85610; 85730; 86850; 86900; 86901; 93005; C9113; P9016